=== PATIENT | female | born 1960 | race Caucasian/White ===

== ENCOUNTER → 2017-04-19 | Outpatient (CLI) | payer OTHER ==
[~2017-04-19] MED LIST: ADVIN50/60 INH; ALBU1AER9 INH; ALPR-385 PO; AMPH15CA7 PO; ANSHCCR PR; BUPR200T2 PO; IMD2 PO; LEVO1INJ13 PO; MONT1TAB3 PO; NSNN50 NAE; OXGN; OXYC-57 PO; PROP120C PO; ROPI1TAB PO; TEMA30CA4 PO
--- NOTE | 2017-04-19 11:03 | DIAGNOSTIC IMAGING REPORT ---
RIGHT SHOULDER MIN 2 VIEWS CLINICAL HISTORY: RIGHT SHOULDER PAIN Right pain COMPARISON: None. DISCUSSION: Considerable degenerative changes of glenohumeral joint. Subchondral cyst formation throughout. Moderate degenerative change acromioclavicular joint. Mild superior-lateral osteophytic formation from the acromion. There is no evidence for soft tissue swelling. IMPRESSION: Moderate to significant degenerative change. No acute bony abnormality. Electronically signed by: Que Taylor M.D. 04/19/2017 11:01 AM Dictated Date/Time: 04/19/2017 11:01 AM
== END | disposition home or self-care (01) ==
LOC: C.RDSM 13:25
PROVIDERS: ATTEND Family Medicine
DX: M25.511 Pain in right shoulder (principal); M19.011 Primary osteoarthritis, right shoulder

== ENCOUNTER 2022-03-24 17:15 | Inpatient (IN) ==
[2022-03-24] MEDS ORDERED: dexAMETHasone**PF** 10 MG/ML VIAL IV ONE (18:31)
[2022-03-24] MEDS ORDERED: MoRPHine SULFATE 4 MG/ML 1 ML CARP\\VIAL IV STA (18:31)
[2022-03-24] MEDS ORDERED: ONDANSETRON INJ 2 MG/ML 2 ML VIAL IV STA (18:33)
--- NOTE | 2022-03-24 18:40 | Emergency Department Note ---
History of Present Illness General Chief complaint: Back Injury/Pain Stated complaint: BACK PAIN Time Seen by Provider: 03/24/22 17:45 History of Present Illness Maximum Pain Intensity: 0 61-year-old female, history of chronic lower back pain with usual right lower extremity radiculitis, who presents to the emergency department with complaint of uncontrollable lower back pain and pain radiating down the left lower extremity. The patient reports that she injured her left knee several months ago, and did have some flare of her back pain at that time. Her knee has since improved, but still has back pain. The patient reports progressively worsening pain over the past several days, and now is finding difficulty with any attempted ambulation. She denies any recent injuries. She denies any other symptoms, including recent infection, fevers, bladder/bowel incontinence, saddle anesthesias or foot drop. The patient has had prior history of epidural steroid injections without relief. She does not recall when her last imaging was of her back. The patient was brought to the emergency department by [facility] ambulance, and was administered IV fentanyl and Toradol in route. The patient is unable to rate her pain on examination. Home Medications Medication Instructions Recorded Confirmed Type Albuterol (Proair Hfa) 2 puff INHALATION Q4 #0 03/27/10 History OXYCODONE/ACETAMINOPHEN 5MG/325MG 1 - 2 tabs PO Q4-6HR PRN #20 03/27/10 Rx (PERCOCET 5MG/325MG) ALPRAZOLAM (XANAX) 1 tab PO QID PRN #0 07/15/15 History AMPHETAMINE-DEXTROAMPHETAMINE 15MG 1 cap PO DAILY #0 07/15/15 History (ADDERALL XR 15MG) BUPROPION HCL (WELLBUTRIN SR) 1 tab PO BID #0 07/15/15 History FLUTICASONE PROP/SALMETEROL 1 puff INHALATION BID #0 07/15/15 History (Advair Diskus 500/50 60 Dose) HOME O2 THERAPY (Oxygen) 2 liters HS #0 07/15/15 History HYDROCORTISONE (PROCTOSOL HC) 1 applic OR 2-4 TIMES A DAY PRN #0 07/15/15 History LEVOTHYROXINE SODIUM 100 mcg PO DAILY #0 07/15/15 History Loperamide HCl 2 tab PO UD #0 07/15/15 History MOMETASONE FUROATE (NASAL) 2 spry VANDANA DAILY #0 07/15/15 History (NASONEX) MONTELUKAST SODIUM (SINGULAIR) 1 tab PO DAILY #0 07/15/15 History PROPRANOLOL HCL (PROPRANOLOL HCL 1 cap PO BID #0 07/15/15 History ER) ROPINIROLE HYDROCHLORIDE (REQUIP) 1 tab PO HS #0 07/15/15 History TEMAZEPAM (RESTORIL) 1 cap PO HS PRN #0 cap 07/15/15 History Allergies Allergy/AdvReac Type Severity Reaction Status Date / Time amoxicillin Allergy throat Unverified 03/27/10 13:25 swells NSAIDS (Non-Steroidal Allergy vomiting Unverified 03/27/10 13:25 Anti-Inflamma Past Med/Surg History Medical History ADHD Anxiety Depression Hx of migraines Hypothyroidism (acquired) Restless leg syndrome Seasonal allergies Venous insufficiency Surgical History History of carpal tunnel surgery of left wrist Social History (Updated 03/24/22 @ 18:40 by Rolando Waterman) Smoking Status: Never smoker marital status: Single current occupational status: disabled Feels Safe at Home: Yes Review of Systems 10 system review was performed and was negative except for pertinent positives and negatives as indicated in history of present illness Physical Exam Vital Signs Vital Signs - 24 hr 03/24/22 17:20 Temperature 36.6 C Temperature Source Oral Pulse Rate 59 L Respiratory Rate 16 Respiratory Effort / Characteristics Non-Labored Respiratory Depth Normal Blood Pressure 119/63 Blood Pressure Mean 81 Pulse Oximetry 97 Oxygen Delivery Method Room Air Sepsis Recent Fever Within 48 Hours No Sepsis New/Unexplained Change in Mental Status No Sepsis Action Taken by Nursing No Action Required CONSTITUTIONAL: Morbidly obese female in moderate distress and discomfort. HEENT: Normocephalic, atraumatic. No scleral icterus or conjunctival injection/pallor. RESPIRATORY: Clear to auscultation bilaterally with no wheezing, crackles, r honchi or stridor. CARDIOVASCULAR: Regular rate and rhythm with no murmurs, rubs or gallops. GASTROINTESTINAL: Bowel sounds present in all quadrants. Abdomen is protuberant and soft without tenderness to palpation. MUSCULOSKELETAL: Examination shows generalized tenderness to palpation through the lower back region. Negative logroll of the left hip. Patient has positive straight leg raise. Patient has poor hip flexion strength, with left lower extremity plantarflexion strength of 3 out of 5. This is slightly weaker than the right side which is rated at 4 out of 5. Pedal pulses are intact. No dependent edema. INTEGUMENTARY: No rash or other significant dermatologic conditions noted. HEMATOLOGIC: No ecchymosis or petechiae. PSYCHIATRIC: Positive affect. NEUROLOGIC: Lower extremities are sensory intact with deep tendon reflexes 2+ and symmetric bilaterally. Course Course Patient history and physical exam were performed. Nurses notes were reviewed. Vital signs were reviewed upon triage, and were normal. After further discussing the patient's current condition, she does admit that she does not feel safe at home with her pain and weakness. At this point, I did recommend administering additional IV morphine and Zofran, and checking some basic labs. I also recommended MRI of the lumbar spine, especially given her history of chronic back pain. IV access was established, and labs were drawn. The patient was hydrated with a 500 cc bolus of normal saline, and administered IV morphine and Zofran. Review of labs shows a mild elevation of sed rate and CRP. CBC and CMP are otherwise grossly normal. Noncontrast MRI of the lumbar spine shows severe central canal stenosis at L3-4 with a central/left paracentral disc extrusion, and severe narrowing of the lateral recesses. Findings were discussed with the patient. I did recommend hospitalist evaluation until she can be reevaluated by spine surgery; the patient was in agreement. The [facility] who came to the emergency department for further evaluation. Please see his dictation for further treatment and final disposition. Administered Medications Discontinued Medications Dexamethasone Sodium Phosphate (DexamethasonePf 10 Mg/Ml Vial) 10 mg IV NOW ONE Stop: 03/24/22 18:32 Last Admin: 03/24/22 19:05 Dose: 10 mg Documented by: [id number] Sodium Chloride (Nss) 500 mls @ 999 mls/hr IV .Q31M ONE Stop: 03/24/22 19:35 Last Infusion: 03/24/22 19:38 Dose: 0 mls/hr Documented by: [id number] Admin: 03/24/22 19:07 Dose: 999 mls/hr Documented by: [id number] Morphine Sulfate (Morphine Sulfate 4 Mg/Ml 1 Ml Carp\Vial) 4 mg IV NOW STA Stop: 03/24/22 18:32 Last Admin: 03/24/22 18:58 Dose: 4 mg Documented by: [id number] Ondansetron HCl (Ondansetron Inj 2 Mg/Ml 2 Ml Vial) 4 mg IV NOW STA Stop: 03/24/22 18:34 Last Admin: 03/24/22 18:58 Dose: 4 mg Documented by: [id number] Medical Decision Making Medical Records Attestation: I reviewed the patient's medical records. Home Medications Current Medication List: was personally reviewed by me Laboratory Data Attestation: I reviewed the patient's lab results. Result diagrams: 03/24/22 18:56 03/24/22 18:56 Lab Results 03/24/22 03/24/22 03/24/22 Range/Units 18:56 18:56 18:56 WBC 8.08 (4.8-10.8) K/uL RBC 4.47 (4.2-5.4) M/uL Hgb 13.3 (12.0-16.0) g/dL Hct 40.2 (37-47) % MCV 89.9 (80-100) fL MCH 29.8 (25-34) pg MCHC 33.1 (32-36) g/dL RDW Std Deviation 43.1 (36.4-46.3) fL RDW Coeff of Alexy 13.1 (11.5-14.5) % Plt Count 184 (130-400) K/uL MPV 10.6 H (7.4-10.4) fL Immature Gran % (Auto) 0.1 % Neut % (Auto) 80.8 % Lymph % (Auto) 13.5 % [place] % (Auto) 4.8 % Eos % (Auto) 0.7 % Baso % (Auto) 0.1 % Neut # (Auto) 6.52 H (1.4-6.5) K/uL Lymph # (Auto) 1.09 L (1.2-3.4) K/uL [place] # (Auto) 0.39 (0.11-0.59) K/uL Eos # (Auto) 0.06 (0-0.5) K/uL Baso # (Auto) 0.01 (0-0.2) K/uL Immature Gran # (Auto) 0.01 (0.00-0.02) K/uL ESR 53 H (0-30) mm/hr Sodium 141 (136-145) mmol/L Potassium 3.8 (3.5-5.1) mmol/L Chloride 108 H (98-107) mmol/L Carbon Dioxide 27 (21-32) mmol/L Anion Gap 6 (3-11) BUN 20 (6-23) mg/dl Creatinine 0.77 (0.6-1.2) mg/dl Est Cr Clr Drug Dosing 115.6 ml/min Est GFR ( Amer) 97.3 ml/min Est GFR (Non-Af Amer) 83.9 ml/min BUN/Creatinine Ratio 26.0 H (10-20) Glucose 105 H (70-99(Fasting)) mg/dl Calcium 9.2 (8.5-10.1) mg/dl Total Bilirubin 0.6 (0.2-1.0) mg/dl AST 18 (13-39) U/L ALT 12 (7-52) U/L Alkaline Phosphatase 70 (34-104) U/L C-Reactive Protein 2.54 H (0-0.5) mg/dl Total Protein 7.2 (6.0-8.3) gm/dl Albumin 4.3 (3.4-5.0) gm/dl Globulin 2.9 (2.5-4.0) gm/dl Albumin/Globulin Ratio 1.5 (0.9-2) Lipase 20 (11-82) U/L Imaging Data Attestation: I personally reviewed and interpreted this imaging study as follows: My Impression: My interpretation of a noncontrast MRI of the lumbar spine shows severe central canal stenosis at L3-4 with a central/left paracentral disc extrusion, and severe narrowing of the lateral recesses. Radiologist report was also reviewed. Radiologist's Impression: Lumbar Spine MRI 03/24/22 18:32 MR lumbar spine wo con CLINICAL HISTORY: 61 years-old Female with Left lumbar radiculitis, inability to ambulate. Acute on chronic low back pain with left lower extremity radicular symptoms COMPARISON: None. TECHNIQUE: Multiplanar, multi sequence MRI of the lumbar spine was performed without intravenous contrast. FINDINGS: No acute intra-abdominal paraspinal abnormality identified. Atrophy of the paraspinal musculature. Anteflexed uterus. Conus medullaris terminates at the T12-L1 level. Signal within the imaged thoracic spinal cord and cauda equina is unremarkable. No acute fracture or subluxation. Mild Modic type I endplate degeneration at L1 and L4. Multilevel intervertebral disc space narrowing with spondylitic spurring and facet arthrosis as detailed below. No destructive bone lesions or endplate erosions. T12-L1: Mild intervertebral disc space narrowing with moderate anterior bridging osteophytosis. Ligamentum flavum thickening with moderate facet arthrosis. No central canal or neural foraminal stenosis. L1-L2: Spondylitic spurring. Ligamentum flavum thickening with moderate facet arthrosis. Tiny posterior annular disc bulge flattens the ventral thecal sac.. There is no significant central canal stenosis. There is mild bilateral neural foraminal narrowing. L2-L3: Mild intervertebral disc space narrowing and spondylitic spurring. Ligamentum flavum thickening with severe facet arthrosis and trace left facet effusion. Tiny circumferential annular disc bulge. There is mild to moderate central canal stenosis, AP dimension of the thecal sac measuring 8 mm. Mild right with [id number] left neural foraminal narrowing. L3-L4: Mild posterior intervertebral disc space narrowing with spondylitic spurring and circumferential annular disc bulge. Ligamentum flavum thickening with severe facet arthrosis. There is a posterior annular fissure with a central/left paracentral disc extrusion extending a few millimeters inferior to the superior L4 endplate. This measures up to 6 mm in transverse dimension. There is severe central canal stenosis with effacement of the thecal sac at this level. Severe narrowing of the left greater than right lateral recesses with moderate right and [id number]-fi-[id number] left neural foraminal narrowing. L4-L5: Severe decubitus space narrowing with Modic type II endplate degene ration. Spondylitic spurring with small posterior disc osteophyte complex. Ligamentum flavum thickening with severe facet arthrosis. No significant central canal stenosis. Moderate left with moderate to severe right neural foraminal narrowing. L5-S1: Moderate facet arthrosis. No central canal or neural foraminal narrowing. IMPRESSION: 1. No acute fracture or subluxation. 2. Central/left paracentral disc extrusion at L3-L4 causes severe central canal stenosis with severe narrowing of the lateral recesses, moderate right with [id number] left neural foraminal narrowing. 3. Additional discogenic degeneration with spondylitic spurring, facet arthrosis and ligamentum flavum thickening as above. ACT 112: Negative or not required by law. The above report was generated using voice recognition software. It may contain grammatical, syntax or spelling errors. Electronically signed by: Dain Rosenthal M.D. 03/24/2022 9:04 PM Blood Pressure Blood Pressure Findings: Normal blood pressure MDM Narrative At this point, I do not feel that the patient is safe to go home as she is high risk for falls. The patient also admits that her back pain has been affecting her activities of daily living. MRI does show significant degenerative changes with severe central canal stenosis, with significant left-sided changes at L3-4, and right-sided changes at L4-5. I do feel that further spine surgeon consu ltation is warranted, however our spine surgeon is not on-call this weekend. I do feel that hospitalist evaluation, possible PT/OT consultation is warranted until seen by spine surgery. Impression & Plan Intervertebral disc extrusion, Unable to ambulate, Chronic radicular pain of lower back Discharge Plan Visit Data Chief Complaint: Back Injury/Pain Stated Complaint: BACK PAIN ED Provider: Praful Hinkle ED Midlevel Provider: Rolando Waterman Discharge Problem: Intervertebral disc extrusion, Unable to ambulate, Chronic radicular pain of lower back Forms Stand Alone Forms: [facility] Prescriptions Prescriptions: No Action Albuterol (Proair Hfa) AEROSOL,SOLN 2 puff Inhalation Q4 Qty: 0 RF: 0 OXYCODONE/ACETAMINOPHEN 5MG/325MG (PERCOCET 5MG/325MG) tablet 1 - 2 tabs PO Q4-6HR PRN Qty: 20 RF: 0 ALPRAZOLAM (XANAX) 1 MG tablet 1 tab PO QID PRN (Reason: PRN) Qty: 0 RF: 0 AMPHETAMINE-DEXTROAMPHETAMINE 15MG (ADDERALL XR 15MG) 1 CAP capsule 1 cap PO DAILY Qty: 0 RF: 0 BUPROPION HCL (WELLBUTRIN SR) 200 MG tablet 1 tab PO BID Qty: 0 RF: 0 FLUTICASONE PROP/SALMETEROL (Advair Diskus 500/50 60 Dose) 1 EA AEROSOL,POWDR 1 puff Inhalation BID Qty: 0 RF: 0 HOME O2 THERAPY (Oxygen) gas 2 liters HS Qty: 0 RF: 0 HYDROCORTISONE (PROCTOSOL HC) 90 APPLN/30 GM cream 1 applic OR 2-4 TIMES A DAY PRN (Reason: PRN) Qty: 0 RF: 0 LEVOTHYROXINE SODIUM 100 MCG INJECTION 100 mcg PO DAILY Qty: 0 RF: 0 Loperamide HCl 2 MG capsule 2 tab PO UD Qty: 0 RF: 0 MOMETASONE FUROATE (NASAL) (NASONEX) 50 MCG/ SPR 2 spry VANDANA DAILY Qty: 0 RF: 0 MONTELUKAST SODIUM (SINGULAIR) 10 MG tablet 1 tab PO DAILY Qty: 0 RF: 0 PROPRANOLOL HCL (PROPRANOLOL HCL ER) 120 MG capsule 1 cap PO BID Qty: 0 RF: 0 ROPINIROLE HYDROCHLORIDE (REQUIP) 1 MG tablet 1 tab PO HS Qty: 0 RF: 0 TEMAZEPAM (RESTORIL) 30 MG capsule 1 cap PO HS PRN (Reason: Insomnia) Qty: 0 RF: 0 Referrals Referrals: Uma Corral DO [Primary Care Provider] -
[2022-03-24] MEDS ORDERED: SODIUM CHLORIDE 0.9% 500 ML IV ONE (19:05)
[2022-03-24 19:13] LABS: Basophils # (auto) 0.01 K/uL (0-0.2); Basophils % (auto) 0.1 %; Eosinophils # (auto) 0.06 K/uL (0-0.5); Eosinophils % (auto) 0.7 %; Hematocrit (blood only) 40.2 % (37-47); Hemoglobin 13.3 g/dL (12.0-16.0); Immature Granulocytes # (auto) 0.01 K/uL (0.00-0.02); Immature Granulocytes % (auto) 0.1 %; Lymphocytes # (auto) 1.09 K/uL (1.2-3.4); Lymphocytes % (auto) 13.5 %; Mean Corpuscular Hemoglobin 29.8 pg (25-34); Mean Corpuscular Hgb Conc 33.1 g/dL (32-36); Mean Corpuscular Volume 89.9 fL (80-100); Mean Platelet Volume 10.6 fL (7.4-10.4); Monocytes # (auto) 0.39 K/uL (0.11-0.59); Monocytes % (auto) 4.8 %; Neutrophils # (auto) 6.52 K/uL (1.4-6.5); Neutrophils % (auto) 80.8 %; Platelet Count 184 K/uL (130-400); RDW Coefficient of Variation 13.1 % (11.5-14.5); RDW Standard Deviation 43.1 fL (36.4-46.3); Red Blood Count 4.47 M/uL (4.2-5.4); White Blood Count 8.08 K/uL (4.8-10.8)
[2022-03-24 19:43] LABS: Albumin Globulin Ratio 1.5 (0.9-2); Albumin Level 4.3 gm/dl (3.4-5.0); Bilirubin,Total 0.6 mg/dl (0.2-1.0); C Reactive Protein 2.54 mg/dl (0-0.5); Calcium 9.2 mg/dl (8.5-10.1); Creatinine Clr Calc Pharmacy 115.6 ml/min; Est GFR (African American) 97.3 ml/min; Est GFR (Non-African American) 83.9 ml/min; Globulin 2.9 gm/dl (2.5-4.0); Potassium 3.8 mmol/L (3.5-5.1); Total Protein 7.2 gm/dl (6.0-8.3)
--- NOTE | 2022-03-24 21:06 | Magnetic Resonance Report ---
MR lumbar spine wo con CLINICAL HISTORY: 61 years-old Female with Left lumbar radiculitis, inability to ambulate. Acute on chronic low back pain with left lower extremity radicular symptoms COMPARISON: None. TECHNIQUE: Multiplanar, multi sequence MRI of the lumbar spine was performed without intravenous cont rast. FINDINGS: No acute intra-abdominal paraspinal abnormality identified. Atrophy of the paraspinal musculature. An teflexed uterus. Conus medullaris terminates at the T12-L1 level. Signal within the imaged thoracic s susanne cord and cauda equina is unremarkable. No acute fracture or subluxation. Mild Modic type I endp late degeneration at L1 and L4. Multilevel intervertebral disc space narrowing with spondylitic spurr ing and facet arthrosis as detailed below. No destructive bone lesions or endplate erosions. T12-L1: Mild intervertebral disc space narrowing with moderate anterior bridging osteophytosis. Liga mentum flavum thickening with moderate facet arthrosis. No central canal or neural foraminal stenosis . L1-L2: Spondylitic spurring. Ligamentum flavum thickening with moderate facet arthrosis. Tiny machine operator ior annular disc bulge flattens the ventral thecal sac.. There is no significant central canal stenos is. There is mild bilateral neural foraminal narrowing. L2-L3: Mild intervertebral disc space narrowing and spondylitic spurring. Ligamentum flavum thickeni ng with severe facet arthrosis and trace left facet effusion. Tiny circumferential annular disc bulge . There is mild to moderate central canal stenosis, AP dimension of the thecal sac measuring 8 mm. Mi ld right with [id number] left neural foraminal narrowing. L3-L4: Mild posterior intervertebral disc space narrowing with spondylitic spurring and circumferent ial annular disc bulge. Ligamentum flavum thickening with severe facet arthrosis. There is a posterio r annular fissure with a central/left paracentral disc extrusion extending a few millimeters inferior to the superior L4 endplate. This measures up to 6 mm in transverse dimension. There is severe centr al canal stenosis with effacement of the thecal sac at this level. Severe narrowing of the left great er than right lateral recesses with moderate right and iehx-do-[id number] left neural foraminal narrowi ng. L4-L5: Severe decubitus space narrowing with Modic type II endplate degeneration. Spondylitic spurri ng with small posterior disc osteophyte complex. Ligamentum flavum thickening with severe facet arthr osis. No significant central canal stenosis. Moderate left with moderate to severe right neural nikhil inal narrowing. L5-S1: Moderate facet arthrosis. No central canal or neural foraminal narrowing. IMPRESSION: 1. No acute fracture or subluxation. 2. Central/left paracentral disc extrusion at L3-L4 causes severe central canal stenosis with severe narrowing of the lateral recesses, moderate right with [id number] left neural foraminal narrowi ng. 3. Additional discogenic degeneration with spondylitic spurring, facet arthrosis and ligamentum flavu m thickening as above. ACT 112: Negative or not required by law. The above report was generated using voice recognition software. It may contain grammatical, syntax o r spelling errors. Electronically signed by: Dain Rosenthal M.D. 03/24/2022 9:04 PM
[2022-03-25] MEDS ORDERED: HYDROmorphone INJ 0.5 MG/0.5 ML SYR IV PRN (00:35)
[2022-03-25] MEDS ORDERED: POLYETHYLENE (MIRALAX) 17 GM PACK PO PRN (00:35)
[2022-03-25] MEDS ORDERED: LEVALBUTEROL TARTRATE 15 GM HFA.AER.AD INH PRN (00:35)
[2022-03-25] MEDS ORDERED: ACETAMINOPHEN 325 MG TAB PO PRN (00:35)
[2022-03-25] MEDS ORDERED: rOPINIRole HCL 1 MG TABLET PO PRN (00:41)
[2022-03-25] MEDS: ENOXAPARIN INJ 40 MG/0.4 ML SYR SQ SCH ×2 (01:45→13:32)
--- NOTE | 2022-03-25 01:59 | History and Physical Report ---
CHIEF COMPLAINT: Severe back pain and ambulatory dysfunction. HISTORY OF PRESENT ILLNESS: A 61-year-old female with past medical history significant for hypothyroidism, prediabetes, asthma, morbid obesity, obstructive sleep apnea, vitamin D deficiency, psoriasiform dermatitis, restless legs syndrome, history of periodic headache syndrome, depression, generalized anxiety disorder, presents with severe back pain ongoing for 2 weeks, but got worse lately, having difficulty ambulating, that is the reason she came to the ER. Says she was having the pain in the back and radiating to both the legs. Before pain was more in the right leg, but now pain is also more in the left leg. No incontinence of bowel and bladder. States she feels some weakness in the legs. No chest pain, no shortness of breath, no cough, no fever, no chills, no nausea, no vomiting, no abdominal pain. Appetite is good. No difficulty swallowing. No headache. Has some headache, but getting better. No blurred visions, no earache, no runny nose, no sore throat. Resting comfortably, hemodynamically stable. ALLERGIES: AMOXICILLIN, NSAIDs, BENADRYL. PAST MEDICAL HISTORY: As mentioned above. PAST SURGICAL HISTORY: Carpal tunnel surgery. MEDICATIONS: The patient is on dextroamphetamine 10 mg p.o. daily, doxepin 10 mg p.o. at bedtime, levothyroxine 100 mcg p.o. daily, Vyvanse 70 mg p.o. daily, montelukast 10 mg p.o. at bedtime, propranolol 120 mg p.o. b.i.d., ropinirole 1 mg p.o. at bedtime. FAMILY HISTORY: Significant for brother has allergies, hypertension, obesity. Sister has obesity, ovarian cancer, diabetes. Mother has ovarian cancer. Father has hypertension. SOCIAL HISTORY: Single, former smoker, quit in 1989. No alcohol use. No drug use. REVIEW OF SYSTEMS: As per HPI. Rest of review of systems is negative. PHYSICAL EXAMINATION: GENERAL: The patient is morbidly obese, not in acute distress. VITAL SIGNS: Temperature 36.6, pulse 59, respiratory rate 16, blood pressure 119/63, oxygen 97% on room air. HEENT: Pupils equal, round and reactive to light. Oral mucosa moist. NECK: No JVD or neck mass. CARDIOVASCULAR: S1 and S2 heard. Regular rate and rhythm. No murmur, no gallop. RESPIRATORY SYSTEM: Normal AP diameter. No accessory muscle use. No wheezing, no crackles. ABDOMEN: Soft, bowel sounds present, nontender, no distention. CENTRAL NERVOUS SYSTEM: Cranial nerves II-XII grossly intact, nonfocal. EXTREMITIES: No edema, no erythema. MUSCULOSKELETAL: Bilateral straight leg test is negative. LABORATORY DATA: WBC of 8.08, hemoglobin 13.3, hematocrit 40.2, platelets 184. ESR 53. Sodium 141, potassium 3.8, chloride 108, bicarbonate 27, BUN 20, creatinine 0.7, serum glucose 105, calcium 9.2. Total bilirubin 0.6, AST 18, ALT 12, alkaline phosphatase 70. C-reactive protein 2.5, serum lipase 20. SARS-CoV-2 rapid test negative. IMAGING DATA: Lumbar spine MRI without contrast, no acute fracture or subluxation. Central left paracentral disk extrusion at L3-L4 cause severe central canal stenosis with severe narrowing of the lateral recess, moderate right with ftez-ae-qrhoalhm left neural foraminal narrowing. ASSESSMENT AND PLAN: This is a 61-year-old female who presents with severe back pain and ambulatory dysfunction. 1. Severe back pain and ambulatory dysfunction. MRI spine shows left paracentral disk extrusion at L3-L4 causing severe central canal stenosis with severe narrowing of the lateral recesses. Pain control. Received Decadron in ER.PT, OT. We will consult orthopedics. Observe in the medical floor. 2. Morbid obesity: Needs counseling. Sleep apnea: On CPAP at bedtime. 3. Hypothyroidism, Synthroid. 4. Restless legs syndrome, on Requip. 5. Prediabetes. We will follow the HbA1c levels, diabetic diet. 6. Deep venous thrombosis prophylaxis: Lovenox. DISPOSITION: Observation in medical floor. PT/OT prior to discharge. Social service to help with discharge planning. Level 1 full code. Job ID: [id number] [facility]
[2022-03-25] MEDS: PROPRANOLOL HCL 60 MG LA CAP PO SCH ×3 (02:17→21:18)
[2022-03-25] MEDS: LEVOTHYROXINE SODIUM 100 MCG TABLET PO SCH (05:44)
[2022-03-25] MEDS: oxyCODONE HCL IR 5 MG TAB (IMMEDIATE RELEASE) PO PRN ×2 (06:18→18:19)
[2022-03-25 07:07] LABS: Hematocrit (blood only) 38.5 % (37-47); Hemoglobin 12.8 g/dL (12.0-16.0); Immature Granulocytes # (auto) 0.02 K/uL (0.00-0.02); Immature Granulocytes % (auto) 0.4 %; Lymphocytes # (auto) 0.66 K/uL (1.2-3.4); Lymphocytes % (auto) 12.6 %; Mean Corpuscular Hemoglobin 29.2 pg (25-34); Mean Corpuscular Hgb Conc 33.2 g/dL (32-36); Mean Corpuscular Volume 87.7 fL (80-100); Mean Platelet Volume 11.2 fL (7.4-10.4); Monocytes # (auto) 0.03 K/uL (0.11-0.59); Monocytes % (auto) 0.6 %; Neutrophils # (auto) 4.54 K/uL (1.4-6.5); Neutrophils % (auto) 86.4 %; Nucleated RBC # (auto) 0.04 K/uL (0-0); Nucleated RBC % (auto) 0.9 %; Platelet Count 190 K/uL (130-400); RDW Coefficient of Variation 13.2 % (11.5-14.5); RDW Standard Deviation 42.4 fL (36.4-46.3); Red Blood Count 4.39 M/uL (4.2-5.4); White Blood Count 5.25 K/uL (4.8-10.8)
[2022-03-25 07:11] LABS: BUN Creatinine Ratio 26.3 (10-20); Calcium 8.9 mg/dl (8.5-10.1); Creatinine Clr Calc Pharmacy 113.4 ml/min; Est GFR (African American) 98.8 ml/min; Est GFR (Non-African American) 85.3 ml/min; Magnesium 1.9 mg/dl (1.7-2.4)
[2022-03-25] MEDS: LIDOCAINE 5% 1 PATCH TD SCH (10:06)
--- NOTE | 2022-03-25 12:16 | Hospitalist Progress Note ---
Date of Service March 25, 2022 Assessment & Plan (1) Intervertebral disc extrusion: (2) Intractable back pain: Plan: per Dr. Cunningham's notes with addendum: ASSESSMENT AND PLAN: This is a 61-year-old female who presents with severe back pain and ambulatory dysfunction. 1. Severe back pain and ambulatory dysfunction. MRI spine shows left paracentral disk extrusion at L3-L4 causing severe central canal stenosis with severe narrowing of the lateral recesses. Pain control. Received Decadron in ER.PT, OT. We will consult orthopedics. Observe in the medical floor. -- pain much better today hold off on steroids continue PRN Oxycodone and Dilaudid -- Ortho consulted, Dr. Bedoya will be able to evaluate Tues -- PT/OT eval 2. Morbid obesity: Needs counseling. Sleep apnea: On CPAP at bedtime. 3. Hypothyroidism, Synthroid. 4. Restless legs syndrome, on Requip. 5. Prediabetes. We will follow the HbA1c levels, diabetic diet. 6. Deep venous thrombosis prophylaxis: Lovenox. Admission and Anticipated Discharge Date Admission Date: March 24, 2022 Subjective ff up for back pain, disc herniation, etc seen resting in bed, comfortable states back pain is much better today 0/10 on exam states she is able to ambulate in the bathroom with mild pain no chest pain, dyspnea, palpitations, dizziness no leg pain, paresthesias, numbness no other symptoms Review of Systems Review of Systems: all noted and negative except for above Physical Exam Physical Exam: General- oriented x 3, not in distress, speaks in sentences with no effort or accessory muscle use Head- atraumatic Eyes- PERRL, EOMI, anicteric ENT- oropharynx clear Neck- supple, no JVD, no adenopathy, no thyromegaly; carotids +2/2, no bruits appreciated Lungs- clear to auscultation bilaterally, no rales/wheezes Heart- normal rate, regular rhythm; no murmur, no gallop, no rub appreciated Abdomen- normal bowel sounds, nondistended, soft, nontender, no masses or hepatosplenomegaly Extremities- no pretibial edema, no calf tenderness; peripheral pulses intact Neuro- alert, oriented x 3; CN 2-12 grossly intact; motor 5/5 bilaterally;sensation 100% on all extremities; no other gross focal neurologic deficits Skin- warm & dry Results & Data Results & Data ([facility]) Vital Signs (Past 12 Hours) Vital Signs Temp Pulse Pulse Pulse Resp BP Pulse Ox 03/25/22 07:49 36.7 C 61 18 112/74 96 03/25/22 02:26 65 15 97 03/25/22 01:40 63 100/65 03/25/22 01:01 63 24 96 all noted and reviewed including below
[2022-03-25] MEDS: rOPINIRole HCL 1 MG TABLET PO SCH (18:19)
[2022-03-25] MEDS: MONTELUKAST SODIUM 10 MG TABLET PO SCH (21:18)
[2022-03-25] MEDS: DOXEPIN HCL 10 MG CAPSULE PO SCH (21:19)
[2022-03-26] MEDS: ENOXAPARIN INJ 40 MG/0.4 ML SYR SQ SCH ×2 (01:54→13:18)
[2022-03-26] MEDS: LEVOTHYROXINE SODIUM 100 MCG TABLET PO SCH (06:10)
[2022-03-26 08:44] LABS: Estimated Average Glucose 123 mg/dl; Hemoglobin A1C 5.9 % (4.5-5.6)
[2022-03-26] MEDS: oxyCODONE HCL IR 5 MG TAB (IMMEDIATE RELEASE) PO PRN ×3 (08:44→21:16)
[2022-03-26] MEDS: LIDOCAINE 5% 1 PATCH TD SCH (08:45)
[2022-03-26] MEDS: PROPRANOLOL HCL 60 MG LA CAP PO SCH ×2 (08:48→21:13)
[2022-03-26] MEDS ORDERED: SODIUM CHLORIDE 0.9% 1000ML 1,000 ML IV SCH (11:15)
[2022-03-26] MEDS: PANTOprazole 40 MG TAB PO SCH (11:42)
[2022-03-26] MEDS: methylPREDNISolone 40 MG in SYRINGE 0 ML IV SCH ×2 (11:42→23:45)
--- NOTE | 2022-03-26 17:34 | Hospitalist Progress Note ---
Date of Service March 26, 2022 delayed entry date of service noted above Assessment & Plan (1) Intervertebral disc extrusion: (2) Intractable back pain: Plan: per Dr. Cunningham's notes with addendum: ASSESSMENT AND PLAN: This is a 61-year-old female who presents with severe back pain and ambulatory dysfunction. 1. Severe back pain and ambulatory dysfunction. MRI spine shows left paracentral disk extrusion at L3-L4 causing severe central canal stenosis with severe narrowing of the lateral recesses. Pain control. Received Decadron in ER.PT, OT. We will consult orthopedics. Observe in the medical floor. -- pain recurred start Solumedrol 40mg BID add Protonix continue PRN Oxycodone and Dilaudid -- Ortho consulted, Dr. Bedoya will be able to evaluate Tues -- PT/OT eval 2. Morbid obesity: Needs counseling. Sleep apnea: On CPAP at bedtime. 3. Hypothyroidism, Synthroid. 4. Restless legs syndrome, on Requip. 5. Prediabetes. a1c 5.9 6. Deep venous thrombosis prophylaxis: Lovenox. Admission and Anticipated Discharge Date Admission Date: March 25, 2022 Subjective ff up for disc herniation, back pain, etc seen resting in bed, states back pain is coming back pain 6-7/10 no leg weakness or numbness no chest pain, dyspnea, palpitations, dizziness no other symptoms Review of Systems Review of Systems: all noted and negative except for above Physical Exam Physical Exam: General- oriented x 3, not in distress, speaks in sentences with no effort or accessory muscle use Eyes- anicteric Neck- no JVD Lungs- clear breath sounds bilaterally, no rales/wheezes Heart- normal rate, regular rhythm; no murmurs Abdomen- normal bowel sounds, nondistended, soft, nontender Extremities- no pretibial edema, no calf tenderness Neuro- alert, oriented x 3; no gross focal neurologic deficits Skin- warm & dry Results & Data Results & Data ([facility]) Vital Signs (Past 12 Hours) Vital Signs Temp Pulse Pulse Pulse Resp BP Pulse Ox 03/26/22 15:01 36.9 C 69 18 110/56 L 94 03/26/22 08:49 60 99/57 L 03/26/22 07:30 62 20 98 03/26/22 07:26 36.5 C 58 L 20 98/55 L 98 all noted and reviewed including below
[2022-03-26] MEDS: rOPINIRole HCL 1 MG TABLET PO SCH (17:49)
[2022-03-26] MEDS: DOXEPIN HCL 10 MG CAPSULE PO SCH (21:17)
[2022-03-26] MEDS: MONTELUKAST SODIUM 10 MG TABLET PO SCH (21:17)
[2022-03-27] MEDS: ENOXAPARIN INJ 40 MG/0.4 ML SYR SQ SCH ×2 (00:29→13:30)
[2022-03-27] MEDS: LEVOTHYROXINE SODIUM 100 MCG TABLET PO SCH (06:11)
[2022-03-27] MEDS: PROPRANOLOL HCL 60 MG LA CAP PO SCH ×2 (08:54→15:31)
[2022-03-27] MEDS: PANTOprazole 40 MG TAB PO SCH ×2 (08:55→10:31)
[2022-03-27] MEDS: LIDOCAINE 5% 1 PATCH TD SCH (08:55)
[2022-03-27] MEDS: oxyCODONE HCL IR 5 MG TAB (IMMEDIATE RELEASE) PO PRN ×2 (08:55→15:31)
[2022-03-27] MEDS: methylPREDNISolone 40 MG in SYRINGE 0 ML IV SCH (11:12)
--- NOTE | 2022-03-27 12:34 | Orthopedic Consultation ---
Date of Consultation March 27, 2022 Assessment & Plan (1) Intervertebral disc extrusion: MRI lumbar spine does demonstrate evidence of severe spinal stenosis marked facet hypertrophy and disc herniation creating neural compression at L3- L4. There is evidence of facet hypertrophy and beginnings of stenosis L2-L3. Fortunately patient is improving with some rest and medications. Ultimately any surgical invention would be quite extensive in nature requiring at minimum a decompression and most likely fusion L3-L4. Clearly with her current health status and body weight this would be undesirable. Encouraged her to continue with physical therapy and hopefully we can avoid any surgery. She is comfortable this plan. History of Present Illness Reason for Consultation: Severe spinal stenosis Attending Physician: Britton Gauthier MD History of Present Illness This is a very pleasant 7-year-old female who presents with marked decline in status. She is complaining of back and bilateral leg pain. It markedly limits her ability to stand and ambulate. This morning she has just completed a course of physical therapy and states that she was much more comfortable. She was able to ambulate about the halls with a walker. She emphasizes she is not interested in surgical intervention. She states she is currently comfortable while lying in bed. Allergies Allergy/AdvReac Type Severity Reaction Status Date / Time amoxicillin Allergy throat Unverified 03/24/22 21:54 swells NSAIDS (Non-Steroidal Allergy vomiting Unverified 03/24/22 21:54 Anti-Inflamma diphenhydramine AdvReac Severe hyperactivi Verified 03/24/22 21:54 [From Irish] ty Home Medications Medication Instructions Recorded Confirmed Type dextroamphetamine sulfate 10 mg 10 mg PO .EVERY AFTERNOON 03/24/22 03/24/22 History tablet doxepin 10 mg capsule 10 mg PO HS 03/24/22 03/24/22 History levothyroxine 100 mcg tablet 100 mcg PO DAILYBB 03/24/22 03/24/22 History lisdexamfetamine 70 mg capsule 70 mg PO QAM 03/24/22 03/24/22 History (Vyvanse) montelukast 10 mg tablet 10 mg PO HS 03/24/22 03/24/22 History propranolol 120 mg capsule,24 120 mg PO AMPM 03/24/22 03/24/22 History hr,extended release ropinirole 0.5 mg tablet 1 mg PO .6 PM NIGHTLY 03/24/22 03/24/22 History Patient History Medical History ADHD Anxiety Depression Hx of migraines Hypothyroidism (acquired) Restless leg syndrome Seasonal allergies Venous insufficiency Surgical History History of carpal tunnel surgery of left wrist Social History (Updated 03/24/22 @ 18:40 by Rolando Waterman) Smoking Status: Never smoker Hx Alcohol Use: No Hx Substance Use: No Preferred Language: Korean Communication Ability: Effective Experimental Welder Required: No marital status: Single Current Living Situation: Alone current occupational status: disabled Feels Safe at Home: Yes Safety Concerns: Feels Safe At This Time Assistive Devices: None Physical Exam Physical Exam: On exam she does appear comfortable. She is grossly neurologically intact. Results & Data ([facility]) Vital Signs (Past 12 Hours) Vital Signs Temp Pulse Pulse Resp BP Pulse Ox 03/27/22 07:42 36.4 C L 55 L 20 113/59 L 97 03/27/22 03:10 60 15 96
--- NOTE | 2022-03-27 16:50 | Hospitalist Progress Note ---
Date of Service March 27, 2022 Assessment & Plan (1) Intervertebral disc extrusion: (2) Intractable back pain: Plan: per Dr. Cunningham's notes with addendum: ASSESSMENT AND PLAN: This is a 61-year-old female who presents with severe back pain and ambulatory dysfunction. 1. Severe back pain and ambulatory dysfunction. MRI spine shows left paracentral disk extrusion at L3-L4 causing severe central canal stenosis with severe narrowing of the lateral recesses. Pain control. Received Decadron in ER.PT, OT. We will consult orthopedics. Observe in the medical floor. -- pain still 6/10 continue Solumedrol 40mg BID, taper in 1-2 days continue Protonix would like to try Tramadol continue PRN Oxycodone and Dilaudid -- Ortho consulted, Dr. Bedoya - does not recommend surgery -- PT/OT eval 2. Morbid obesity: Needs counseling. Sleep apnea: On CPAP at bedtime. 3. Hypothyroidism, Synthroid. 4. Restless legs syndrome, on Requip. 5. Prediabetes. a1c 5.9 6. Deep venous thrombosis prophylaxis: Lovenox. plan of care discussed with patient in detail and at length all questions answered she is understanding, agreeable, comfortable with the plan of care Admission and Anticipated Discharge Date Admission Date: March 25, 2022 Subjective ff up for back pain, disc herniation, etc seen walking in the hallways states she is able to ambulate better pain level 6, which is still better than at home no chest pain, dyspnea, palpitations, dizziness no other symptoms Review of Systems Review of Systems: all noted and negative except for above Physical Exam Physical Exam: General- oriented x 3, not in distress, speaks in sentences with no effort or accessory muscle use Eyes- anicteric Neck- no JVD Lungs- clear breath sounds bilaterally Heart- normal rate, regular rhythm; no murmurs Abdomen- normal bowel sounds, nondistended, soft, no tenderness Extremities- no pretibial edema, no calf tenderness Neuro- alert, oriented x 3; no gross focal neurologic deficits Skin- warm & dry Results & Data Results & Data ([facility]) Vital Signs (Past 12 Hours) Vital Signs Temp Pulse Resp BP BP Pulse Ox 03/27/22 15:02 37 C 80 20 153/68 H 93 03/27/22 07:42 36.4 C L 55 L 20 113/59 L 97 all noted and reviewed including below
[2022-03-27] MEDS: rOPINIRole HCL 1 MG TABLET PO SCH (18:08)
[2022-03-27] MEDS: MONTELUKAST SODIUM 10 MG TABLET PO SCH (21:05)
[2022-03-27] MEDS: DOXEPIN HCL 10 MG CAPSULE PO SCH (21:05)
[2022-03-28] MEDS: methylPREDNISolone 40 MG in SYRINGE 0 ML IV SCH ×3 (00:05→23:29)
[2022-03-28] MEDS: ENOXAPARIN INJ 40 MG/0.4 ML SYR SQ SCH ×3 (00:05→23:39)
[2022-03-28] MEDS: LEVOTHYROXINE SODIUM 100 MCG TABLET PO SCH (05:42)
[2022-03-28 07:48] LABS: Creatinine Clr Calc Pharmacy 105.1 ml/min; Est GFR (African American) 90.1 ml/min; Est GFR (Non-African American) 77.8 ml/min
[2022-03-28] MEDS: oxyCODONE HCL IR 5 MG TAB (IMMEDIATE RELEASE) PO PRN ×3 (08:43→23:30)
[2022-03-28] MEDS: PROPRANOLOL HCL 60 MG LA CAP PO SCH ×2 (08:43→20:00)
[2022-03-28] MEDS: PANTOprazole 40 MG TAB PO SCH (08:45)
[2022-03-28] MEDS: LIDOCAINE 5% 1 PATCH TD SCH (08:46)
[2022-03-28] MEDS: DOCUSATE SODIUM 100 MG CAP PO SCH ×2 (15:45→19:59)
[2022-03-28] MEDS: POLYETHYLENE (MIRALAX) 17 GM PACK PO SCH (15:45)
[2022-03-28] MEDS: rOPINIRole HCL 1 MG TABLET PO SCH (17:33)
--- NOTE | 2022-03-28 18:24 | Hospitalist Progress Note ---
Date of Service March 28, 2022 Assessment & Plan (1) Intervertebral disc extrusion: (2) Intractable back pain: Plan: Patient is a 61 yr female who presents with severe back pain and ambulatory dysfunction. Severe back pain Ambulatory dysfunction MRI spine shows left paracentral disk extrusion at L3-L4 causing severe central canal stenosis with severe narrowing of the lateral recesses Pain control On Decadron--Taper down as able Appreciate Orthopedics Input Continue PT/OT Constipation Continue bowel regimen Encourage to ambulate Morbid obesity: Needs counseling BMI:52 Sleep apnea On CPAP at bedtime. Hypothyroidism Continue Levothyroxine Restless legs syndrome on Requip Prediabetes Hba1c 5.9 DVT Px: Lovenox SQ Admission and Anticipated Discharge Date Admission Date: March 25, 2022 Subjective Patient is seen and examined at bedside States having lower back pain radiating to right lower leg Also reports constipation Offers no other complaints Review of Systems Review of Systems: All systems reviewed & are unremarkable except as noted in Subjective Physical Exam Physical Exam: Physical Exam: Vitals signs as noted above General Appearance:Morbidly Obese, No apparent distress Head: normocephalic, Atraumatic Eyes: normal inspection, EOMI Neck: supple, Trachea midline Respiratory/Chest: Normal breath sounds, CTA Cardiovascular: S1, S2, No murmur Abdomen/GI:Soft, Non tender, Bowel sounds present Extremities/Musculoskeletal:normal inspection, no edema Neurologic/Psych:AAOX3, grossly no focal neurological deficits Skin: normal color, warm Results & Data Results & Data ([facility]) Vital Signs (Past 12 Hours) Vital Signs Temp Pulse Pulse Resp BP Pulse Ox 03/28/22 16:00 36.8 C 60 18 137/66 94 03/28/22 08:30 67 03/28/22 07:35 36.3 C L 54 L 18 141/66 H 99 Laboratory Results BMP 03/28/22 06:36 Creatinine 0.82
[2022-03-28] MEDS: MONTELUKAST SODIUM 10 MG TABLET PO SCH (19:59)
[2022-03-28] MEDS: DOXEPIN HCL 10 MG CAPSULE PO SCH (22:54)
[2022-03-29] MEDS: LEVOTHYROXINE SODIUM 100 MCG TABLET PO SCH (06:33)
[2022-03-29] MEDS: DOCUSATE SODIUM 100 MG CAP PO SCH (08:37)
[2022-03-29] MEDS: POLYETHYLENE (MIRALAX) 17 GM PACK PO SCH (08:38)
[2022-03-29] MEDS: PANTOprazole 40 MG TAB PO SCH (08:38)
[2022-03-29] MEDS: LIDOCAINE 5% 1 PATCH TD SCH (08:42)
[2022-03-29] MEDS: PROPRANOLOL HCL 60 MG LA CAP PO SCH (08:42)
[2022-03-29] MEDS: oxyCODONE HCL IR 5 MG TAB (IMMEDIATE RELEASE) PO PRN (09:59)
[2022-03-29] MEDS: methylPREDNISolone 40 MG in SYRINGE 0 ML IV SCH (12:04)
[2022-03-29] MEDS: ENOXAPARIN INJ 40 MG/0.4 ML SYR SQ SCH (12:05)
--- NOTE | 2022-03-29 15:49 | Hospitalist Progress Note ---
Date of Service March 29, 2022 Assessment & Plan (1) Intervertebral disc extrusion: (2) Intractable back pain: Plan: Patient is a 61 yr female who presents with severe back pain and ambulatory dysfunction. Severe back pain Ambulatory dysfunction MRI spine shows left paracentral disk extrusion at L3-L4 causing severe central canal stenosis with severe narrowing of the lateral recesses Pain control Received Solumdrol Appreciate Orthopedics Input Continue PT/OT:Recommends to Return Home States she is not interested in Rehab placement Also not interested in any surgical procedure Prefers to have outpatient PT Constipation Continue bowel regimen Encourage to ambulate Had BM today Resolved Morbid obesity: Needs counseling BMI:52 Sleep apnea On CPAP at bedtime. Hypothyroidism Continue Levothyroxine Restless legs syndrome on Requip Prediabetes Hba1c 5.9 DVT Px: Lovenox SQ Admission and Anticipated Discharge Date Admission Date: March 25, 2022 Subjective Patient is seen and examined at bedside Back pain is better Was able to ambulate in hallway No new complaints Denies chest pain, dyspnea, dizziness, nausea, abd pain Offers no other complaints Review of Systems Review of Systems: All systems reviewed & are unremarkable except as noted in Subjective Physical Exam Physical Exam: Physical Exam: Vitals signs as noted above General Appearance:Morbidly Obese, No apparent distress Head: normocephalic, Atraumatic Eyes: normal inspection, EOMI Neck: supple, Trachea midline Respiratory/Chest: Normal breath sounds, CTA Cardiovascular: S1, S2, No murmur Abdomen/GI:Soft, Non tender, Bowel sounds present Extremities/Musculoskeletal:normal inspection, no edema Neurologic/Psych:AAOX3, grossly no focal neurological deficits Skin: normal color, warm Results & Data Results & Data ([facility]) Vital Signs (Past 12 Hours) Vital Signs Temp Pulse Resp BP Pulse Ox 03/29/22 08:04 37.1 C 57 L 18 128/69 96
--- NOTE | 2022-03-29 16:22 | Discharge Summary ---
Date of Service March 29, 2022 Admission HPI Per Admitting Provider CHIEF COMPLAINT: Severe back pain and ambulatory dysfunction. HISTORY OF PRESENT ILLNESS: A 61-year-old female with past medical history significant for hypothyroidism, prediabetes, asthma, morbid obesity, obstructive sleep apnea, vitamin D deficiency, psoriasiform dermatitis, restless legs syndrome, history of periodic headache syndrome, depression, generalized anxiety disorder, presents with severe back pain ongoing for 2 weeks, but got worse lately, having difficulty ambulating, that is the reason she came to the ER. Says she was having the pain in the back and radiating to both the legs. Before pain was more in the right leg, but now pain is also more in the left leg. No incontinence of bowel and bladder. States she feels some weakness in the legs. No chest pain, no shortness of breath, no cough, no fever, no chills, no nausea, no vomiting, no abdominal pain. Appetite is good. No difficulty swallowing. No headache. Has some headache, but getting better. No blurred visions, no earache, no runny nose, no sore throat. Resting comfortably, hemodynamically stable. Admission Exam Per Admitting Provider PHYSICAL EXAMINATION: GENERAL: The patient is morbidly obese, not in acute distress. VITAL SIGNS: Temperature 36.6, pulse 59, respiratory rate 16, blood pressure 119/63, oxygen 97% on room air. HEENT: Pupils equal, round and reactive to light. Oral mucosa moist. NECK: No JVD or neck mass. CARDIOVASCULAR: S1 and S2 heard. Regular rate and rhythm. No murmur, no gallop. RESPIRATORY SYSTEM: Normal AP diameter. No accessory muscle use. No wheezing, no crackles. ABDOMEN: Soft, bowel sounds present, nontender, no distention. CENTRAL NERVOUS SYSTEM: Cranial nerves II-XII grossly intact, nonfocal. EXTREMITIES: No edema, no erythema. MUSCULOSKELETAL: Bilateral straight leg test is negative. Principal Diagnosis Lumbar Stenosis Constipation Discharge Data Allergies Allergy/AdvReac Type Severity Reaction Status Date / Time amoxicillin Allergy throat Unverified 03/24/22 21:54 swells NSAIDS (Non-Steroidal Allergy vomiting Unverified 03/24/22 21:54 Anti-Inflamma diphenhydramine AdvReac Severe hyperactivi Verified 03/24/22 21:54 [From Benadryl] ty Consultations 03/24/22 21:23 ED Decision to Admit Stat 03/27/22 13:24 Consult Orthopedic Surgery Routine Ordered Studies 03/24/22 18:32 MR lumbar spine wo con Stat Hospital Course (1) Intervertebral disc extrusion: (2) Intractable back pain: Patient is a 61 yr female who presents with severe back pain and ambulatory dysfunction. Severe back pain Ambulatory dysfunction MRI spine shows left paracentral disk extrusion at L3-L4 causing severe central canal stenosis with severe narrowing of the lateral recesses Pain control Received Solumdrol Appreciate Orthopedics Input Continue PT/OT:Recommends to Return Home States she is not interested in Rehab placement Also not interested in any surgical procedure Prefers to have outpatient PT Constipation Continue bowel regimen Encourage to ambulate Had BM today Resolved Morbid obesity: Needs counseling BMI:52 Sleep apnea On CPAP at bedtime. Hypothyroidism Continue Levothyroxine Restless legs syndrome on Requip Prediabetes Hba1c 5.9 DVT Px: Lovenox SQ Total Time Total Time Spent Total Time Spent (In Minutes): 40 minutes Discharge Plan Discharge Items Patient Disposition: Home - Home Health Services Reason For Visit: BACK PAIN Discharge Diagnosis: Lumbar Stenosis Constipation Activity: Per Instructions section Exercise/Sports: Gradually increase as tolerated Non-emergency contact: Primary Care Provider Call non-emergency contact if: you have any medication questions, your symptoms worsen, your pain is concerning for you and you have a fever Follow-up/Referrals: Catherine Felder MD [Outside Practitioners] - (Date & Time 04/03/2022 10:20 AM Provider Catherine Felder MD Department General Internal Medicine [facility] Dr Gauthier said you requested a Internal Medicine Physician at [facility]. The address is : [address] [place] [address] , [place] [address] ) Diet: Carb Consistent or DM2 and Heart Healthy Addtl Attending Provider Instructions: Follow-up with your primary care physician on 04/03/2022 10:20 AM Follow-up with your orthopedic surgeon Dr. Bedoya as needed Seek immediate medical attention if your symptoms reoccur or worsen Please take all medications as instructed on discharge list below. Please call if you have any questions or problems. You can reach a [facility] hospitalist on duty at [facility] 24 hours a day by calling [phone] Pending Studies at Discharge: No Stand-Alone Forms: My [facility], Smoking Cessation Medications and DC Order Prescriptions: New polyethylene glycol 3350 [Miralax] 17 gram Powder In Packet 17 g PO DAILY PRN (Reason: Constipation) Qty: 15 RF: 0 docusate sodium 100 mg Capsule 100 mg PO BID PRN (Reason: Constipation) Qty: 30 RF: 0 oxycodone 5 mg Tablet 5 mg PO Q8H PRN (Reason: pain) Qty: 12 RF: 0 Continued doxepin 10 mg capsule 10 mg PO HS RF: 0 dextroamphetamine sulfate 10 mg tablet 10 mg PO .EVERY AFTERNOON RF: 0 levothyroxine 100 mcg tablet 100 mcg PO DAILYBB RF: 0 ropinirole 0.5 mg tablet 1 mg PO .6 PM NIGHTLY RF: 0 montelukast 10 mg tablet 10 mg PO HS RF: 0 propranolol 120 mg capsule,extended release 24 hr 120 mg PO AMPM RF: 0 Vyvanse 70 mg capsule 70 mg PO QAM RF: 0 Discharge Orders: Discharge Order (Routine); Ordered 03/29/22 Ordered By: Jatin Mcnair Admission Data Admit Date/Time: 03/25/22 15:16 Attending Provider: Jatin Mcnair Admit Provider: Casey Cunningham Primary Care Provider: Uma Corral Other Providers: Casey Cunningham ; [facility] ; Celso Bedoya ; [place]
== END 2022-03-29 19:06 | disposition home health service (06) | DRG 552 ==
LOC: ED 17:15 → 3W 17:15 → SUATTDRO 03-25 15:16

== ENCOUNTER 2022-04-07 20:05 | Inpatient (IN) ==
[2022-04-07 21:27] LABS: Basophils # (auto) 0.01 K/uL (0-0.2); Basophils % (auto) 0.1 %; Eosinophils # (auto) 0.21 K/uL (0-0.5); Hematocrit (blood only) 40.6 % (37-47); Hemoglobin 13.4 g/dL (12.0-16.0); Immature Granulocytes # (auto) 0.07 K/uL (0.00-0.02); Immature Granulocytes % (auto) 0.7 %; Lymphocytes # (auto) 2.22 K/uL (1.2-3.4); Lymphocytes % (auto) 20.9 %; Mean Corpuscular Hemoglobin 29.6 pg (25-34); Mean Corpuscular Volume 89.8 fL (80-100); Monocytes # (auto) 0.83 K/uL (0.11-0.59); Monocytes % (auto) 7.8 %; Neutrophils % (auto) 68.5 %; Platelet Count 116 K/uL (130-400); RDW Coefficient of Variation 13.7 % (11.5-14.5); RDW Standard Deviation 45.1 fL (36.4-46.3); Red Blood Count 4.52 M/uL (4.2-5.4); White Blood Count 10.64 K/uL (4.8-10.8)
[2022-04-07 22:10] LABS: Albumin Globulin Ratio 1.3 (0.9-2); Albumin Level 3.9 gm/dl (3.4-5.0); BUN Creatinine Ratio 26.4 (10-20); Bilirubin,Total 0.8 mg/dl (0.2-1.0); Creatinine Clr Calc Pharmacy 105.3 ml/min; Est GFR (African American) 83.9 ml/min; Est GFR (Non-African American) 72.4 ml/min; Globulin 2.9 gm/dl (2.5-4.0); Potassium 3.7 mmol/L (3.5-5.1); Total Protein 6.8 gm/dl (6.0-8.3)
[2022-04-07] MEDS ORDERED: MoRPHine SULFATE 4 MG/ML 1 ML CARP\\VIAL IV STA (23:29)
[2022-04-07] MEDS ORDERED: ONDANSETRON INJ 2 MG/ML 2 ML VIAL IV STA (23:29)
[2022-04-08] MEDS ORDERED: HYDROmorphone INJ 0.5 MG/0.5 ML SYR IV PRN (00:59)
[2022-04-08] MEDS ORDERED: POLYETHYLENE (MIRALAX) 17 GM PACK PO PRN (00:59)
[2022-04-08] MEDS ORDERED: oxyCODONE HCL IR 5 MG TAB (IMMEDIATE RELEASE) PO PRN (00:59)
--- NOTE | 2022-04-08 01:31 | Emergency Department Note ---
Impression & Plan Intractable back pain, Intervertebral disc extrusion ED Provider Note INFORMANT: Patient and EMS ED PROVIDER(S): Carroll Gardner MD CHIEF COMPLAINT: Back pain PLAN: Disposition: Admitted Condition: Good Outpatient prescription management: none Referral: None MEDICAL DECISION MAKING: Patient presented because of back pain. EMS notified case management of the patient's living conditions and the fact that she lives alone. Patient was unable to get up. It took 3 EMS personnel to get the patient up. Case management noted that she would need to be admitted for further management. The patient had an unremarkable CBC and chemistry panel. There was no physical signs or symptoms noted to warrant additional advanced imaging. She was treated with morphine and Zofran. [facility] Patient was evaluated in the ER admitted for further management. Triage Nursing notes reviewed and agree them. Vital Signs: reviewed and remarkable for no significant abnormalities Differential diagnosis: Musculoskeletal, disc herniation, fracture, metastatic disease, cord compression, discitis, sciatica, cauda equina, infection, aortic disease, renal colic, gastrointestinal, as well as other pathologies. Diagnostics interpreted by me: ECG: none Cardiac Monitoring: Cardiac monitoring ordered by me: The patient was placed on continuous cardiac monitoring and observed. It revealed a normal sinus rhythm at 71 beats per minute without ectopy or evidence of dysrhythmia. Imaging studies: Deferred HPI: The patient is a 61year old female who presents to the Emergency Room with complaints of back pain. This has been an ongoing problem for the patient. She was admitted to the hospital and diagnosed with a herniated disc. She was treated conservatively. She had another ER visit and was [facility]. She states after going through rehab she was doing somewhat better. The patient was discharged yesterday. She states she was laying in bed and could not get up secondary to the pain. She was unable to fill her prescriptions. EMS attended to the patient. They noted that her living conditions were poor. They were going to contact the office of aging. Patient does live alone. She does not have any assistance. Case management was notified by EMS. Pain is a 10 out of 10 with movement. She does note some associated generalized weakness in the right leg. Pain does radiate down the right leg. Pt denies LOC, headach e, fevers, chills, diaphoresis, visual changes, neck pain, chest pain, breathing difficulties, nausea, vomiting, abdominal pain, melena, hematochezia, urinary symptoms, numbness, saddle anesthesia, bowel or bladder dysfunction, lymphadenopathy, rash, or other complaints. ROS: See above HPI for pertinent positives & negatives. A total of 10 systems reviewed and were otherwise negative. PAST MEDICAL HISTORY:See Below , herniated lumbar disc PAST SURGICAL HISTORY:See Below, FAMILY HISTORY:See Below SOCIAL HISTORY:See Below, lives alone HOME MEDICATIONS:See Below ALLERGIES:See Below VITALS:See Below PHYSICAL EXAMINATION: GENERAL: Awake, alert, well-appearing, in no distress HENT: Normocephalic, atraumatic. Oropharynx unremarkable. EYES: Normal conjunctiva. Sclera non-icteric. NECK: Inspection normal. Non-tender. Supple. No nuchal rigidity. FROM. No masses. RESPIRATORY: Clear to auscultation. No wheezes. No rales. Normal respiratory effort. CARDIAC: Normal rate. Normal rhythm. No murmurs. No rubs. Extremities warm and well perfused. Pulses equal. No JVD. GI: Soft, non-distended. No tenderness to palpation. No rebound or guarding. No masses. RECTAL: Deferred. MUSCULOSKELETAL: Atraumatic. Chest examination reveals no tenderness. The back is symmetrical on inspection without obvious abnormality. There is no CVA tenderness to palpation. No joint edema. LOWER EXTREMITIES: Calves are equal size bilaterally and non-tender. No edema. No discoloration. NEURO: Normal sensorium. No sensory or motor deficits noted. SKIN: No rash or jaundice noted. Carroll Gardner MD Past Med/Surg History Medical History ADHD Anxiety Depression Hx of migraines Hypothyroidism (acquired) Restless leg syndrome Seasonal allergies Venous insufficiency Surgical History History of carpal tunnel surgery of left wrist Social History Smoking Status: Never smoker Hx Alcohol Use: No Hx Substance Use: No Preferred Language: Arabic Communication Ability: Effective Pick Out Hand Required: No Beliefs That Will Affect Care: None marital status: Single Current Living Situation: Alone current occupational status: disabled Feels Safe at Home: Yes Safety Concerns: Feels Safe At This Time Assistive Devices: CPAP and Glasses Allergies Allergies Allergy/AdvReac Type Severity Reaction Status Date / Time Penicillins Allergy Intermediate Rash Unverified 04/07/22 21:12 sodium chloride Allergy Intermediate Swelling Unverified 04/07/22 21:12 [From Daisy Nasal] of Lip/Tongue/Throat shellfish derived Allergy Mild Migraine Unverified 04/07/22 21:12 aspirin Allergy Unknown Unknown Unverified 04/07/22 21:12 amoxicillin Allergy throat Unverified 03/24/22 21:54 swells NSAIDS (Non-Steroidal Allergy vomiting Unverified 03/24/22 21:54 Anti-Inflamma diphenhydramine AdvReac Severe hyperactivi Verified 03/24/22 21:54 [From Benadryl] ty Home Meds Home Medications Medication Instructions Recorded Confirmed dextroamphetamine sulfate 10 mg 10 mg PO .EVERY AFTERNOON 03/24/22 04/07/22 tablet doxepin 10 mg capsule 10 mg PO HS 03/24/22 04/07/22 levothyroxine 100 mcg tablet 100 mcg PO DAILYBB 03/24/22 04/07/22 lisdexamfetamine 70 mg capsule 70 mg PO QAM 03/24/22 04/07/22 (Vyvanse) montelukast 10 mg tablet 10 mg PO HS 03/24/22 04/07/22 propranolol 120 mg capsule,24 120 mg PO AMPM 03/24/22 04/07/22 hr,extended release ropinirole 0.5 mg tablet 1 mg PO .6 PM NIGHTLY 03/24/22 04/07/22 Previous Rx's Medication Instructions Recorded docusate sodium 100 mg capsule 100 mg PO BID PRN #30 cap 03/29/22 oxycodone 5 mg tablet 5 mg PO Q8H PRN #12 tab 03/29/22 polyethylene glycol 3350 17 gram 17 g PO DAILY PRN #15 ea 03/29/22 oral powder packet (Miralax) Results & Data (ED) Vital Signs Vital Signs - 24 hr 04/07/22 20:00 04/07/22 20:17 04/07/22 20:30 Temperature 36.8 C Temperature Source Oral Pulse Rate 67 69 67 Pulse Rate from SpO2 Sensor 69 66 Pulse Strength Normal Respiratory Rate 20 25 H 18 Respiratory Effort / Characteristics Non-Labored Spontaneous Respiratory Depth Normal Respiratory Pattern Regular Blood Pressure 122/55 L Blood Pressure Mean 77 Blood Pressure Position Semi-fowlers Pulse Oximetry 100 99 92 Oxygen Delivery Method Room Air Sepsis Recent Fever Within 48 Hours No Sepsis New/Unexplained Change in Mental Status No Sepsis Action Taken by Nursing No Action Required 04/07/22 21:00 04/07/22 21:24 04/07/22 21:30 Temperature Temperature Source Pulse Rate 61 60 59 L Pulse Rate from SpO2 Sensor 63 61 58 L Pulse Strength Respiratory Rate 14 16 18 Respiratory Effort / Characteristics Respiratory Depth Respiratory Pattern Blood Pressure 127/50 L Blood Pressure Mean 75 Blood Pressure Position Pulse Oximetry 98 98 95 Oxygen Delivery Method Sepsis Recent Fever Within 48 Hours Sepsis New/Unexplained Change in Mental Status Sepsis Action Taken by Nursing 04/07/22 22:00 Temperature Temperature Source Pulse Rate 61 Pulse Rate from SpO2 Sensor Pulse Strength Respiratory Rate 17 Respiratory Effort / Characteristics Respiratory Depth Respiratory Pattern Blood Pressure 124/72 Blood Pressure Mean 89 Blood Pressure Position Pulse Oximetry Oxygen Delivery Method Sepsis Recent Fever Within 48 Hours Sepsis New/Unexplained Change in Mental Status Sepsis Action Taken by Nursing Laboratory Data Result diagrams: 04/07/22 21:17 04/07/22 21:17 Lab Results 04/07/22 04/07/22 04/07/22 Range/Units 21:17 21:17 21:21 WBC 10.64 (4.8-10.8) K/uL RBC 4.52 (4.2-5.4) M/uL Hgb 13.4 (12.0-16.0) g/dL Hct 40.6 (37-47) % MCV 89.8 (80-100) fL MCH 29.6 (25-34) pg MCHC 33.0 (32-36) g/dL RDW Std Deviation 45.1 (36.4-46.3) fL RDW Coeff of Alexy 13.7 (11.5-14.5) % Plt Count 116 L (130-400) K/uL MPV 11.0 H (7.4-10.4) fL Immature Gran % (Auto) 0.7 % Neut % (Auto) 68.5 % Lymph % (Auto) 20.9 % [place] % (Auto) 7.8 % Eos % (Auto) 2.0 % Baso % (Auto) 0.1 % Neut # (Auto) 7.30 H (1.4-6.5) K/uL Lymph # (Auto) 2.22 (1.2-3.4) K/uL [place] # (Auto) 0.83 H (0.11-0.59) K/uL Eos # (Auto) 0.21 (0-0.5) K/uL Baso # (Auto) 0.01 (0-0.2) K/uL Immature Gran # (Auto) 0.07 H (0.00-0.02) K/uL Sodium 139 (136-145) mmol/L Potassium 3.7 (3.5-5.1) mmol/L Chloride 104 (98-107) mmol/L Carbon Dioxide 27 (21-32) mmol/L Anion Gap 8 (3-11) BUN 23 (6-23) mg/dl Creatinine 0.87 (0.6-1.2) mg/dl Est Cr Clr Drug Dosing 105.3 ml/min Est GFR ( Amer) 83.9 ml/min Est GFR (Non-Af Amer) 72.4 ml/min BUN/Creatinine Ratio 26.4 H (10-20) Glucose 129 H (70-99(Fasting)) mg/dl Calcium 9.0 (8.5-10.1) mg/dl Total Bilirubin 0.8 (0.2-1.0) mg/dl AST 17 (13-39) U/L ALT 17 (7-52) U/L Alkaline Phosphatase 68 (34-104) U/L Total Protein 6.8 (6.0-8.3) gm/dl Albumin 3.9 (3.4-5.0) gm/dl Globulin 2.9 (2.5-4.0) gm/dl Albumin/Globulin Ratio 1.3 (0.9-2) SARS-CoV-2, RNA, NAAT NEGATIVE (NEGATIVE) Administered Medications Oxycodone HCl (Oxycodone Hcl Ir 5 Mg Tab (Immediate Release)) 5 mg PO Q8H PRN PRN Reason: pain Stop: 04/22/22 00:58 Last Admin: 04/08/22 01:31 Dose: 5 mg Documented by: [id number] Discontinued Medications Morphine Sulfate (Morphine Sulfate 4 Mg/Ml 1 Ml Carp\Vial) 4 mg IV NOW STA Stop: 04/07/22 23:30 Last Admin: 04/07/22 23:36 Dose: 4 mg Documented by: [id number] Ondansetron HCl (Ondansetron Inj 2 Mg/Ml 2 Ml Vial) 4 mg IV NOW STA Stop: 04/07/22 23:30 Last Admin: 04/07/22 23:36 Dose: 4 mg Documented by: [id number] Discharge Plan Visit Data Chief Complaint: Back Injury/Pain Stated Complaint: LOWER BACK PAIN ED Provider: Carroll Gardner Discharge Problem: Intractable back pain, Intervertebral disc extrusion Patient Disposition: Admitted As Inpatient Discharge Instructions Interventions: ED Discharge Assessment Last Done: 04/08/22 00:21
--- NOTE | 2022-04-08 01:52 | History and Physical Report ---
DATE OF ADMISSION: 04/07/2022. CHIEF COMPLAINT: Severe back pain and ambulatory dysfunction. HISTORY OF PRESENT ILLNESS: This is a 61-year-old female with past medical history significant for hypothyroidism, prediabetes, asthma, morbid obesity, obstructive sleep apnea, vitamin D deficiency, psoriasiform dermatitis, restless legs syndrome, history of periodic headache syndrome, depression, generalized anxiety disorder, presents with severe back pain and ambulatory dysfunction. The patient was recently in the hospital, was admitted on 03/25/2022 with severe back pain. An MRI showed left paracentral disk extrusion at L3-L4 causing severe central canal stenosis with severe narrowing of the lateral recess. Was given steroids, and evaluated by Orthopedics and recommended rehab, but the patient was not interested and she was discharged home, but later she came to the ER again, and next day she went to rehab and she was discharged home yesterday. Today, she is saying she could not get up from the bed and ambulate.When with difficulty she gets up, she will have severe pain, after sometime she could ambulate. Because of not able to get up from the bed and severe pain, she came to the ER and we were called for admission for pain control, PT, OT, and possible rehab placement again. The patient has some headache because she did not eat anything today. Denies any blurred visions, no earache, no runny nose, no sore throat, no cough. No nausea. No chest pain, no shortness of breath, no abdominal pain. Normal bowel and bladder movements. No swelling in the legs, hemodynamically stable. ALLERGIES: TO PENICILLIN, SODIUM CHLORIDE FROM OCEAN NASAL, SHELLFISH DERIVED, ASPIRIN, AMOXICILLIN, NSAIDS, DIPHENHYDRAMINE. PAST MEDICAL HISTORY: As mentioned above. PAST SURGICAL HISTORY: Carpal tunnel surgery. MEDICATIONS: The patient is on dextroamphetamine 10 mg p.o. every afternoon, Colace 100 mg p.o. b.i.d. p.r.n., doxepin 10 mg p.o. at bedtime, levothyroxine 100 mcg p.o. daily, montelukast 10 mg p.o. at bedtime, oxycodone 5 mg p.o. q. 8 hours p.r.n., MiraLax 17 g p.o. daily p.r.n., propranolol 120 mg p.o. b.i.d., ropinirole 0.5 mg p.o. at bedtime, Vyvanse 70 mg p.o. a.m. FAMILY HISTORY: Significant for brother has allergies, hypotension, obesity. Sister has obesity, ovarian cancer, diabetes. Mother has ovarian cancer. Father has hypertension. SOCIAL HISTORY: Single, former smoker, quit in 1989. No drug use. No alcohol use. REVIEW OF SYSTEMS: As per HPI. Rest of review of systems is negative. PHYSICAL EXAMINATION: GENERAL: The patient is morbidly obese, not in acute distress. VITAL SIGNS: Temperature 36.8, pulse 61, respiratory rate 17, blood pressure 124/72, oxygen 95% on room air. HEENT: Pupils equal, round and reactive to light. Oral mucosa moist. NECK: No JVD, no neck masses. CARDIOVASCULAR: S1 and S2 heard. Regular rate and rhythm. No murmur, no gallop. RESPIRATORY SYSTEM: Normal AP diameter. No accessory muscle use. No wheezing, no crackles. ABDOMEN: Soft, bowel sounds present, nontender, no distention. CENTRAL NERVOUS SYSTEM: Cranial nerves II-XII grossly intact, nonfocal. EXTREMITIES: No edema. No erythema. MUSCULOSKELETAL: Bilateral straight leg test is positive, more on the right leg. LABORATORY DATA: WBC 10.6, hemoglobin 13.4, hematocrit 40.6, platelets 116. Sodium 139, potassium 3.7, chloride 104, bicarbonate 27, BUN 23, creatinine 0.8, serum glucose 129, calcium 9, total bilirubin 0.8, AST 17, ALT 17, alkaline phosphatase 68. SARS-CoV-2 RNA negative. ASSESSMENT AND PLAN: This 61-year-old female presents with severe back pain. 1. Severe back pain and ambulatory dysfunction: She was recently in the hospital on 03/25/2022. At that time, imaging studies showed central left paracentral disk extrusion at L3-L4 causing severe central canal stenosis with severe narrowing of the lateral recesses. Seen and evaluated by orthopedics on last admission and because of health issues and morbid obesity, surgery was not recommended. PT, OT and rehab was recommended, but the patient at that time went home, but again later, she was admitted at [facility] and she was discharged from [facility] yesterday. Now comes in with severe back pain and ambulatory dysfunction. Will monitor in hospital for PT, OT, pain control. Social service to help with possible rehab placement again. 2. Sleep apnea: On CPAP at bedtime. 3. Morbid obesity: Needs counseling. 4. Restless legs syndrome: Continue Requip. 5. Prediabetes: Diabetic diet. 6. Hypothyroidism: On Synthroid. 7. Thrombocytopenia. This is new. Platelets are 116, possibly HIT. We will send for HIT panel and currently place on Lovenox. If platelets continue to drop and or HIT panel comes back positive, we will discontinue Lovenox. 8. Deep venous thrombosis prophylaxis: Currently on Lovenox. DISPOSITION: Closely monitor in the medical floor. PT/OT. Social service to help with discharge planning. Level 1 full code. Job ID: [id number] [facility]
[2022-04-08] MEDS: CYCLOBENZAPRINE HCL 10 MG TAB PO PRN ×3 (01:54→18:03)
[2022-04-08] MEDS: PROPRANOLOL HCL 60 MG LA CAP PO SCH ×3 (01:55→21:12)
[2022-04-08 04:33] LABS: Appearance Urine Cloudy (Clear); Bacteria Urine Automated Negative (Negative); Bilirubin Urine Negative (Negative); Blood Urine Negative (Negative); Color Urine Yellow; Epithelial Cell Urine Auto >30 /lpf (0-5); Glucose Urine UA Negative (Negative); Ketones Urine Negative (Negative); Leukocyte Esterase Urine Trace (Negative); Nitrite Urine Negative (Negative); Protein Urine Negative (Negative); Specific Gravity Urine 1.015 (1.000-1.030); Urobilinogen Urine Negative (Negative)
[2022-04-08 05:45] LABS: Basophils # (auto) 0.01 K/uL (0-0.2); Basophils % (auto) 0.1 %; Eosinophils # (auto) 0.15 K/uL (0-0.5); Eosinophils % (auto) 1.9 %; Hematocrit (blood only) 36.7 % (37-47); Hemoglobin 11.9 g/dL (12.0-16.0); Immature Granulocytes # (auto) 0.04 K/uL (0.00-0.02); Immature Granulocytes % (auto) 0.5 %; Lymphocytes # (auto) 1.99 K/uL (1.2-3.4); Lymphocytes % (auto) 25.3 %; Mean Corpuscular Hemoglobin 29.4 pg (25-34); Mean Corpuscular Hgb Conc 32.4 g/dL (32-36); Mean Corpuscular Volume 90.6 fL (80-100); Mean Platelet Volume 10.2 fL (7.4-10.4); Monocytes # (auto) 0.64 K/uL (0.11-0.59); Monocytes % (auto) 8.1 %; Neutrophils # (auto) 5.05 K/uL (1.4-6.5); Neutrophils % (auto) 64.1 %; Platelet Count 110 K/uL (130-400); RDW Coefficient of Variation 13.8 % (11.5-14.5); RDW Standard Deviation 45.5 fL (36.4-46.3); Red Blood Count 4.05 M/uL (4.2-5.4); White Blood Count 7.88 K/uL (4.8-10.8)
[2022-04-08 06:02] LABS: BUN Creatinine Ratio 24.4 (10-20); Calcium 8.4 mg/dl (8.5-10.1); Creatinine Clr Calc Pharmacy 111.4 ml/min; Est GFR (African American) 90.1 ml/min; Est GFR (Non-African American) 77.8 ml/min; Magnesium 1.7 mg/dl (1.7-2.4); Potassium 3.7 mmol/L (3.5-5.1)
[2022-04-08] MEDS: LEVOTHYROXINE SODIUM 100 MCG TABLET PO SCH (06:20)
[2022-04-08] MEDS: ENOXAPARIN INJ 40 MG/0.4 ML SYR SQ SCH ×2 (08:53→21:13)
[2022-04-08] MEDS: oxyCODONE HCL IR 5 MG TAB (IMMEDIATE RELEASE) PO PRN ×3 (09:55→22:20)
[2022-04-08] MEDS: AMPHETAMINE ASP/SULF/DEXTRAMPH 10 MG TAB PO SCH (14:01)
--- NOTE | 2022-04-08 15:10 | Hospitalist Progress Note ---
Date of Service April 08, 2022 Assessment & Plan (1) Intractable back pain: Plan: ASSESSMENT AND PLAN: This 61-year-old female presents with severe back pain. 1. Severe back pain and ambulatory dysfunction: per admitting service notes: During last admission, imaging studies showed central left paracentral disk extrusion at L3-L4 causing severe central canal stenosis with severe narrowing of the lateral recesses. Seen and evaluated by orthopedics on last admission and because of health issues and morbid obesity, surgery was not recommended. PT, OT and rehab was recommended, but the patient at that time went home, but again later, she was admitted at [facility] and she was discharged from [facility] yesterday. 04/08 lengthy discussion with patient regarding pain medication regimen would like to try increasing Oxycodone to q6h prn for now patient declining to start steroids, gabapentin or any other medications/modalities at this time monitor closely 2. Sleep apnea: On CPAP at bedtime. 3. Morbid obesity: Needs counseling. 4. Restless legs syndrome: Continue Requip. 5. Prediabetes: Diabetic diet. 6. Hypothyroidism: On Synthroid. 7. Thrombocytopenia. This is new. Platelets are 116, possibly HIT. We will send for HIT panel and currently place on Lovenox. If platelets continue to drop and or HIT panel comes back positive, we will discontinue Lovenox. Plt 110 HIT ab - pending 8. Deep venous thrombosis prophylaxis: Currently on Lovenox. Admission and Anticipated Discharge Date Admission Date: April 07, 2022 Subjective ff up for intractable back pain, ambulatory dysfunction, etc seen resting in bed, not in distress states pain on the lower back and legs are slightly improved still having significant pain with movement no chest pain, dyspnea, palpitations, dizziness no other symptoms Review of Systems Review of Systems: all noted and negative except for above Physical Exam Physical Exam: General- oriented x 3, not in distress, speaks in sentences with no effort or accessory muscle use Head- atraumatic Eyes- PERRL, EOMI, anicteric ENT- oropharynx clear Neck- supple, no JVD, no adenopathy, no thyromegaly; carotids +2/2, no bruits appreciated Lungs- clear to auscultation bilaterally, no rales/wheezes Heart- normal rate, regular rhythm; no murmur, no gallop, no rub appreciated Abdomen- normal bowel sounds, nondistended, soft, nontender, no masses or hepatosplenomegaly Extremities- no pretibial edema, no calf tenderness; peripheral pulses intact Neuro- alert, oriented x 3; CN 2-12 grossly intact; motor 5/5 bilaterally;sensation 100% on all extremities; no other gross focal neurologic deficits Skin- warm & dry Results & Data Results & Data ([facility]) Vital Signs (Past 12 Hours) Vital Signs Temp Pulse Resp BP BP Pulse Ox 04/08/22 07:24 36 C L 62 18 192/86 H 98 04/08/22 07:17 36.7 C 71 20 134/74 94 all noted and reviewed including below
[2022-04-08] MEDS: rOPINIRole HCL 1 MG TABLET PO SCH (18:03)
[2022-04-08] MEDS: MONTELUKAST SODIUM 10 MG TABLET PO SCH (21:12)
[2022-04-08] MEDS: DOXEPIN HCL 10 MG CAPSULE PO SCH (22:20)
[2022-04-09] MEDS: LEVOTHYROXINE SODIUM 100 MCG TABLET PO SCH (06:15)
--- NOTE | 2022-04-09 07:58 | Hospitalist Progress Note ---
Date of Service April 09, 2022 Assessment & Plan (1) Intractable back pain: Plan: ASSESSMENT AND PLAN: This 61-year-old female presents with severe back pain. 1. Severe back pain and ambulatory dysfunction: Lumbar disc extrusion with lumbar stenosis causing intractable back pain per admitting service notes: During last admission, imaging studies showed central left paracentral disk extrusion at L3-L4 causing severe central canal stenosis with severe narrowing of the lateral recesses. Seen and evaluated by orthopedics on last admission and because of health issues and morbid obesity, surgery was not recommended. PT, OT and rehab was recommended, but the patient at that time went home, but again later, she was admitted at [facility] and she was discharged from [facility] yesterday. 04/08 lengthy discussion with patient regarding pain medication regimen would like to try increasing Oxycodone to q6h prn for now patient declining to start steroids, gabapentin or any other medications/modalities at this time monitor closely 2. Sleep apnea: On CPAP at bedtime. 3. Morbid obesity: Needs counseling. 4. Restless legs syndrome: Continue Requip. 5. Prediabetes: Diabetic diet. 6. Hypothyroidism: On Synthroid. 7. Thrombocytopenia. This is new. Platelets are 116, possibly HIT. We will send for HIT panel and currently place on Lovenox. If platelets continue to drop and or HIT panel comes back positive, we will discontinue Lovenox. Plt 110 HIT ab - pending 8. Deep venous thrombosis prophylaxis: Currently on Lovenox. Admission and Anticipated Discharge Date Admission Date: April 07, 2022 Results & Data Results & Data ([facility]) Vital Signs (Past 12 Hours) Vital Signs Temp Pulse Pulse Resp BP Pulse Ox 04/09/22 07:46 36.4 C L 66 16 143/73 H 97 04/09/22 02:32 72 20 99 04/08/22 23:20 75 25 H 99 04/08/22 21:14 37.1 C 78 18 109/62 91
[2022-04-09] MEDS: PROPRANOLOL HCL 60 MG LA CAP PO SCH ×2 (08:16→21:44)
[2022-04-09] MEDS: CYCLOBENZAPRINE HCL 10 MG TAB PO PRN ×2 (08:16→18:11)
[2022-04-09] MEDS: oxyCODONE HCL IR 5 MG TAB (IMMEDIATE RELEASE) PO PRN ×2 (08:16→21:47)
[2022-04-09] MEDS: ENOXAPARIN INJ 40 MG/0.4 ML SYR SQ SCH ×2 (09:24→21:40)
[2022-04-09] MEDS: AMPHETAMINE ASP/SULF/DEXTRAMPH 10 MG TAB PO SCH (12:29)
--- NOTE | 2022-04-09 16:06 | Hospitalist Progress Note ---
Date of Service April 09, 2022 Assessment & Plan (1) Intractable back pain: Plan: ASSESSMENT AND PLAN: This 61-year-old female presents with severe back pain. 1. Severe back pain and ambulatory dysfunction: Lumbar disc extrusion with lumbar stenosis causing intractable back pain During last admission, imaging studies showed central left paracentral disk extrusion at L3-L4 causing severe central canal stenosis with severe narrowing of the lateral recesses. Evaluated by Dr. Bedoya on last admission and because of health issues and morbid obesity, surgery was not recommended. PT, OT and rehab was recommended, at that time went home, but later, she was admitted at [facility] and she was discharged from [facility] 1 day prior to admission 04/09 lengthy discussion with patient regarding pain medication regimen She reports Tylenol and tramadol does not relieve the pain at all She would like to avoid NSAIDs, steroids due to GI side effects She would like to avoid IV narcotics due to side effects She expressed that she does not want to be dependent on pain medications For better pain control, increase oxycodone to q4h prn for now Patient amenable to trial of gabapentin and milligrams 3 times daily and uptitrate accordingly as needed Continue PT and OT evaluation May need to transition to inpatient rehab again 2. Sleep apnea: On CPAP at bedtime. 3. Morbid obesity: Needs counseling. 4. Restless legs syndrome: Continue Requip. 5. Prediabetes: Diabetic diet. 6. Hypothyroidism: On Synthroid. 7. Thrombocytopenia. Platelet count last admission 186 Now 110, 116 No signs of bleeding HIT ab obtained during admission- pending Monitor CBC 8. Deep venous thrombosis prophylaxis: Hold Lovenox till HIT antibodies available Disposition May need to transition again to acute rehab Admission and Anticipated Discharge Date Admission Date: April 07, 2022 Subjective ff up for intractable back pain, lumbar disc extrusion, etc seen resting in bed, not in distress reports pain is still significant today, having difficulty with ambulation due to pain No leg weakness or numbness Denies headache, dizziness, chest pain, shortness of breath, cough, abdominal pain, nausea vomiting No other new symptoms Review of Systems Review of Systems: all noted and negative except for above Physical Exam Physical Exam: General- oriented x 3, not in distress, speaks in sentences with no effort or accessory muscle use Eyes- anicteric Neck- no JVD Lungs- clear BS bilaterally, no rales/wheezes Heart- normal rate, regular rhythm; no murmurs Abdomen- normal bowel sounds, nondistended, soft, nontender Extremities- no pretibial edema, no calf tenderness Neuro- alert, oriented x 3; no gross focal neurologic deficits Skin- warm & dry Results & Data Results & Data ([facility]) Vital Signs (Past 12 Hours) Vital Signs Temp Pulse Resp BP Pulse Ox 04/09/22 15:22 37.0 C 64 16 134/68 97 04/09/22 07:46 36.4 C L 66 16 143/73 H 97 all noted and reviewed including below
[2022-04-09] MEDS: GABAPENTIN 100 MG CAP PO SCH ×2 (16:35→21:44)
[2022-04-09] MEDS: rOPINIRole HCL 1 MG TABLET PO SCH (18:11)
[2022-04-09 19:48] LABS: Hematocrit (blood only) 47.1 % (37-47); Hemoglobin 14.8 g/dL (12.0-16.0); Mean Corpuscular Hemoglobin 28.8 pg (25-34); Mean Corpuscular Hgb Conc 31.4 g/dL (32-36); Mean Corpuscular Volume 91.8 fL (80-100); RDW Coefficient of Variation 13.5 % (11.5-14.5); RDW Standard Deviation 45.5 fL (36.4-46.3); Red Blood Count 5.13 M/uL (4.2-5.4); White Blood Count 7.53 K/uL (4.8-10.8)
[2022-04-09 19:52] LABS: Basophils # (auto) 0.01 K/uL (0-0.2); Basophils % (auto) 0.1 %; Eosinophils # (auto) 0.08 K/uL (0-0.5); Eosinophils % (auto) 1.1 %; Immature Granulocytes # (auto) 0.04 K/uL (0.00-0.02); Immature Granulocytes % (auto) 0.5 %; Lymphocytes # (auto) 1.29 K/uL (1.2-3.4); Lymphocytes % (auto) 17.1 %; Mean Platelet Volume 10.8 fL (7.4-10.4); Monocytes # (auto) 0.55 K/uL (0.11-0.59); Monocytes % (auto) 7.3 %; Neutrophils # (auto) 5.56 K/uL (1.4-6.5); Neutrophils % (auto) 73.9 %; Platelet Count 80 K/uL (130-400); Platelet Estimate Decreased (Normal)
[2022-04-09] MEDS: DOXEPIN HCL 10 MG CAPSULE PO SCH (21:44)
[2022-04-09] MEDS: MONTELUKAST SODIUM 10 MG TABLET PO SCH (21:44)
[2022-04-10] MEDS: oxyCODONE HCL IR 5 MG TAB (IMMEDIATE RELEASE) PO PRN ×4 (05:55→22:12)
[2022-04-10] MEDS: LEVOTHYROXINE SODIUM 100 MCG TABLET PO SCH (05:55)
[2022-04-10] MEDS: ENOXAPARIN INJ 40 MG/0.4 ML SYR SQ SCH (08:07)
[2022-04-10] MEDS: PROPRANOLOL HCL 60 MG LA CAP PO SCH ×2 (08:13→20:11)
[2022-04-10] MEDS: GABAPENTIN 100 MG CAP PO SCH ×3 (08:13→20:11)
[2022-04-10 08:51] LABS: Basophils # (auto) 0.01 K/uL (0-0.2); Basophils % (auto) 0.1 %; Eosinophils # (auto) 0.11 K/uL (0-0.5); Eosinophils % (auto) 1.5 %; Hematocrit (blood only) 35.8 % (37-47); Hemoglobin 11.8 g/dL (12.0-16.0); Immature Granulocytes # (auto) 0.03 K/uL (0.00-0.02); Immature Granulocytes % (auto) 0.4 %; Lymphocytes # (auto) 1.93 K/uL (1.2-3.4); Lymphocytes % (auto) 26.2 %; Mean Corpuscular Hemoglobin 29.4 pg (25-34); Mean Corpuscular Volume 89.1 fL (80-100); Monocytes # (auto) 0.47 K/uL (0.11-0.59); Monocytes % (auto) 6.4 %; Neutrophils # (auto) 4.82 K/uL (1.4-6.5); Neutrophils % (auto) 65.4 %; Platelet Count 115 K/uL (130-400); RDW Coefficient of Variation 13.6 % (11.5-14.5); RDW Standard Deviation 44.2 fL (36.4-46.3); Red Blood Count 4.02 M/uL (4.2-5.4); White Blood Count 7.37 K/uL (4.8-10.8)
--- NOTE | 2022-04-10 09:22 | Hospitalist Progress Note ---
Date of Service April 10, 2022 Assessment & Plan (1) Intractable back pain: Plan: Lumbar disc extrusion with lumbar stenosis causing intractable back pain. Patient went to rehab after recent visit but when she arrived home after being functional and independent for 1 day was unable to get out of bed the following morning. She is now back and is still unable to get out of bed or even sit up on the side of bed. PT/OT for assistance with this. Pain management for as sistance with pain regimen. She does not know if Neurontin is helping but is open to continuing to titrate this. She continues on oxycodone and is also taking Adderall for chronic issues. Most offerings for additional therapies that may be narcotic sparing were declined by patient. Specifically she reports Tylenol and tramadol does not work, she would like to avoid NSAIDs because they cause her to vomit and have GI side effects, she would like to avoid IV narcotics due to side effects. She is not open to steroid injections or other common therapies at this time. Appreciate pain management recommendations. (2) Intervertebral disc extrusion: Plan: As seen on lumbar MRI 03/24. Per orthospine evaluation during last admission she is not a surgical candidate at this time. Continue PT/OT and conservative pain management. (3) Chronic radicular pain of lower back: Plan: Patient is not on narcotics at baseline. (4) Depression: Plan: Takes a tricyclic antidepressant, doxepin, every evening at bedtime. (5) ADHD: Plan: She is on Vyvanse (lisdexamphetamine) every morning with additional dextroamphetamine every afternoon (6) Restless leg syndrome: Plan: Chronic, continue home ropinirole. Monitor for effects of polypharmacy (7) Hypothyroidism (acquired): Plan: chronic, stable, obtain TSH wtih next blood draw and review outpatient records. Cont home thyroid replacement. (8) Morbid obesity: Plan: lifestyle modifications strongly recommended to help strengthen her core and reduce the chance of further back injury. (9) PATTI (obstructive sleep apnea): Plan: chronic, stable. Cont CPAP QHS (10) Thrombocytopenia: Plan: Platelets were low prior to Lovenox 40 mg given this admission. Suspect secondary cause such as medications, vitamin deficiencies etc. HIT panel is pending but this is low probability. Patient has continued to refuse Lovenox similarly to last admission. I have discontinued this for now. Ambulation encouraged but she is resistant as above. SCDs. Continue to hold chemoprophylaxis in light of thrombocytopenia with pending platelet factor 4 antibody and serotonin release assay as well as thrombocytopenia. (11) DVT prophylaxis: Plan: Chemoprophylaxis held in light of thrombocytopenia/pt also declined. SCDs full Code Dispo-uncertain until she is able to move around more, possibly SNF? Pt lives alone and there is concern with her current disposition/understanding of her options in the setting of multiple mood altering medications. Appreciate psych input, also. Claudia Fierro [facility] Dis[facility] Date Admission Date: April 07, 2022 Subjective 61-year-old female presents with acute on chronic severe back pain. She was recently admitted with imaging studies revealing a central left paracentral disc extrusion at L3/L4 causing severe central canal stenosis with severe narrowing of the lateral recesses. She was evaluated by orthospine on last admission but because of health issues and morbid obesity surgery was not recommended. The patient does not wish to have surgery at this time anyways. She left and was discharged to rehab but felt this was not helpful for her. Despite this she was discharged from [facility] and went home where she said she was able to climb stairs and was independent. She has now returned because she was unable to get out of bed and is still unable to do so because of a sharp severe pain that she cannot describe beyond this. She is not on chronic narcotic therapy but is dealing with chronic low back pain for many years since 1987. She reports being on disability for back pain since that time. She has been using oxycodone in the hospital and still reports pain. She is able to roll to the side of the bed with the back laid down but is very resistant to examination, not because of pain, but because of the fear of pain. She is tolerating p.o. She is resistant to options given for alternative therapies including ibuprofen, Tylenol, tramadol, steroid injections, physical and Occupational Therapy. I asked her what is working for her and she reported, "I do not know." She is resistant to examination and told me my tone and asking her to sit up was mean. I explained she might just need more time and she said she was confused. This was a circular conversation for about 5 minutes and at this point, it may be better for her to see a pain specialist given this is a readmission for the same issue. She was confused about this but amenable to it. Later discussion with RN who had her last visit she is concerned about eccentric things the patient is saying. It seems she has capacity to make decisions with the patient herself that she cannot remember anything that is said 1 someone leaves the room. We will opt for psych evaluation at this time t o ensure she is comprehending what is being said and the options being presented to her. Patient lives alone and came to the hospital after a nurse with the medical group called 911 to go and get her. Denies sensation loss or other issues at this time. Review of Systems Review of Systems: All systems were reviewed and negative except as indicated above. Physical Exam Physical Exam: CONSTITUTIONAL: morbidly obese, vitals as above, generally well-appearing, NAD EYES: normal conjunctivae, no scleral icterus ENT: external ear and nose normal, MMM NECK: trachea midline RESPIRATORY: clear to auscultation bilaterally, no crackles, rales or wheezes, normal respiratory effort CARDIOVASCULAR: regular rate and rhythm, S1 and 2 heard without murmurs, gallops or rubs, no JVD, no peripheral edema CHEST: inspection of chest was normal GASTROINTESTINAL: soft, nontender, ND, no guarding MUSCULOSKELETAL: strength 5/5 throughout, she can pull herself onto her side when lying flat. She can flex both of her knees and has some more difficulty with hip flexion on the right leg compared to left. Head is normocephalic and atraumatic SKIN: warm and dry NEUROLOGIC: patellar DTRs could not be elicited-pt was flexing and resistant to exam somewhat. CN 2-12 grossly intact, no sensory deficit, normal cognition, normal speech, no tremor PSYCHIATRIC: alert cooperative and oriented to person, place and time. Results & Data Results & Data ([facility]) Vital Signs (Past 12 Hours) Vital Signs Temp Pulse Pulse Resp BP Pulse Ox 04/10/22 08:18 36.8 C 81 16 110/65 98 04/10/22 03:33 68 18 99 04/09/22 21:49 37 C 76 15 99/69 L 94 Laboratory Results Short CBC 04/09/22 04/10/22 Range/Units 17:37 07:41 WBC 7.53 7.37 (4.8-10.8) K/uL Hgb 14.8 11.8 L D (12.0-16.0) g/dL Hct 47.1 H 35.8 L (37-47) % Plt Count 80 L 115 L (130-400) K/uL Medications Administered Current Inpatient Medications Acetaminophen (Acetaminophen 325 Mg Tab) 650 mg PO Q4H PRN PRN Reason: pain/fever Stop: 05/08/22 00:58 Amphetamine/Dextroamphetamine (Amphetamine Asp/Sulf/Dextramph 10 Mg Tab) 10 mg PO Q24H LOS Stop: 04/22/22 11:59 Last Admin: 04/09/22 12:29 Dose: 10 mg Documented by: Cyclobenzaprine HCl (Cyclobenzaprine Hcl 10 Mg Tab) 10 mg PO TID PRN PRN Reason: Muscle Spasm Stop: 05/08/22 00:58 Last Admin: 04/09/22 18:11 Dose: 10 mg Documented by: Docusate Sodium (Docusate Sodium 100 Mg Cap) 100 mg PO BID PRN PRN Reason: Constipation Stop: 05/08/22 00:58 Doxepin HCl (Doxepin Hcl 10 Mg Capsule) 10 mg PO HS [facility] Stop: 05/08/22 20:59 Last Admin: 04/09/22 21:44 Dose: 10 mg Documented by: Enoxaparin Sodium (Enoxaparin Inj 40 Mg/0.4 Ml Syr) 40 mg SQ Q12H [facility] Stop: 05/08/22 08:59 Last Admin: 04/10/22 08:07 Dose: Not Given Documented by: Gabapentin (Gabapentin 100 Mg Cap) 100 mg PO TID [facility] Stop: 05/09/22 15:54 Last Admin: 04/10/22 08:13 Dose: 100 mg Documented by: Hydromorphone HCl (Hydromorphone Inj 0.5 Mg/0.5 Ml Syr) 0.5 mg IV Q3H PRN PRN Reason: Severe Pain Stop: 04/22/22 00:58 Levothyroxine Sodium (Levothyroxine Sodium 100 Mcg Tablet) 100 mcg PO DAILYBB [facility] Stop: 05/08/22 06:29 Last Admin: 04/10/22 05:55 Dose: 100 mcg Documented by: Miscellaneous (Lisdexamfetamine [Vyvanse]: Order Awaiting Action) 1 ea N/A QS [facility] Stop: 05/08/22 07:59 Last Admin: 04/10/22 07:29 Dose: Not Given Documented by: Montelukast Sodium (Montelukast Sodium 10 Mg Tablet) 10 mg PO HS [facility] Stop: 05/08/22 20:59 Last Admin: 04/09/22 21:44 Dose: 10 mg Documented by: Ondansetron HCl (Ondansetron Inj 2 Mg/Ml 2 Ml Vial) 4 mg IV Q6H PRN PRN Reason: Nausea Stop: 05/08/22 00:58 Oxycodone HCl (Oxycodone Hcl Ir 5 Mg Tab (Immediate Release)) 5 mg PO Q4H PRN PRN Reason: moderate to severe pain Stop: 04/22/22 15:04 Last Admin: 04/10/22 05:55 Dose: 5 mg Documented by: Polyethylene Glycol (Polyethylene (Miralax) 17 Gm Pack) 17 gm PO DAILY PRN PRN Reason: Constipation Stop: 05/08/22 00:58 Propranolol HCl (Propranolol Hcl 60 Mg La Cap) 120 mg PO BID LOS Stop: 05/08/22 00:58 Last Admin: 04/10/22 08:13 Dose: 120 mg Documented by: Ropinirole HCl (Ropinirole Hcl 1 Mg Tablet) 1 mg PO Q24H LOS Stop: 05/08/22 17:59 Last Admin: 04/09/22 18:11 Dose: 1 mg Documented by:
[2022-04-10] MEDS: CYCLOBENZAPRINE HCL 10 MG TAB PO PRN ×2 (09:40→17:27)
[2022-04-10] MEDS: AMPHETAMINE ASP/SULF/DEXTRAMPH 10 MG TAB PO SCH (12:04)
--- NOTE | 2022-04-10 15:04 | Psychiatric Consultation ---
Date of Consultation April 10, 2022 Impression / Recommendations Impression 61 yo woman with history of depression, anxiety and ADHD, has been on disability with in-home services for many years, with worsening back pain and difficulty functioning independently at home. Diagnostically suspect there may also be a personality component which could be contributing to some of her paranoia/suspicion toward providers and adding to help seeking-help rejecting patterns. No apparent major cognitive impairment but will assess formally tomorrow via MOC[facility] if she allows. Doxepin and stimulant use unlikely to be contributing to ambulatory dysfunction as she has been on these medications for quite some time per her recollection but doxepin can sometimes cause some cognitive issues. Could consider alternative sleep aid such as trazodone if this remains a potential concern. No safety concerns from psychiatric standpoint. Discussed option of Cymbalta for pain, she is not interested but will consider to think about it. (1) Adjustment disorder with physical complaints: (2) Intractable back pain: (3) Unable to ambulate: (4) Morbid obesity: (5) Depression: (6) ADHD: -Psych liason to get [facility]AKTI for [facility] so we can get outpatient psych records -Consider Cymbalta for pain, currently she is not interested in starting this but will think about it -Could consider alternative for doxepin such as trazodone if concerns for cognitive impact -will do MOCA tomorrow -agree with PT/OT to determine appropriate disposition Risk Factors Assessment Do You Have Access To A Gun?: No Psych History Identifying Data 61 yo woman with history of depression, anxiety, ADHD, hypothyroidism, obesity and worsening back pain admitted medically due to weakness, pain and inability to move around independently at home. Psychiatry consulted for any recommendations regarding contribution from medications or other recommendations. Chief Complaint "I get such bad pain in my hip I literally see stars". History of Present Illness Ulices presents for ongoing back pain and difficulty ambulating independently at home. This is her second hospitalization in the last two weeks with an interim stay at [facility] for subacute rehab. She was home for one day before representing to the ED due to pain. She denies any significant psychiatric mood symptoms, notes she takes Adderall and Vyvanse for ADHD and does therapy weekly through her providers at [facility]. She also has a case managers through [facility] for additional support and a case managers through [facility] for her chronic medical conditions. She is unsure why her pain and weakness have worsened recently but feels she cannot function independently at home. However she also states that when seen by PT she was able to walk a certain distance "which means I don't qualify for rehab". Reviewed that she has many in home services and financial help for food and housing. She is currently taking Vyvanse, Adderall and doxepin but finds she no longer needs medications for depression or anxiety as "they just seemed to cover the problem up and didn't help things". She adamantly denies SI and scored an 8 on the PHQ-9 with 0 for q9. Further history per psych liason note on 04/10/22: "The patient has suffered from anxiety and depression since approximately 1989. She moved to this area in 1990 to go to [employer] and gain a degree in human relations. The patient could not finish her schooling because she was unable to focus and function due to stress. She denies ever having suicidal ideations or attempting to harm herself. She goes to [facility] and sees Florinda Moran PA-C and Juli Perez. The patient also has case management through [facility], and [facility]. She has been hospitalized for most of March and went to [facility] for rehab after her previous [facility] admission 03/25-03/29. She then returned to the hospital on 04/07 after calling Crisis and having them bring her to the ED because she could not get out of bed. Patient verbalized that she had called Crisis so "they could field all of the people and not let them all in my apartment". She also stated "I know it's part of their camaraderie but it's just so much when they come to take me to the hospital". Patient talked in circles and her story would change frequently. She was very focused on appealing her last [facility] discharge as well as her discharge from [facility]. She stated "maybe I shouldn't tell anyone that, I feel like I shouldn't tell anyone". Patient verbalized thoughts that exhibited paranoia very frequently throughout the conversation but did not appear to be paranoid. She mentioned multiple times whether she could trust the staff but would then verbalize that she likes the staff and they are helpful. The patient was not pleased with any suggestions that were made by this RN or Dr. Shepard. She is going to consider a trial of Cymbalta but does not feel hopeful about it. The patient reports difficulty sleeping due to pain. She has good appetite and had just finished eating her lunch upon this RN's arrival to speak with her. Patient was AAOx4. Patient scored 8 on PHQ-9 assessment and question #9 was 0. Spoke with patient's primary RN Pascual, after meeting with her. She reported that the patient can be difficult at times because she will be agreeable to suggestions/treatment but then quickly change her mind and tell staff that she "never agreed to anything". During last admission the patient had been telling staff that her food was poisoned. Patient also would change her story frequently regarding whether her father was living or . " Past Psychiatric History Current Psychiatric Diagnosis: depression, anxiety, ADHD Outpatient Services: [facility] Florinda Moran PA-C and Juli Perez. The patient also has [facility], and [facility] Previous Psych Admissions: denies Do You Have Access To A Gun?: No History of Previous Suicide Attempt: No Past Medication Trials: reports multiple including Cymbalta but cannot recall if this was helpful and can't recall other prior med trials Allergies Allergy/AdvReac Type Severity Reaction Status Date / Time Penicillins Allergy Intermediate Rash Unverified 04/07/22 21:12 sodium chloride Allergy Intermediate Swelling Unverified 04/07/22 21:12 [From [place] Nasal] of Lip/Tongue/Throat shellfish derived Allergy Mild Migraine Unverified 04/07/22 21:12 aspirin Allergy Unknown Unknown Unverified 04/07/22 21:12 amoxicillin Allergy throat Unverified 03/24/22 21:54 swells NSAIDS (Non-Steroidal Allergy vomiting Unverified 03/24/22 21:54 Anti-Inflamma diphenhydramine AdvReac Severe hyperactivi Verified 03/24/22 21:54 [From Benadryl] ty Home Medications Medication Instructions Recorded Confirmed Type dextroamphetamine sulfate 10 mg 10 mg PO .EVERY AFTERNOON 03/24/22 04/07/22 History tablet doxepin 10 mg capsule 10 mg PO HS 03/24/22 04/07/22 History levothyroxine 100 mcg tablet 100 mcg PO DAILYBB 03/24/22 04/07/22 History lisdexamfetamine 70 mg capsule 70 mg PO QAM 03/24/22 04/07/22 History (Vyvanse) montelukast 10 mg tablet 10 mg PO HS 03/24/22 04/07/22 History propranolol 120 mg capsule,24 120 mg PO AMPM 03/24/22 04/07/22 History hr,extended release ropinirole 0.5 mg tablet 1 mg PO .6 PM NIGHTLY 03/24/22 04/07/22 History docusate sodium 100 mg capsule 100 mg PO BID PRN #30 cap 03/29/22 04/07/22 Rx oxycodone 5 mg tablet 5 mg PO Q8H PRN #12 tab 03/29/22 04/07/22 Rx polyethylene glycol 3350 17 gram 17 g PO DAILY PRN #15 ea 03/29/22 04/07/22 Rx oral powder packet (Miralax) Substance Abuse History denies Personal History Living Arrangements: Apartment Employment Status: Disabled Marital Status: Single Beliefs That Will Affect Care: None History of Legal Problems: denies Psychological Trauma History Comment: denies Patient History Medical History ADHD Anxiety Depression Hx of migraines Hypothyroidism (acquired) PATTI (obstructive sleep apnea) Restless leg syndrome Seasonal allergies Venous insufficiency Surgical History History of carpal tunnel surgery of left wrist Social History Smoking Status: Never smoker Hx Alcohol Use: No Hx Substance Use: No Preferred Language: Micronesian Communication Ability: Effective Grab Jack Man Required: No Beliefs That Will Affect Care: None marital status: Single Current Living Situation: Alone current occupational status: disabled Feels Safe at Home: Yes Safety Concerns: Feels Safe At This Time Assistive Devices: Cane Physical Exam Psychiatric: Orientation: alert and oriented x 3 Apperance: appropriately dressed and appropriately groomed Eye Contact: good eye contact Motor Behavior: no abnormal motor movements Speech: normal rate/rhythm/volume of speech Affect: + constricted affect Mood: + depressed mood Thought Process: goal directed thought process Thought Content: reality based without delusions Suicidal Thoughts: denies suicidal thoughts Homicidal Thoughts: denies homicidal thoughts Hallucinations: no auditory hallucinations and no visual hallucinations Cognition: attention grossly intact and language grossly intact Estimated Intelligence: consistent with education level Insight: + fair insight Judgement: + limited judgement Vital Signs (Past 24 Hours): Last Vital Signs Temp 36.8 C 04/10/22 08:18 Pulse 81 04/10/22 08:18 Resp 16 04/10/22 08:18 BP 110/65 04/10/22 08:18 Pulse Ox 98 04/10/22 08:18 Review of Systems All systems reviewed & are unremarkable except as noted in HPI & below Results & Data (PSY) Medications Administered Amphetamine/Dextroamphetamine (Amphetamine Asp/Sulf/Dextramph 10 Mg Tab) 10 mg PO Q24H LOS Stop: 04/22/22 11:59 Last Admin: 04/10/22 12:04 Dose: Not Given Documented by: [id number] Admin: 04/09/22 12:29 Dose: 10 mg Documented by: [id number] Admin: 04/08/22 14:01 Dose: 10 mg Documented by: [id number] Cyclobenzaprine HCl (Cyclobenzaprine Hcl 10 Mg Tab) 10 mg PO TID PRN PRN Reason: Muscle Spasm Stop: 05/08/22 00:58 Last Admin: 04/10/22 09:40 Dose: 10 mg Documented by: [id number] Admin: 04/09/22 18:11 Dose: 10 mg Documented by: [id number] Admin: 04/09/22 08:16 Dose: 10 mg Documented by: [id number] Admin: 04/08/22 18:03 Dose: 10 mg Documented by: [id number] Admin: 04/08/22 08:53 Dose: 10 mg Documented by: [id number] Admin: 04/08/22 01:54 Dose: 10 mg Documented by: [id number] Doxepin HCl (Doxepin Hcl 10 Mg Capsule) 10 mg PO HS LOS Stop: 05/08/22 20:59 Last Admin: 04/09/22 21:44 Dose: 10 mg Documented by: [id number] Admin: 04/08/22 22:20 Dose: 10 mg Documented by: [id number] Enoxaparin Sodium (Enoxaparin Inj 40 Mg/0.4 Ml Syr) 40 mg SQ Q12H LOS Stop: 05/08/22 08:59 Last Admin: 04/10/22 08:07 Dose: Not Given Documented by: [id number] Admin: 04/09/22 21:40 Dose: Not Given Documented by: [id number] Admin: 04/09/22 09:24 Dose: Not Given Documented by: [id number] Admin: 04/08/22 21:13 Dose: Not Given Documented by: [id number] Admin: 04/08/22 08:53 Dose: 40 mg Documented by: [id number] Gabapentin (Gabapentin 100 Mg Cap) 100 mg PO TID LOS Stop: 05/09/22 15:54 Last Admin: 04/10/22 14:13 Dose: 100 mg Documented by: [id number] Admin: 04/10/22 08:13 Dose: 100 mg Documented by: [id number] Admin: 04/09/22 21:44 Dose: 100 mg Documented by: [id number] Admin: 04/09/22 16:35 Dose: 100 mg Documented by: [id number] Levothyroxine Sodium (Levothyroxine Sodium 100 Mcg Tablet) 100 mcg PO DAILYBB [facility] Stop: 05/08/22 06:29 Last Admin: 04/10/22 05:55 Dose: 100 mcg Documented by: [id number] Admin: 04/09/22 06:15 Dose: 100 mcg Documented by: [id number] Admin: 04/08/22 06:20 Dose: 100 mcg Documented by: [id number] Miscellaneous (Lisdexamfetamine [Vyvanse]: Order Awaiting Action) 1 ea N/A QS [facility] Stop: 05/08/22 07:59 Last Admin: 04/10/22 07:29 Dose: Not Given Documented by: [id number] Admin: 04/10/22 00:07 Dose: Not Given Documented by: [id number] Admin: 04/09/22 19:30 Dose: Not Given Documented by: [id number] Admin: 04/09/22 19:30 Dose: Not Given Documented by: [id number] Admin: 04/08/22 23:10 Dose: Not Given Documented by: [id number] Admin: 04/08/22 19:17 Dose: Not Given Documented by: [id number] Admin: 04/08/22 19:17 Dose: Not Given Documented by: [id number] Montelukast Sodium (Montelukast Sodium 10 Mg Tablet) 10 mg PO HS [facility] Stop: 05/08/22 20:59 Last Admin: 05/16/22 21:44 Dose: 10 mg Documented by: [id number] Admin: 04/08/22 21:12 Dose: 10 mg Documented by: [id number] Oxycodone HCl (Oxycodone Hcl Ir 5 Mg Tab (Immediate Release)) 5 mg PO Q6H PRN PRN Reason: Pain Stop: 04/24/22 09:22 Last Admin: 04/10/22 09:40 Dose: 5 mg Documented by: [id number] Propranolol HCl (Propranolol Hcl 60 Mg La Cap) 120 mg PO BID LOS Stop: 05/08/22 00:58 Last Admin: 04/10/22 08:13 Dose: 120 mg Documented by: [id number] Admin: 04/09/22 21:44 Dose: Not Given Documented by: [id number] Admin: 04/09/22 08:16 Dose: 120 mg Documented by: [id number] Admin: 04/08/22 21:12 Dose: 120 mg Documented by: [id number] Admin: 04/08/22 08:53 Dose: 120 mg Documented by: [id number] Admin: 04/08/22 01:55 Dose: 120 mg Documented by: [id number] Ropinirole HCl (Ropinirole Hcl 1 Mg Tablet) 1 mg PO Q24H LOS Stop: 05/08/22 17:59 Last Admin: 04/09/22 18:11 Dose: 1 mg Documented by: [id number] Admin: 04/08/22 18:03 Dose: 1 mg Documented by: [id number] Coding Level of Care Code 90752 Inpt Consult Level 3 Diagnoses Intractable back pain M54.9 Unable to ambulate R26.2 Morbid obesity E66.01 Depression F32.A ADHD F90.9 Adjustment disorder with physical complaints F43.29
[2022-04-10] MEDS: rOPINIRole HCL 1 MG TABLET PO SCH (17:25)
[2022-04-10] MEDS: MONTELUKAST SODIUM 10 MG TABLET PO SCH (20:11)
[2022-04-10] MEDS: DOXEPIN HCL 10 MG CAPSULE PO SCH (22:12)
[2022-04-11] MEDS: LEVOTHYROXINE SODIUM 100 MCG TABLET PO SCH (05:51)
[2022-04-11 08:02] LABS: ALC (manual) 2.35 K/uL (1.2-3.4); ANC (manual) 4.84 K/uL (1.4-6.5); Eosinophils # (manual) 0.33 K/uL (0-0.5); Eosinophils % (manual) 4.3 %; Lymphocytes # (manual) 2.35 K/uL (1.2-3.4); Lymphocytes % (manual) 30.4 %; Mean Corpuscular Hemoglobin 30.2 pg (25-34); Mean Corpuscular Hgb Conc 33.3 g/dL (32-36); Mean Corpuscular Volume 90.7 fL (80-100); Mean Platelet Volume 10.1 fL (7.4-10.4); Monocytes % (manual) 2.6 %; Neutrophils # (manual) 4.84 K/uL (1.4-6.5); Neutrophils % (manual) 62.7 %; Platelet Count 123 K/uL (130-400); RDW Coefficient of Variation 13.4 % (11.5-14.5); RDW Standard Deviation 44.8 fL (36.4-46.3); Red Blood Count 3.97 M/uL (4.2-5.4); White Blood Count 7.72 K/uL (4.8-10.8)
[2022-04-11] MEDS: CYCLOBENZAPRINE HCL 10 MG TAB PO PRN (08:10)
[2022-04-11] MEDS: oxyCODONE HCL IR 5 MG TAB (IMMEDIATE RELEASE) PO PRN ×3 (08:10→20:29)
[2022-04-11] MEDS: GABAPENTIN 100 MG CAP PO SCH ×3 (08:12→20:32)
[2022-04-11] MEDS: PROPRANOLOL HCL 60 MG LA CAP PO SCH ×2 (08:12→20:30)
[2022-04-11] MEDS ORDERED: methylPREDNISolone 4 MG TAB, 6 DAY TAPER PO SCH (09:15)
--- NOTE | 2022-04-11 10:15 | Pain Management Consultation ---
Date of Consultation April 11, 2022 Assessment & Plan (1) Chronic radicular pain of lower back: (2) Chronic low back pain: (3) Lumbar radiculopathy: (4) Morbid obesity: (5) Adjustment disorder with physical complaints: 1. Patient's current MRI findings are inconsistent with her presenting complaints. Would not recommend pursuing lumbar MARIANA 2. Recommend a Medrol Dosepak and patient was agreeable. Side effects versus benefits reviewed. 3. Will discontinue cyclobenzaprine initiate a trial of baclofen 10 mg 3 times daily scheduled dosing. Dose adjustment pending response. Side effects risk benefits reviewed. 4. Patient's current gabapentin dosing at 100 mg 3 times daily-we discussed expectations and recommendations to consider progressing dose to 300 mg 3 times daily 5. Patient will continue with Oxy IR for as needed breakthrough pain 6. Will reevaluate patient tomorrow regarding addition of Medrol Dosepak and transition from cyclobenzaprine to baclofen Thank you for allowing us to participate in the care of Mrs. Contreras. History of Present Illness Reason for Consultation: Intractable back pain Requesting Physician: Claudia Fierro DO Attending Physician: Claudia Fierro DO History of Present Illness Mrs. Contreras is a 61-year-old morbidly obese white female who was admitted due to intractable low back pain. The patient has history of chronic low back pain greater than 20 years duration which is 50% axial and 50% in the right lower extremity in an L5 distribution to the foot per her report. She also experiences pain bilaterally which can travel to the gluteal and posterior thighs with any attempted ambulatory activities. The patient has been admitted on multiple separate occasions over the past 1 month due to similar complaints. The patient was discharged to rehab at her most recent stay and discharged to home in the a few days ago returning indicating that she could not get out of bed and ambulate due to her pain. Patient reports her pain is aching in characteristic with episodic sharp, shooting and spasming characteristics in the axial lumbar spine. Her pain is shooting in the right lower extremity episodically. She rates her pain a 5-7/10. She denies change in location or characteristic of her chronic pain complaints but reporting increased severity. Her pain is aggravated with any attempted movement with positional changing and/or ambulation. Patient denies any bowel or bladder incontinence or saddle anesthesias. She has previously been treated with epidural steroid injections many years ago which were not helpful and is recently indicated that she would defer any further epidural steroid injections. She has been evaluated by orthopedic spine surgery who deferred surgical intervention. She was agreeable to initiating gabapentin at 100 mg 3 times daily but reports prior utilization was not helpful but she is unaware of prior dosing. She is tolerating medications not notable side effects. She is finding Oxy IR to be helpful at diminishing the frequency and severity of her pain. She does not find cyclobenzaprine to be of much benefit with regards to her spasm. Patient has no further constitutional complaints. Plan of care discussed with Dr. Génesis Beauchamp. Pain Assessment Full Body Front + Back: 1. Axial lumbosacral spine 2. Left gluteal and posterior thigh stopping at knee 3. Right gluteal and posterior thigh stopping at knee 4. Right lower extremity in an L5 distribution to foot Pain scale - at its best (0-10): 5 Pain scale - at its worst (0-10): 7 Allergies Allergy/AdvReac Type Severity Reaction Status Date / Time Penicillins Allergy Intermediate Rash Unverified 04/07/22 21:12 sodium chloride Allergy Intermediate Swelling Unverified 04/07/22 21:12 [From [place] Nasal] of Lip/Tongue/Throat shellfish derived Allergy Mild Migraine Unverified 04/07/22 21:12 aspirin Allergy Unknown Unknown Unverified 04/07/22 21:12 amoxicillin Allergy throat Unverified 03/24/22 21:54 swells NSAIDS (Non-Steroidal Allergy vomiting Unverified 03/24/22 21:54 Anti-Inflamma diphenhydramine AdvReac Severe hyperactivi Verified 03/24/22 21:54 [From Benadryl] ty Home Medications Medication Instructions Recorded Confirmed Type dextroamphetamine sulfate 10 mg 10 mg PO .EVERY AFTERNOON 03/24/22 04/07/22 H istory tablet doxepin 10 mg capsule 10 mg PO HS 03/24/22 04/07/22 History levothyroxine 100 mcg tablet 100 mcg PO DAILYBB 03/24/22 04/07/22 History lisdexamfetamine 70 mg capsule 70 mg PO QAM 03/24/22 04/07/22 History (Vyvanse) montelukast 10 mg tablet 10 mg PO HS 03/24/22 04/07/22 History propranolol 120 mg capsule,24 120 mg PO AMPM 03/24/22 04/07/22 History hr,extended release ropinirole 0.5 mg tablet 1 mg PO .6 PM NIGHTLY 03/24/22 04/07/22 History docusate sodium 100 mg capsule 100 mg PO BID PRN #30 cap 03/29/22 04/07/22 Rx oxycodone 5 mg tablet 5 mg PO Q8H PRN #12 tab 03/29/22 04/07/22 Rx polyethylene glycol 3350 17 gram 17 g PO DAILY PRN #15 ea 03/29/22 04/07/22 Rx oral powder packet (Miralax) Pain History Pain Intensity Pain scale - at its best (0-10): 5 Pain scale - at its worst (0-10): 7 Patient History Medical History (Updated 04/11/22 @ 10:12 by Aba Barker PA-C) ADHD Anxiety Chronic low back pain Depression Hx of migraines Hypothyroidism (acquired) PATTI (obstructive sleep apnea) Restless leg syndrome Seasonal allergies Venous insufficiency Surgical History History of carpal tunnel surgery of left wrist Social History Smoking Status: Never smoker Hx Alcohol Use: No Hx Substance Use: No Preferred Language: Icelandic Communication Ability: Effective 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 Speech and thought process appropriate. Mood and affect appropriate. Cognition intact. Patient morbidly obese and physically deconditioned. Head: Normocephalic and atraumatic. ENT: No evidence of nasal or oral mucosal lesions. Mucous membranes are moist. Eyes: Pupils equal round reactive to light. Neck: Supple without adenopathy and full range of motion. Abdomen: Soft and nondistended. No organomegaly. Bowel sounds active. Back/spine: Patient able to logroll towards her right side for visual inspection. No visible abnormalities or skin breakdown. Patient is tender over the left greater than right lumbosacral region which is nonfocal to the facet joint or SI joint region. Patient tender throughout the gluteal musculature. No definitive spasm was appreciated on palpation due to morbid obesity. Lower extremities: Patient resisted any straight leg raising on the right side. SLR on the left reportedly increased right-sided radicular pain. Strength testing 4/5 with dorsiflexion, plantar flexion and hip flexion/extension bilate rally with questionable effort. Sensation was intact without focal deficit. Neurologic: Cranial nerves grossly intact. Ambulatory function not witnessed. Results (Pain Clinic) Diagnostic Review MRI Findings: [facility], [place] [phone] Magnetic Resonance Report Patient:ROBLES CONTRERAS Admit Date:03/24/22 MR#:[id number] Address1:[address] [facility] [address] Acct ID:[id number] Address2: Date:1960 [facility] Zip:[place] [address] Age:61 Location:ED Sex:F Room/Bed: Att Phy: Diagnosis:BACK PAIN Caity Phy:Uma Corral DO Service Date:03/24/22 Fam Phy: Interpreting Phy:Dain RosenthalAdmit Phy: Ordering Phy:Rolando Waterman PA cc: ~ MR lumbar spine wo con CLINICAL HISTORY: 61 years-old Female with Left lumbar radiculitis, inability to ambulate. Acute on chronic low back pain with left lower extremity radicular symptoms COMPARISON: None. TECHNIQUE: Multiplanar, multi sequence MRI of the lumbar spine was performed without intravenous contrast. FINDINGS: No acute intra-abdominal paraspinal abnormality identified. Atrophy of the paraspinal musculature. Anteflexed uterus. Conus medullaris terminates at the T12-L1 level. Signal within the imaged thoracic spinal cord and cauda equina is unremarkable. No acute fracture or subluxation. Mild Modic type I endplate degeneration at L1 and L4. Multilevel intervertebral disc space narrowing with spondylitic spurring and facet arthrosis as detailed below. No destructive bone lesions or endplate erosions. T12-L1: Mild intervertebral disc space narrowing with moderate anterior bridging osteophytosis. Ligamentum flavum thickening with moderate facet arthrosis. No central canal or neural foraminal stenosis. L1-L2: Spondylitic spurring. Ligamentum flavum thickening with moderate facet arthrosis. Tiny posterior annular disc bulge flattens the ventral thecal sac.. There is no significant central canal stenosis. There is mild bilateral neural foraminal narrowing. L2-L3: Mild intervertebral disc space narrowing and spondylitic spurring. Ligamentum flavum thickening with severe facet arthrosis and trace left facet effusion. Tiny circumferential annular disc bulge. There is mild to moderate central canal stenosis, AP dimension of the thecal sac measuring 8 mm. Mild right with [id number] left neural foraminal narrowing. L3-L4: Mild posterior intervertebral disc space narrowing with spondylitic spurring and circumferential annular disc bulge. Ligamentum flavum thickening with severe facet arthrosis. There is a posterior annular fissure with a central/left paracentral disc extrusion extending a few millimeters inferior to the superior L4 endplate. This measures up to 6 mm in transverse dimension. There is severe central canal stenosis with effacement of the thecal sac at this level. Severe narrowing of the left greater than right lateral recesses with moderate right and [id number] left neural foraminal narrowing. L4-L5: Severe decubitus space narrowing with Modic type II endplate degeneration. Spondylitic spurring with small posterior disc osteophyte complex. Ligamentum flavum thickening with severe facet arthrosis. No significant central canal stenosis. Moderate left with moderate to severe right neural foraminal narrowing. L5-S1: Moderate facet arthrosis. No central canal or neural foraminal narrowing. IMPRESSION: 1. No acute fracture or subluxation. 2. Central/left paracentral disc extrusion at L3-L4 causes severe central canal stenosis with severe narrowing of the lateral recesses, moderate right with [id number] left neural foraminal narrowing. 3. Additional discogenic degeneration with spondylitic spurring, facet arthrosis and ligamentum flavum thickening as above. ACT 112: Negative or not required by law. The above report was generated using voice recognition software. It may contain grammatical, syntax or spelling errors. Electronically signed by: Dain Rosenthal M.D. 03/24/2022 9:04 PM Dictated:03/24/222055 Transcribed: 03/24/222055
--- NOTE | 2022-04-11 10:53 | Psychiatric Progress Note ---
Date of Service April 11, 2022 Impression / Recommendations Impression 61 yo woman with history of depression, anxiety and ADHD, has been on disability with in-home services for many years, with worsening back pain and difficulty functioning independently at home. Diagnostically suspect there may also be a personality component which could be contributing to some of her paranoia/suspicion toward providers and adding to help seeking-help rejecting patterns. No apparent major cognitive impairment. Doxepin and stimulant use unlikely to be contributing to ambulatory dysfunction as she has been on these medications for quite some time per her recollection but doxepin can sometimes cause some cognitive issues. Could consider alternative sleep aid such as trazodone if this remains a potential concern. No safety concerns from psychiatric standpoint. Discussed option of Cymbalta for pain, she is not interested. 04/11/22: on MOCA Cognitive Assessment which is considered a normal score. Therefore suspect some of the statements she's made about not recalling information more likely due to feeling overwhelmed or from personality component. Seems some of her hesitancy about discharge is fear of returning home but also fearful of ending up in a long-term senior care if she can not demonstrate enough independence if she were to go to a [facility]. Discussed with Dr. Fierro. I think Cymbalta could be beneficial but she declines. (1) Adjustment disorder with physical complaints: (2) Intractable back pain: (3) Unable to ambulate: (4) Morbid obesity: (5) Depression: (6) ADHD: -Consider Cymbalta for pain, currently she is not interested in starting this but could be considered in the future -agree with pain management and PT/OT to determine appropriate disposition Risk Factors Assessment Do You Have Access To A Gun?: No Interval History Identifying Information 61 yo woman with history of depression, anxiety, ADHD, hypothyroidism, obesity and worsening back pain admitted medically due to weakness, pain and inability to move around independently at home. Psychiatry consulted for any recommendations regarding contribution from medications or other recommendations. Chief Complaint "I'm in a lot of pain today". Review of Systems Notes reports fair sleep and stable appetite Subjective Subjective Patient was seen & assessed and interval progress reviewed. dewayne declined to sign an BHAKTI for her [facility] providers and declines again today stating she prefers to keep her outpatient psychiatric treatment separate and doesn't want any records to end up scanned into her medical chart. She endorses ongoing pain. Reviewed that she feels overwhelmed by disposition options because she doesn't know what PT at home would look like but she worries it "wouldn't be enough" to help her feel better. She also worries about going to subacute rehab because she wonders if they could ultimately decide she's not safe to return home and she could end up "stuck there" in a senior care which is what happened to her sister. She notes she wishes subacute rehab had more time each day for physical therapy noting there was a lot of downtime and that "maybe I have too high of expectations for what is realistic". She declines starting Cymbalta as her hospitalist provider is making some other medication changes she is hopeful will help her pain and she wants to avoid polypharmacy. Completed MOCA. She got a 29/30 with only point missing for attention span on letter section. Delayed recall was 5/5 on first trial with no cue. 5/5 on executive/visuospatial testing. Physical Exam Psychiatric Orientation: alert and oriented x 3 Apperance: appropriately dressed and appropriately groomed Eye Contact: good eye contact Motor Behavior: no abnormal motor movements Speech: normal rate/rhythm/volume of speech Affect: + constricted affect Mood: + depressed mood Thought Process: goal directed thought process Thought Content: reality based without delusions Suicidal Thoughts: denies suicidal thoughts Homicidal Thoughts: denies homicidal thoughts Hallucinations: no auditory hallucinations and no visual hallucinations Cognition: attention grossly intact and language grossly intact Estimated Intelligence: consistent with education level Insight: + fair insight Judgement: + limited judgement Vital Signs (Past 24 Hours) Last Vital Signs Temp 37.2 C 04/11/22 08:15 Pulse 69 04/11/22 08:15 Resp 16 04/11/22 08:15 BP 103/58 L 04/11/22 08:15 Pulse Ox 95 04/11/22 08:15 [facility] Laboratory Results Laboratory Results - last 24 hr 04/11/22 07:13 WBC 7.72 RBC 3.97 L Hgb 12.0 Hct 36.0 L MCV 90.7 MCH 30.2 MCHC 33.3 RDW Std Deviation 44.8 RDW Coeff of Alexy 13.4 Plt Count 123 L MPV 10.1 Neutrophils % (Manual) 62.7 Lymphocytes % (Manual) 30.4 Monocytes % (Manual) 2.6 Eosinophils % (Manual) 4.3 Neutrophils # (Manual) 4.84 Total Absolute Neuts 4.84 Lymphocytes # (Manual) 2.35 Total Abs Lymphocytes 2.35 Monocytes # (Manual) 0.20 Eosinophils # (Manual) 0.33 Current Inpatient Medications Current Inpatient Medications: Current Inpatient Medications Acetaminophen (Acetaminophen 325 Mg Tab) 650 mg PO Q4H PRN PRN Reason: pain/fever Stop: 05/08/22 00:58 Amphetamine/Dextroamphetamine (Amphetamine Asp/Sulf/Dextramph 10 Mg Tab) 10 mg PO Q24H [facility] Stop: 04/22/22 11:59 Last Admin: 04/10/22 12:04 Dose: Not Given Documented by: Baclofen (Baclofen 10 Mg Tab) 10 mg PO TID [facility] Stop: 05/11/22 13:59 Docusate Sodium (Docusate Sodium 100 Mg Cap) 100 mg PO BID PRN PRN Reason: Constipation Stop: 05/08/22 00:58 Doxepin HCl (Doxepin Hcl 10 Mg Capsule) 10 mg PO [facility] Stop: 05/08/22 20:59 Last Admin: 04/10/22 22:12 Dose: 10 mg Documented by: Enoxaparin Sodium (Enoxaparin Inj 40 Mg/0.4 Ml Syr) 40 mg SQ Q12H [facility] Stop: 05/08/22 08:59 Last Admin: 04/10/22 08:07 Dose: Not Given Documented by: Gabapentin (Gabapentin 100 Mg Cap) 100 mg PO TID [facility] Stop: 05/09/22 15:54 Last Admin: 04/11/22 08:12 Dose: 100 mg Documented by: Levothyroxine Sodium (Levothyroxine Sodium 100 Mcg Tablet) 100 mcg PO DAILYBB [facility] Stop: 05/08/22 06:29 Last Admin: 04/11/22 05:51 Dose: 100 mcg Documented by: Methylprednisolone (Methylprednisolone 4 Mg Tab) 8 mg PO 1000,2100 [facility] Stop: 04/11/22 21:01 Methylprednisolone (Methylprednisolone 4 Mg Tab) 4 mg PO 1300,1800 [facility] Stop: 04/11/22 18:01 Methylprednisolone (Methylprednisolone 4 Mg Tab) 4 mg PO 0700,1300,1800 [facility] Stop: 04/12/22 18:01 Methylprednisolone (Methylprednisolone 4 Mg Tab) 8 mg PO [facility] Stop: 04/12/22 21:01 Methylprednisolone (Methylprednisolone 4 Mg Tab) 4 mg PO 0700,1300,1800,2100 [facility] Stop: 04/13/22 21:01 Methylprednisolone (Methylprednisolone 4 Mg Tab) 4 mg PO 0700,1300,2100 [facility] Stop: 04/14/22 21:01 Methylprednisolone (Methylprednisolone 4 Mg Tab) 4 mg PO 0700,2100 [facility] Stop: 04/15/22 21:01 Methylprednisolone (Methylprednisolone 4 Mg Tab) 4 mg PO 0700 [facility] Stop: 04/16/22 07:01 Miscellaneous (Lisdexamfetamine [Vyvanse]: Order Awaiting Action) 1 ea N/A QS [facility] Stop: 05/08/22 07:59 Last Admin: 04/11/22 08:10 Dose: Not Given Documented by: Montelukast Sodium (Montelukast Sodium 10 Mg Tablet) 10 mg PO HS [facility] Stop: 05/08/22 20:59 Last Admin: 04/10/22 20:11 Dose: 10 mg Documented by: Ondansetron HCl (Ondansetron Inj 2 Mg/Ml 2 Ml Vial) 4 mg IV Q6H PRN PRN Reason: Nausea Stop: 05/08/22 00:58 Oxycodone HCl (Oxycodone Hcl Ir 5 Mg Tab (Immediate Release)) 5 mg PO Q6H PRN PRN Reason: Pain Stop: 04/24/22 09:22 Last Admin: 04/11/22 08:10 Dose: 5 mg Documented by: Polyethylene Glycol (Polyethylene (Miralax) 17 Gm Pack) 17 gm PO DAILY PRN PRN Reason: Constipation Stop: 05/08/22 00:58 Propranolol HCl (Propranolol Hcl 60 Mg [place]) 120 mg PO BID [facility] Stop: 05/08/22 00:58 Last Admin: 04/11/22 08:12 Dose: 120 mg Documented by: Ropinirole HCl (Ropinirole Hcl 1 Mg Tablet) 1 mg PO Q24H [facility] Stop: 05/08/22 17:59 Last Admin: 04/10/22 17:25 Dose: 1 mg Documented by:
[2022-04-11] MEDS: methylPREDNISolone 4 MG TAB PO SCH ×4 (11:31→20:32)
[2022-04-11] MEDS ORDERED: methylPREDNISolone 4 MG TAB PO SCH ×2 (13:00→21:00)
[2022-04-11] MEDS: AMPHETAMINE ASP/SULF/DEXTRAMPH 10 MG TAB PO SCH (13:19)
[2022-04-11] MEDS: BACLOFEN 10 MG TAB PO SCH ×2 (14:20→20:31)
--- NOTE | 2022-04-11 15:15 | Hospitalist Progress Note ---
Date of Service April 11, 2022 Assessment & Plan (1) Intractable back pain: Plan: Lumbar disc extrusion with lumbar stenosis causing intractable back pain. Recently at rehab and went home with worsening. Interestingly after 911 was called to come get her she had to WALK to the litter to come in this admission per case management. She was also able to get up and move to the potty easily tonight. Doing well on current pain regimen and feels the muscle relaxer is bet ter. We discussed trying to alternate these and she became confused and said "that would be too hard" and "they are already doing that". Cont supportive management and transition patient to SNF. Pain management saw her and added Medrol dosepak, trial of baclofen and will continue titrating gabapentn as tolerating. Appreciate PM following and recs. (2) Intervertebral disc extrusion: Plan: As seen on lumbar MRI 03/24. Per orthospine evaluation during last admission she is not a surgical candidate at this time. Continue PT/OT and conservative pain management. (3) Chronic radicular pain of lower back: Plan: Patient is not on narcotics at baseline. (4) Depression: Plan: Takes a tricyclic antidepressant, doxepin, every evening at bedtime. (5) ADHD: Plan: She is on Vyvanse (lisdexamphetamine) every morning with additional dextroamphetamine every afternoon. Vyvanse is on formulary and not currently being given, ok to get this from home when able. (6) Restless leg syndrome: Plan: Chronic, continue home ropinirole. Monitor for effects of polypharmacy (7) Hypothyroidism (acquired): Plan: chronic, stable, obtain TSH wtih next blood draw and review outpatient records. Cont home thyroid replacement. (8) Morbid obesity: Plan: lifestyle modifications strongly recommended to help strengthen her core and reduce the chance of further back injury. (9) PATTI (obstructive sleep apnea): Plan: chronic, stable. Cont CPAP QHS (10) Thrombocytopenia: Plan: Platelets were low prior to Lovenox 40 mg given this admission. Suspect secondary cause such as medications, vitamin deficiencies etc. HIT panel is pending but this is low probability. Patient has continued to refuse Lovenox similarly to last admission. I have discontinued this for now. Ambulation encouraged but she is resistant as above. SCDs. Continue to hold chemoprophylaxis in light of thrombocytopenia with pending platelet factor 4 antibody and serotonin release assay as well as thrombocytopenia. (11) DVT prophylaxis: Plan: Chemoprophylaxis held in light of thrombocytopenia/pt also declined. SCDs full Code Dispo-uncertain until she is able to move around more, possibly SNF? Pt lives alone and there is concern with her current disposition/understanding of her options in the setting of multiple mood altering medications. Appreciate psych input, also. Claudia Fierro DO [facility] Hospitalist Admission and Anticipated Discharge Date Admission Date: April 07, 2022 Subjective 61-year-old female presents with acute on chronic severe back pain. She was able to get up and out of bed and move over to the bedside commode today Right leg more painful compared to left and is more weakn than normal. She states she has "signed the papers for rehab" but "im not sure, i'll never be sure" Denies other issues and she is tolerating PO Review of Systems Review of Systems: All systems were reviewed and negative except as indicated above. Physical Exam Physical Exam: CONSTITUTIONAL: morbidly obese, vitals as above, generally well-appearing, NAD EYES: normal conjunctivae, no scleral icterus ENT: external ear and nose normal, MMM NECK: trachea midline RESPIRATORY: clear to auscultation bilaterally, no crackles, rales or wheezes, normal respiratory effort CARDIOVASCULAR: regular rate and rhythm, S1 and 2 heard without murmurs, gallops or rubs, no JVD, no peripheral edema CHEST: inspection of chest was normal GASTROINTESTINAL: soft, nontender, ND, no guarding MUSCULOSKELETAL: strength 5/5 throughout, she can pull herself onto her side when lying flat. She can flex both of her knees and has some improvement with her ability to perform hip flexion on the right leg compared to left. Head is normocephalic and atraumatic SKIN: warm and dry NEUROLOGIC: CN 2-12 grossly intact, no sensory deficit, normal cognition, normal speech, no tremor PSYCHIATRIC: alert cooperative and oriented to person, place and time. Results & Data Results & Data ([facility]) Vital Signs (Past 12 Hours) Vital Signs Temp Pulse Pulse Resp BP Pulse Ox 04/11/22 08:15 37.2 C 69 16 103/58 L 95 04/11/22 03:35 78 18 96 Laboratory Results Short CBC 04/11/22 Range/Units 07:13 WBC 7.72 (4.8-10.8) K/uL Hgb 12.0 (12.0-16.0) g/dL Hct 36.0 L (37-47) % Plt Count 123 L (130-400) K/uL Medications Administered Current Inpatient Medications Acetaminophen (Acetaminophen 325 Mg Tab) 650 mg PO Q4H PRN PRN Reason: pain/fever Stop: 05/08/22 00:58 Amphetamine/Dextroamphetamine (Amphetamine Asp/Sulf/Dextramph 10 Mg Tab) 10 mg PO Q24H LOS Stop: 04/22/22 11:59 Last Admin: 04/11/22 13:19 Dose: Not Given Documented by: Baclofen (Baclofen 10 Mg Tab) 10 mg PO TID LOS Stop: 05/11/22 13:59 Last Admin: 04/11/22 14:20 Dose: 10 mg Documented by: Docusate Sodium (Docusate Sodium 100 Mg Cap) 100 mg PO BID PRN PRN Reason: Constipation Stop: 05/08/22 00:58 Doxepin HCl (Doxepin Hcl 10 Mg Capsule) 10 mg PO HS LOS Stop: 05/08/22 20:59 Last Admin: 04/10/22 22:12 Dose: 10 mg Documented by: Enoxaparin Sodium (Enoxaparin Inj 40 Mg/0.4 Ml Syr) 40 mg SQ Q12H LOS Stop: 05/08/22 08:59 Last Admin: 04/10/22 08:07 Dose: Not Given Documented by: Gabapentin (Gabapentin 100 Mg Cap) 100 mg PO TID LOS Stop: 05/09/22 15:54 Last Admin: 04/11/22 14:20 Dose: 100 mg Documented by: Levothyroxine Sodium (Levothyroxine Sodium 100 Mcg Tablet) 100 mcg PO DAILYBB LOS Stop: 05/08/22 06:29 Last Admin: 04/11/22 05:51 Dose: 100 mcg Documented by: Methylprednisolone (Methylprednisolone 4 Mg Tab) 8 mg PO 1000,2100 LOS Stop: 04/11/22 21:01 Last Admin: 04/11/22 11:31 Dose: 8 mg Documented by: Methylprednisolone (Methylprednisolone 4 Mg Tab) 4 mg PO 1300,1800 LOS Stop: 04/11/22 18:01 Last Admin: 04/11/22 13:21 Dose: 4 mg Documented by: Methylprednisolone (Methylprednisolone 4 Mg Tab) 4 mg PO 0700,1300,1800 [facility] Stop: 04/12/22 18:01 Methylprednisolone (Methylprednisolone 4 Mg Tab) 8 mg PO HS [facility] Stop: 04/12/22 21:01 Methylprednisolone (Methylprednisolone 4 Mg Tab) 4 mg PO 0700,1300,1800,2100 [facility] Stop: 04/13/22 21:01 Methylprednisolone (Methylprednisolone 4 Mg Tab) 4 mg PO 0700,1300,2100 [facility] Stop: 04/14/22 21:01 Methylprednisolone (Methylprednisolone 4 Mg Tab) 4 mg PO 0700,2100 [facility] Stop: 04/15/22 21:01 Methylprednisolone (Methylprednisolone 4 Mg Tab) 4 mg PO 0700 [facility] Stop: 04/16/22 07:01 Miscellaneous (Lisdexamfetamine [Vyvanse]: Order Awaiting Action) 1 ea N/A QS [facility] Stop: 05/08/22 07:59 Last Admin: 04/11/22 08:10 Dose: Not Given Documented by: Montelukast Sodium (Montelukast Sodium 10 Mg Tablet) 10 mg PO [facility] Stop: 05/08/22 20:59 Last Admin: 04/10/22 20:11 Dose: 10 mg Documented by: Ondansetron HCl (Ondansetron Inj 2 Mg/Ml 2 Ml Vial) 4 mg IV Q6H PRN PRN Reason: Nausea Stop: 05/08/22 00:58 Oxycodone HCl (Oxycodone Hcl Ir 5 Mg Tab (Immediate Release)) 5 mg PO Q6H PRN PRN Reason: Pain Stop: 04/24/22 09:22 Last Admin: 04/11/22 14:25 Dose: 5 mg Documented by: Polyethylene Glycol (Polyethylene (Miralax) 17 Gm Pack) 17 gm PO DAILY PRN PRN Reason: Constipation Stop: 05/08/22 00:58 Propranolol HCl (Propranolol Hcl 60 Mg La Cap) 120 mg PO BID [facility] Stop: 05/08/22 00:58 Last Admin: 04/11/22 08:12 Dose: 120 mg Documented by: Ropinirole HCl (Ropinirole Hcl 1 Mg Tablet) 1 mg PO Q24H [facility] Stop: 05/08/22 17:59 Last Admin: 04/10/22 17:25 Dose: 1 mg Documented by:
[2022-04-11 17:47] LABS: Plt Ab, Heparin Induced Negative (Negative)
[2022-04-11] MEDS: rOPINIRole HCL 1 MG TABLET PO SCH (18:52)
[2022-04-11] MEDS: MONTELUKAST SODIUM 10 MG TABLET PO SCH (20:30)
[2022-04-11] MEDS: DOXEPIN HCL 10 MG CAPSULE PO SCH (22:51)
[2022-04-12] MEDS: oxyCODONE HCL IR 5 MG TAB (IMMEDIATE RELEASE) PO PRN ×3 (04:26→17:06)
[2022-04-12] MEDS: LEVOTHYROXINE SODIUM 100 MCG TABLET PO SCH (06:11)
[2022-04-12 06:45] LABS: Basophils # (auto) 0.01 K/uL (0-0.2); Basophils % (auto) 0.1 %; Eosinophils # (auto) 0.01 K/uL (0-0.5); Eosinophils % (auto) 0.1 %; Hematocrit (blood only) 38.6 % (37-47); Hemoglobin 12.9 g/dL (12.0-16.0); Immature Granulocytes # (auto) 0.02 K/uL (0.00-0.02); Immature Granulocytes % (auto) 0.2 %; Lymphocytes # (auto) 0.72 K/uL (1.2-3.4); Lymphocytes % (auto) 7.5 %; Mean Corpuscular Hemoglobin 29.4 pg (25-34); Mean Corpuscular Hgb Conc 33.4 g/dL (32-36); Mean Corpuscular Volume 87.9 fL (80-100); Mean Platelet Volume 10.5 fL (7.4-10.4); Monocytes # (auto) 0.37 K/uL (0.11-0.59); Monocytes % (auto) 3.9 %; Neutrophils # (auto) 8.45 K/uL (1.4-6.5); Neutrophils % (auto) 88.2 %; Platelet Count 132 K/uL (130-400); RDW Standard Deviation 41.7 fL (36.4-46.3); Red Blood Count 4.39 M/uL (4.2-5.4); White Blood Count 9.58 K/uL (4.8-10.8)
[2022-04-12] MEDS ORDERED: methylPREDNISolone 4 MG TAB PO SCH ×3 (07:00→21:00)
[2022-04-12] MEDS: methylPREDNISolone 4 MG TAB PO SCH ×3 (08:36→18:03)
[2022-04-12] MEDS: BACLOFEN 10 MG TAB PO SCH ×3 (08:36→20:14)
[2022-04-12] MEDS: PROPRANOLOL HCL 60 MG LA CAP PO SCH ×2 (08:37→20:15)
[2022-04-12] MEDS: GABAPENTIN 100 MG CAP PO SCH ×3 (08:37→20:14)
--- NOTE | 2022-04-12 11:55 | Hospitalist Progress Note ---
Date of Service April 12, 2022 Assessment & Plan (1) Intractable back pain: Plan: Lumbar disc extrusion with lumbar stenosis causing intractable back pain. Recently at rehab and went home with worsening. Interestingly after 911 was called to come get her she had to WALK to the litter to come in this admission per case management. She was also able to get up and move to the potty easily tonight. Doing well on current pain regimen and feels the muscle relaxer is bet ter. We discussed trying to alternate these and she became confused and said "that would be too hard" and "they are already doing that". Cont supportive management and transition patient to SNF. Pain management saw her and added Medrol dosepak, trial of baclofen and will continue titrating gabapentin as needed. Appreciate PM following and recs. Currently she is doing well on the muscle relaxer which she likes the most. Will cont with current regimen and get her to rehab hopefully tomorrow. (2) Intervertebral disc extrusion: Plan: As seen on lumbar MRI 03/24. Per orthospine evaluation during last admission she is not a surgical candidate at this time. Continue PT/OT and conservative pain management. (3) Chronic radicular pain of lower back: Plan: Patient is not on narcotics at baseline. (4) Depression: Plan: Takes a tricyclic antidepressant, doxepin, every evening at bedtime. (5) ADHD: Plan: She is on Vyvanse (lisdexamphetamine) every morning with additional dextroamphetamine every afternoon. Vyvanse is on formulary and not currently being given, ok to get this from home when able. (6) Restless leg syndrome: Plan: Chronic, continue home ropinirole. Monitor for effects of polypharmacy (7) Hypothyroidism (acquired): Plan: chronic, stable, obtain TSH wtih next blood draw and review outpatient records. Cont home thyroid replacement. (8) Morbid obesity: Plan: lifestyle modifications strongly recommended to help strengthen her core and reduce the chance of further back injury. (9) PATTI (obstructive sleep apnea): Plan: chronic, stable. Cont CPAP QHS (10) Thrombocytopenia: Plan: Platelets were low prior to Lovenox 40 mg given this admission. Suspect secondary cause such as medications, vitamin deficiencies etc. HIT panel is pending but this is low probability. Patient has continued to refuse Lovenox similarly to last admission. I have discontinued this for now. Ambulation encouraged but she is resistant as above. SCDs. Continue to hold chemopr ophylaxis in light of thrombocytopenia --HIT Ab negative (11) DVT prophylaxis: Plan: Chemoprophylaxis held in light of thrombocytopenia/pt also declined. SCDs full Code Dispo-prefer to get her to SNF in am. Claudia Fierro DO [facility] Hospitalist Admission and Anticipated Discharge Date Admission Date: April 07, 2022 Subjective 61-year-old female presents with acute on chronic severe back pain. She was able to get up and out of bed and move over to the bedside commode today Right leg more painful compared to left and is more weak than normal but this is improved She continues to report pain and difficulty sitting up and is eating her dinner lying completely supine Review of Systems Review of Systems: All systems were reviewed and negative except as indicated above. Physical Exam Physical Exam: CONSTITUTIONAL: morbidly obese, vitals as above, generally well-appearing, NAD EYES: normal conjunctivae, no scleral icterus ENT: external ear and nose normal, MMM NECK: trachea midline RESPIRATORY: clear to auscultation bilaterally, no crackles, rales or wheezes, normal respiratory effort CARDIOVASCULAR: regular rate and rhythm, S1 and 2 heard without murmurs, gallops or rubs, no JVD, no peripheral edema CHEST: inspection of chest was normal GASTROINTESTINAL: soft, nontender, ND, no guarding MUSCULOSKELETAL: strength 5/5 throughout, she can pull herself onto her side when lying flat. She can flex both of her knees and has some improvement with her ability to perform hip flexion on the right leg compared to left. Head is normocephalic and atraumatic SKIN: warm and dry NEUROLOGIC: CN 2-12 grossly intact, no sensory deficit, normal cognition, normal speech, no tremor PSYCHIATRIC: alert cooperative and oriented to person, place and time. Results & Data Results & Data ([facility]) Vital Signs (Past 12 Hours) Vital Signs Temp Pulse Pulse Resp BP Pulse Ox 04/12/22 07:15 67 18 97 04/12/22 06:35 36.5 C 70 18 106/63 94 04/12/22 03:30 56 L 20 95 04/12/22 00:20 61 16 97 Laboratory Results Short CBC 04/12/22 Range/Units 05:45 WBC 9.58 (4.8-10.8) K/uL Hgb 12.9 (12.0-16.0) g/dL Hct 38.6 (37-47) % Plt Count 132 (130-400) K/uL Medications Administered Current Inpatient Medications Acetaminophen (Acetaminophen 325 Mg Tab) 650 mg PO Q4H PRN PRN Reason: pain/fever Stop: 05/08/22 00:58 Amphetamine/Dextroamphetamine (Amphetamine Asp/Sulf/Dextramph 10 Mg Tab) 10 mg PO Q24H LOS Stop: 04/22/22 11:59 Last Admin: 04/11/22 13:19 Dose: Not Given Documented by: Baclofen (Baclofen 10 Mg Tab) 10 mg PO TID [facility] Stop: 05/11/22 13:59 Last Admin: 04/12/22 08:36 Dose: 10 mg Documented by: Docusate Sodium (Docusate Sodium 100 Mg Cap) 100 mg PO BID PRN PRN Reason: Constipation Stop: 05/08/22 00:58 Doxepin HCl (Doxepin Hcl 10 Mg Capsule) 10 mg PO HS [facility] Stop: 05/08/22 20:59 Last Admin: 04/11/22 22:51 Dose: Not Given Documented by: Enoxaparin Sodium (Enoxaparin Inj 40 Mg/0.4 Ml Syr) 40 mg SQ Q12H LOS Stop: 05/08/22 08:59 Last Admin: 04/10/22 08:07 Dose: Not Given Documented by: Gabapentin (Gabapentin 100 Mg Cap) 100 mg PO TID LOS Stop: 05/09/22 15:54 Last Admin: 04/12/22 08:37 Dose: 100 mg Documented by: Levothyroxine Sodium (Levothyroxine Sodium 100 Mcg Tablet) 100 mcg PO DAILYBB LOS Stop: 05/08/22 06:29 Last Admin: 04/12/22 06:11 Dose: 100 mcg Documented by: Methylprednisolone (Methylprednisolone 4 Mg Tab) 4 mg PO 0700,1300,1800 [facility] Stop: 04/12/22 18:01 Last Admin: 04/12/22 08:36 Dose: 4 mg Documented by: Methylprednisolone (Methylprednisolone 4 Mg Tab) 8 mg PO HS [facility] Stop: 04/12/22 21:01 Methylprednisolone (Methylprednisolone 4 Mg Tab) 4 mg PO 0700,1300,1800,2100 LOS Stop: 04/13/22 21:01 Methylprednisolone (Methylprednisolone 4 Mg Tab) 4 mg PO 0700,1300,2100 [facility] Stop: 04/14/22 21:01 Methylprednisolone (Methylprednisolone 4 Mg Tab) 4 mg PO 0700,2100 [facility] Stop: 04/15/22 21:01 Methylprednisolone (Methylprednisolone 4 Mg Tab) 4 mg PO 0700 [facility] Stop: 04/16/22 07:01 Miscellaneous (Lisdexamfetamine [Vyvanse]: Order Awaiting Action) 1 ea N/A QS [facility] Stop: 05/08/22 07:59 Last Admin: 04/12/22 08:02 Dose: Not Given Documented by: Montelukast Sodium (Montelukast Sodium 10 Mg Tablet) 10 mg PO HS [facility] Stop: 05/08/22 20:59 Last Admin: 04/11/22 20:30 Dose: 10 mg Documented by: Ondansetron HCl (Ondansetron Inj 2 Mg/Ml 2 Ml Vial) 4 mg IV Q6H PRN PRN Reason: Nausea Stop: 05/08/22 00:58 Oxycodone HCl (Oxycodone Hcl Ir 5 Mg Tab (Immediate Release)) 5 mg PO Q6H PRN PRN Reason: Pain Stop: 04/24/22 09:22 Last Admin: 04/12/22 10:38 Dose: 5 mg Documented by: Polyethylene Glycol (Polyethylene (Miralax) 17 Gm Pack) 17 gm PO DAILY PRN PRN Reason: Constipation Stop: 05/08/22 00:58 Propranolol HCl (Propranolol Hcl 60 Mg La Cap) 120 mg PO BID [facility] Stop: 05/08/22 00:58 Last Admin: 04/12/22 08:37 Dose: 120 mg Documented by: Ropinirole HCl (Ropinirole Hcl 1 Mg Tablet) 1 mg PO Q24H [facility] Stop: 05/08/22 17:59 Last Admin: 04/11/22 18:52 Dose: 1 mg Documented by:
[2022-04-12] MEDS: AMPHETAMINE ASP/SULF/DEXTRAMPH 10 MG TAB PO SCH (14:02)
[2022-04-12] MEDS: rOPINIRole HCL 1 MG TABLET PO SCH (18:04)
[2022-04-12] MEDS: MONTELUKAST SODIUM 10 MG TABLET PO SCH (20:15)
[2022-04-12] MEDS: DOXEPIN HCL 10 MG CAPSULE PO SCH (20:15)
[2022-04-13 06:13] LABS: Eosinophils # (auto) 0.01 K/uL (0-0.5); Eosinophils % (auto) 0.1 %; Hematocrit (blood only) 36.7 % (37-47); Immature Granulocytes # (auto) 0.03 K/uL (0.00-0.02); Immature Granulocytes % (auto) 0.3 %; Lymphocytes # (auto) 0.98 K/uL (1.2-3.4); Lymphocytes % (auto) 9.8 %; Mean Corpuscular Hemoglobin 28.5 pg (25-34); Mean Corpuscular Hgb Conc 32.7 g/dL (32-36); Mean Corpuscular Volume 87.2 fL (80-100); Mean Platelet Volume 10.6 fL (7.4-10.4); Monocytes # (auto) 0.36 K/uL (0.11-0.59); Monocytes % (auto) 3.6 %; Neutrophils # (auto) 8.59 K/uL (1.4-6.5); Neutrophils % (auto) 86.2 %; Platelet Count 139 K/uL (130-400); RDW Standard Deviation 41.6 fL (36.4-46.3); Red Blood Count 4.21 M/uL (4.2-5.4); White Blood Count 9.97 K/uL (4.8-10.8)
[2022-04-13] MEDS: oxyCODONE HCL IR 5 MG TAB (IMMEDIATE RELEASE) PO PRN ×3 (06:18→20:11)
[2022-04-13] MEDS: LEVOTHYROXINE SODIUM 100 MCG TABLET PO SCH (06:19)
[2022-04-13] MEDS: methylPREDNISolone 4 MG TAB PO SCH ×4 (06:47→20:12)
[2022-04-13] MEDS ORDERED: methylPREDNISolone 4 MG TAB PO SCH (07:00)
[2022-04-13] MEDS: BACLOFEN 10 MG TAB PO SCH ×3 (09:08→20:13)
[2022-04-13] MEDS: GABAPENTIN 100 MG CAP PO SCH ×3 (09:08→20:12)
[2022-04-13] MEDS: PROPRANOLOL HCL 60 MG LA CAP PO SCH ×2 (09:09→20:12)
[2022-04-13] MEDS: ACETAMINOPHEN 325 MG TAB PO PRN (09:16)
--- NOTE | 2022-04-13 11:46 | Hospitalist Progress Note ---
Date of Service April 13, 2022 Assessment & Plan (1) Intractable back pain: Plan: Lumbar disc extrusion with lumbar stenosis causing intractable back pain. Recently at rehab and went home with worsening. Interestingly after 911 was called to come get her she had to WALK to the litter to come in this admission per case management. She was also able to get up and move to the potty easily tonight. Doing well on current pain regimen and feels the muscle relaxer is bet ter. We discussed trying to alternate these and she became confused and said "that would be too hard" and "they are already doing that". Cont supportive management and transition patient to SNF. Pain management saw her and added Medrol dosepak, trial of baclofen and will continue titrating gabapentin as needed. Appreciate PM following and recs. Currently she is doing well on the muscle relaxer which she likes the most. Will cont with current regimen and awaiting SNF placement. (2) Intervertebral disc extrusion: Plan: As seen on lumbar MRI 03/24. Per ortho spine evaluation during last admission she is not a surgical candidate at this time. Continue PT/OT and conservative pain management. Weakness and proprioception issues noted with her right leg and foot, however, she is not a good candidate for surgery per Ortho spine last admission. Cont conservative management. (3) Chronic radicular pain of lower back: Plan: Patient is not on narcotics at baseline. (4) Depression: Plan: Takes a tricyclic antidepressant, doxepin, every evening at bedtime. (5) ADHD: Plan: She is on Vyvanse (lisdexamphetamine) every morning with additional dextroamphetamine every afternoon. Vyvanse is on formulary and not currently being given, ok to get this from home when able. (6) Restless leg syndrome: Plan: Chronic, continue home ropinirole. Monitor for effects of polypharmacy (7) Hypothyroidism (acquired): Plan: chronic, stable, obtain TSH wtih next blood draw and review outpatient records. Cont home thyroid replacement. (8) Morbid obesity: Plan: lifestyle modifications strongly recommended to help strengthen her core and reduce the chance of further back injury. (9) PATTI (obstructive sleep apnea): Plan: chronic, stable. Cont CPAP QHS (10) Thrombocytopenia: Plan: Platelets were low prior to Lovenox 40 mg given this admission. Suspect secondary cause such as medications, vitamin deficiencies etc. HIT panel is pending but this is low probability. Patient has continued to refuse Lovenox similarly to last admission. I have discontinued this for now but after a few days, and with platelets coming up again, will attempt to restart. Ambulation encouraged but she is resistant as above. SCDs. HIT Ab negative (11) DVT prophylaxis: Plan: Lovenox. SCDs full Code Dispo-awaiting SNF placement Claudia Fierro DO [facility] Hospitalist Admission and Anticipated Discharge Date Admission Date: April 07, 2022 Subjective 61-year-old female presents with acute on chronic severe back pain. She was able to get up and out of bed and move over to the bedside commode today Right leg weakness with weakness with dorsiflexion is bothering her She also reports concerns over having no proprioception of her right foot. She continues to report pain and difficulty sitting up Review of Systems Review of Systems: All systems were reviewed and negative except as indicated above. Physical Exam Physical Exam: CONSTITUTIONAL: morbidly obese, vitals as above, generally well-appearing, NAD EYES: normal conjunctivae, no scleral icterus ENT: external ear and nose normal, MMM NECK: trachea midline RESPIRATORY: clear to auscultation bilaterally, no crackles, rales or wheezes, normal respiratory effort CARDIOVASCULAR: regular rate and rhythm, S1 and 2 heard without murmurs, gallops or rubs, no JVD, no peripheral edema CHEST: inspection of chest was normal GASTROINTESTINAL: soft, nontender, ND, no guarding MUSCULOSKELETAL: strength 5/5 throughout, she can pull herself onto her side when lying flat. She can flex both of her knees and has some improvement with her ability to perform hip flexion on the right leg compared to left. Head is normocephalic and atraumatic SKIN: warm and dry NEUROLOGIC: CN 2-12 grossly intact, no sensory deficit, normal cognition, normal speech, no tremor PSYCHIATRIC: alert cooperative and oriented to person, place and time. Results & Data Results & Data ([facility]) Vital Signs (Past 12 Hours) Vital Signs Temp Pulse Pulse Resp BP Pulse Ox 04/13/22 08:21 36.6 C 64 16 103/65 100 04/13/22 03:25 58 L 16 98 04/13/22 00:20 59 L 21 97 Laboratory Results Short CBC 04/13/22 Range/Units 05:38 WBC 9.97 (4.8-10.8) K/uL Hgb 12.0 (12.0-16.0) g/dL Hct 36.7 L (37-47) % Plt Count 139 (130-400) K/uL Medications Administered Current Inpatient Medications Acetaminophen (Acetaminophen 325 Mg Tab) 650 mg PO Q4H PRN PRN Reason: pain/fever Stop: 05/08/22 00:58 Last Admin: 04/13/22 09:16 Dose: 650 mg Documented by: Amphetamine/Dextroamphetamine (Amphetamine Asp/Sulf/Dextramph 10 Mg Tab) 10 mg PO Q24H LOS Stop: 04/22/22 11:59 Last Admin: 04/12/22 14:02 Dose: Not Given Documented by: Baclofen (Baclofen 10 Mg Tab) 10 mg PO TID LOS Stop: 05/11/22 13:59 Last Admin: 04/13/22 09:08 Dose: 10 mg Documented by: Docusate Sodium (Docusate Sodium 100 Mg Cap) 100 mg PO BID PRN PRN Reason: Constipation Stop: 05/08/22 00:58 Doxepin HCl (Doxepin Hcl 10 Mg Capsule) 10 mg PO HS LOS Stop: 05/08/22 20:59 Last Admin: 04/12/22 20:15 Dose: 10 mg Documented by: Enoxaparin Sodium (Enoxaparin Inj 40 Mg/0.4 Ml Syr) 40 mg SQ Q12H LOS Stop: 05/08/22 08:59 Last Admin: 04/10/22 08:07 Dose: Not Given Documented by: Gabapentin (Gabapentin 100 Mg Cap) 100 mg PO TID LOS Stop: 05/09/22 15:54 Last Admin: 04/13/22 09:08 Dose: 100 mg Documented by: Levothyroxine Sodium (Levothyroxine Sodium 100 Mcg Tablet) 100 mcg PO DAILYBB LOS Stop: 05/08/22 06:29 Last Admin: 04/13/22 06:19 Dose: 100 mcg Documented by: Methylprednisolone (Methylprednisolone 4 Mg Tab) 4 mg PO 0700,1300,1800,2100 LOS Stop: 04/13/22 21:01 Last Admin: 04/13/22 06:47 Dose: 4 mg Documented by: Methylprednisolone (Methylprednisolone 4 Mg Tab) 4 mg PO 0700,1300,2100 LOS Stop: 04/14/22 21:01 Methylprednisolone (Methylprednisolone 4 Mg Tab) 4 mg PO 0700,2100 [facility] Stop: 04/15/22 21:01 Methylprednisolone (Methylprednisolone 4 Mg Tab) 4 mg PO 0700 [facility] Stop: 04/16/22 07:01 Miscellaneous (Lisdexamfetamine [Vyvanse]: Order Awaiting Action) 1 ea N/A QS [facility] Stop: 05/08/22 07:59 Last Admin: 04/13/22 09:07 Dose: Not Given Documented by: Montelukast Sodium (Montelukast Sodium 10 Mg Tablet) 10 mg PO HS [facility] Stop: 05/08/22 20:59 Last Admin: 04/12/22 20:15 Dose: 10 mg Documented by: Ondansetron HCl (Ondansetron Inj 2 Mg/Ml 2 Ml Vial) 4 mg IV Q6H PRN PRN Reason: Nausea Stop: 05/08/22 00:58 Oxycodone HCl (Oxycodone Hcl Ir 5 Mg Tab (Immediate Release)) 5 mg PO Q6H PRN PRN Reason: Pain Stop: 04/24/22 09:22 Last Admin: 04/13/22 06:18 Dose: 5 mg Documented by: Polyethylene Glycol (Polyethylene (Miralax) 17 Gm Pack) 17 gm PO DAILY PRN PRN Reason: Constipation Stop: 05/08/22 00:58 Propranolol HCl (Propranolol Hcl 60 Mg La Cap) 120 mg PO BID [facility] Stop: 05/08/22 00:58 Last Admin: 04/13/22 09:09 Dose: 120 mg Documented by: Ropinirole HCl (Ropinirole Hcl 1 Mg Tablet) 1 mg PO Q24H [facility] Stop: 05/08/22 17:59 Last Admin: 04/12/22 18:04 Dose: 1 mg Documented by:
[2022-04-13] MEDS: AMPHETAMINE ASP/SULF/DEXTRAMPH 10 MG TAB PO SCH (14:05)
[2022-04-13] MEDS: rOPINIRole HCL 1 MG TABLET PO SCH (18:56)
[2022-04-13] MEDS: MONTELUKAST SODIUM 10 MG TABLET PO SCH (20:11)
[2022-04-13] MEDS: DOXEPIN HCL 10 MG CAPSULE PO SCH (20:12)
[2022-04-14] MEDS: methylPREDNISolone 4 MG TAB PO SCH ×3 (06:05→21:32)
[2022-04-14] MEDS: LEVOTHYROXINE SODIUM 100 MCG TABLET PO SCH (06:05)
[2022-04-14] MEDS: oxyCODONE HCL IR 5 MG TAB (IMMEDIATE RELEASE) PO PRN ×3 (06:08→19:07)
[2022-04-14] MEDS ORDERED: methylPREDNISolone 4 MG TAB PO SCH (07:00)
[2022-04-14] MEDS: BACLOFEN 10 MG TAB PO SCH ×3 (09:24→21:32)
[2022-04-14] MEDS: PROPRANOLOL HCL 60 MG LA CAP PO SCH ×2 (09:24→21:32)
[2022-04-14] MEDS: GABAPENTIN 100 MG CAP PO SCH ×3 (09:24→21:32)
[2022-04-14] MEDS: ENOXAPARIN INJ 40 MG/0.4 ML SYR SQ SCH ×2 (09:25→21:32)
[2022-04-14] MEDS: AMPHETAMINE ASP/SULF/DEXTRAMPH 10 MG TAB PO SCH (13:00)
--- NOTE | 2022-04-14 18:31 | Hospitalist Progress Note ---
Date of Service April 14, 2022 Assessment & Plan (1) Intractable back pain: Plan: Lumbar disc extrusion with lumbar stenosis causing intractable back pain. Recently at rehab and went home with worsening. Interestingly after 911 was called to come get her she had to WALK to the litter to come in this admission per case management. She was also able to get up and move to the potty easily tonight. Doing well on current pain regimen and feels the muscle relaxer is b mark. Pain management saw her and added Medrol dosepak, trial of baclofen and will continue titrating gabapentin as needed. Currently she is doing well on the muscle relaxer which she likes the most. Will cont with current regimen and awaiting SNF placement. (2) Intervertebral disc extrusion: Plan: As seen on lumbar MRI 03/24. Per ortho spine evaluation during last admission she is not a surgical candidate at this time. Continue PT/OT and conservative pain management. Weakness and proprioception issues noted with her right leg and foot, however, she is not a good candidate for surgery per Ortho spine last admission. Continue conservative management. (3) Chronic radicular pain of lower back: Plan: Patient is not on narcotics at baseline. (4) Depression: Plan: Takes a tricyclic antidepressant, doxepin, every evening at bedtime. (5) ADHD: Plan: She is on Vyvanse (lisdexamphetamine) every morning with additional dextroamphetamine every afternoon. Vyvanse is on formulary and not currently being given, ok to get this from home when able. (6) Restless leg syndrome: Plan: Chronic, continue home ropinirole. Monitor for effects of polypharmacy (7) Hypothyroidism (acquired): Plan: chronic, stable, continue synthroid (8) Morbid obesity: Plan: BMI 57.3. lifestyle modifications strongly recommended to help strengthen her core and reduce the chance of further back injury. (9) PATTI (obstructive sleep apnea): Plan: chronic, stable. Continue CPAP QHS (10) Thrombocytopenia: Plan: Resolved. Plts now normal. (11) DVT prophylaxis: Plan: Lovenox. SCDs Dispo-awaiting SNF placement Admission and Anticipated Discharge Date Admission Date: April 07, 2022 Subjective States has intermittent pain but is relatively controlled with current regimen. She says baclofen seems to be helping her the most. She is asking if she can shower. No fever, chills, chest pain, shortness of breath. Physical Exam Physical Exam: General: Morbidly obese, lying comfortably in bed, not in distress, on room air HEENT: EOMI, GI, MMM Chest: Clear breath sounds bilaterally, no wheezes or crackles CVS: Regular rate and rhythm, normal heart sounds, no murmur Abdomen: Soft, non tender, not distended, normal bowel sounds Neuro: Awake, alert, oriented, conversing well, non focal Extremities: No cyanosis, clubbing or edema Results & Data Results & Data ([facility]) Vital Signs (Past 12 Hours) Vital Signs Temp Pulse Resp BP Pulse Ox 04/14/22 08:31 36.8 C 64 16 121/61 96
[2022-04-14] MEDS: rOPINIRole HCL 1 MG TABLET PO SCH (18:35)
[2022-04-14] MEDS: MONTELUKAST SODIUM 10 MG TABLET PO SCH (21:31)
[2022-04-14] MEDS: DOXEPIN HCL 10 MG CAPSULE PO SCH (21:33)
[2022-04-15] MEDS: LEVOTHYROXINE SODIUM 100 MCG TABLET PO SCH (06:12)
[2022-04-15] MEDS: methylPREDNISolone 4 MG TAB PO SCH ×2 (06:12→21:23)
[2022-04-15] MEDS: oxyCODONE HCL IR 5 MG TAB (IMMEDIATE RELEASE) PO PRN ×3 (06:14→19:16)
[2022-04-15] MEDS ORDERED: methylPREDNISolone 4 MG TAB PO SCH (07:00)
[2022-04-15] MEDS: GABAPENTIN 100 MG CAP PO SCH ×3 (08:44→21:23)
[2022-04-15] MEDS: BACLOFEN 10 MG TAB PO SCH ×3 (08:44→21:24)
[2022-04-15] MEDS: ENOXAPARIN INJ 40 MG/0.4 ML SYR SQ SCH ×2 (08:45→21:24)
[2022-04-15] MEDS: PROPRANOLOL HCL 60 MG LA CAP PO SCH ×2 (08:46→21:23)
[2022-04-15] MEDS: AMPHETAMINE ASP/SULF/DEXTRAMPH 10 MG TAB PO SCH (11:14)
[2022-04-15] MEDS: NYSTATIN POWDER 15GM BTL EXT SCH ×2 (14:11→21:24)
--- NOTE | 2022-04-15 14:27 | Hospitalist Progress Note ---
Date of Service April 15, 2022 Assessment & Plan (1) Intractable back pain: Plan: Lumbar disc extrusion with lumbar stenosis causing intractable back pain. Recently at rehab and went home with worsening. Interestingly after 911 was called to come get her she had to WALK to the litter to come in this admission per case management. She was also able to get up and move to the potty easily tonight. Doing well on current pain regimen and feels the muscle relaxer is b mark. Pain management saw her and added Medrol dosepak, trial of baclofen and will continue titrating gabapentin as needed. Currently she is doing well on the muscle relaxer which she likes the most. Will continue with current regimen and awaiting SNF placement. (2) Intervertebral disc extrusion: Plan: As seen on lumbar MRI 03/24. Per ortho spine evaluation during last admission she is not a surgical candidate at this time. Continue PT/OT and conservative pain management. Weakness and proprioception issues noted with her right leg and foot, however, she is not a good candidate for surgery per Ortho spine last admission. Continue conservative management. (3) Chronic radicular pain of lower back: Plan: Patient is not on narcotics at baseline. (4) Depression: Plan: Takes a tricyclic antidepressant, doxepin, every evening at bedtime. (5) ADHD: Plan: She is on Vyvanse (lisdexamphetamine) every morning with additional dextroamphetamine every afternoon. Vyvanse is on formulary and not currently being given, ok to get this from home when able. (6) Restless leg syndrome: Plan: Chronic, continue home ropinirole. Monitor for effects of polypharmacy (7) Hypothyroidism (acquired): Plan: chronic, stable, continue synthroid (8) Morbid obesity: Plan: BMI 57.3. lifestyle modifications strongly recommended to help strengthen her core and reduce the chance of further back injury. (9) PATTI (obstructive sleep apnea): Plan: chronic, stable. Continue CPAP QHS (10) Thrombocytopenia: Plan: Resolved. Plts now normal. (11) DVT prophylaxis: Plan: Lovenox. SCDs Dispo-awaiting SNF placement Admission and Anticipated Discharge Date Admission Date: April 07, 2022 Subjective No new issues. She was disappointed that she did not get any therapy instructions from PT/OT what she can do here while waiting for the rehab. Pain controlled. No bowel movement for past 6 days but she declined additional laxative- states she is comfortable and wants to give current stool softeners a try. Physical Exam Physical Exam: General: Morbidly obese, lying comfortably in bed, not in distress, on room air HEENT: EOMI, GI, MMM Chest: Clear breath sounds bilaterally, no wheezes or crackles CVS: Regular rate and rhythm, normal heart sounds, no murmur Abdomen: Soft, non tender, not distended, normal bowel sounds Neuro: Awake, alert, oriented, conversing well, non focal Extremities: No cyanosis, clubbing or edema Results & Data Results & Data ([facility]) Vital Signs (Past 12 Hours) Vital Signs Temp Pulse Pulse Resp BP BP Pulse Ox 04/15/22 08:43 56 L 116/67 04/15/22 08:11 37.0 C 55 L 16 138/77 94 Medications Administered Current Inpatient Medications Acetaminophen (Acetaminophen 325 Mg Tab) 650 mg PO Q4H PRN PRN Reason: pain/fever Stop: 05/08/22 00:58 Last Admin: 04/13/22 09:16 Dose: 650 mg Documented by: Amphetamine/Dextroamphetamine (Amphetamine Asp/Sulf/Dextramph 10 Mg Tab) 10 mg PO Q24H LOS Stop: 04/22/22 11:59 Last Admin: 04/15/22 11:14 Dose: Not Given Documented by: Baclofen (Baclofen 10 Mg Tab) 10 mg PO TID LOS Stop: 05/11/22 13:59 Last Admin: 04/15/22 14:11 Dose: 10 mg Documented by: Docusate Sodium (Docusate Sodium 100 Mg Cap) 100 mg PO BID PRN PRN Reason: Constipation Stop: 05/08/22 00:58 Doxepin HCl (Doxepin Hcl 10 Mg Capsule) 10 mg PO HS LOS Stop: 05/08/22 20:59 Last Admin: 04/14/22 21:33 Dose: 10 mg Documented by: Enoxaparin Sodium (Enoxaparin Inj 40 Mg/0.4 Ml Syr) 40 mg SQ Q12H LOS Stop: 05/08/22 08:59 Last Admin: 04/15/22 08:45 Dose: Not Given Documented by: Gabapentin (Gabapentin 100 Mg Cap) 100 mg PO TID LOS Stop: 05/09/22 15:54 Last Admin: 04/15/22 14:11 Dose: 100 mg Documented by: Levothyroxine Sodium (Levothyroxine Sodium 100 Mcg Tablet) 100 mcg PO DAILYBB [facility] Stop: 05/08/22 06:29 Last Admin: 04/15/22 06:12 Dose: 100 mcg Documented by: Methylprednisolone (Methylprednisolone 4 Mg Tab) 4 mg PO 0700,2100 LOS Stop: 04/15/22 21:01 Last Admin: 04/15/22 06:12 Dose: 4 mg Documented by: Methylprednisolone (Methylprednisolone 4 Mg Tab) 4 mg PO 0700 [facility] Stop: 04/16/22 07:01 Miscellaneous (Lisdexamfetamine [Vyvanse]: Order Awaiting Action) 1 ea N/A QS [facility] Stop: 05/08/22 07:59 Last Admin: 04/15/22 08:43 Dose: Not Given Documented by: Montelukast Sodium (Montelukast Sodium 10 Mg Tablet) 10 mg PO HS [facility] Stop: 05/08/22 20:59 Last Admin: 04/14/22 21:31 Dose: 10 mg Documented by: Nystatin (Nystatin Powder 15gm Btl) 1 appln EXT TID [facility] Stop: 05/15/22 13:59 Last Admin: 04/15/22 14:11 Dose: 1 appln Documented by: Ondansetron HCl (Ondansetron Inj 2 Mg/Ml 2 Ml Vial) 4 mg IV Q6H PRN PRN Reason: Nausea Stop: 05/08/22 00:58 Oxycodone HCl (Oxycodone Hcl Ir 5 Mg Tab (Immediate Release)) 5 mg PO Q6H PRN PRN Reason: Pain Stop: 04/24/22 09:22 Last Admin: 04/15/22 12:28 Dose: 5 mg Documented by: Polyethylene Glycol (Polyethylene (Miralax) 17 Gm Pack) 17 gm PO DAILY PRN PRN Reason: Constipation Stop: 05/08/22 00:58 Propranolol HCl (Propranolol Hcl 60 Mg [place]) 120 mg PO BID [facility] Stop: 05/08/22 00:58 Last Admin: 04/15/22 08:46 Dose: Not Given Documented by: Ropinirole HCl (Ropinirole Hcl 1 Mg Tablet) 1 mg PO Q24H [facility] Stop: 05/08/22 17:59 Last Admin: 04/14/22 18:35 Dose: 1 mg Documented by:
[2022-04-15] MEDS: rOPINIRole HCL 1 MG TABLET PO SCH (17:44)
[2022-04-15] MEDS: MONTELUKAST SODIUM 10 MG TABLET PO SCH (21:22)
[2022-04-16] MEDS: DOXEPIN HCL 10 MG CAPSULE PO SCH ×2 (00:04→20:26)
[2022-04-16] MEDS: LEVOTHYROXINE SODIUM 100 MCG TABLET PO SCH (06:03)
[2022-04-16] MEDS ORDERED: methylPREDNISolone 4 MG TAB PO SCH ×2 (07:00)
[2022-04-16] MEDS: PROPRANOLOL HCL 60 MG LA CAP PO SCH ×2 (07:15→20:27)
[2022-04-16] MEDS: ENOXAPARIN INJ 40 MG/0.4 ML SYR SQ SCH ×2 (07:15→20:26)
[2022-04-16] MEDS: NYSTATIN POWDER 15GM BTL EXT SCH ×3 (07:17→20:26)
[2022-04-16] MEDS: GABAPENTIN 100 MG CAP PO SCH ×3 (07:17→20:26)
[2022-04-16] MEDS: BACLOFEN 10 MG TAB PO SCH ×3 (07:17→20:26)
[2022-04-16] MEDS: oxyCODONE HCL IR 5 MG TAB (IMMEDIATE RELEASE) PO PRN ×3 (07:17→19:36)
[2022-04-16] MEDS: ONDANSETRON INJ 2 MG/ML 2 ML VIAL IV PRN (11:04)
[2022-04-16] MEDS: AMPHETAMINE ASP/SULF/DEXTRAMPH 10 MG TAB PO SCH (11:54)
--- NOTE | 2022-04-16 15:19 | Hospitalist Progress Note ---
Date of Service April 16, 2022 Assessment & Plan (1) Intractable back pain: Plan: Lumbar disc extrusion with lumbar stenosis causing intractable back pain. Recently at rehab and went home with worsening. Interestingly after 911 was called to come get her she had to WALK to the litter to come in this admission per case management. She was also able to get up and move to the potty easily tonight. Doing well on current pain regimen and feels the muscle relaxer is b mark. Pain management saw her and added Medrol dosepak, trial of baclofen and will continue titrating gabapentin as needed. Currently she is doing well on the muscle relaxer which she likes the most. Will continue with current regimen and awaiting SNF placement. (2) Intervertebral disc extrusion: Plan: As seen on lumbar MRI 03/24. Per ortho spine evaluation during last admission she is not a surgical candidate at this time. Continue PT/OT and conservative pain management. Weakness and proprioception issues noted with her right leg and foot, however, she is not a good candidate for surgery per Ortho spine last admission. Continue conservative management. (3) Chronic radicular pain of lower back: Plan: Patient is not on narcotics at baseline. (4) Depression: Plan: Takes a tricyclic antidepressant, doxepin, every evening at bedtime. (5) ADHD: Plan: She is on Vyvanse (lisdexamphetamine) every morning with additional dextroamphetamine every afternoon. Vyvanse is on formulary and not currently being given, ok to get this from home when able. (6) Restless leg syndrome: Plan: Chronic, continue home ropinirole. Monitor for effects of polypharmacy (7) Hypothyroidism (acquired): Plan: chronic, stable, continue synthroid (8) Morbid obesity: Plan: BMI 57.3. lifestyle modifications strongly recommended to help strengthen her core and reduce the chance of further back injury. (9) PATTI (obstructive sleep apnea): Plan: chronic, stable. Continue CPAP QHS (10) Thrombocytopenia: Plan: Resolved. Plts now normal. (11) DVT prophylaxis: Plan: Lovenox. SCDs Dispo- Per CM, she will have a bed at SNF possibly Sat or . Admission and Anticipated Discharge Date Admission Date: April 07, 2022 Subjective Feels nauseated today, thinks it could be from her constipation but does not want any more stool softeners. States she is taking enough prunes. She does not want miralax as it causes diarrhea. States last BM may be 3 or 4 days ago. She states she might have a bed at rehab Saturday. In the meantime, she is hopeful to see PT so she can continue working on her exercises here that she can possibly do. Physical Exam Physical Exam: General: Morbidly obese, lying comfortably in bed, not in distress, on room air HEENT: EOMI, GI, MMM Chest: Clear breath sounds bilaterally, no wheezes or crackles CVS: Regular rate and rhythm, normal heart sounds, no murmur Abdomen: Soft, non tender, not distended, normal bowel sounds Neuro: Awake, alert, oriented, conversing well, non focal Extremities: No cyanosis, clubbing or edema Results & Data Results & Data ([facility]) Vital Signs (Past 12 Hours) Vital Signs Temp Pulse Pulse Resp BP Pulse Ox 04/16/22 07:11 37.3 C 59 L 16 121/63 98 04/16/22 03:45 85 33 H 95 Medications Administered Current Inpatient Medications Acetaminophen (Acetaminophen 325 Mg Tab) 650 mg PO Q4H PRN PRN Reason: pain/fever Stop: 05/08/22 00:58 Last Admin: 04/13/22 09:16 Dose: 650 mg Documented by: Amphetamine/Dextroamphetamine (Amphetamine Asp/Sulf/Dextramph 10 Mg Tab) 10 mg PO Q24H LOS Stop: 04/22/22 11:59 Last Admin: 04/16/22 11:54 Dose: Not Given Documented by: Baclofen (Baclofen 10 Mg Tab) 10 mg PO TID LOS Stop: 05/11/22 13:59 Last Admin: 04/16/22 13:35 Dose: 10 mg Documented by: Docusate Sodium (Docusate Sodium 100 Mg Cap) 100 mg PO BID PRN PRN Reason: Constipation Stop: 05/08/22 00:58 Doxepin HCl (Doxepin Hcl 10 Mg Capsule) 10 mg PO HS [facility] Stop: 05/08/22 20:59 Last Admin: 04/16/22 00:04 Dose: 10 mg Documented by: Enoxaparin Sodium (Enoxaparin Inj 40 Mg/0.4 Ml Syr) 40 mg SQ Q12H LOS Stop: 05/08/22 08:59 Last Admin: 04/16/22 07:15 Dose: Not Given Documented by: Gabapentin (Gabapentin 100 Mg Cap) 100 mg PO TID [facility] Stop: 05/09/22 15:54 Last Admin: 04/16/22 13:35 Dose: 100 mg Documented by: Levothyroxine Sodium (Levothyroxine Sodium 100 Mcg Tablet) 100 mcg PO DAILYBB [facility] Stop: 05/08/22 06:29 Last Admin: 04/16/22 06:03 Dose: 100 mcg Documented by: Miscellaneous (Lisdexamfetamine [Vyvanse]: Order Awaiting Action) 1 ea N/A QS [facility] Stop: 05/08/22 07:59 Last Admin: 04/16/22 15:14 Dose: Not Given Documented by: Montelukast Sodium (Montelukast Sodium 10 Mg Tablet) 10 mg PO HS [facility] Stop: 05/08/22 20:59 Last Admin: 04/15/22 21:22 Dose: 10 mg Documented by: Nystatin (Nystatin Powder 15gm Btl) 1 appln EXT TID [facility] Stop: 05/15/22 13:59 Last Admin: 04/16/22 07:17 Dose: 1 appln Documented by: Ondansetron HCl (Ondansetron Inj 2 Mg/Ml 2 Ml Vial) 4 mg IV Q6H PRN PRN Reason: Nausea Stop: 05/08/22 00:58 Last Admin: 04/16/22 11:04 Dose: 4 mg Documented by: Oxycodone HCl (Oxycodone Hcl Ir 5 Mg Tab (Immediate Release)) 5 mg PO Q6H PRN PRN Reason: Pain Stop: 04/24/22 09:22 Last Admin: 04/16/22 13:34 Dose: 5 mg Documented by: Polyethylene Glycol (Polyethylene (Miralax) 17 Gm Pack) 17 gm PO DAILY PRN PRN Reason: Constipation Stop: 05/08/22 00:58 Propranolol HCl (Propranolol Hcl 60 Mg [place]) 120 mg PO BID [facility] Stop: 05/08/22 00:58 Last Admin: 04/16/22 07:15 Dose: Not Given Documented by: Ropinirole HCl (Ropinirole Hcl 1 Mg Tablet) 1 mg PO Q24H [facility] Stop: 05/08/22 17:59 Last Admin: 04/15/22 17:44 Dose: 1 mg Documented by:
[2022-04-16] MEDS: rOPINIRole HCL 1 MG TABLET PO SCH (17:15)
[2022-04-16] MEDS: MONTELUKAST SODIUM 10 MG TABLET PO SCH (20:26)
[2022-04-17] MEDS: LEVOTHYROXINE SODIUM 100 MCG TABLET PO SCH (05:45)
[2022-04-17] MEDS: oxyCODONE HCL IR 5 MG TAB (IMMEDIATE RELEASE) PO PRN ×3 (05:47→21:15)
[2022-04-17] MEDS: BACLOFEN 10 MG TAB PO SCH ×3 (08:44→21:13)
[2022-04-17] MEDS: ENOXAPARIN INJ 40 MG/0.4 ML SYR SQ SCH ×2 (08:44→21:12)
[2022-04-17] MEDS: NYSTATIN POWDER 15GM BTL EXT SCH ×3 (08:45→21:13)
[2022-04-17] MEDS: GABAPENTIN 100 MG CAP PO SCH ×3 (08:45→21:13)
[2022-04-17] MEDS: PROPRANOLOL HCL 60 MG LA CAP PO SCH ×3 (08:45→21:36)
[2022-04-17] MEDS: AMPHETAMINE ASP/SULF/DEXTRAMPH 10 MG TAB PO SCH (12:24)
[2022-04-17] MEDS: POLYETHYLENE (MIRALAX) 17 GM PACK PO SCH (12:31)
--- NOTE | 2022-04-17 14:02 | Hospitalist Progress Note ---
Date of Service April 17, 2022 Assessment & Plan (1) Intractable back pain: Plan: Lumbar disc extrusion with lumbar stenosis causing intractable back pain. Recently at rehab and went home with worsening. Interestingly after 911 was called to come get her she had to WALK to the litter to come in this admission per case management. She was also able to get up and move to the potty easily tonight. Doing well on current pain regimen and feels the muscle relaxer is b mark. Pain management saw her and added Medrol dosepak, trial of baclofen and will continue titrating gabapentin as needed. Currently she is doing well on the muscle relaxer which she likes the most. Will continue with current regimen and awaiting SNF placement. (2) Intervertebral disc extrusion: Plan: As seen on lumbar MRI 03/24. Per ortho spine evaluation during last admission she is not a surgical candidate at this time. Continue PT/OT and conservative pain management. Weakness and proprioception issues noted with her right leg and foot, however, she is not a good candidate for surgery per Ortho spine last admission. Continue conservative management. (3) Chronic radicular pain of lower back: Plan: Patient is not on narcotics at baseline. (4) Depression: Plan: Takes a tricyclic antidepressant, doxepin, every evening at bedtime. (5) ADHD: Plan: She is on Vyvanse (lisdexamphetamine) every morning with additional dextroamphetamine every afternoon. Vyvanse is on formulary and not currently being given, ok to get this from home when able. (6) Restless leg syndrome: Plan: Chronic, continue home ropinirole. Monitor for effects of polypharmacy (7) Hypothyroidism (acquired): Plan: chronic, stable, continue synthroid (8) Morbid obesity: Plan: BMI 57.3. lifestyle modifications strongly recommended to help strengthen her core and reduce the chance of further back injury. (9) PATTI (obstructive sleep apnea): Plan: chronic, stable. Continue CPAP QHS (10) Thrombocytopenia: Plan: Resolved. Plts now normal. (11) DVT prophylaxis: Plan: Lovenox. SCDs Dispo- Per CM, she will have a bed at SNF possibly Sat or . Admission and Anticipated Discharge Date Admission Date: April 07, 2022 Subjective Feels okay. States she was hoping to see PT yesterday but no one showed up. She would like to continue some physical therapy that she can continue herself while waiting for rehab. Still no bowel movement but finally agreeable to miralax. No nausea, vomiting. States she still does not want any surgery but she does not qualify anyway. Physical Exam Physical Exam: General: Morbidly obese, lying comfortably in bed, not in distress, on room air HEENT: EOMI, GI, MMM Chest: Clear breath sounds bilaterally, no wheezes or crackles CVS: Regular rate and rhythm, normal heart sounds, no murmur Abdomen: Soft, non tender, not distended, normal bowel sounds Neuro: Awake, alert, oriented, conversing well, non focal Extremities: No cyanosis, clubbing or edema Results & Data Results & Data ([facility]) Vital Signs (Past 12 Hours) Vital Signs Temp Pulse Pulse Resp BP Pulse Ox 04/17/22 07:39 36.9 C 69 18 170/74 H 92 04/17/22 03:05 87 19 97
[2022-04-17] MEDS: rOPINIRole HCL 1 MG TABLET PO SCH (17:39)
[2022-04-17] MEDS: DOXEPIN HCL 10 MG CAPSULE PO SCH (21:13)
[2022-04-17] MEDS: MONTELUKAST SODIUM 10 MG TABLET PO SCH (21:13)
[2022-04-18] MEDS: LEVOTHYROXINE SODIUM 100 MCG TABLET PO SCH (06:07)
[2022-04-18] MEDS: oxyCODONE HCL IR 5 MG TAB (IMMEDIATE RELEASE) PO PRN ×3 (06:07→18:00)
[2022-04-18 06:34] LABS: Hematocrit (blood only) 36.4 % (37-47); Hemoglobin 12.1 g/dL (12.0-16.0); Mean Corpuscular Hgb Conc 33.2 g/dL (32-36); Mean Corpuscular Volume 87.3 fL (80-100); Mean Platelet Volume 9.8 fL (7.4-10.4); Platelet Count 164 K/uL (130-400); RDW Coefficient of Variation 13.1 % (11.5-14.5); RDW Standard Deviation 42.2 fL (36.4-46.3); Red Blood Count 4.17 M/uL (4.2-5.4); White Blood Count 8.95 K/uL (4.8-10.8)
[2022-04-18 07:03] LABS: BUN Creatinine Ratio 34.6 (10-20); Calcium 8.5 mg/dl (8.5-10.1); Creatinine Clr Calc Pharmacy 117.1 ml/min; Est GFR (African American) 95.8 ml/min; Est GFR (Non-African American) 82.6 ml/min; Magnesium 2.1 mg/dl (1.7-2.4); Phosphorus 3.5 mg/dl (2.5-4.9); Potassium 4.2 mmol/L (3.5-5.1)
[2022-04-18] MEDS: BACLOFEN 10 MG TAB PO SCH ×3 (09:55→22:00)
[2022-04-18] MEDS: GABAPENTIN 100 MG CAP PO SCH ×3 (09:56→22:00)
[2022-04-18] MEDS: NYSTATIN POWDER 15GM BTL EXT SCH ×3 (09:56→22:01)
[2022-04-18] MEDS: ENOXAPARIN INJ 40 MG/0.4 ML SYR SQ SCH (09:56)
[2022-04-18] MEDS: PROPRANOLOL HCL 60 MG LA CAP PO SCH ×2 (09:57→22:01)
[2022-04-18] MEDS: POLYETHYLENE (MIRALAX) 17 GM PACK PO SCH (09:57)
[2022-04-18] MEDS: ONDANSETRON INJ 2 MG/ML 2 ML VIAL IV PRN (10:10)
[2022-04-18] MEDS ORDERED: bisacodyL 10 MG SUPP PR ONE (10:45)
[2022-04-18] MEDS: AMPHETAMINE ASP/SULF/DEXTRAMPH 10 MG TAB PO SCH (12:28)
--- NOTE | 2022-04-18 13:37 | Ultrasound Report ---
BILATERAL LOWER EXTREMITY VENOUS DOPPLER HISTORY: Bilateral leg swelling, r/o DVT COMPARISON STUDY: None. FINDINGS: Occlusive thrombus involving the right common femoral, superficial femoral, popliteal, deep femoral veins. There is also occlusive thrombus within the right greater saphenous vein. The right c [facility] vessels appear patent. There is also near occlusive thrombus seen within the left superficial fem oral and popliteal veins. The left calf vessels and left common femoral vein appear patent. IMPRESSION: Bilateral lower extremity DVT as described above, right greater than left. ACT 112: Negative or not required by law. Electronically signed by: Benton Starkey M.D. 04/18/2022 1:35 PM
[2022-04-18] MEDS ORDERED: APIXABAN 5 MG TABLET PO SCH (13:45)
--- NOTE | 2022-04-18 16:20 | Hospitalist Progress Note ---
Date of Service April 18, 2022 Assessment & Plan (1) DVT, bilateral lower limbs: Plan: 1st episode, from being sedentary and refusing chemoprophylaxis US LE shows acute bilateral DVT R>L. Will get CT chest to rule out PE. Started on eliquis loading dose given her hemodynamic and clinical stability (2) Intractable back pain: Plan: Lumbar disc extrusion with lumbar stenosis causing intractable back pain. Recently at rehab and went home with worsening. Interestingly after 911 was called to come get her she had to WALK to the litter to come in this admission per case management. She was also able to get up and move to the potty easily tonight. Doing well on current pain regimen and feels the muscle relaxer is better. Pain management saw her and added Medrol dosepak, trial of baclofen and will continue titrating gabapentin as needed. Currently she is doing well on the muscle relaxer which she likes the most. Will continue with current regimen and awaiting SNF placement. (3) Intervertebral disc extrusion: Plan: As seen on lumbar MRI 03/24. Per ortho spine evaluation during last admission she is not a surgical candidate at this time. Continue PT/OT and conservative pain management. Weakness and proprioception issues noted with her right leg and foot, however, she is not a good candidate for surgery per Ortho spine last admission. Continue conservative management. (4) Chronic radicular pain of lower back: Plan: Patient is not on narcotics at baseline. (5) Depression: Plan: Takes a tricyclic antidepressant, doxepin, every evening at bedtime. (6) ADHD: Plan: She is on Vyvanse (lisdexamphetamine) every morning with additional dextroamphetamine every afternoon. Vyvanse is on formulary and not currently being given, ok to get this from home when able. (7) Restless leg syndrome: Plan: Chronic, continue home ropinirole. Monitor for effects of polypharmacy (8) Hypothyroidism (acquired): Plan: chronic, stable, continue synthroid (9) Morbid obesity: Plan: BMI 57.3. lifestyle modifications strongly recommended to help strengthen her core and reduce the chance of further back injury. (10) PATTI (obstructive sleep apnea): Plan: chronic, stable. Continue CPAP QHS. (11) Thrombocytopenia: Plan: Resolved. Plts now normal. (12) DVT prophylaxis: Plan: Eliquis Dispo- CT chest pending. If remains stable, can likely discharge to SNF tomorrow. Admission and Anticipated Discharge Date Admission Date: April 07, 2022 Subjective She was complaining of right leg swelling. Also states she felt wiped out while returning to the bathroom- this was the first time she walked to the bathroom since admission. No fever, chills, chest pain, shortness of breath. Physical Exam Physical Exam: General: Morbidly obese, lying comfortably in bed, not in distress, on room air HEENT: EOMI, GI, MMM Chest: Clear breath sounds bilaterally, no wheezes or crackles CVS: Regular rate and rhythm, normal heart sounds, no murmur Abdomen: Soft, non tender, not distended, normal bowel sounds No tenderness to palpation of back Neuro: Awake, alert, oriented, conversing well, non focal Extremities: No cyanosis, clubbing. RLE swollen compared to the left Results & Data Results & Data ([facility]) Vital Signs (Past 12 Hours) Vital Signs Temp Pulse Resp BP Pulse Ox 04/18/22 16:11 36.7 C 111 H 24 114/75 84 L 04/18/22 07:53 37 C 93 H 18 127/52 L 94 Laboratory Results Short CBC 04/18/22 Range/Units 05:56 WBC 8.95 (4.8-10.8) K/uL Hgb 12.1 (12.0-16.0) g/dL Hct 36.4 L (37-47) % Plt Count 164 (130-400) K/uL BMP 04/18/22 05:56 Sodium 135 L Potassium 4.2 Chloride 99 Carbon Dioxide 29 BUN 27 H Creatinine 0.78 Glucose 138 H Calcium 8.5 Diagnostic Findings Venous Doppler Study 04/18/22 10:39 BILATERAL LOWER EXTREMITY VENOUS DOPPLER HISTORY: Bilateral leg swelling, r/o DVT COMPARISON STUDY: None. FINDINGS: Occlusive thrombus involving the right common femoral, superficial femoral, popliteal, deep femoral veins. There is also occlusive thrombus within the right greater saphenous vein. The right calf vessels appear patent. There is also near occlusive thrombus seen within the left superficial femoral and popliteal veins. The left calf vessels and left common femoral vein appear patent. IMPRESSION: Bilateral lower extremity DVT as described above, right greater than left. ACT 112: Negative or not required by law. Electronically signed by: Benton Starkey M.D. 04/18/2022 1:35 PM Medications Administered Current Inpatient Medications Acetaminophen (Acetaminophen 325 Mg Tab) 650 mg PO Q4H PRN PRN Reason: pain/fever Stop: 05/08/22 00:58 Last Admin: 04/13/22 09:16 Dose: 650 mg Documented by: Amphetamine/Dextroamphetamine (Amphetamine Asp/Sulf/Dextramph 10 Mg Tab) 10 mg PO Q24H LOS Stop: 04/22/22 11:59 Last Admin: 04/18/22 12:28 Dose: Not Given Documented by: Apixaban (Apixaban 5 Mg Tablet) 10 mg PO BID [facility] Stop: 04/25/22 13:44 Last Admin: 04/18/22 15:55 Dose: 10 mg Documented by: Baclofen (Baclofen 10 Mg Tab) 10 mg PO TID [facility] Stop: 05/11/22 13:59 Last Admin: 04/18/22 13:49 Dose: 10 mg Documented by: Docusate Sodium (Docusate Sodium 100 Mg Cap) 100 mg PO BID PRN PRN Reason: Constipation Stop: 05/08/22 00:58 Doxepin HCl (Doxepin Hcl 10 Mg Capsule) 10 mg PO HS [facility] Stop: 05/08/22 20:59 Last Admin: 04/17/22 21:13 Dose: 10 mg Documented by: Gabapentin (Gabapentin 100 Mg Cap) 100 mg PO TID [facility] Stop: 05/09/22 15:54 Last Admin: 04/18/22 13:49 Dose: 100 mg Documented by: Levothyroxine Sodium (Levothyroxine Sodium 100 Mcg Tablet) 100 mcg PO DAILYBB [facility] Stop: 05/08/22 06:29 Last Admin: 04/18/22 06:07 Dose: 100 mcg Documented by: Montelukast Sodium (Montelukast Sodium 10 Mg Tablet) 10 mg PO HS [facility] Stop: 05/08/22 20:59 Last Admin: 04/17/22 21:13 Dose: 10 mg Documented by: Nystatin (Nystatin Powder 15gm Btl) 1 appln EXT TID [facility] Stop: 05/15/22 13:59 Last Admin: 04/18/22 15:56 Dose: 1 appln Documented by: Ondansetron HCl (Ondansetron Inj 2 Mg/Ml 2 Ml Vial) 4 mg IV Q6H PRN PRN Reason: Nausea Stop: 05/08/22 00:58 Last Admin: 04/18/22 10:10 Dose: 4 mg Documented by: Oxycodone HCl (Oxycodone Hcl Ir 5 Mg Tab (Immediate Release)) 5 mg PO Q6H PRN PRN Reason: Pain Stop: 04/24/22 09:22 Last Admin: 04/18/22 12:31 Dose: 5 mg Documented by: Polyethylene Glycol (Polyethylene (Miralax) 17 Gm Pack) 17 gm PO DAILY PRN PRN Reason: Constipation Stop: 05/08/22 00:58 Polyethylene Glycol (Polyethylene (Miralax) 17 Gm Pack) 17 gm PO DAILY LOS Stop: 05/17/22 10:29 Last Admin: 04/18/22 09:57 Dose: 17 gm Documented by: Propranolol HCl (Propranolol Hcl 60 Mg La Cap) 120 mg PO BID LOS Stop: 05/08/22 00:58 Last Admin: 04/18/22 09:57 Dose: 120 mg Documented by: Ropinirole HCl (Ropinirole Hcl 1 Mg Tablet) 1 mg PO Q24H LOS Stop: 05/08/22 17:59 Last Admin: 04/17/22 17:39 Dose: 1 mg Documented by:
[2022-04-18] MEDS ORDERED: OPTIRAY 320 125ml IV ONE (16:29)
--- NOTE | 2022-04-18 16:42 | CT Scan Report ---
CT angio chest PE protocol CLINICAL HISTORY: Shortness of breath and chest tightness. Bilateral lower extremity DVT. Evaluate fo r PE COMPARISON STUDY: No previous studies for comparison. CT DOSE: 1040.50 mGy.cm TECHNIQUE: CT Angio of the chest was performed.followed by image post processing with coronal, and s agittal MIP reformats. Contrast Volume: Optiray 320, 118 ml FINDINGS: Vasculature: There are large intraluminal filling defects present within the main right and left pulm onary arteries. Partial saddle embolus is also present. Extensive thrombus is seen extending into the lower lobe pulmonary arteries as well. No definite upper lobe emboli are seen. Airway: The airway is clear. No endobronchial lesion is identified. Lungs: There is mild atelectasis at the left lung base. The lungs are clear of acute alveolar opaciti es, air bronchograms or pulmonary nodules. Pleura: There is no evidence for pleural effusion. There is no evidence for pneumothorax. Mediastinum: There is no evidence for pathologic adenopathy. The heart size is within normal limits. The thoracic aorta is within normal limits. There is no evidence for pericardial effusion. Upper abdomen:The adrenal glands are normal bilaterally. Osseous structures: There is no acute osseous pathology. Impression: 1. Extensive pulmonary emboli within the right main and left main pulmonary arteries with a small sad dle embolus also present. Extensive thrombi are seen extending into the lower lobe pulmonary arteries as well. 2. Associated left basilar atelectasis. A stat report was provided. ACT 112: Negative or not required by law. Electronically signed by: Frankie Perez M.D. 04/18/2022 4:40 PM
[2022-04-18] MEDS ORDERED: HEPARIN 25000 UNIT/500 ML D5W IV ONE (17:57)
[2022-04-18] MEDS: rOPINIRole HCL 1 MG TABLET PO SCH (17:58)
[2022-04-18] MEDS ORDERED: Heparin IV Adult Wt-Based Standard WITH Bolus Protocol IV ONE (21:00)
[2022-04-18] MEDS ORDERED: HEPARIN IV BOLUS 8,000 UNITS in SYRINGE 0 ML IV ONE (21:00)
[2022-04-18] MEDS: DOXEPIN HCL 10 MG CAPSULE PO SCH (22:00)
[2022-04-18] MEDS: MONTELUKAST SODIUM 10 MG TABLET PO SCH (22:00)
[2022-04-19 00:34] LABS: INR 1.2 (0.9-1.1); Partial Thromboplastin Ratio 2.4; Prothrombin Time 12.4 Seconds (9.0-12.0)
[2022-04-19 00:47] LABS: Partial Thromboplastin Time 65.2 Seconds (21.0-31.0)
[2022-04-19] MEDS: Heparin Adult STANDARD Wt-Based Dextrose 5% 25,000 units/500 mL IV SCH ×2 (00:57→11:45)
[2022-04-19 06:22] LABS: Hematocrit (blood only) 38.2 % (37-47); Hemoglobin 12.6 g/dL (12.0-16.0); Mean Corpuscular Hemoglobin 28.9 pg (25-34); Mean Corpuscular Volume 87.6 fL (80-100); Mean Platelet Volume 9.9 fL (7.4-10.4); Platelet Count 225 K/uL (130-400); RDW Coefficient of Variation 13.1 % (11.5-14.5); RDW Standard Deviation 42.3 fL (36.4-46.3); Red Blood Count 4.36 M/uL (4.2-5.4); White Blood Count 11.24 K/uL (4.8-10.8)
[2022-04-19 06:35] LABS: BUN Creatinine Ratio 28.2 (10-20); Calcium 8.8 mg/dl (8.5-10.1); Creatinine Clr Calc Pharmacy 68.7 ml/min; Est GFR (African American) 51.2 ml/min; Est GFR (Non-African American) 44.1 ml/min; Potassium 4.6 mmol/L (3.5-5.1)
[2022-04-19] MEDS: LEVOTHYROXINE SODIUM 100 MCG TABLET PO SCH (06:42)
[2022-04-19] MEDS: oxyCODONE HCL IR 5 MG TAB (IMMEDIATE RELEASE) PO PRN ×2 (06:44→18:36)
[2022-04-19] MEDS: NYSTATIN POWDER 15GM BTL EXT SCH ×3 (07:38→22:17)
[2022-04-19] MEDS: BACLOFEN 10 MG TAB PO SCH ×3 (07:38→22:15)
[2022-04-19] MEDS: GABAPENTIN 100 MG CAP PO SCH ×3 (07:39→22:16)
[2022-04-19] MEDS: PROPRANOLOL HCL 60 MG LA CAP PO SCH ×2 (07:40→22:16)
[2022-04-19] MEDS: POLYETHYLENE (MIRALAX) 17 GM PACK PO SCH (07:40)
[2022-04-19 08:00] LABS: Partial Thromboplastin Ratio 2.2
[2022-04-19 08:02] LABS: Partial Thromboplastin Time 61.8 Seconds (21.0-31.0)
[2022-04-19] MEDS: LACTATED RINGER'S 1,000 ML IV SCH ×2 (09:52→22:20)
[2022-04-19] MEDS: AMPHETAMINE ASP/SULF/DEXTRAMPH 10 MG TAB PO SCH (11:52)
--- NOTE | 2022-04-19 13:08 | Hospitalist Progress Note ---
Date of Service April 19, 2022 Assessment & Plan (1) Acute pulmonary embolism without acute cor pulmonale: (2) DVT, bilateral lower limbs: Plan: - 1st episode, from being sedentary and refusing chemoprophylaxis - hemodynamically stable, currently on NC - Continue heparin drip for now given the extent of DVT/PE. Will eventually change to Eliquis in the next few days once hypoxia resolves and clinically better. Currently no indication for IV tPA. CTA chest 04/18- 1. Extensive pulmonary emboli within the right main and left main pulmonary arteries with a small saddle embolus also present. Extensive thrombi are seen extending into the lower lobe pulmonary arteries as well. 2. Associated left basilar atelectasis. US LE shows acute bilateral DVT R>L. Will get CT chest to rule out PE. Started on eliquis loading dose given her hemodynamic and clinical stability US LE 04/18 -Occlusive thrombus involving the right common femoral, superficial femoral, popliteal, deep femoral veins. There is also occlusive thrombus within the right greater saphenous vein. The right calf vessels appear patent. - There is also near occlusive thrombus seen within the left superficial femoral and popliteal veins. The left calf vessels and left common femoral vein appear patent. (3) BREA (acute kidney injury): Plan: Baseline Cr 0.8, currently 1.3. Possibly contributed by contrast. Will give some IVF and recheck Cr in am. Avoid nephrotoxics. (4) Intractable back pain: Plan: Lumbar disc extrusion with lumbar stenosis causing intractable back pain. Recently at rehab and went home with worsening. Interestingly after 911 was called to come get her she had to WALK to the litter to come in this admission per case management. [facility] was also [facility]. Doing well on current pain regimen and feels the muscle relaxer is better. Pain management saw her and added Medrol dosepak, trial of baclofen and will continue titrating gabapentin as needed. Currently she is doing well on the muscle relaxer which she likes the most. Will continue with current regimen and awaiting SNF placement. Still no bowel movement. Will give suppository. continue bowel regimen (5) Intervertebral disc extrusion: Plan: As seen on lumbar MRI 03/24. Per ortho spine evaluation during last admission she is not a surgical candidate at this time. Continue PT/OT and conservative pain management. Weakness and proprioception issues noted with her right leg and foot, however, she is not a good candidate for surgery per Ortho spine last admission. Continue conservative management. (6) Chronic radicular pain of lower back: Plan: Patient is not on narcotics at baseline. (7) Depression: Plan: Takes a tricyclic antidepressant, doxepin, every evening at bedtime. (8) ADHD: Plan: She is on Vyvanse (lisdexamphetamine) every morning with additional dextroamphetamine every afternoon. Vyvanse is on formulary and not currently being given, ok to get this from home when able. (9) Restless leg syndrome: Plan: Chronic, continue home ropinirole. Monitor for effects of polypharmacy (10) Hypothyroidism (acquired): Plan: chronic, stable, continue synthroid (11) Morbid obesity: Plan: BMI 57.3. lifestyle modifications strongly recommended to help strengthen her core and reduce the chance of further back injury. (12) PATTI (obstructive sleep apnea): Plan: chronic, stable. Continue CPAP QHS. Admission and Anticipated Discharge Date Admission Date: April 07, 2022 Subjective She feels okay. Not so short of breath as yesterday. Discussed about her extensive DVT/PE and plan of care in regards to that. Still no bowel movement. Physical Exam Physical Exam: General: Morbidly obese, lying comfortably in bed, not in acute distress, on NC HEENT: EOMI, GI, MMM Chest: Fair breath sounds bilaterally CVS: Regular rate and rhythm, normal heart sounds, no murmur Abdomen: Soft, non tender, not distended, normal bowel sounds No tenderness to palpation of back Neuro: Awake, alert, oriented, conversing well, non focal Extremities: No cyanosis, clubbing. RLE swollen compared to the left Results & Data Results & Data ([facility]) Vital Signs (Past 12 Hours) Vital Signs Temp Pulse Pulse Resp BP Pulse Ox 04/19/22 11:23 37.3 C 87 20 114/71 96 04/19/22 04:20 36.5 C 86 24 112/74 98 04/19/22 04:16 87 26 H 98 Laboratory Results Short CBC 04/19/22 Range/Units 06:01 WBC 11.24 H (4.8-10.8) K/uL Hgb 12.6 (12.0-16.0) g/dL Hct 38.2 (37-47) % Plt Count 225 (130-400) K/uL BMP 04/19/22 06:01 Sodium 135 L Potassium 4.6 Chloride 99 Carbon Dioxide 28 BUN 37 H Creatinine 1.31 H D Glucose 149 H Calcium 8.8 Medications Administered Current Inpatient Medications Acetaminophen (Acetaminophen 325 Mg Tab) 650 mg PO Q4H PRN PRN Reason: pain/fever Stop: 05/08/22 00:58 Last Admin: 04/13/22 09:16 Dose: 650 mg Documented by: Amphetamine/Dextroamphetamine (Amphetamine Asp/Sulf/Dextramph 10 Mg Tab) 10 mg PO Q24H [facility] Stop: 04/22/22 11:59 Last Admin: 04/19/22 11:52 Dose: Not Given Documented by: Baclofen (Baclofen 10 Mg Tab) 10 mg PO TID [facility] Stop: 05/11/22 13:59 Last Admin: 04/19/22 07:38 Dose: 10 mg Documented by: Bisacodyl (Bisacodyl 10 Mg Supp) 10 mg [place] ONE ONE Stop: 04/19/22 13:02 Docusate Sodium (Docusate Sodium 100 Mg Cap) 100 mg PO BID PRN PRN Reason: Constipation Stop: 05/08/22 00:58 Doxepin HCl (Doxepin Hcl 10 Mg Capsule) 10 mg PO HS [facility] Stop: 05/08/22 20:59 Last Admin: 04/18/22 22:00 Dose: 10 mg Documented by: Gabapentin (Gabapentin 100 Mg Cap) 100 mg PO TID [facility] Stop: 05/09/22 15:54 Last Admin: 04/19/22 07:39 Dose: 100 mg Documented by: Heparin Sodium/Dextrose (Heparin Sodium/Dextrose) 25,000 units in 500 mls @ 35 mls/hr IV .[id number] [facility]; Protocol Stop: 05/18/22 20:59 Last Admin: 04/19/22 11:45 Dose: 1,750 units/hr, 35 mls/hr Documented by: Lactated Ringer's (Lr) 1,000 mls @ 80 mls/hr IV .[id number] [facility] Stop: 04/20/22 08:59 Last Admin: 04/19/22 09:52 Dose: 80 mls/hr Documented by: Levothyroxine Sodium (Levothyroxine Sodium 100 Mcg Tablet) 100 mcg PO DAILYBB [facility] Stop: 05/08/22 06:29 Last Admin: 04/19/22 06:42 Dose: 100 mcg Documented by: Montelukast Sodium (Montelukast Sodium 10 Mg Tablet) 10 mg PO HS [facility] Stop: 05/08/22 20:59 Last Admin: 04/18/22 22:00 Dose: 10 mg Documented by: Nystatin (Nystatin Powder 15gm Btl) 1 appln EXT TID [facility] Stop: 05/15/22 13:59 Last Admin: 04/19/22 07:38 Dose: 1 appln Documented by: Ondansetron HCl (Ondansetron Inj 2 Mg/Ml 2 Ml Vial) 4 mg IV Q6H PRN PRN Reason: Nausea Stop: 05/08/22 00:58 Last Admin: 04/18/22 10:10 Dose: 4 mg Documented by: Oxycodone HCl (Oxycodone Hcl Ir 5 Mg Tab (Immediate Release)) 5 mg PO Q6H PRN PRN Reason: Pain Stop: 04/24/22 09:22 Last Admin: 04/19/22 06:44 Dose: 5 mg Documented by: Polyethylene Glycol (Polyethylene (Miralax) 17 Gm Pack) 17 gm PO DAILY PRN PRN Reason: Constipation Stop: 05/08/22 00:58 Polyethylene Glycol (Polyethylene (Miralax) 17 Gm Pack) 17 gm PO DAILY [facility] Stop: 05/17/22 10:29 Last Admin: 04/19/22 07:40 Dose: 17 gm Documented by: Propranolol HCl (Propranolol Hcl 60 Mg [place]) 120 mg PO BID LOS Stop: 05/08/22 00:58 Last Admin: 04/19/22 07:40 Dose: 120 mg Documented by: Ropinirole HCl (Ropinirole Hcl 1 Mg Tablet) 1 mg PO Q24H LOS Stop: 05/08/22 17:59 Last Admin: 04/18/22 17:58 Dose: 1 mg Documented by:
[2022-04-19] MEDS ORDERED: bisacodyL 10 MG SUPP PR SCH (13:15)
[2022-04-19] MEDS: rOPINIRole HCL 1 MG TABLET PO SCH (17:24)
[2022-04-19] MEDS: ACETAMINOPHEN 325 MG TAB PO PRN (22:15)
[2022-04-19] MEDS: DOXEPIN HCL 10 MG CAPSULE PO SCH (22:17)
[2022-04-19] MEDS: MONTELUKAST SODIUM 10 MG TABLET PO SCH (22:17)
[2022-04-20] MEDS: Heparin Adult STANDARD Wt-Based Dextrose 5% 25,000 units/500 mL IV SCH ×2 (02:01→15:59)
[2022-04-20] MEDS: oxyCODONE HCL IR 5 MG TAB (IMMEDIATE RELEASE) PO PRN ×2 (06:31→21:01)
[2022-04-20] MEDS: LEVOTHYROXINE SODIUM 100 MCG TABLET PO SCH (06:32)
[2022-04-20 07:08] LABS: Hematocrit (blood only) 35.2 % (37-47); Hemoglobin 11.9 g/dL (12.0-16.0); Mean Corpuscular Hemoglobin 29.8 pg (25-34); Mean Corpuscular Hgb Conc 33.8 g/dL (32-36); Platelet Count 249 K/uL (130-400); RDW Standard Deviation 42.1 fL (36.4-46.3)
[2022-04-20 07:32] LABS: BUN Creatinine Ratio 35.4 (10-20); Calcium 8.7 mg/dl (8.5-10.1); Creatinine Clr Calc Pharmacy 92.2 ml/min; Est GFR (African American) 71.8 ml/min; Est GFR (Non-African American) 61.9 ml/min; Potassium 3.7 mmol/L (3.5-5.1)
[2022-04-20] MEDS: DOCUSATE SODIUM 100 MG CAP PO PRN ×2 (08:26→20:57)
[2022-04-20] MEDS: POLYETHYLENE (MIRALAX) 17 GM PACK PO SCH (08:26)
[2022-04-20] MEDS: GABAPENTIN 100 MG CAP PO SCH ×3 (08:26→20:57)
[2022-04-20] MEDS: BACLOFEN 10 MG TAB PO SCH ×3 (08:26→21:01)
[2022-04-20] MEDS: PROPRANOLOL HCL 60 MG LA CAP PO SCH ×2 (08:27→20:58)
[2022-04-20] MEDS: ONDANSETRON INJ 2 MG/ML 2 ML VIAL IV PRN (08:27)
[2022-04-20] MEDS: NYSTATIN POWDER 15GM BTL EXT SCH ×3 (08:27→20:58)
[2022-04-20 08:42] LABS: Partial Thromboplastin Ratio 1.9
[2022-04-20 08:43] LABS: Partial Thromboplastin Time 53.6 Seconds (21.0-31.0)
[2022-04-20] MEDS ORDERED: MAGNESIUM CITRATE 296 ML/BTL PO ONE (09:30)
--- NOTE | 2022-04-20 13:21 | Hospitalist Progress Note ---
Date of Service April 20, 2022 Assessment & Plan (1) Acute pulmonary embolism without acute cor pulmonale: (2) DVT, bilateral lower limbs: Plan: - 1st episode, from being sedentary and refusing chemoprophylaxis - hemodynamically stable, currently on NC - Continue heparin drip for next couple days given the extent of DVT/PE. Will eventually change to Eliquis in the next few days once hypoxia resolves and clinically better. Currently no indication for IV tPA. CTA chest 04/18- 1. Extensive pulmonary emboli within the right main and left main pulmonary arteries with a small saddle embolus also present. Extensive thrombi are seen extending into the lower lobe pulmonary arteries as well. 2. Associated left basilar atelectasis. US LE shows acute bilateral DVT R>L. Will get CT chest to rule out PE. Started on eliquis loading dose given her hemodynamic and clinical stability US LE 04/18 -Occlusive thrombus involving the right common femoral, superficial femoral, popliteal, deep femoral veins. There is also occlusive thrombus within the right greater saphenous vein. The right calf vessels appear patent. - There is also near occlusive thrombus seen within the left superficial femoral and popliteal veins. The left calf vessels and left common femoral vein appear patent. (3) BREA (acute kidney injury): Plan: Baseline Cr 0.8, peaked to 1.3 and now down to 0.9. Possibly contributed by contrast. S/p gentle IVF. Avoid nephrotoxics. (4) Intractable back pain: Plan: Lumbar disc extrusion with lumbar stenosis causing intractable back pain. Recently at rehab and went home with worsening. Interestingly after 911 was called to come get her she had to WALK to the litter to come in this admission per case management. She was also able to get up and move to the potty easily tonight. Doing well on current pain regimen and feels the muscle relaxer is better. Pain management saw her and added Medrol dosepak, trial of baclofen and will continue titrating gabapentin as needed. Currently she is doing well on the muscle relaxer which she likes the most. Will continue with current regimen and awaiting SNF placement. Still no bowel movement despite suppository. Will give mag citrate today. (5) Intervertebral disc extrusion: Plan: As seen on lumbar MRI 03/24. Per ortho spine evaluation during last admission she is not a surgical candidate at this time. Continue PT/OT and conservative pain management. Weakness and proprioception issues noted with her right leg and foot, however, she is not a good candidate for surgery per Ortho spine last admission. Continue conservative management. (6) Chronic radicular pain of lower back: Plan: Patient is not on narcotics at baseline. (7) Depression: Plan: Takes a tricyclic antidepressant, doxepin, every evening at bedtime. (8) ADHD: Plan: She is on Vyvanse (lisdexamphetamine) every morning with additional dextroamphetamine every afternoon. Vyvanse is on formulary and not currently being given, ok to get this from home when able. (9) Restless leg syndrome: Plan: Chronic, continue home ropinirole. Monitor for effects of polypharmacy (10) Hypothyroidism (acquired): Plan: chronic, stable, continue synthroid (11) Morbid obesity: Plan: BMI 57.3. lifestyle modifications strongly recommended to help strengthen her core and reduce the chance of further back injury. (12) PATTI (obstructive sleep apnea): Plan: chronic, stable. Continue CPAP QHS. Plan: DVT ppx- heparin drip--> change to DOAC in the next few days Dispo- continue inpatient management with heparin drip given the extent of DVT/PE and hypoxia. Plan to discharge to rehab [facility] when medically stable. Admission and Anticipated Discharge Date Admission Date: April 07, 2022 Subjective She states breathing seems little bit easier. Still did not have a bowel movement despite bowel regimen and now willing for more laxative. She was disappointed with some of the staff. No fever, chills, chest pain, vomiting. Does not have much of an appetite today. Physical Exam Physical Exam: General: Morbidly obese, lying comfortably in bed, not in acute distress, on NC HEENT: EOMI, GI, MMM Chest: Fair breath sounds anteriorly CVS: Regular rate and rhythm, normal heart sounds, no murmur Abdomen: Soft, non tender, not distended, normal bowel sounds No tenderness to palpation of back Neuro: Awake, alert, oriented, conversing well, non focal Extremities: No cyanosis, clubbing. RLE swollen compared to the left but seems improving Results & Data Results & Data ([facility]) Vital Signs (Past 12 Hours) Vital Signs Temp Pulse Pulse Pulse Resp BP Pulse Ox 04/20/22 12:43 36.5 C 76 20 132/69 96 04/20/22 07:16 36.7 C 75 20 134/72 88 L 04/20/22 06:17 77 04/20/22 03:31 36.8 C 70 20 120/67 98 04/20/22 03:02 75 18 100 Laboratory Results Short CBC 04/20/22 Range/Units 06:36 WBC 12.70 H (4.8-10.8) K/uL Hgb 11.9 L (12.0-16.0) g/dL Hct 35.2 L (37-47) % Plt Count 249 (130-400) K/uL BMP 04/20/22 06:36 Sodium 133 L Potassium 3.7 Chloride 97 L Carbon Dioxide 28 BUN 35 H Creatinine 0.99 D Glucose 149 H Calcium 8.7 Medications Administered Current Inpatient Medications Acetaminophen (Acetaminophen 325 Mg Tab) 650 mg PO Q4H PRN PRN Reason: pain/fever Stop: 05/08/22 00:58 Last Admin: 04/19/22 22:15 Dose: 650 mg Documented by: Amphetamine/Dextroamphetamine (Amphetamine Asp/Sulf/Dextramph 10 Mg Tab) 10 mg PO Q24H [facility] Stop: 04/22/22 11:59 Last Admin: 04/19/22 11:52 Dose: Not Given Documented by: Baclofen (Baclofen 10 Mg Tab) 10 mg PO TID [facility] Stop: 05/11/22 13:59 Last Admin: 04/20/22 08:26 Dose: 10 mg Documented by: Docusate Sodium (Docusate Sodium 100 Mg Cap) 100 mg PO BID PRN PRN Reason: Constipation Stop: 05/08/22 00:58 Last Admin: 04/20/22 08:26 Dose: 100 mg Documented by: Doxepin HCl (Doxepin Hcl 10 Mg Capsule) 10 mg PO HS [facility] Stop: 05/08/22 20:59 Last Admin: 04/19/22 22:17 Dose: 10 mg Documented by: Gabapentin (Gabapentin 100 Mg Cap) 100 mg PO TID [facility] Stop: 05/09/22 15:54 Last Admin: 04/20/22 08:26 Dose: 100 mg Documented by: Heparin Sodium/Dextrose (Heparin Sodium/Dextrose) 25,000 units in 500 mls @ 35 mls/hr IV .[id number] [facility]; Protocol Stop: 05/18/22 20:59 Last Titration: 04/20/22 10:00 Dose: 1,750 units/hr, 35 mls/hr Documented by: Levothyroxine Sodium (Levothyroxine Sodium 100 Mcg Tablet) 100 mcg PO DAILYBB [facility] Stop: 05/08/22 06:29 Last Admin: 04/20/22 06:32 Dose: 100 mcg Documented by: Montelukast Sodium (Montelukast Sodium 10 Mg Tablet) 10 mg PO HS [facility] Stop: 05/08/22 20:59 Last Admin: 04/19/22 22:17 Dose: 10 mg Documented by: Nystatin (Nystatin Powder 15gm Btl) 1 appln EXT TID [facility] Stop: 05/15/22 13:59 Last Admin: 04/20/22 08:27 Dose: 1 appln Documented by: Ondansetron HCl (Ondansetron Inj 2 Mg/Ml 2 Ml Vial) 4 mg IV Q6H PRN PRN Reason: Nausea Stop: 05/08/22 00:58 Last Admin: 04/20/22 08:27 Dose: 4 mg Documented by: Oxycodone HCl (Oxycodone Hcl Ir 5 Mg Tab (Immediate Release)) 5 mg PO Q6H PRN PRN Reason: Pain Stop: 04/24/22 09:22 Last Admin: 04/20/22 06:31 Dose: 5 mg Documented by: Polyethylene Glycol (Polyethylene (Miralax) 17 Gm Pack) 17 gm PO DAILY PRN PRN Reason: Constipation Stop: 05/08/22 00:58 Polyethylene Glycol (Polyethylene (Miralax) 17 Gm Pack) 17 gm PO DAILY [facility] Stop: 05/17/22 10:29 Last Admin: 04/20/22 08:26 Dose: 17 gm Documented by: Propranolol HCl (Propranolol Hcl 60 Mg [place]) 120 mg PO BID [facility] Stop: 05/08/22 00:58 Last Admin: 04/20/22 08:27 Dose: 120 mg Documented by: Ropinirole HCl (Ropinirole Hcl 1 Mg Tablet) 1 mg PO Q24H [facility] Stop: 05/08/22 17:59 Last Admin: 04/19/22 17:24 Dose: 1 mg Documented by:
[2022-04-20] MEDS: AMPHETAMINE ASP/SULF/DEXTRAMPH 10 MG TAB PO SCH (13:31)
[2022-04-20] MEDS: rOPINIRole HCL 1 MG TABLET PO SCH (18:47)
[2022-04-20] MEDS: MONTELUKAST SODIUM 10 MG TABLET PO SCH (20:57)
[2022-04-20] MEDS: DOXEPIN HCL 10 MG CAPSULE PO SCH (20:57)
[2022-04-21] MEDS: LEVOTHYROXINE SODIUM 100 MCG TABLET PO SCH (05:57)
[2022-04-21 06:15] LABS: Basophils # (auto) 0.01 K/uL (0-0.2); Basophils % (auto) 0.1 %; Eosinophils # (auto) 0.14 K/uL (0-0.5); Eosinophils % (auto) 1.5 %; Hematocrit (blood only) 34.3 % (37-47); Hemoglobin 11.6 g/dL (12.0-16.0); Immature Granulocytes # (auto) 0.05 K/uL (0.00-0.02); Immature Granulocytes % (auto) 0.5 %; Lymphocytes # (auto) 1.77 K/uL (1.2-3.4); Lymphocytes % (auto) 18.6 %; Mean Corpuscular Hemoglobin 29.4 pg (25-34); Mean Corpuscular Hgb Conc 33.8 g/dL (32-36); Mean Corpuscular Volume 86.8 fL (80-100); Mean Platelet Volume 9.7 fL (7.4-10.4); Monocytes # (auto) 0.84 K/uL (0.11-0.59); Monocytes % (auto) 8.8 %; Neutrophils # (auto) 6.71 K/uL (1.4-6.5); Neutrophils % (auto) 70.5 %; Platelet Count 259 K/uL (130-400); RDW Coefficient of Variation 12.9 % (11.5-14.5); RDW Standard Deviation 41.6 fL (36.4-46.3); Red Blood Count 3.95 M/uL (4.2-5.4); White Blood Count 9.52 K/uL (4.8-10.8)
[2022-04-21] MEDS: Heparin Adult STANDARD Wt-Based Dextrose 5% 25,000 units/500 mL IV SCH ×2 (06:21→22:31)
[2022-04-21 06:37] LABS: BUN Creatinine Ratio 33.7 (10-20); Calcium 8.7 mg/dl (8.5-10.1); Creatinine Clr Calc Pharmacy 107.2 ml/min; Est GFR (African American) 85.1 ml/min; Est GFR (Non-African American) 73.4 ml/min; Potassium 3.8 mmol/L (3.5-5.1)
[2022-04-21 06:40] LABS: Partial Thromboplastin Ratio 1.9
[2022-04-21 06:47] LABS: Partial Thromboplastin Time 53.2 Seconds (21.0-31.0)
[2022-04-21] MEDS: GABAPENTIN 100 MG CAP PO SCH ×3 (08:30→21:20)
[2022-04-21] MEDS: NYSTATIN POWDER 15GM BTL EXT SCH ×3 (08:31→21:22)
[2022-04-21] MEDS: POLYETHYLENE (MIRALAX) 17 GM PACK PO SCH (08:40)
[2022-04-21] MEDS: BACLOFEN 10 MG TAB PO SCH ×3 (08:47→21:22)
[2022-04-21] MEDS: oxyCODONE HCL IR 5 MG TAB (IMMEDIATE RELEASE) PO PRN ×3 (08:51→23:04)
[2022-04-21] MEDS: PROPRANOLOL HCL 60 MG LA CAP PO SCH ×2 (11:16→21:20)
[2022-04-21] MEDS: AMPHETAMINE ASP/SULF/DEXTRAMPH 10 MG TAB PO SCH (13:24)
--- NOTE | 2022-04-21 17:54 | Hospitalist Progress Note ---
Date of Service April 21, 2022 Assessment & Plan (1) Acute pulmonary embolism without acute cor pulmonale: (2) DVT, bilateral lower limbs: Plan: (1) Acute pulmonary embolism without acute cor pulmonale: (2) DVT, bilateral lower limbs: Plan: - 1st episode, from being sedentary and refusing chemoprophylaxis. 04/18 CTA chest w/ extensive PE. 04/18 BLE US doppler positive for BLE DVT. - hemodynamically stable, currently on 2L O2 via NC - Continue heparin drip for next couple days given the extent of DVT/PE. Will eventually change to Eliquis in the next few days once hypoxia resolves and clinically better. Pt OK w/ Eliquis being sent for cost appropriateness. (3) BREA (acute kidney injury): Plan: Baseline Cr 0.8, peaked to 1.3. Possibly contributed by contrast. Resolved. (4) Intractable back pain: Plan: Lumbar disc extrusion with lumbar stenosis causing intractable back pain. R ecently at rehab and went home with worsening. Interestingly after 911 was called to come get her she had to WALK to the litter to come in this admission per case management. She was also able to get up and move to the potty easily tonight. Doing well on current pain regimen and feels the muscle relaxer is better. Pain management saw her and added Medrol dosepak, trial of baclofen and will continue titrating gabapentin as needed. Currently she is doing well on the muscle relaxer which she likes the most. Will continue with current regimen and awaiting SNF placement. Moved some BM today per Pt, c/w bowel regimen (5) Intervertebral disc extrusion: Plan: As seen on lumbar MRI 03/24. Per ortho spine evaluation during last admission she is not a surgical candidate at this time. Continue PT/OT and conservative pain management. Weakness and proprioception issues noted with her right leg and foot, however, she is not a good candidate for surgery per Ortho spine last admission. Continue conservative management. (6) Chronic radicular pain of lower back: Plan: Patient is not on narcotics at baseline. #. Other chronic medical conditions: Depression on TCA/doxepin, ADHD on Vyvanse in a.m. with additional dextroamphetamine every afternoon, RLS on ropinirole, hypothyroidism, morbid obesity, PATTI on home CPAP Continue with/resume home meds as and when appropriate. Vyvanse is on formulary and not currently being given, ok to get this from home when able. BMI 57.3. lifestyle modifications strongly recommended to help strengthen her core and reduce the chance of further back injury. DVT ppx- heparin drip--> change to DOAC in the next few days Dispo- continue inpatient management with heparin drip given the extent of DVT/PE and hypoxia. Plan to discharge to rehab [facility] when medically stable. Admission and Anticipated Discharge Date Admission Date: April 07, 2022 Subjective Patient seen and examined at bedside as a follow-up of intractable back pain and PE and BLE DVT. Patient was lying in bed, on 2 L nasal cannula oxygen, NAD, no new acute events overnight per patient. Patient reports eating okay and moving bowels okay. Patient reports improving feeling of tightness in her chest. Patient does report some dry cough. Patient denies headache/dizziness/feeling of heart racing. Patient does have some pain especially on her RLE when ambulating. Physical Exam Physical Exam: GENERAL: Alert and oriented x3. NAD, on 2 L nasal cannula oxygen. Morbidly obese. HEENT: No pallor, no icterus. Pupils equal, round and reactive to light. Oral mucosa moist. NECK: No JVD, no neck masses. HEART: S1 and S2 heard. Regular rate and rhythm. No murmur, no gallop. RESPIRATORY SYSTEM: Normal AP diameter. No accessory muscle use. No wheezing, no crackles. ABDOMEN: Soft, bowel sounds present, nontender, no distention. CENTRAL NERVOUS SYSTEM: No facial droop. Speech is clear. Obeys simple commands. Moves extremities. EXTREMITIES: RLE 1-2+ pitting edema, LLE trace pitting edema. no erythema seen. Results & Data Results & Data ([facility]) Vital Signs (Past 12 Hours) Vital Signs Temp Pulse Pulse Resp BP BP Pulse Ox 04/21/22 15:02 36.9 C 84 19 100/67 96 04/21/22 14:22 87 04/21/22 10:30 96/59 L 04/21/22 07:59 36.5 C 74 22 92/59 L 99 04/21/22 06:11 89
[2022-04-21] MEDS: rOPINIRole HCL 1 MG TABLET PO SCH (18:32)
[2022-04-21] MEDS: DOXEPIN HCL 10 MG CAPSULE PO SCH (21:20)
[2022-04-21] MEDS: MONTELUKAST SODIUM 10 MG TABLET PO SCH (21:20)
[2022-04-22] MEDS: LEVOTHYROXINE SODIUM 100 MCG TABLET PO SCH (06:04)
[2022-04-22] MEDS: oxyCODONE HCL IR 5 MG TAB (IMMEDIATE RELEASE) PO PRN ×2 (06:04→18:14)
[2022-04-22] MEDS: BACLOFEN 10 MG TAB PO SCH ×3 (06:08→20:56)
[2022-04-22] MEDS: GABAPENTIN 100 MG CAP PO SCH ×3 (07:51→20:56)
[2022-04-22] MEDS: NYSTATIN POWDER 15GM BTL EXT SCH ×3 (07:51→20:56)
[2022-04-22] MEDS: POLYETHYLENE (MIRALAX) 17 GM PACK PO SCH (07:52)
[2022-04-22 08:21] LABS: Hematocrit (blood only) 30.9 % (37-47); Hemoglobin 10.3 g/dL (12.0-16.0); Mean Corpuscular Hemoglobin 29.5 pg (25-34); Mean Corpuscular Hgb Conc 33.3 g/dL (32-36); Mean Corpuscular Volume 88.5 fL (80-100); Platelet Count 287 K/uL (130-400); RDW Coefficient of Variation 13.1 % (11.5-14.5); RDW Standard Deviation 41.9 fL (36.4-46.3); Red Blood Count 3.49 M/uL (4.2-5.4); White Blood Count 9.36 K/uL (4.8-10.8)
[2022-04-22 08:45] LABS: BUN Creatinine Ratio 27.4 (10-20); Calcium 8.7 mg/dl (8.5-10.1); Creatinine Clr Calc Pharmacy 109.3 ml/min; Est GFR (African American) 87.6 ml/min; Est GFR (Non-African American) 75.5 ml/min; Magnesium 2.1 mg/dl (1.7-2.4); Phosphorus 3.4 mg/dl (2.5-4.9); Potassium 3.7 mmol/L (3.5-5.1)
[2022-04-22 08:55] LABS: Partial Thromboplastin Ratio 1.8
[2022-04-22 08:58] LABS: Partial Thromboplastin Time 48.4 Seconds (21.0-31.0)
[2022-04-22] MEDS: PROPRANOLOL HCL 60 MG LA CAP PO SCH ×2 (10:18→20:56)
[2022-04-22] MEDS: Heparin Adult STANDARD Wt-Based Dextrose 5% 25,000 units/500 mL IV SCH (13:00)
--- NOTE | 2022-04-22 15:31 | Hospitalist Progress Note ---
Date of Service April 22, 2022 Assessment & Plan (1) Acute pulmonary embolism without acute cor pulmonale: (2) DVT, bilateral lower limbs: Plan: (1) Acute pulmonary embolism without acute cor pulmonale: (2) DVT, bilateral lower limbs: Plan: - 1st episode, from being sedentary and refusing chemoprophylaxis. 04/18 CTA chest w/ extensive PE. 04/18 BLE US doppler positive for BLE DVT. - hemodynamically stable, currently on 2L O2 via NC -Eliquis supported by her insurance, no co-pay per CM. Will transition to Eliquis tomorrow AM. Patient encouraged to ambulate every 2-3 hours. (3) BREA (acute kidney injury): Plan: Baseline Cr 0.8, peaked to 1.3. Possibly contributed by contrast. Resolved. (4) Intractable back pain: Plan: Lumbar disc extrusion with lumbar stenosis causing intractable back pain. Recently at rehab and went home with worsening. Interestingly after 911 was called to come get her she had to WALK to the [facility] to come in this admission per case management. She was also able to get up and move to the [facility] easily tonight. Doing well on current pain regimen and feels the muscle relaxer is better. Pain management saw her and added Medrol dosepak, trial of baclofen and will continue titrating gabapentin as needed. Currently she is doing well on the muscle relaxer which she likes the most. Will continue with current regimen and awaiting SNF placement. Moved BM today per Pt, c/w bowel regimen per patient's need. (5) Intervertebral disc extrusion: Plan: As seen on lumbar MRI 03/24. Per ortho spine evaluation during last admission she is not a surgical candidate at this time. Continue PT/OT and conservative pain management. Weakness and proprioception issues noted with her right leg and foot, however, she is not a good candidate for surgery per Ortho spine last admission. Continue conservative management. (6) Chronic radicular pain of lower back: Plan: Patient is not on narcotics at baseline. #. Other chronic medical conditions: Depression on TCA/doxepin, ADHD on Vyvanse in a.m. with additional dextroamphetamine every afternoon, RLS on ropinirole, hypothyroidism, morbid obesity, PATTI on home CPAP Continue with/resume home meds as and when appropriate. Vyvanse is on formulary and not currently being given, ok to get this from home when able. BMI 57.3. lifestyle modifications strongly recommended to help strengthen her core and reduce the chance of further back injury. DVT ppx- heparin drip--> change to DOAC thomas. Dispo-medically stable, awaiting placement. Admission and Anticipated Discharge Date Admission Date: April 07, 2022 Subjective Patient seen and examined at bedside as a follow-up of intractable back pain and PE and BLE DVT. Patient was sitting up, on RA, NAD, no new acute events overnight per patient. Patient continues to express dissatisfaction with the hospital staff. Patient reports eating okay and moving bowels okay. Patient denies chest pain. Patient denies headache/dizziness/feeling of heart racing. Patient does have some pain especially on her RLE when ambulating. Patient encouraged to ambulate. Physical Exam Physical Exam: GENERAL: Alert and oriented x3. NAD, on RA. Morbidly obese. HEENT: No pallor, no icterus. Pupils equal, round and reactive to light. Oral mucosa moist. NECK: No JVD, no neck masses. HEART: S1 and S2 heard. Regular rate and rhythm. No murmur, no gallop. RESPIRATORY SYSTEM: Normal AP diameter. No accessory muscle use. No wheezing, no crackles. ABDOMEN: Soft, bowel sounds present, nontender, no distention. CENTRAL NERVOUS SYSTEM: No facial droop. Speech is clear. Obeys simple commands. Moves extremities. EXTREMITIES: RLE 1-2+ pitting edema, LLE trace pitting edema. no erythema seen. Results & Data Results & Data ([facility]) Vital Signs (Past 12 Hours) Vital Signs Temp Pulse Pulse Resp BP Pulse Ox 04/22/22 12:14 36.8 C 81 20 114/66 95 04/22/22 08:14 36.7 C 79 18 104/52 L 90 04/22/22 06:12 79
[2022-04-22] MEDS: rOPINIRole HCL 1 MG TABLET PO SCH (18:14)
[2022-04-22] MEDS: MONTELUKAST SODIUM 10 MG TABLET PO SCH (20:56)
[2022-04-22] MEDS: DOXEPIN HCL 10 MG CAPSULE PO SCH (20:56)
[2022-04-23] MEDS: LEVOTHYROXINE SODIUM 100 MCG TABLET PO SCH (05:48)
[2022-04-23] MEDS: ONDANSETRON INJ 2 MG/ML 2 ML VIAL IV PRN (06:42)
[2022-04-23] MEDS: BACLOFEN 10 MG TAB PO SCH ×3 (06:42→21:09)
[2022-04-23 06:44] LABS: Hematocrit (blood only) 32.6 % (37-47); Hemoglobin 10.6 g/dL (12.0-16.0)
[2022-04-23] MEDS: Heparin Adult STANDARD Wt-Based Dextrose 5% 25,000 units/500 mL IV SCH (07:05)
[2022-04-23 07:29] LABS: Basophils # (auto) 0.03 K/uL (0-0.2); Basophils % (auto) 0.3 %; Eosinophils # (auto) 0.13 K/uL (0-0.5); Eosinophils % (auto) 1.4 %; Hematocrit (blood only) 30.7 % (37-47); Immature Granulocytes # (auto) 0.16 K/uL (0.00-0.02); Immature Granulocytes % (auto) 1.7 %; Lymphocytes # (auto) 2.09 K/uL (1.2-3.4); Lymphocytes % (auto) 22.4 %; Mean Corpuscular Hemoglobin 28.9 pg (25-34); Mean Corpuscular Volume 88.7 fL (80-100); Mean Platelet Volume 9.4 fL (7.4-10.4); Monocytes # (auto) 0.66 K/uL (0.11-0.59); Monocytes % (auto) 7.1 %; Neutrophils # (auto) 6.27 K/uL (1.4-6.5); Neutrophils % (auto) 67.1 %; Platelet Count 276 K/uL (130-400); RDW Coefficient of Variation 13.1 % (11.5-14.5); RDW Standard Deviation 42.1 fL (36.4-46.3); Red Blood Count 3.46 M/uL (4.2-5.4); White Blood Count 9.34 K/uL (4.8-10.8)
[2022-04-23 07:34] LABS: Mean Corpuscular Hgb Conc 32.6 g/dL (32-36)
[2022-04-23 07:53] LABS: BUN Creatinine Ratio 31.2 (10-20); Calcium 8.8 mg/dl (8.5-10.1); Creatinine Clr Calc Pharmacy 98.7 ml/min; Est GFR (African American) 77.4 ml/min; Est GFR (Non-African American) 66.8 ml/min
[2022-04-23 07:59] LABS: Partial Thromboplastin Ratio 1.8; Partial Thromboplastin Time 49.5 Seconds (21.0-31.0)
[2022-04-23] MEDS: GABAPENTIN 100 MG CAP PO SCH ×3 (09:19→21:10)
[2022-04-23] MEDS: oxyCODONE HCL IR 5 MG TAB (IMMEDIATE RELEASE) PO PRN ×2 (09:19→18:36)
[2022-04-23] MEDS: PROPRANOLOL HCL 60 MG LA CAP PO SCH ×2 (09:20→21:09)
[2022-04-23] MEDS: NYSTATIN POWDER 15GM BTL EXT SCH ×3 (09:21→21:10)
[2022-04-23] MEDS: POLYETHYLENE (MIRALAX) 17 GM PACK PO SCH (09:23)
[2022-04-23] MEDS: APIXABAN 5 MG TABLET PO SCH ×2 (11:01→21:09)
--- NOTE | 2022-04-23 15:38 | Hospitalist Progress Note ---
Date of Service April 23, 2022 Assessment & Plan (1) Acute pulmonary embolism without acute cor pulmonale: (2) DVT, bilateral lower limbs: Plan: (1) Acute pulmonary embolism without acute cor pulmonale: (2) DVT, bilateral lower limbs: Plan: - 1st episode, from being sedentary and refusing chemoprophylaxis. 04/18 CTA chest w/ extensive PE. 04/18 BLE US doppler positive for BLE DVT. - hemodynamically stable, currently on 2L O2 via NC -Heparin drip changed to Eliquis 04/23 a.m. Eliquis 10 mg twice daily for 7 days followed by Eliquis 5 mg twice daily afterwards. Patient made aware. (3) BREA (acute kidney injury): Plan: Baseline Cr 0.8, peaked to 1.3. Possibly contributed by contrast. Resolved. (4) Intractable back pain: Plan: Lumbar disc extrusion with lumbar stenosis causing intractable back pain. Recently at rehab and went home with worsening. Interestingly after 911 was called to come get her she had to WALK to the litter to come in this admission per case management. She was also able to get up and move to the potty easily tonight. Doing well on current pain regimen and feels the muscle relaxer is better. Pain management saw her and added Medrol dosepak, trial of baclofen and will continue titrating gabapentin as needed. Currently she is doing well on the muscle relaxer which she likes the most. Will continue with current regimen and awaiting SNF placement. C/w bowel regimen per patient's need. (5) Intervertebral disc extrusion: Plan: As seen on lumbar MRI 03/24. Per ortho spine evaluation during last admission she is not a surgical candidate at this time. Continue PT/OT and conservative pain management. Weakness and proprioception issues noted with her right leg and foot, however, she is not a good candidate for surgery per Ortho spine last admission. Continue conservative management. (6) Chronic radicular pain of lower back: Plan: Patient is not on narcotics at baseline. #. Other chronic medical conditions: Depression on TCA/doxepin, ADHD on Vyvanse in a.m. with additional dextroamphetamine every afternoon, RLS on ropinirole, hypothyroidism, morbid obesity, PATTI on home CPAP Continue with/resume home meds as and when appropriate. Vyvanse is on formulary and not currently being given, ok to get this from home when able. BMI 57.3. lifestyle modifications strongly recommended to help strengthen her core and reduce the chance of further back injury. DVT ppx- on Eliquis Dispo-medically stable, awaiting placement. Admission and Anticipated Discharge Date Admission Date: April 07, 2022 Subjective Patient seen and examined at bedside as a follow-up of intractable back pain and PE and BLE DVT. Patient was sitting up, on RA, NAD, no new acute events overnight per patient. Patient reports eating okay, had moved small bowel yesterday and asking for more bowel regimen. Patient denies chest pain. Patient denies headache/dizziness/feeling of heart racing. Patient does have some pain especially on her RLE when ambulating. Patient encouraged to ambulate. Physical Exam Physical Exam: GENERAL: Alert and oriented x3. NAD, on RA. Morbidly obese. HEENT: No pallor, no icterus. Pupils equal, round and reactive to light. Oral mucosa moist. NECK: No JVD, no neck masses. HEART: S1 and S2 heard. Regular rate and rhythm. No murmur, no gallop. RESPIRATORY SYSTEM: Normal AP diameter. No accessory muscle use. No wheezing, no crackles. ABDOMEN: Soft, bowel sounds present, nontender, no distention. CENTRAL NERVOUS SYSTEM: No facial droop. Speech is clear. Obeys simple commands. Moves extremities. EXTREMITIES: RLE 1+ pitting edema, LLE trace pitting edema. no erythema seen. Results & Data Results & Data ([facility]) Vital Signs (Past 12 Hours) Vital Signs Temp Pulse Pulse Pulse Resp BP Pulse Ox 04/23/22 12:11 36.6 C 84 18 118/71 93 04/23/22 08:00 36.7 C 72 84 16 104/80 95
[2022-04-23] MEDS: rOPINIRole HCL 1 MG TABLET PO SCH (18:33)
[2022-04-23] MEDS: DOXEPIN HCL 10 MG CAPSULE PO SCH (21:09)
[2022-04-23] MEDS: MONTELUKAST SODIUM 10 MG TABLET PO SCH (21:09)
[2022-04-24] MEDS: BACLOFEN 10 MG TAB PO SCH ×3 (05:58→20:07)
[2022-04-24] MEDS: LEVOTHYROXINE SODIUM 100 MCG TABLET PO SCH (05:58)
[2022-04-24] MEDS: PROPRANOLOL HCL 60 MG LA CAP PO SCH ×2 (08:31→20:07)
[2022-04-24] MEDS: GABAPENTIN 100 MG CAP PO SCH ×3 (08:31→20:07)
[2022-04-24] MEDS: NYSTATIN POWDER 15GM BTL EXT SCH ×3 (08:31→20:07)
[2022-04-24] MEDS: APIXABAN 5 MG TABLET PO SCH ×2 (08:31→20:07)
[2022-04-24] MEDS: oxyCODONE HCL IR 5 MG TAB (IMMEDIATE RELEASE) PO PRN (08:34)
[2022-04-24] MEDS: POLYETHYLENE (MIRALAX) 17 GM PACK PO SCH (08:35)
--- NOTE | 2022-04-24 15:25 | Hospitalist Progress Note ---
Date of Service April 24, 2022 Assessment & Plan (1) Acute pulmonary embolism without acute cor pulmonale: (2) DVT, bilateral lower limbs: Plan: (1) Acute pulmonary embolism without acute cor pulmonale: (2) DVT, bilateral lower limbs: Plan: - 1st episode, from being sedentary and refusing chemoprophylaxis. 04/18 CTA chest w/ extensive PE. 04/18 BLE US doppler positive for BLE DVT. - hemodynamically stable, currently on 2L O2 via NC -Heparin drip changed to Eliquis 04/23 a.m. Eliquis 10 mg twice daily for 7 days followed by Eliquis 5 mg twice daily afterwards. Patient made aware. (3) BREA (acute kidney injury): Plan: Baseline Cr 0.8, peaked to 1.3. Possibly contributed by contrast. Resolved. (4) Intractable back pain: Plan: Lumbar disc extrusion with lumbar stenosis causing intractable back pain. Recently at rehab and went home with worsening. Interestingly after 911 was ca lled to come get her she had to WALK to the litter to come in this admission per case management. She was also able to get up and move to the potty easily tonight. Doing well on current pain regimen and feels the muscle relaxer is better. Pain management saw her and added Medrol dosepak, trial of baclofen and will continue titrating gabapentin as needed. Currently she is doing well on the muscle relaxer which she likes the most. Will continue with current regimen and awaiting SNF placement. C/w bowel regimen per patient's need. (5) Intervertebral disc extrusion: Plan: As seen on lumbar MRI 03/24. Per ortho spine evaluation during last admission she is not a surgical candidate at this time. Continue PT/OT and conservative pain management. Weakness and proprioception issues noted with her right leg and foot, however, she is not a good candidate for surgery per Ortho spine last admission. Continue conservative management. (6) Chronic radicular pain of lower back: Plan: Patient is not on narcotics at baseline. #. Other chronic medical conditions: Depression on TCA/doxepin, ADHD on Vyvanse in a.m. with additional dextroamphetamine every afternoon, RLS on ropinirole, hypothyroidism, morbid obesity, PATTI on home CPAP Continue with/resume home meds as and when appropriate. Vyvanse is on formulary and not currently being given, ok to get this from home when able. BMI 57.3. lifestyle modifications strongly recommended to help strengthen her core and reduce the chance of further back injury. DVT ppx- on Eliquis Dispo-medically stable, awaiting placement. Admission and Anticipated Discharge Date Admission Date: April 07, 2022 Subjective Patient seen and examined at bedside as a follow-up of intractable back pain and PE and BLE DVT. Patient was sitting up in bed, on 2L NC O2, NAD, no new acute events overnight per patient. Patient reports eating okay, had a good BM today. Patient denies chest pain. Patient denies headache/dizziness/feeling of heart racing. Patient does have some pain especially on her RLE when ambulating. Patient encouraged to ambulate. Physical Exam Physical Exam: GENERAL: Alert and oriented x3. NAD, on RA. Morbidly obese. HEENT: No pallor, no icterus. Pupils equal, round and reactive to light. Oral mucosa moist. NECK: No JVD, no neck masses. HEART: S1 and S2 heard. Regular rate and rhythm. No murmur, no gallop. RESPIRATORY SYSTEM: Normal AP diameter. No accessory muscle use. No wheezing, no crackles. ABDOMEN: Soft, bowel sounds present, nontender, no distention. CENTRAL NERVOUS SYSTEM: No facial droop. Speech is clear. Obeys simple commands. Moves extremities. EXTREMITIES: RLE 1+ pitting edema, LLE no edema. no erythema seen. Results & Data Results & Data ([facility]) Vital Signs (Past 12 Hours) Vital Signs Temp Pulse Pulse Resp BP Pulse Ox 04/24/22 14:53 74 04/24/22 13:10 36.9 C 82 18 113/73 94 04/24/22 08:00 66 04/24/22 07:24 36.7 C 74 16 119/73 94
[2022-04-24] MEDS: rOPINIRole HCL 1 MG TABLET PO SCH (17:49)
[2022-04-24] MEDS: DOXEPIN HCL 10 MG CAPSULE PO SCH (20:07)
[2022-04-24] MEDS: MONTELUKAST SODIUM 10 MG TABLET PO SCH (20:07)
[2022-04-24] MEDS: ONDANSETRON INJ 2 MG/ML 2 ML VIAL IV PRN (21:19)
[2022-04-25] MEDS ORDERED: LACTATED RINGER'S 1,000 ML IV SCH ×2 (03:30→08:30)
[2022-04-25] MEDS ORDERED: NOREPINEPHRINE/D5W 4 MG/250 ML IV ONE (04:31)
[2022-04-25] MEDS ORDERED: ALTEPLASE, RECOMBINANT 50 MG in EMPTY BAG 0 ML IV STA (04:32)
[2022-04-25] MEDS ORDERED: SODIUM CHLORIDE 0.9% 50 ML BAG IV STA (04:32)
[2022-04-25] MEDS ORDERED: PRIMARY PLUMSET, PE LINED TUBING, 113 IN, NON-DEHP (2260-0500) IV STA (04:32)
[2022-04-25] MEDS ORDERED: STAT IV Infusion **Titration per Protocol STA (04:32)
[2022-04-25] MEDS ORDERED: DC ALL ANTICOAGULANTS STA (04:32)
--- NOTE | 2022-04-25 04:39 | Critical Care Consultation ---
Date of Consultation April 25, 2022 Assessment & Plan (1) Admitted to intensive care unit: Reason Critically Ill: 61-year-old female with acute massive pulmonary embolism with associated hypoxia and profound hypotension requiring emergent intervention and need for thrombolysis and close hemodynamic monitoring. NEURO - * CAM ICU: NEGATIVE CARDIAC/VASCULAR - * Hypotension: * Concerning for obstructive shock in the patient with acute massive pulmonary emboli. * Orders placed for troponin and BNP to assess heart strain. * Patient initially placed on Levophed. * Had received IV fluid boluses. Given concern for RIGHT-sided failure, ongoing boluses may result in worsening RV dilation and/or failure. * At this point, given patient's symptomatology and known underlying pathology, the concerns are for acute, worsening pulmonary emboli. The patient is profoundly hypotensive with systolic blood pressures in the 50s to 60s. At this point, decision needs to be made based on patient's symptomatology and known underlying conditions. Prior to ordering/administering thrombolytics, I did reach out to my attending physician who agrees with half dose tPA. Orders placed for type and screen as the patient had previously noted to have an H&H that was slightly low. Additional labs were ordered including lactate, etc. Ideally, a repeat CTA is ideal to evaluate for extent of worsening illness, however the patient is too hemodynamically unstable at this time. Patient was brought emergently to the ICU in room 106. Multiple peripheral access sites were placed. I was unsuccessful in placing arterial line given the patient's small vasculature. Thankfully, the patient's blood pressure did improve with vasopressors. An ABG was obtained and the patient was oxygenating well on 100% BiPAP settings. Heart rate had improved. Patient is more hemodynamically stable at this time. The patient was taken emergently to CT scan. I did accompany the patient and views from CT scan demonstrated extensive bilateral near occlusive pulmonary emboli. Verbal consent in addition to the prior order for tPA for nursing staff to begin tPA upon arrival/return to the ICU bed. * Upon reassessment of the patient's labs, she is noted to now have an BREA. Additionally, her troponin is elevated as is BNP. Lactate is elevated at 2.5. Of coincidence, the patient was noted to have a fever of 39.5 which is new as well. Certainly, this is a bit confounding as the patient certainly could be experiencing symptoms of sepsis syndrome, however, given her known history of PEs, elevated troponin, BNP, lactate, and CTA findings, I do feel the patient warrants thrombolysis. I did have extensive conversation with the patient regarding risks. She acknowledges this and agrees to proceed with thrombolysis. Patient to receive 50 mg IV tPA over 2 hours. * 0530: I did reach out to [facility] cardiology on-call, Dr. Alcantara to request bedside echo to be obtained MITCHELL when echo techs arrive within the next hour. He will arrange this from his end. * Patient was reevaluated on multiple occasions. We were able to wean down her FiO2. Patient's blood pressure has improved. She reports feeling much better at this time. She reports much less chest tightness and much easier breathing at this time. * EKG: Normal sinus rhythm with incomplete RIGHT bundle branch block at a rate of [address]/T wave changes noted. QTc 459 ms * Monitor on telemetry. RESPIRATORY - * Acute hypoxic respiratory distress: * In the setting of massive pulmonary emboli. * Patient with increasing dyspnea despite BiPAP. * Please see above. * Hoped to titrate down FiO2 as tolerated. GI/NUTRITION - * Elevated LFTs: * Possibly representing hepatic congestion given PEs. * Will trend for improvement s/p TPA administration. * N.p.o. currently RENAL/LYTES - * BREA: * Likely prerenal in the setting of profound hypotension. * Received 2L IVF in PCU. Will hold on further IVF for now. - * Anthony in place - Strict I&Os. ENDO - * No h/o DMII * BSGs per unit protocol. ISS --> gtt per unit policy. HEME - * To receive TPA in the setting of massive PE: * Unfortunately, with the patient changing from an oxygenation and hemodynamic standpoint, the patient is now warranting tPA administration for massive pulmonary emboli. Patient is near Jed arrest at the time of my assessment. The patient had previously been on heparin drip for her initial diagnosis of PE. Patient was started on Eliquis and the heparin drip was stopped. Certainly, the patient is high risk for post tPA bleeding given her recent anticoagulation therapy, however, given her state of active extremis and risk for given her profound hypotension and hypoxemia, I do feel that the risks outweigh the benefits. All of this information was reviewed with the patient in great detail at bedside. Through shared decision-making, the patient consents to tPA administration. Consent was signed by myself and nursing staff and filed. Prior to administration of tPA, H&H and type and screen were obtained. Patient will likely require heparin drip status post tPA administration and normalization of APTT. ID - * Fever: * Patient now with fever of 39.5 upon assessment in the ICU. Unfortunately, this does confuse the patient's presentation as sepsis syndrome could present similarly. Will obtain urinalysis and evaluate chest films for possible sources of infection. Additionally, we will obtain CT of the abdomen pelvis as we are obtaining CT of the chest to evaluate for possible infectious sources as well. Given her abrupt change in significant fever, will repeat bio fire testing for possible pulmonary sources. Blood cultures were obtained. Patient received IV meropenem and vancomycin to be renally dosed by pharmacy. Procalcitonin pending. Lactate elevated. LINES/IV ACCESS - * PIVs x4 * Anthony DVT PROPHYLAXIS - * tPA * SCDs I have personally spent 95 minutes of critical care time in the direct management of this patient. This is a life/limb threatening event. This includes time spent evaluating patient, direct bedside care, chart review, placing orders, interpretation of diagnostic studies, discussion with consultants, patient, and family members, as well as other required patient management activities. This time is exclusive of all separately billable procedures, and teaching time and separate from and in addition to any other critical care service time. Thank you for allowing us to participate in the care of this patient. Please refer to my attending physician's documentation for any further recommendations. (2) Acute massive pulmonary embolism: (3) Obstructive cardiovascular shock: (4) DVT, bilateral lower limbs: (5) BREA (acute kidney injury): History of Present Illness Attending Physician: Lucas Gallegos MD History of Present Illness Patient is a 61-year-old female with a significant past medical history of migraines, hypothyroidism, restless leg syndrome, depression, anxiety, venous insufficiency, chronic radicular low back pain, morbid obesity, and PATTI. Patient initially admitted to this institution on 03/25 with severe back pain and ambulatory dysfunction. She was discharged on 03/29. She subsequently returned on 04/08 and was admitted for severe back pain and ambulatory dysfunction again. Patient had continued to be evaluated and managed, but it was noted on 04/18, the patient was having swelling of the RIGHT lower extremity and reported weakness. CTA of the chest and bilateral lower extremity Dopplers were obtained. Patient noted to have bilateral lower extremity DVTs and extensive bilateral pulmonary embolism with saddle component. The patient had previously been on Lovenox when she was admitted on 04/08, however the patient had her Lovenox held in the sett ing of thrombocytopenia with evaluation for HIT. Note on 04/11 indicates that the patient had declined chemoprophylaxis at this point. Patient's heparin drip was stopped yesterday and she had received loading doses of Eliquis. She had been doing well and per nursing staff reports, she had been moving more than in previous days. Unfortunately, on reevaluation, the patient was noted to be profoundly hypotensive with blood pressures in the 50s to 60s systolically. Patient was complaining of difficulty breathing as well. I was approached by hospitalist service to evaluate the patient for abrupt decline in status. Upon my evaluation at bedside in room 216, the patient is awake and alert, but in obvious active extremis. The patient was placed in the Trendelenburg position to attempt to improve hypotension. Patient is complaining of difficulty with breathing. She is pulling at her BiPAP mask. She complains of chest tightness as well. She denies complaints of hemoptysis. She reports no headaches or dizziness. She reports no lightheadedness, nausea, vomiting, or abdominal discomfort. staff having difficulty obtaining NIBP. Patient then found to be profoundly hypotensive with systolics in the 60s. I did discuss the case with my attending physician via phone. Orders had previously been placed for Levophed and discussion regarding dosage of tPA was had. Patient to receive 50 mg IV tPA. Goal was to obtain repeat CTA to evaluate change in clot burden as well. Unfortunately, the patient has not have improvement of blood pressure, so she was brought to the ICU for stabilization and tPA administration. I did have extensive conversation with the patient at bedside and explained risks and benefits of tPA. Despite knowing the risks, the patient wishes to proceed with tPA administration. Verbal consent obtained and consent signed by myself and nursing staff. Allergies Allergy/AdvReac Type Severity Reaction Status Date / Time Penicillins Allergy Intermediate Rash Unverified 04/07/22 21:12 sodium chloride Allergy Intermediate Swelling Unverified 04/07/22 21:12 [From [place] Nasal] of Lip/Tongue/Throat shellfish derived Allergy Mild Migraine Unverified 04/07/22 21:12 aspirin Allergy Unknown Unknown Unverified 04/07/22 21:12 amoxicillin Allergy throat Unverified 03/24/22 21:54 swells NSAIDS (Non-Steroidal Allergy vomiting Unverified 03/24/22 21:54 Anti-Inflamma diphenhydramine AdvReac Severe hyperactivi Verified 03/24/22 21:54 [From Irish] ty Home Medications Medication Instructions Recorded Confirmed Type dextroamphetamine sulfate 10 mg 10 mg PO .EVERY AFTERNOON 03/24/22 04/07/22 History tablet doxepin 10 mg capsule 10 mg PO HS 03/24/22 04/07/22 History levothyroxine 100 mcg tablet 100 mcg PO DAILYBB 03/24/22 04/07/22 History lisdexamfetamine 70 mg capsule 70 mg PO QAM 03/24/22 04/07/22 History (Vyvanse) montelukast 10 mg tablet 10 mg PO HS 03/24/22 04/07/22 History propranolol 120 mg capsule,24 120 mg PO AMPM 03/24/22 04/07/22 History hr,extended release ropinirole 0.5 mg tablet 1 mg PO .6 PM NIGHTLY 03/24/22 04/07/22 History docusate sodium 100 mg capsule 100 mg PO BID PRN #30 cap 03/29/22 04/07/22 Rx polyethylene glycol 3350 17 gram 17 g PO DAILY PRN #15 ea 03/29/22 04/07/22 Rx oral powder packet (Miralax) baclofen 10 mg tablet 10 mg PO TID 7 Days #20 tab 04/18/22 Rx gabapentin 100 mg capsule 100 mg PO TID 30 Days #90 cap 04/18/22 Rx nystatin 100,000 unit/gram topical 1 applic EXT TID #100 g 04/18/22 Rx powder (Nystop) oxycodone 5 mg tablet 5 mg PO Q6 PRN 7 Days #28 tab 04/18/22 Rx apixaban 5 mg tablet (Eliquis) 5 mg PO BID #74 tab 04/22/22 Rx Patient History Medical History ADHD Anxiety Chronic low back pain Depression Hx of migraines Hypothyroidism (acquired) PATTI (obstructive sleep apnea) Restless leg syndrome Seasonal allergies Venous insufficiency Surgical History History of carpal tunnel surgery of left wrist Social History Smoking Status: Never smoker Hx Alcohol Use: No Hx Substance Use: No Preferred Language: Upper Sorbian Communication Ability: Effective Sole Ruffer Required: No Beliefs That Will Affect Care: None marital status: Single Current Living Situation: Alone current occupational status: disabled Feels Safe at Home: Yes Safety Concerns: Feels Safe At This Time Assistive Devices: Cane Review of Systems Review of Systems: All systems reviewed & are unremarkable except as noted in HPI & below Physical Exam Physical Exam: VITAL SIGNS - Vital signs and nursing notes were reviewed. GENERAL - 61-year-old female appearing her stated age who is in moderate respiratory distress. HEAD - NC/AT. EYES - PERRL with EOMI bilaterally. Sclera anicteric. EARS - No deformities of external structures noted on gross examination bilaterally. NOSE - Midline and without cyanosis. No epistaxis or purulent drainage noted. MOUTH/OROPHARYNX - Without perioral cyanosis. Buccal mucosa pink and moist and without leukoplakia. NECK - Neck with FROM. Supple to palpation. LUNGS -tachypneic on BiPAP. Diminished breath sounds bilaterally secondary to body habitus. CARDIAC - RRR with S1/S2. No murmur, rubs, or gallops appreciated. No reproducible tenderness to palpation appreciated over the anterior chest wall. ABDOMEN - Abdominal contour obese without pulsations or visible masses. BS normoactive all four quadrants. No tenderness, palpable masses, hepatosplenomegaly, or ascites noted. EXTREMITIES - No clubbing or peripheral cyanosis. Large lower extremities. Weak peripheral pulses. +5/5 strength noted in UE/LE bilaterally. NEUROLOGIC - Cranial nerves II through XII grossly intact. Sensory intact to light touch throughout. PSYCH - A&Ox3. She is in distress and appears uncomfortable and panicked. Results & Data Results & Data ([facility]) Vital Signs (Past 12 Hours) Vital Signs Temp Pulse Pulse Resp BP Pulse Ox 04/25/22 04:15 65/40 L 04/25/22 04:14 59/42 L 04/25/22 03:43 88 96 H 24 54/33 L 96 04/25/22 03:08 36.7 C 93 H 24 72/48 L 92 04/24/22 22:43 36.7 C 91 H 20 102/74 94 04/24/22 19:11 36.6 C 74 20 96/58 L 94 Coding Level of Care Code Critical Care 1st 30-74 mins Diagnoses Admitted to intensive care unit Z78.9 Acute massive pulmonary embolism I26.99 Obstructive cardiovascular shock R57.8 DVT, bilateral lower limbs I82.403 BREA (acute kidney injury) N17.9 Time Spent (min) 95
[2022-04-25 04:44] LABS: Hematocrit (blood only) 31.1 % (37-47); Hemoglobin 10.1 g/dL (12.0-16.0); Mean Corpuscular Hemoglobin 28.7 pg (25-34); Mean Corpuscular Hgb Conc 32.5 g/dL (32-36); Mean Corpuscular Volume 88.4 fL (80-100); Mean Platelet Volume 9.6 fL (7.4-10.4); Nucleated RBC # (auto) 0.46 K/uL (0-0); Nucleated RBC % (auto) 2.2 %; Platelet Count 229 K/uL (130-400); RDW Coefficient of Variation 13.7 % (11.5-14.5); RDW Standard Deviation 43.8 fL (36.4-46.3); Red Blood Count 3.52 M/uL (4.2-5.4); White Blood Count 20.55 K/uL (4.8-10.8)
[2022-04-25 04:59] LABS: Albumin Globulin Ratio 1.1 (0.9-2); Albumin Level 2.9 gm/dl (3.4-5.0); BUN Creatinine Ratio 18.7 (10-20); Bilirubin,Total 0.7 mg/dl (0.2-1.0); Calcium 8.5 mg/dl (8.5-10.1); Creatinine Clr Calc Pharmacy 45.2 ml/min; Est GFR (African American) 30.1 ml/min; Globulin 2.7 gm/dl (2.5-4.0); Magnesium 1.7 mg/dl (1.7-2.4); Potassium 4.2 mmol/L (3.5-5.1); Total Protein 5.6 gm/dl (6.0-8.3)
[2022-04-25 05:14] LABS: ALC (manual) 1.05 K/uL (1.2-3.4); Lymphocytes # (manual) 1.05 K/uL (1.2-3.4); Lymphocytes % (manual) 5.1 %; Neutrophils % (manual) 94.9 %; Polychromasia 1+; Toxic Vacuolation 1+
[2022-04-25 05:14] LABS: iSTAT Art Bld Gas pCO2 Correct 38 mmHg (35-46); iSTAT Art Bld Gas pH Corrected 7.481 (7.35-7.45); iSTAT Arterial Blood Gas HCO3 29 meg/L (19-24); iSTAT Arterial Blood Gas pCO2 38 mmHg (35-46); iSTAT Arterial Blood Gas pH 7.48 (7.35-7.45); iSTAT Arterial Blood Gas pO2 > 420 mmHg (80-95); iSTAT Arterial Blood Gas pO2 C 478; iSTAT Carbon Dioxide 30 mmol/L (24-31); iSTAT FiO2 100 %; iSTAT Hematocrit 27 % (37-47); iSTAT Hemoglobin 9.2 g/dl (12.0-16.0); iSTAT Potassium 4.2 mmol/L (3.3-5.0); iSTAT Site Art Line; iSTAT Sodium 133 mmol/L (135-144)
[2022-04-25] MEDS ORDERED: SODIUM CHLORIDE 0.9% 250 ML IV PRN (05:18)
--- NOTE | 2022-04-25 05:22 | Procedure Note ---
Procedure Note Date of Service April 25, 2022 Note Procedure: Arterial Line Placement Attending: Dr. Cortez APC: Lyndon Jefferson PA-C Indication: Hemodynamic monitoring Anesthesia: Lidocaine 1% Emergent Consent implied in the setting of clinical deterioration and need for close hemodynamic monitoring, ABG monitoring, frequent lab draws, etc. A time-out was completed verifying correct patient, procedure, site, positioning, and implant(s) or special equipment if applicable. Allens test was performed to ensure adequate perfusion. Patients LEFT wrist was prepped and draped in the usual sterile fashion. Ultrasound guidance was used to aid needle placement. A 20g Arrow arterial line was advanced into the vessel. Resistance was met. Needle with guidewire was removed and pulsatile blood flow was noted. I was unable to advance. Given risk for bleeding and need for TPA administration, the procedure was aborted. Prior to removal of catheter, ABG was obtained for respiratory therapy. Blood Loss: Minimal Complications: None Procedural Ultrasound Guidance: Procedure Date: 04/25/2022 Indication: Hemodynamic Monitoring, Frequent ABGs/Lab draws. Attending: Dr. Cortez APC: Lyndon Jefferson PA-C Artery Identified: YES Line confirmed in Artery with ultrasound: YES Complications: Unable to advance catheter into vessel. Patient tolerated procedure: WELL Coding CPT Codes Tubes, Drains, and Vasc Access - Tubes, Drains, and Vasc Access: [id number] Insertion Catheter, Artery ([id number]) [facility] [place] Procedure Codes (Charges) Tubes, Drains, and Vasc Access Procedure 1: Tubes, Drains, and Vasc Access: [id number] Insertion Catheter, Artery
[2022-04-25] MEDS ORDERED: OPTIRAY 320 125ml IV ONE (05:36)
[2022-04-25] MEDS ORDERED: ACETAMINOPHEN 1,000 MG/100 ML VIAL IV STA (05:48)
[2022-04-25] MEDS ORDERED: VANCOMYCIN CONSULT ACTIVE PRN (05:48)
[2022-04-25] MEDS ORDERED: ACETAMINOPHEN 1000 MG/100 ML IV IV ONE (05:48)
[2022-04-25] MEDS ORDERED: MEROPENEM CONSULT ACTIVE PRN (05:48)
[2022-04-25] MEDS: NOREPINEPHRINE/D5W 4 MG/250 ML PLCT IV SCH ×4 (05:52→18:57)
[2022-04-25] MEDS ORDERED: VANCOMYCIN HCL 2,750 MG in SODIUM CHLORIDE 0.9% 500 ML IV ONE (06:00)
[2022-04-25 06:01] LABS: Appearance Urine Clear (Clear); Bilirubin Urine Negative (Negative); Blood Urine Negative (Negative); Color Urine Yellow; Glucose Urine UA Negative (Negative); Ketones Urine Negative (Negative); Leukocyte Esterase Urine Negative (Negative); Nitrite Urine Negative (Negative); Protein Urine Negative (Negative); Urobilinogen Urine Negative (Negative)
[2022-04-25] MEDS: MEROPENEM 500 MG in SYRINGE 0 ML IV SCH ×3 (06:26→20:37)
[2022-04-25 07:15] LABS: Adenovirus PCR Not Detected (NotDetected); Bordetella parapertussis PCR Not Detected (NotDetected); Bordetella pertussis PCR Not Detected (NotDetected); Chlamydia pneumoniae PCR Not Detected (NotDetected); Coronavirus 229E PCR Not Detected (NotDetected); Coronavirus CoV-2 (COVID19)PCR Not Detected (NotDetected); Coronavirus HKU1 PCR Not Detected (NotDetected); Coronavirus NL63 PCR Not Detected (NotDetected); Coronavirus OC43PCR Not Detected (NotDetected); Human Metapneumovirus PCR Not Detected (NotDetected); Influenza A PCR Not Detected (NotDetected); Influenza B PCR Not Detected (NotDetected); Mycoplasma pneumoniae PCR Not Detected (NotDetected); Parainfluenza Virus 1 PCR Not Detected (NotDetected); Parainfluenza Virus 2 PCR Not Detected (NotDetected); Parainfluenza Virus 3 PCR Not Detected (NotDetected); Parainfluenza Virus 4 PCR Not Detected (NotDetected); Respiratory Syncytial VirusPCR Not Detected (NotDetected); Rhinovirus/Enterovirus PCR Not Detected (NotDetected)
[2022-04-25] MEDS: POLYETHYLENE (MIRALAX) 17 GM PACK PO SCH (07:33)
[2022-04-25] MEDS: LEVOTHYROXINE SODIUM 100 MCG TABLET PO SCH (07:33)
[2022-04-25] MEDS: GABAPENTIN 100 MG CAP PO SCH ×3 (07:33→20:37)
[2022-04-25] MEDS: BACLOFEN 10 MG TAB PO SCH ×3 (07:33→21:00)
--- NOTE | 2022-04-25 07:58 | CT Scan Report ---
CT angio chest PE protocol, CT abd pelvis IV con only HISTORY: 61 years-old Female with PE. Acute chest pain with shortness of breath TECHNIQUE: Multiple CTA images of the chest were obtained after the intravenous administration of 120 ml Optiray. Coronal and sagittal MIPS were obtained from the axial data set and were submitted for review. CT abdomen and pelvis with IV contrast was also obtained. All measurements were obtained acco rding to NASCET criteria. A dose lowering technique was utilized adhering to the principles of ALARA. COMPARISON: CTA chest 04/18/2022 FINDINGS: CTA: Limited study secondary to contrast bolus timing and respiratory motion artifact. Mild cardiomegaly. No pericardial effusion. No thoracic aortic aneurysm or dissection identified. Extensive pulmonary an d bladder redemonstrated involving the main, lobar, segmental and subsegmental branches bilaterally. There is resolution of the previously described saddle pulmonary embolus. Dilated right heart chamber s redemonstrated. Mild coronary artery calcifications. CT CHEST: Calcifications of the left thyroid with probable 1.4 cm left thyroid nodule. Mildly prominent mediast inal lymph nodes are likely reactive. No pneumothorax or pleural effusion. Mild patchy groundglass op acities of the right greater than left upper lobes. Opacities of the left lower lobe including a 2.8 x 4.4 cm wedge-shaped subpleural consolidation of the posterior basal segment on image 109. Small tra cheocele. Central airways are patent. Unremarkable soft tissues. Degenerative changes of the shoulder s and spine. Degenerative loose bodies are noted within the bilateral shoulders. CT ABDOMEN/PELVIS: Study is limited secondary to patient body habitus and respiratory motion artifact. No pneumatosis or pneumoperitoneum. Unremarkable spleen, pancreas and adrenal glands. There is equivocal gallbladder w all thickening with partial distention of the gallbladder. Unremarkable liver. Nonspecific bilateral perinephric stranding. There are a few hypodensities of the kidneys suggestive of cysts measuring up to 5.5 cm on the left. No urolith or hydronephrosis. Decompressed urinary bladd er with Anthony catheter in place. Air is noted within the urinary bladder lumen, likely secondary to i nstrumentation. Unremarkable appearance of uterus and adnexa. No abdominal aortic aneurysm. Right fem oral DVT redemonstrated. There is no lymphadenopathy. No bowel obstruction or bowel wall thickening. There is mild fecal retention. Normal appendix. Tiny f at filled periumbilical hernia. Unremarkable soft tissues. Degenerative changes of the spine, pelvis and hips. Multilevel central canal and neuroforaminal narrowing of the lumbar spine. Transitional lum bosacral anatomy. IMPRESSION: 1. Extensive pulmonary emboli are redemonstrated with resolution of the previously described saddle e mbolus seen on the 04/18/2022 study. Additionally, there is evidence of associated right heart strain. 2. Progression of the basal left lower lobe pulmonary infarct. 3. Subsegmental patchy groundglass opacities of the right greater than left upper lobes are suggestiv e of an infectious or inflammatory pneumonitis. 4. Right femoral DVT redemonstrated. 5. No bowel obstruction or bowel wall thickening. 6. Additional findings as above. ACT 112: Negative or not required by law. The above report was generated using voice recognition software. It may contain grammatical, syntax o r spelling errors. Electronically signed by: Dain Rosenthal M.D. 04/25/2022 7:56 AM
--- NOTE | 2022-04-25 08:52 | Hospitalist Progress Note ---
Date of Service April 25, 2022 Assessment & Plan Admission and Anticipated Discharge Date Admission Date: April 07, 2022 Subjective Last night got called that patient was not feeling well and SBP was in 70's. Ordered 500cc fluid bolus with LR but after short time got call that now SBP in 50's. Went and saw patient. Sleepy but arousable. Ordered another 500cc bolus. Ordered labs, abg. EKg was ok. Patient was difficult to measure accurate BP but it was not improving. Notified ICU. As patient on 04/18/22 had massive PE and DVT's and currently on eliquis , ICU started on levophed drip and ordered stat CTA chest which showed Right heart strain and tpa was given. Also in ICU patinet spiked temp. LAbs showed wbc 20k and lactic acid 2.5 and CR 2.0. Empirically started on iv Vanco and meropenem. cultures ordered.Biofire covid ordered. Serial troponin, echo and cardio consult placed. Results & Data Results & Data ([facility]) Vital Signs (Past 12 Hours) Vital Signs Temp Pulse Pulse Pulse Resp BP BP 04/25/22 08:26 04/25/22 08:18 100/61 04/25/22 08:05 102/70 04/25/22 08:00 86 04/25/22 07:45 112/75 04/25/22 07:44 73 19 04/25/22 07:41 38.6 C H 72 18 105/87 04/25/22 07:00 39.1 C H 77 19 04/25/22 06:33 39.3 C H 84 21 102/76 04/25/22 06:30 39.3 C H 86 26 H 04/25/22 06:19 39.4 C H 90 25 H 99/85 L 04/25/22 06:14 88 04/25/22 06:11 87/73 L 04/25/22 06:00 94 H 26 H 04/25/22 05:56 92 H 17 104/52 L 04/25/22 05:45 90 24 102/62 04/25/22 05:43 39.5 C H 91 H 21 124/58 L 04/25/22 05:38 91 H 15 04/25/22 05:00 89 24 133/75 04/25/22 04:45 91 H 26 H 04/25/22 04:30 90 4 L 04/25/22 04:15 89 0 L 04/25/22 04:14 04/25/22 04:00 89 1 L 04/25/22 03:45 88 20 04/25/22 03:43 88 96 H 24 04/25/22 03:30 90 28 H 04/25/22 03:15 93 H 29 H 04/25/22 03:08 36.7 C 93 H 24 04/25/22 03:00 95 H 19 04/25/22 02:45 93 H 2 L 04/25/22 02:30 94 H 0 L 04/25/22 02:15 96 H 5 L 04/25/22 02:00 95 H 0 L 04/25/22 01:45 96 H 0 L 04/25/22 01:30 96 H 0 L 04/25/22 01:15 98 H 0 L 04/25/22 01:00 99 H 15 04/25/22 00:45 98 H 0 L 04/25/22 00:30 100 H 6 L 04/25/22 00:15 99 H 5 L 04/25/22 00:00 103 H 33 H 04/24/22 22:43 36.7 C 91 H 20 BP Pulse Ox 04/25/22 08:26 94/61 L 04/25/22 08:18 04/25/22 08:05 04/25/22 08:00 04/25/22 07:45 04/25/22 07:44 99 04/25/22 07:41 100 04/25/22 07:00 100 04/25/22 06:33 100 04/25/22 06:30 100 04/25/22 06:19 100 04/25/22 06:14 04/25/22 06:11 100 04/25/22 06:00 100 04/25/22 05:56 100 04/25/22 05:45 100 04/25/22 05:43 100 04/25/22 05:38 100 04/25/22 05:00 100 04/25/22 04:45 90 04/25/22 04:30 04/25/22 04:15 65/40 L 94 04/25/22 04:14 59/42 L 04/25/22 04:00 92 04/25/22 03:45 95 04/25/22 03:43 54/33 L 96 04/25/22 03:30 04/25/22 03:15 95 04/25/22 03:08 72/48 L 92 04/25/22 03:00 04/25/22 02:45 04/25/22 02:30 04/25/22 02:15 04/25/22 02:00 04/25/22 01:45 04/25/22 01:30 04/25/22 01:15 04/25/22 01:00 04/25/22 00:45 04/25/22 00:30 04/25/22 00:15 04/25/22 00:00 04/24/22 22:43 102/74 94
[2022-04-25] MEDS: NYSTATIN POWDER 15GM BTL EXT SCH ×3 (09:27→20:36)
[2022-04-25 09:36] LABS: Hematocrit (blood only) 31.6 % (37-47); Hemoglobin 10.5 g/dL (12.0-16.0); Mean Corpuscular Hemoglobin 29.6 pg (25-34); Mean Corpuscular Hgb Conc 33.2 g/dL (32-36); Mean Platelet Volume 9.4 fL (7.4-10.4); Nucleated RBC # (auto) 0.33 K/uL (0-0); Platelet Count 268 K/uL (130-400); RDW Coefficient of Variation 13.7 % (11.5-14.5); RDW Standard Deviation 44.5 fL (36.4-46.3); Red Blood Count 3.55 M/uL (4.2-5.4); White Blood Count 34.25 K/uL (4.8-10.8)
[2022-04-25 09:38] LABS: Partial Thromboplastin Ratio 1.1; Partial Thromboplastin Time 31.6 Seconds (21.0-31.0)
[2022-04-25] MEDS ORDERED: Heparin IV Adult Wt-Based Low-Dose *NO* Bolus Protocol IV STA (10:49)
[2022-04-25] MEDS: Heparin Adult LOW DOSE Wt-Based Dextrose 5% 25,000 units/500 mL IV SCH (10:58)
[2022-04-25] MEDS ORDERED: GLUCAGON FOR INJ 1 MG VIAL IM PRN (11:00)
[2022-04-25] MEDS ORDERED: PANTOprazole 40 MG in SYRINGE 0 ML IV SCH (11:00)
[2022-04-25] MEDS ORDERED: DEXTROSE 50% 50 ML SYRINGE IV PRN (11:00)
[2022-04-25] MEDS ORDERED: GLUCOSE 40% GEL 15 GM TUBE PO PRN (11:00)
[2022-04-25] MEDS ORDERED: CARBOHYDRATES FOR HYPOGLYCEMIA PO PRN (11:00)
[2022-04-25] MEDS ORDERED: GLUCOSE 10 TABS/TUBE PO PRN (11:00)
[2022-04-25 11:22] LABS: Partial Thromboplastin Ratio 1.3; Partial Thromboplastin Time 34.5 Seconds (21.0-31.0)
--- NOTE | 2022-04-25 11:46 | Cardiology Consultation ---
Date of Consultation April 25, 2022 Assessment & Plan (1) Acute massive pulmonary embolism: (2) DVT, bilateral lower limbs: (3) BREA (acute kidney injury): Patient with severe bilateral pulmonary embolism with resultant hypotensive shock, right ventricular strain pattern noted on echocardiogram with RV pressure/volume overload, pulmonary artery systolic pressure estimated to be 68 mmHg, with dilated inferior vena cava noted. No previous echocardiogram studies performed at this institution for review, however report of a prior study dated 11/12/2017 within the outpatient [facility] [place] record reviewed, with reported normal right ventricular chamber size and systolic function at that time.Normal pulmonary pressure at that time. Mild elevation in proBNP and at bedtime troponin consistent with hemodynamically significant pulmonary embolism. Case has been discussed with Lyndon Jefferson PA-C by phone at just after 5:30 am, and even without echocardiographic data available at that time, given CT findings of severe pulmonary embolism, and profound hypotension, I was in agreement with the decision to offer the patient thrombolytic therapy with Alteplase which was subsequently administered at 5:43 AM, subsequent dose of 7:43 AM. Telemetry reveals sinus rhythm in the 60s. Of note, patient typically on propranolol which has been held. She is certainly at risk for developing atrial arrhythmias such as atrial fibrillation, and would have low threshold for resuming low-dose beta-ayde perhaps low-dose metoprolol as blood pressure stabilizes further. Currently systolic blood pressure has been in the range of 90-100 mmHg following the administration of alteplase. Patient is maintained on BiPAP support. Resting comfortably. Pulse oximetry stable. Patient with noted leukocytosis and mild fever, this could be due to severe thrombus burden. Blood cultures have already been collected, empiric dose of vancomycin previously ordered. Will continue to follow the patient clinically. Case discussed with Dr Gallegos ([facility] Hospitalist service ) and Dr Cortez (critical care medicine). History of Present Illness Attending Physician: Lucas Gallegos MD History of Present Illness Ulices Contreras is a 61-year-old female seen in cardiology consultation per the request of Dr. Cunningham for the evaluation of severe bilateral pulmonary embolism, deep venous thrombosis, with resultant hypotension, right heart strain. Patient had been admitted on 04/08/2022 presenting with intractable back pain. She also presented with similar complaints prompting previous admission from 03/25/2022 until 03/29/2022. A CT angiogram was performed on 04/18/2022 for evaluation of shortness of breath, and chest tightness with findings of extensive pulmonary emboli within the right main and left pulmonary arteries with small saddle embolus noted specifically in the left proximal pulmonary artery just distal to the bifurcation, as well as extensive thrombi extending to the lower lobe pulmonary arteries. Extensive bilateral occlusive DVTs also noted the same day 04/18/2022. Patient was hemodynamically stable at that time, unfractioned heparin infusion initiated. Ultimately she was transferred to the intensive care unit in the airplane technician hours of this morning, with blood pressure measured at 04/25/2022 at 3:08 AM of 72/48, followed by 54/33 at 3:43 AM. Low-dose norepinephrine infusion has been started, and she continues on norepinephrine infusion at 0.14 mcg/kg/min. Repeat CT angiogram of the chest performed earlier this morning revealed ongoing extensive pulmonary emboli, with the previous finding of saddle embolism resolved. By CT criteria, right heart strain noted. Echocardiogram performed with evidence of severe right ventricular chamber enl argement and diffuse severe right ventricular hypokinesis, with interventricular septal flattening, consistent with RV pressure/volume overload, pulmonary artery pressures severely elevated, estimated to be 68 mmHg. No previous studies available for comparison at this institution. At the time my assessment in ICU room 106, patient was comfortable, she was on BiPAP support, systolic blood pressures had been in the 100s, maintained on ongoing low-dose norepinephrine support. Allergies Allergy/AdvReac Type Severity Reaction Status Date / Time Penicillins Allergy Intermediate Rash Unverified 04/07/22 21:12 sodium chloride Allergy Intermediate Swelling Unverified 04/07/22 21:12 [From [place] Nasal] of Lip/Tongue/Throat shellfish derived Allergy Mild Migraine Unverified 04/07/22 21:12 aspirin Allergy Unknown Unknown Unverified 04/07/22 21:12 amoxicillin Allergy throat Unverified 03/24/22 21:54 swells NSAIDS (Non-Steroidal Allergy vomiting Unverified 03/24/22 21:54 Anti-Inflamma diphenhydramine AdvReac Severe hyperactivi Verified 03/24/22 21:54 [From Benadryl] ty Home Medications Medication Instructions Recorded Confirmed Type dextroamphetamine sulfate 10 mg 10 mg PO .EVERY AFTERNOON 03/24/22 04/07/22 History tablet doxepin 10 mg capsule 10 mg PO HS 03/24/22 04/07/22 History levothyroxine 100 mcg tablet 100 mcg PO DAILYBB 03/24/22 04/07/22 History lisdexamfetamine 70 mg capsule 70 mg PO QAM 03/24/22 04/07/22 History (Vyvanse) montelukast 10 mg tablet 10 mg PO HS 03/24/22 04/07/22 History propranolol 120 mg capsule,24 120 mg PO AMPM 03/24/22 04/07/22 History hr,extended release ropinirole 0.5 mg tablet 1 mg PO .6 PM NIGHTLY 03/24/22 04/07/22 History docusate sodium 100 mg capsule 100 mg PO BID PRN #30 cap 03/29/22 04/07/22 Rx polyethylene glycol 3350 17 gram 17 g PO DAILY PRN #15 ea 03/29/22 04/07/22 Rx oral powder packet (Miralax) baclofen 10 mg tablet 10 mg PO TID 7 Days #20 tab 04/18/22 Rx gabapentin 100 mg capsule 100 mg PO TID 30 Days #90 cap 04/18/22 Rx nystatin 100,000 unit/gram topical 1 applic EXT TID #100 g 04/18/22 Rx powder (Nystop) oxycodone 5 mg tablet 5 mg PO Q6 PRN 7 Days #28 tab 04/18/22 Rx apixaban 5 mg tablet (Eliquis) 5 mg PO BID #74 tab 04/22/22 Rx Patient History Medical History ADHD Anxiety Chronic low back pain Depression Hx of migraines Hypothyroidism (acquired) PATTI (obstructive sleep apnea) Restless leg syndrome Seasonal allergies Venous insufficiency Surgical History History of carpal tunnel surgery of left wrist Social History Smoking Status: Never smoker Hx Alcohol Use: No Hx Substance Use: No Preferred Language: Egyptian Communication Ability: Effective Remote Control Assembler Required: No Beliefs That Will Affect Care: None marital status: Single Current Living Situation: Alone current occupational status: disabled Feels Safe at Home: Yes Safety Concerns: Feels Safe At This Time Assistive Devices: Cane Review of Systems Review of Systems: Resting comfortably, complains review of systems unobtainable as she is currently on BiPAP Physical Exam Constitutional: + morbidly obese Respiratory: Auscultation: + diminished lung sounds (Decreased breath sounds bilaterally at the bases) Cardiovascular: Extremities: no edema Heart sounds difficult to auscultate due to body habitus, noise of BiPAP, without tj murmur Gastrointestinal (Abdomen): normal bowel sounds, soft, nontender, no hepatosplenomegaly Results & Data ([facility]) Laboratory Results Cardiac Enzymes 04/25/22 04/25/22 04/25/22 Range/Units 04:25 04:25 04:25 AST 90 H (13-39) U/L Troponin I High Sens 67.3 H* (0-14) pg/ml B-Natriuretic Peptide 1295 H (0-100) pg/ml 04/25/22 Range/Units 09:15 AST (13-39) U/L Troponin I High Sens 102.7 H* D (0-14) pg/ml B-Natriuretic Peptide (0-100) pg/ml Coagulation 04/25/22 04/25/22 04/25/22 Range/Units 04:25 09:15 10:44 APTT 31.6 H 34.5 H (21.0-31.0) Seconds B-Natriuretic Peptide 1295 H (0-100) pg/ml CBC 04/25/22 04/25/22 Range/Units 04:25 09:15 WBC 20.55 H 34.25 H* D (4.8-10.8) K/uL RBC 3.52 L 3.55 L (4.2-5.4) M/uL Hgb 10.1 L 10.5 L (12.0-16.0) g/dL Hct 31.1 L 31.6 L (37-47) % Plt Count 229 268 (130-400) K/uL Comprehensive Metabolic Panel 04/25/22 Range/Units 04:25 Sodium 135 L (136-145) mmol/L Potassium 4.2 (3.5-5.1) mmol/L Chloride 100 (98-107) mmol/L Carbon Dioxide 23 (21-32) mmol/L BUN 38 H (6-23) mg/dl Creatinine 2.03 H D (0.6-1.2) mg/dl Glucose 182 H (70-99(Fasting)) mg/dl Calcium 8.5 (8.5-10.1) mg/dl AST 90 H (13-39) U/L ALT 54 H (7-52) U/L Alkaline Phosphatase 258 H (34-104) U/L Total Protein 5.6 L (6.0-8.3) gm/dl Albumin 2.9 L (3.4-5.0) gm/dl Diagnostic Findings The study is technically limited due to patient characteristics and poor acoustic windows. The right ventricle is severely dilated. The right ventricular systolic function is severely reduced. Flattened septum is consistent with RV pressure/volume overload. The LV wall motions is otherwise normal. The LV Ejection Fraction = 55-60%. There is moderate to severe tricuspid regurgitation. Severe pulmonary hypertension is present. The pulmonary artery systolic pressure is estimated to be 68 mm Hg. Findings are compatible with massive pulmonary embolism with right heart strain and correlate well with the recent CT findings and clinical presentation. Results discussed in person with Dr Gallegos and Dr Cortez. EKG performed this morning at 4:09 AM: Normal sinus rhythm at 90 bpm, incomplete right bundle branch block, no recent EKG tracings for comparison. No significant repolarization changes.
[2022-04-25] MEDS: INSULIN ASPART PER UNIT SC SCH ×2 (11:47→17:54)
--- NOTE | 2022-04-25 12:30 | Critical Care Progress Note ---
Date of Service April 25, 2022 Assessment & Plan (1) Admitted to intensive care unit: Plan: Reason Critically Ill: 61-year-old female with acute massive pulmonary embolism with associated hypoxia and profound hypotension requiring emergent intervention and need for thrombolysis and close hemodynamic monitoring. NEURO - * CAM ICU: NEGATIVE CARDIAC/VASCULAR - * Hypotension: * Obstructive shock in the patient with acute massive pulmonary emboli. Now s/p thrombolytic tx with TPa. On levophed as needed for pressure support. * Right ventricular strain seen on echo with RV pressure/volume overload, EF 55-60% * IVF: LR's 125ml/hr * Trops increasing, likely 2/2 demand ischemia, continue to trend. * Per cardiology: consider restarting low dose beta ayde as BP continue to stabilize * monitor on tele RESPIRATORY - * Acute hypoxic respiratory distress: * In the setting of massive pulmonary emboli. Previously on BiPAP, now on room air with adequate O2 sat and not in respiratory distress. GI/NUTRITION - * Elevated LFTs: * Possibly representing hepatic congestion given PEs. * Will trend for improvement s/p TPA administration. * N.p.o. currently * GI PPx: protonix RENAL/LYTES - * BREA: * Likely prerenal in the setting of profound hypotension. * Received 2L IVF in PCU. Continue maintenance LRs - * Anthony in place - Strict I&Os. ENDO - * No h/o DMII * BSGs per unit protocol. ISS --> gtt per unit policy. HEME - * S/p TPA tx in the setting of massive PE: * Hgb 10.5, stable * started heparin drip ID - * Fever: * Patient continues to have fevers. UA neg. Biofire neg. Chest XR shows bilateral ground glass opacities possible infectious. Blood cultures pending. Procalcitonin elevated. Lactate elevated but no change from several hours prior. * d/c'd vancomycin. Continue IV meropenem. LINES/IV ACCESS - * PIVs --> place USG * Anthony DVT PROPHYLAXIS - * s/p tPA, now on heparin drip * SCDs Thank you for allowing us to participate in the care of this patient. Please refer to my attending physician's documentation for any further recommendations. (2) Obstructive cardiovascular shock: (3) Acute massive pulmonary embolism: (4) BREA (acute kidney injury): Admission and Anticipated Discharge Date Admission Date: April 07, 2022 Supervising Physician Co-Signing Physician Notes Dr. Coleman was the resident-physician during care of patient. I separately evaluated patient for castillo portions of the history and the exam. I was present during the critical portion of medical decision making, and I discussed the case with the resident. I generally agree with the findings and plan except for any additions/exceptions noted. 61-year-old female of was admitted to the hospital because of lower back pain. Was found to have saddle PE last week was placed on heparin Overnight patient had episode of hypotension and hypoxia Patient was given 50 mg of tPA At the time of examination patient was saturating 95-96% on 30% BiPAP. She was somnolent but answering the questions appropriately Denied any chest pain, denied any shortness of breath, no headache, no nausea, no vomiting, no abdominal pain Patient was on Levophed 0.17 with map in the 80s. I was able to go down to 0.13 Constitutional: No acute distress HEENT: EOMI, PERRLA Respiratory system: Decreased air entry bilaterally, no wheeze, no rhonchi, p ositive crackles bilateral lower lobes CVS: S1-S2 positive, no murmurs or gallops, distant heart sounds Abdomen: Soft, nontender, nondistended, positive bowel sounds x4, obese Extremities: +2 pulses bilaterally radialis/ dorsalis pedis, no cyanosis, +2 pitting edema bilateral lower extremity Neuro: Awake alert oriented to self Psych: Normal mood and affect G/U: Positive Anthony --Prophylaxis VTE: Heparin drip GI: Protonix Lines: Peripheral Diet: Clear liquid Plan: In/out: +52, urine output 3000 mL 2D echo 04/25/2022: EF 55-60%, flattened interventricular septum, severely dilated RV with severely reduced RV S/p tPA, continue to monitor PTT as patient was restarted on heparin drip, monitor for signs of bleed Give 1 L of LR at 125 mils an hour. Try to go down on Levophed as much as possible. We will try to get ultrasound- guided peripheral access 4 hours after stopping tPA. Patient did spike fever. Urinalysis was clear. CT chest does show some groundglass opacity in the left lower lobe which seems to be more pulmonary infarct rather than infection Procalcitonin 119. Continue with meropenem for the time being which is broad- spectrum coverage. DC vancomycin given MRSA negative Do think fever as well as elevated procalcitonin is reactive secondary to hypotension and PE Patient did have elevated BNP as well as troponin likely secondary to PE. Case was discussed with Dr. Alcantara I have personally spent additional 38 minutes of critical care time in the direct management of this patient. This is a life/limb threatening event. This includes time spent evaluating patient, direct bedside care, chart review, placing orders, interpretation of diagnostic studies, discussion with consultants, patient, and/or family members regarding treatment decisions, as well as other required patient management activities. This time is exclusive of all separately billable procedures, and teaching time and separate from and in addition to any other critical care service time. Subjective Patient received TPA tx for bilateral pulmonary embolism overnight. Patient seen at bedside this morning. Generally feels well. Awake and alert around 1200. Denies chest pain, SOB, cough, leg pain, headache, palpitations. Review of Systems Review of Systems: All systems reviewed & are unremarkable except as noted in HPI & below Physical Exam Physical Exam: GENERAL - in no acute distress. Vitals as above. HEENT - NCAT, PERRL, EOMI, Sclera anicteric. Oropharynx clear without perioral cyanosis. Moist mucous membranes. NECK - Supple to palpation. No lymphadenopathy. LUNGS - Diminished breath sounds bilaterally secondary to body habitus. On room air. CARDIAC - RRR with S1/S2. No murmur, rubs, or gallops appreciated. ABDOMEN - BS normoactive all four quadrants. No tenderness, palpable masses, hepatosplenomegaly, or ascites. EXTREMITIES - No clubbing or peripheral cyanosis. Distal upper extremities cool to touch. Weak peripheral pulses. +5/5 strength noted in UE/LE bilaterally. NEUROLOGIC - Cranial nerves II through XII grossly intact. Sensory intact to light touch throughout. PSYCH - A&Ox3, pleasant Results & Data Results & Data ([facility]) Vital Signs (Past 12 Hours) Vital Signs Temp Pulse Pulse Pulse Resp BP BP 04/25/22 10:30 100/73 04/25/22 09:00 37.8 C H 68 19 94/63 L 04/25/22 08:26 38.1 C H 68 19 94/61 L 04/25/22 08:18 100/61 04/25/22 08:05 102/70 04/25/22 08:00 86 04/25/22 07:45 112/75 04/25/22 07:44 73 19 04/25/22 07:41 38.6 C H 72 18 105/87 04/25/22 07:00 39.1 C H 77 19 04/25/22 06:33 39.3 C H 84 21 102/76 04/25/22 06:30 39.3 C H 86 26 H 04/25/22 06:19 39.4 C H 90 25 H 99/85 L 04/25/22 06:14 88 04/25/22 06:11 87/73 L 04/25/22 06:00 94 H 26 H 04/25/22 05:56 92 H 17 104/52 L 04/25/22 05:45 90 24 102/62 04/25/22 05:43 39.5 C H 91 H 21 124/58 L 04/25/22 05:38 91 H 15 04/25/22 05:00 89 24 133/75 04/25/22 04:45 91 H 26 H 04/25/22 04:30 90 4 L 04/25/22 04:15 89 0 L 04/25/22 04:14 04/25/22 04:00 89 1 L 04/25/22 03:45 88 20 04/25/22 03:43 88 96 H 24 04/25/22 03:30 90 28 H 04/25/22 03:15 93 H 29 H 04/25/22 03:08 36.7 C 93 H 24 04/25/22 03:00 95 H 19 04/25/22 02:45 93 H 2 L 04/25/22 02:30 94 H 0 L 04/25/22 02:15 96 H 5 L 04/25/22 02:00 95 H 0 L 04/25/22 01:45 96 H 0 L 04/25/22 01:30 96 H 0 L 04/25/22 01:15 98 H 0 L 04/25/22 01:00 99 H 15 04/25/22 00:45 98 H 0 L 04/25/22 00:30 100 H 6 L BP Pulse Ox 04/25/22 10:30 04/25/22 09:00 94 04/25/22 08:26 94/61 L 96 06/01/22 08:18 04/25/22 08:05 04/25/22 08:00 04/25/22 07:45 04/25/22 07:44 99 04/25/22 07:41 100 04/25/22 07:00 100 04/25/22 06:33 100 04/25/22 06:30 100 04/25/22 06:19 100 04/25/22 06:14 04/25/22 06:11 100 04/25/22 06:00 100 04/25/22 05:56 100 04/25/22 05:45 100 04/25/22 05:43 100 04/25/22 05:38 100 04/25/22 05:00 100 04/25/22 04:45 90 04/25/22 04:30 04/25/22 04:15 65/40 L 94 04/25/22 04:14 59/42 L 04/25/22 04:00 92 04/25/22 03:45 95 04/25/22 03:43 54/33 L 96 04/25/22 03:30 04/25/22 03:15 95 04/25/22 03:08 72/48 L 92 04/25/22 03:00 04/25/22 02:45 04/25/22 02:30 04/25/22 02:15 04/25/22 02:00 04/25/22 01:45 04/25/22 01:30 04/25/22 01:15 04/25/22 01:00 04/25/22 00:45 04/25/22 00:30 Laboratory Results 04/25/22 04/25/22 04/25/22 Range/Units 11:38 10:44 09:15 WBC (4.8-10.8) K/uL RBC (4.2-5.4) M/uL Hgb (12.0-16.0) g/dL POC Hgb (12.0-16.0) g/dl Hct (37-47) % POC Hct (37-47) % MCV (80-100) fL MCH (25-34) pg MCHC (32-36) g/dL RDW Std Deviation (36.4-46.3) fL RDW Coeff of Alexy (11.5-14.5) % Plt Count (130-400) K/uL MPV (7.4-10.4) fL Absolute Nucleated RBC (0-0) K/uL Nucleated RBC % (auto) % Neutrophils % (Manual) % Lymphocytes % (Manual) % Neutrophils # (Manual) (1.4-6.5) K/uL Total Absolute Neuts (1.4-6.5) K/uL Lymphocytes # (Manual) (1.2-3.4) K/uL Total Abs Lymphocytes (1.2-3.4) K/uL Toxic Vacuolation Polychromasia APTT 34.5 H (21.0-31.0) Seconds PTT Ratio 1.3 Sample Site POC pH (7.35-7.45) POC pCO2 (35-46) mmHg POC pO2 (80-95) mmHg POC HCO3 (19-24) mina/L POC Total CO2 (24-31) mmol/L POC Base Excess (-9-1.8) mina/L ABG pH (Temp Correct) (7.35-7.45) ABG pCO2 (Temp Corrct (35-46) mmHg POC ABG pO2 at Pt Temp POC ABG O2 Sat (90-95) % Santi Test O2 Delivery Device POC O2 Rate POC FiO2 % IPAP POC Sodium (135-144) mmol/L Sodium (136-145) mmol/L POC Potassium (3.3-5.0) mmol/L Potassium (3.5-5.1) mmol/L Chloride (98-107) mmol/L Carbon Dioxide (21-32) mmol/L Anion Gap (3-11) BUN (6-23) mg/dl Creatinine (0.6-1.2) mg/dl Est Cr Clr Drug Dosing ml/min Est GFR ( Amer) ml/min Est GFR (Non-Af Amer) ml/min BUN/Creatinine Ratio (10-20) Glucose (70-99(Fasting)) mg/dl POC Glucose 248 H (70-99) mg/dl Lactate 2.5 H* (0.4-2.0) mmol/L Calcium (8.5-10.1) mg/dl Magnesium (1.7-2.4) mg/dl Total Bilirubin (0.2-1.0) mg/dl AST (13-39) U/L ALT (7-52) U/L Alkaline Phosphatase (34-104) U/L Troponin I High Sens (0-14) pg/ml B-Natriuretic Peptide (0-100) pg/ml Total Protein (6.0-8.3) gm/dl Albumin (3.4-5.0) gm/dl Globulin (2.5-4.0) gm/dl Albumin/Globulin Ratio (0.9-2) Procalcitonin (0-0.5) ng/ml Urine Color Urine Appearance (Clear) Urine pH (4.5-7.5) Ur Specific [place] (1.000-1.030) Urine Protein (Negative) Urine Glucose (UA) (Negative) Urine Ketones (Negative) Urine Blood (Negative) Urine Nitrite (Negative) Urine Bilirubin (Negative) Urine Urobilinogen (Negative) Ur Leukocyte Esterase (Negative) Nasal Screen MRSA (PCR) (Negative) Adenovirus (PCR) (NotDetected) B. pertussis DNA (PCR) (NotDetected) B.parapertussis DNA PCR (NotDetected) C. pneumoniae DNA (PCR) (NotDetected) Coronavirus OC43 (PCR) (NotDetected) Coronavirus HKU1 (PCR) (NotDetected) Coronavirus 229E (PCR) (NotDetected) SARS-CoV-2 (PCR) (NotDetected) Coronavirus NL63 (PCR) (NotDetected) Human Metapneumovir PCR (NotDetected) Influenza Type A (PCR) (NotDetected) Influenza Type B (PCR) (NotDetected) M. pneumoniae (PCR) (NotDetected) Parainfluenza 1 (PCR) (NotDetected) Parainfluenza 2 (PCR) (NotDetected) Parainfluenza 3 (PCR) (NotDetected) Parainfluenza 4 (PCR) (NotDetected) RSV (PCR) (NotDetected) Entero/Rhino (PCR) (NotDetected) SARS-CoV-2, RNA, NAAT (NEGATIVE) Blood Type Blood Type Recheck Antibody Screen Crossmatch 04/25/22 04/25/22 04/25/22 Range/Units 09:15 09:15 09:15 WBC (4.8-10.8) K/uL RBC (4.2-5.4) M/uL Hgb (12.0-16.0) g/dL POC Hgb (12.0-16.0) g/dl Hct (37-47) % POC Hct (37-47) % MCV (80-100) fL MCH (25-34) pg MCHC (32-36) g/dL RDW Std Deviation (36.4-46.3) fL RDW Coeff of Alexy (11.5-14.5) % Plt Count (130-400) K/uL MPV (7.4-10.4) fL Absolute Nucleated RBC (0-0) K/uL Nucleated RBC % (auto) % Neutrophils % (Manual) % Lymphocytes % (Manual) % Neutrophils # (Manual) (1.4-6.5) K/uL Total Absolute Neuts (1.4-6.5) K/uL Lymphocytes # (Manual) (1.2-3.4) K/uL Total Abs Lymphocytes (1.2-3.4) K/uL Toxic Vacuolation Polychromasia APTT 31.6 H (21.0-31.0) Seconds PTT Ratio 1.1 Sample Site POC pH (7.35-7.45) POC pCO2 (35-46) mmHg POC pO2 (80-95) mmHg POC HCO3 (19-24) mina/L POC Total CO2 (24-31) mmol/L POC Base Excess (-9-1.8) mina/L ABG pH (Temp Correct) (7.35-7.45) ABG pCO2 (Temp Corrct (35-46) mmHg POC ABG pO2 at Pt Temp POC ABG O2 Sat (90-95) % Santi Test O2 Delivery Device POC O2 Rate POC FiO2 % IPAP POC Sodium (135-144) mmol/L Sodium (136-145) mmol/L POC Potassium (3.3-5.0) mmol/L Potassium (3.5-5.1) mmol/L Chloride (98-107) mmol/L Carbon Dioxide (21-32) mmol/L Anion Gap (3-11) BUN (6-23) mg/dl Creatinine (0.6-1.2) mg/dl Est Cr Clr Drug Dosing ml/min Est GFR ( Amer) ml/min Est GFR (Non-Af Amer) ml/min BUN/Creatinine Ratio (10-20) Glucose (70-99(Fasting)) mg/dl POC Glucose (70-99) mg/dl Lactate (0.4-2.0) mmol/L Calcium (8.5-10.1) mg/dl Magnesium (1.7-2.4) mg/dl Total Bilirubin (0.2-1.0) mg/dl AST (13-39) U/L ALT (7-52) U/L Alkaline Phosphatase (34-104) U/L Troponin I High Sens 102.7 H* D (0-14) pg/ml B-Natriuretic Peptide (0-100) pg/ml Total Protein (6.0-8.3) gm/dl Albumin (3.4-5.0) gm/dl Globulin (2.5-4.0) gm/dl Albumin/Globulin Ratio (0.9-2) Procalcitonin (0-0.5) ng/ml Urine Color Urine Appearance (Clear) Urine pH (4.5-7.5) Ur Specific [place] (1.000-1.030) Urine Protein (Negative) Urine Glucose (UA) (Negative) Urine Ketones (Negative) Urine Blood (Negative) Urine Nitrite (Negative) Urine Bilirubin (Negative) Urine Urobilinogen (Negative) Ur Leukocyte Esterase (Negative) Nasal Screen MRSA (PCR) (Negative) Adenovirus (PCR) (NotDetected) B. pertussis DNA (PCR) (NotDetected) B.parapertussis DNA PCR (NotDetected) C. pneumoniae DNA (PCR) (NotDetected) Coronavirus OC43 (PCR) (NotDetected) Coronavirus HKU1 (PCR) (NotDetected) Coronavirus 229E (PCR) (NotDetected) SARS-CoV-2 (PCR) (NotDetected) Coronavirus NL63 (PCR) (NotDetected) Human Metapneumovir PCR (NotDetected) Influenza Type A (PCR) (NotDetected) Influenza Type B (PCR) (NotDetected) M. pneumoniae (PCR) (NotDetected) Parainfluenza 1 (PCR) (NotDetected) Parainfluenza 2 (PCR) (NotDetected) Parainfluenza 3 (PCR) (NotDetected) Parainfluenza 4 (PCR) (NotDetected) RSV (PCR) (NotDetected) Entero/Rhino (PCR) (NotDetected) SARS-CoV-2, RNA, NAAT (NEGATIVE) Blood Type Blood Type Recheck B Positive Antibody Screen Crossmatch 04/25/22 04/25/22 04/25/22 Range/Units 09:15 07:15 06:09 WBC 34.25 H* D (4.8-10.8) K/uL RBC 3.55 L (4.2-5.4) M/uL Hgb 10.5 L (12.0-16.0) g/dL POC Hgb (12.0-16.0) g/dl Hct 31.6 L (37-47) % POC Hct (37-47) % MCV 89.0 (80-100) fL MCH 29.6 (25-34) pg MCHC 33.2 (32-36) g/dL RDW Std Deviation 44.5 (36.4-46.3) fL RDW Coeff of Alexy 13.7 (11.5-14.5) % Plt Count 268 (130-400) K/uL MPV 9.4 (7.4-10.4) fL Absolute Nucleated RBC 0.33 H (0-0) K/uL Nucleated RBC % (auto) 1.0 % Neutrophils % (Manual) % Lymphocytes % (Manual) % Neutrophils # (Manual) (1.4-6.5) K/uL Total Absolute Neuts (1.4-6.5) K/uL Lymphocytes # (Manual) (1.2-3.4) K/uL Total Abs Lymphocytes (1.2-3.4) K/uL Toxic Vacuolation Polychromasia APTT (21.0-31.0) Seconds PTT Ratio Sample Site POC pH (7.35-7.45) POC pCO2 (35-46) mmHg POC pO2 (80-95) mmHg POC HCO3 (19-24) mina/L POC Total CO2 (24-31) mmol/L POC Base Excess (-9-1.8) mina/L ABG pH (Temp Correct) (7.35-7.45) ABG pCO2 (Temp Corrct (35-46) mmHg POC ABG pO2 at Pt Temp POC ABG O2 Sat (90-95) % Santi Test O2 Delivery Device POC O2 Rate POC FiO2 % IPAP POC Sodium (135-144) mmol/L Sodium (136-145) mmol/L POC Potassium (3.3-5.0) mmol/L Potassium (3.5-5.1) mmol/L Chloride (98-107) mmol/L Carbon Dioxide (21-32) mmol/L Anion Gap (3-11) BUN (6-23) mg/dl Creatinine (0.6-1.2) mg/dl Est Cr Clr Drug Dosing ml/min Est GFR ( Amer) ml/min Est GFR (Non-Af Amer) ml/min BUN/Creatinine Ratio (10-20) Glucose (70-99(Fasting)) mg/dl POC Glucose (70-99) mg/dl Lactate (0.4-2.0) mmol/L Calcium (8.5-10.1) mg/dl Magnesium (1.7-2.4) mg/dl Total Bilirubin (0.2-1.0) mg/dl AST (13-39) U/L ALT (7-52) U/L Alkaline Phosphatase (34-104) U/L Troponin I High Sens (0-14) pg/ml B-Natriuretic Peptide (0-100) pg/ml Total Protein (6.0-8.3) gm/dl Albumin (3.4-5.0) gm/dl Globulin (2.5-4.0) gm/dl Albumin/Globulin Ratio (0.9-2) Procalcitonin (0-0.5) ng/ml Urine Color Urine Appearance (Clear) Urine pH (4.5-7.5) Ur Specific [place] (1.000-1.030) Urine Protein (Negative) Urine Glucose (UA) (Negative) Urine Ketones (Negative) Urine Blood (Negative) Urine Nitrite (Negative) Urine Bilirubin (Negative) Urine Urobilinogen (Negative) Ur Leukocyte Esterase (Negative) Nasal Screen MRSA (PCR) Negative (Negative) Adenovirus (PCR) Not Detected (NotDetected) B. pertussis DNA (PCR) Not Detected (NotDetected) B.parapertussis DNA PCR Not Detected (NotDetected) C. pneumoniae DNA (PCR) Not Detected (NotDetected) Coronavirus OC43 (PCR) Not Detected (NotDetected) Coronavirus HKU1 (PCR) Not Detected (NotDetected) Coronavirus 229E (PCR) Not Detected (NotDetected) SARS-CoV-2 (PCR) Not Detected (NotDetected) Coronavirus NL63 (PCR) Not Detected (NotDetected) Human Metapneumovir PCR Not Detected (NotDetected) Influenza Type A (PCR) Not Detected (NotDetected) Influenza Type B (PCR) Not Detected (NotDetected) M. pneumoniae (PCR) Not Detected (NotDetected) Parainfluenza 1 (PCR) Not Detected (NotDetected) Parainfluenza 2 (PCR) Not Detected (NotDetected) Parainfluenza 3 (PCR) Not Detected (NotDetected) Parainfluenza 4 (PCR) Not Detected (NotDetected) RSV (PCR) Not Detected (NotDetected) Entero/Rhino (PCR) Not Detected (NotDetected) SARS-CoV-2, RNA, NAAT (NEGATIVE) Blood Type Blood Type Recheck Antibody Screen Crossmatch 04/25/22 04/25/22 04/25/22 Range/Units 05:53 05:38 05:38 WBC (4.8-10.8) K/uL RBC (4.2-5.4) M/uL Hgb (12.0-16.0) g/dL POC Hgb (12.0-16.0) g/dl Hct (37-47) % POC Hct (37-47) % MCV (80-100) fL MCH (25-34) pg MCHC (32-36) g/dL RDW Std Deviation (36.4-46.3) fL RDW Coeff of Alexy (11.5-14.5) % Plt Count (130-400) K/uL MPV (7.4-10.4) fL Absolute Nucleated RBC (0-0) K/uL Nucleated RBC % (auto) % Neutrophils % (Manual) % Lymphocytes % (Manual) % Neutrophils # (Manual) (1.4-6.5) K/uL Total Absolute Neuts (1.4-6.5) K/uL Lymphocytes # (Manual) (1.2-3.4) K/uL Total Abs Lymphocytes (1.2-3.4) K/uL Toxic Vacuolation Polychromasia APTT (21.0-31.0) Seconds PTT Ratio Sample Site POC pH (7.35-7.45) POC pCO2 (35-46) mmHg POC pO2 (80-95) mmHg POC HCO3 (19-24) mina/L POC Total CO2 (24-31) mmol/L POC Base Excess (-9-1.8) mina/L ABG pH (Temp Correct) (7.35-7.45) ABG pCO2 (Temp Corrct (35-46) mmHg POC ABG pO2 at Pt Temp POC ABG O2 Sat (90-95) % Santi Test O2 Delivery Device POC O2 Rate POC FiO2 % IPAP POC Sodium (135-144) mmol/L Sodium (136-145) mmol/L POC Potassium (3.3-5.0) mmol/L Potassium (3.5-5.1) mmol/L Chloride (98-107) mmol/L Carbon Dioxide (21-32) mmol/L Anion Gap (3-11) BUN (6-23) mg/dl Creatinine (0.6-1.2) mg/dl Est Cr Clr Drug Dosing ml/min Est GFR ( Amer) ml/min Est GFR (Non-Af Amer) ml/min BUN/Creatinine Ratio (10-20) Glucose (70-99(Fasting)) mg/dl POC Glucose (70-99) mg/dl Lactate (0.4-2.0) mmol/L Calcium (8.5-10.1) mg/dl Magnesium (1.7-2.4) mg/dl Total Bilirubin (0.2-1.0) mg/dl AST (13-39) U/L ALT (7-52) U/L Alkaline Phosphatase (34-104) U/L Troponin I High Sens (0-14) pg/ml B-Natriuretic Peptide (0-100) pg/ml Total Protein (6.0-8.3) gm/dl Albumin (3.4-5.0) gm/dl Globulin (2.5-4.0) gm/dl Albumin/Globulin Ratio (0.9-2) Procalcitonin 119.54 H (0-0.5) ng/ml Urine Color Yellow Urine Appearance Clear (Clear) Urine pH 5.0 (4.5-7.5) Ur Specific [place] 1.010 (1.000-1.030) Urine Protein Negative (Negative) Urine Glucose (UA) Negative (Negative) Urine Ketones Negative (Negative) Urine Blood Negative (Negative) Urine Nitrite Negative (Negative) Urine Bilirubin Negative (Negative) Urine Urobilinogen Negative (Negative) Ur Leukocyte Esterase Negative (Negative) Nasal Screen MRSA (PCR) (Negative) Adenovirus (PCR) (NotDetected) B. pertussis DNA (PCR) (NotDetected) B.parapertussis DNA PCR (NotDetected) C. pneumoniae DNA (PCR) (NotDetected) Coronavirus OC43 (PCR) (NotDetected) Coronavirus HKU1 (PCR) (NotDetected) Coronavirus 229E (PCR) (NotDetected) SARS-CoV-2 (PCR) (NotDetected) Coronavirus NL63 (PCR) (NotDetected) Human Metapneumovir PCR (NotDetected) Influenza Type A (PCR) (NotDetected) Influenza Type B (PCR) (NotDetected) M. pneumoniae (PCR) (NotDetected) Parainfluenza 1 (PCR) (NotDetected) Parainfluenza 2 (PCR) (NotDetected) Parainfluenza 3 (PCR) (NotDetected) Parainfluenza 4 (PCR) (NotDetected) RSV (PCR) (NotDetected) Entero/Rhino (PCR) (NotDetected) SARS-CoV-2, RNA, NAAT (NEGATIVE) Blood Type B Positive Blood Type Recheck Antibody Screen NEGATIVE Crossmatch See Detail 04/25/22 04/25/22 04/25/22 Range/Units 05:38 04:57 04:25 WBC (4.8-10.8) K/uL RBC (4.2-5.4) M/uL Hgb (12.0-16.0) g/dL POC Hgb 9.2 L (12.0-16.0) g/dl Hct (37-47) % POC Hct 27 L (37-47) % MCV (80-100) fL MCH (25-34) pg MCHC (32-36) g/dL RDW Std Deviation (36.4-46.3) fL RDW Coeff of Alexy (11.5-14.5) % Plt Count (130-400) K/uL MPV (7.4-10.4) fL Absolute Nucleated RBC (0-0) K/uL Nucleated RBC % (auto) % Neutrophils % (Manual) % Lymphocytes % (Manual) % Neutrophils # (Manual) (1.4-6.5) K/uL Total Absolute Neuts (1.4-6.5) K/uL Lymphocytes # (Manual) (1.2-3.4) K/uL Total Abs Lymphocytes (1.2-3.4) K/uL Toxic Vacuolation Polychromasia APTT (21.0-31.0) Seconds PTT Ratio Sample Site Art Line POC pH 7.48 H (7.35-7.45) POC pCO2 38 (35-46) mmHg POC pO2 > 420 H (80-95) mmHg POC HCO3 29 H (19-24) mina/L POC Total CO2 30 (24-31) mmol/L POC Base Excess 5.0 H (-9-1.8) mina/L ABG pH (Temp Correct) 7.481 H (7.35-7.45) ABG pCO2 (Temp Corrct 38 (35-46) mmHg POC ABG pO2 at Pt Temp 478 POC ABG O2 Sat 100.0 H (90-95) % Santi Test NA O2 Delivery Device BIPAP POC O2 Rate 10 POC FiO2 100 % IPAP 12 POC Sodium 133 L (135-144) mmol/L Sodium (136-145) mmol/L POC Potassium 4.2 (3.3-5.0) mmol/L Potassium (3.5-5.1) mmol/L Chloride (98-107) mmol/L Carbon Dioxide (21-32) mmol/L Anion Gap (3-11) BUN (6-23) mg/dl Creatinine (0.6-1.2) mg/dl Est Cr Clr Drug Dosing ml/min Est GFR ( Amer) ml/min Est GFR (Non-Af Amer) ml/min BUN/Creatinine Ratio (10-20) Glucose (70-99(Fasting)) mg/dl POC Glucose (70-99) mg/dl Lactate 2.5 H* (0.4-2.0) mmol/L Calcium (8.5-10.1) mg/dl Magnesium (1.7-2.4) mg/dl Total Bilirubin (0.2-1.0) mg/dl AST (13-39) U/L ALT (7-52) U/L Alkaline Phosphatase (34-104) U/L Troponin I High Sens (0-14) pg/ml B-Natriuretic Peptide 1295 H (0-100) pg/ml Total Protein (6.0-8.3) gm/dl Albumin (3.4-5.0) gm/dl Globulin (2.5-4.0) gm/dl Albumin/Globulin Ratio (0.9-2) Procalcitonin (0-0.5) ng/ml Urine Color Urine Appearance (Clear) Urine pH (4.5-7.5) Ur Specific [place] (1.000-1.030) Urine Protein (Negative) Urine Glucose (UA) (Negative) Urine Ketones (Negative) Urine Blood (Negative) Urine Nitrite (Negative) Urine Bilirubin (Negative) Urine Urobilinogen (Negative) Ur Leukocyte Esterase (Negative) Nasal Screen MRSA (PCR) (Negative) Adenovirus (PCR) (NotDetected) B. pertussis DNA (PCR) (NotDetected) B.parapertussis DNA PCR (NotDetected) C. pneumoniae DNA (PCR) (NotDetected) Coronavirus OC43 (PCR) (NotDetected) Coronavirus HKU1 (PCR) (NotDetected) Coronavirus 229E (PCR) (NotDetected) SARS-CoV-2 (PCR) (NotDetected) Coronavirus NL63 (PCR) (NotDetected) Human Metapneumovir PCR (NotDetected) Influenza Type A (PCR) (NotDetected) Influenza Type B (PCR) (NotDetected) M. pneumoniae (PCR) (NotDetected) Parainfluenza 1 (PCR) (NotDetected) Parainfluenza 2 (PCR) (NotDetected) Parainfluenza 3 (PCR) (NotDetected) Parainfluenza 4 (PCR) (NotDetected) RSV (PCR) (NotDetected) Entero/Rhino (PCR) (NotDetected) SARS-CoV-2, RNA, NAAT (NEGATIVE) Blood Type Blood Type Recheck Antibody Screen Crossmatch 04/25/22 04/25/22 04/25/22 Range/Units 04:25 04:25 04:25 WBC 20.55 H (4.8-10.8) K/uL RBC 3.52 L (4.2-5.4) M/uL Hgb 10.1 L (12.0-16.0) g/dL POC Hgb (12.0-16.0) g/dl Hct 31.1 L (37-47) % POC Hct (37-47) % MCV 88.4 (80-100) fL MCH 28.7 (25-34) pg MCHC 32.5 (32-36) g/dL RDW Std Deviation 43.8 (36.4-46.3) fL RDW Coeff of Alexy 13.7 (11.5-14.5) % Plt Count 229 (130-400) K/uL MPV 9.6 (7.4-10.4) fL Absolute Nucleated RBC 0.46 H (0-0) K/uL Nucleated RBC % (auto) 2.2 % Neutrophils % (Manual) 94.9 % Lymphocytes % (Manual) 5.1 % Neutrophils # (Manual) 19.50 H (1.4-6.5) K/uL Total Absolute Neuts 19.50 H (1.4-6.5) K/uL Lymphocytes # (Manual) 1.05 L (1.2-3.4) K/uL Total Abs Lymphocytes 1.05 L (1.2-3.4) K/uL Toxic Vacuolation 1+ Polychromasia 1+ APTT (21.0-31.0) Seconds PTT Ratio Sample Site POC pH (7.35-7.45) POC pCO2 (35-46) mmHg POC pO2 (80-95) mmHg POC HCO3 (19-24) mina/L POC Total CO2 (24-31) mmol/L POC Base Excess (-9-1.8) mina/L ABG pH (Temp Correct) (7.35-7.45) ABG pCO2 (Temp Corrct (35-46) mmHg POC ABG pO2 at Pt Temp POC ABG O2 Sat (90-95) % Santi Test O2 Delivery Device POC O2 Rate POC FiO2 % IPAP POC Sodium (135-144) mmol/L Sodium 135 L (136-145) mmol/L POC Potassium (3.3-5.0) mmol/L Potassium 4.2 (3.5-5.1) mmol/L Chloride 100 (98-107) mmol/L Carbon Dioxide 23 (21-32) mmol/L Anion Gap 12 H (3-11) BUN 38 H (6-23) mg/dl Creatinine 2.03 H D (0.6-1.2) mg/dl Est Cr Clr Drug Dosing 45.2 ml/min Est GFR ( Amer) 30.1 ml/min Est GFR (Non-Af Amer) 26.0 ml/min BUN/Creatinine Ratio 18.7 (10-20) Glucose 182 H (70-99(Fasting)) mg/dl POC Glucose (70-99) mg/dl Lactate (0.4-2.0) mmol/L Calcium 8.5 (8.5-10.1) mg/dl Magnesium 1.7 (1.7-2.4) mg/dl Total Bilirubin 0.7 (0.2-1.0) mg/dl AST 90 H (13-39) U/L ALT 54 H (7-52) U/L Alkaline Phosphatase 258 H (34-104) U/L Troponin I High Sens 67.3 H* (0-14) pg/ml B-Natriuretic Peptide (0-100) pg/ml Total Protein 5.6 L (6.0-8.3) gm/dl Albumin 2.9 L (3.4-5.0) gm/dl Globulin 2.7 (2.5-4.0) gm/dl Albumin/Globulin Ratio 1.1 (0.9-2) Procalcitonin (0-0.5) ng/ml Urine Color Urine Appearance (Clear) Urine pH (4.5-7.5) Ur Specific [place] (1.000-1.030) Urine Protein (Negative) Urine Glucose (UA) (Negative) Urine Ketones (Negative) Urine Blood (Negative) Urine Nitrite (Negative) Urine Bilirubin (Negative) Urine Urobilinogen (Negative) Ur Leukocyte Esterase (Negative) Nasal Screen MRSA (PCR) (Negative) Adenovirus (PCR) (NotDetected) B. pertussis DNA (PCR) (NotDetected) B.parapertussis DNA PCR (NotDetected) C. pneumoniae DNA (PCR) (NotDetected) Coronavirus OC43 (PCR) (NotDetected) Coronavirus HKU1 (PCR) (NotDetected) Coronavirus 229E (PCR) (NotDetected) SARS-CoV-2 (PCR) (NotDetected) Coronavirus NL63 (PCR) (NotDetected) Human Metapneumovir PCR (NotDetected) Influenza Type A (PCR) (NotDetected) Influenza Type B (PCR) (NotDetected) M. pneumoniae (PCR) (NotDetected) Parainfluenza 1 (PCR) (NotDetected) Parainfluenza 2 (PCR) (NotDetected) Parainfluenza 3 (PCR) (NotDetected) Parainfluenza 4 (PCR) (NotDetected) RSV (PCR) (NotDetected) Entero/Rhino (PCR) (NotDetected) SARS-CoV-2, RNA, NAAT (NEGATIVE) Blood Type Blood Type Recheck Antibody Screen Crossmatch 04/25/22 04/24/22 Range/Units 03:40 16:17 WBC (4.8-10.8) K/uL RBC (4.2-5.4) M/uL Hgb (12.0-16.0) g/dL POC Hgb (12.0-16.0) g/dl Hct (37-47) % POC Hct (37-47) % MCV (80-100) fL MCH (25-34) pg MCHC (32-36) g/dL RDW Std Deviation (36.4-46.3) fL RDW Coeff of Alexy (11.5-14.5) % Plt Count (130-400) K/uL MPV (7.4-10.4) fL Absolute Nucleated RBC (0-0) K/uL Nucleated RBC % (auto) % Neutrophils % (Manual) % Lymphocytes % (Manual) % Neutrophils # (Manual) (1.4-6.5) K/uL Total Absolute Neuts (1.4-6.5) K/uL Lymphocytes # (Manual) (1.2-3.4) K/uL Total Abs Lymphocytes (1.2-3.4) K/uL Toxic Vacuolation Polychromasia APTT (21.0-31.0) Seconds PTT Ratio Sample Site POC pH (7.35-7.45) POC pCO2 (35-46) mmHg POC pO2 (80-95) mmHg POC HCO3 (19-24) mina/L POC Total CO2 (24-31) mmol/L POC Base Excess (-9-1.8) mina/L ABG pH (Temp Correct) (7.35-7.45) ABG pCO2 (Temp Corrct (35-46) mmHg POC ABG pO2 at Pt Temp POC ABG O2 Sat (90-95) % Santi Test O2 Delivery Device POC O2 Rate POC FiO2 % IPAP POC Sodium (135-144) mmol/L Sodium (136-145) mmol/L POC Potassium (3.3-5.0) mmol/L Potassium (3.5-5.1) mmol/L Chloride (98-107) mmol/L Carbon Dioxide (21-32) mmol/L Anion Gap (3-11) BUN (6-23) mg/dl Creatinine (0.6-1.2) mg/dl Est Cr Clr Drug Dosing ml/min Est GFR ( Amer) ml/min Est GFR (Non-Af Amer) ml/min BUN/Creatinine Ratio (10-20) Glucose (70-99(Fasting)) mg/dl POC Glucose 213 H (70-99) mg/dl Lactate (0.4-2.0) mmol/L Calcium (8.5-10.1) mg/dl Magnesium (1.7-2.4) mg/dl Total Bilirubin (0.2-1.0) mg/dl AST (13-39) U/L ALT (7-52) U/L Alkaline Phosphatase (34-104) U/L Troponin I High Sens (0-14) pg/ml B-Natriuretic Peptide (0-100) pg/ml Total Protein (6.0-8.3) gm/dl Albumin (3.4-5.0) gm/dl Globulin (2.5-4.0) gm/dl Albumin/Globulin Ratio (0.9-2) Procalcitonin (0-0.5) ng/ml Urine Color Urine Appearance (Clear) Urine pH (4.5-7.5) Ur Specific [place] (1.000-1.030) Urine Protein (Negative) Urine Glucose (UA) (Negative) Urine Ketones (Negative) Urine Blood (Negative) Urine Nitrite (Negative) Urine Bilirubin (Negative) Urine Urobilinogen (Negative) Ur Leukocyte Esterase (Negative) Nasal Screen MRSA (PCR) (Negative) Adenovirus (PCR) (NotDetected) B. pertussis DNA (PCR) (NotDetected) B.parapertussis DNA PCR (NotDetected) C. pneumoniae DNA (PCR) (NotDetected) Coronavirus OC43 (PCR) (NotDetected) Coronavirus HKU1 (PCR) (NotDetected) Coronavirus 229E (PCR) (NotDetected) SARS-CoV-2 (PCR) (NotDetected) Coronavirus NL63 (PCR) (NotDetected) Human Metapneumovir PCR (NotDetected) Influenza Type A (PCR) (NotDetected) Influenza Type B (PCR) (NotDetected) M. pneumoniae (PCR) (NotDetected) Parainfluenza 1 (PCR) (NotDetected) Parainfluenza 2 (PCR) (NotDetected) Parainfluenza 3 (PCR) (NotDetected) Parainfluenza 4 (PCR) (NotDetected) RSV (PCR) (NotDetected) Entero/Rhino (PCR) (NotDetected) SARS-CoV-2, RNA, NAAT NEGATIVE (NEGATIVE) Blood Type Blood Type Recheck Antibody Screen Crossmatch Resident Activity Tracking Resident Involvement: Resident Care Provided Care Provided: Adult Hospital Medicine
[2022-04-25 13:48] LABS: Troponin I High Sensitivity 109.4 pg/ml (0-14)
--- NOTE | 2022-04-25 13:52 | Billing Data ---
Date of Service April 25, 2022 Coding Level of Care Code Critical Care ea addt'l 30 min Time Spent (min) 38
[2022-04-25 14:02] LABS: BUN Creatinine Ratio 17.3 (10-20); Bilirubin,Total 0.6 mg/dl (0.2-1.0); Calcium 8.3 mg/dl (8.5-10.1); Est GFR (African American) 24.2 ml/min; Est GFR (Non-African American) 20.9 ml/min; Globulin 2.9 gm/dl (2.5-4.0); Potassium 4.2 mmol/L (3.5-5.1); Total Protein 5.9 gm/dl (6.0-8.3)
[2022-04-25] MEDS ORDERED: LACTATED RINGER'S 500 ML IV SCH (17:15)
--- NOTE | 2022-04-25 17:43 | Hospitalist Progress Note ---
Date of Service April 25, 2022 Assessment & Plan (1) Acute pulmonary embolism without acute cor pulmonale: (2) DVT, bilateral lower limbs: Plan: (1) Acute pulmonary embolism without acute cor pulmonale: #. Obstructive shock on the background of acute massive PE #. RV strain (2) DVT, bilateral lower limbs: Plan: - 1st episode, from being sedentary and refusing chemoprophylaxis. 04/18 CTA chest w/ extensive PE. 04/18 BLE US doppler positive for BLE DVT. - Became hemodynamically unsatble night of 04/24-04/25 w/ acute SOB, not feeling well, hypotension w/ labs significant for lactate 2.5, Cr bump, WBC and Procal elevation --> requiring ICU transfer, 50 mg tPA administration, levophed and IVF administration. - s/p tPA 04/25; 04/25 ECHO w/ EF 55-60%, severely dilated RV, severely reduced RV systolic fxn, flattened septum, sever pul HTN. - trops, BNP, wbc, procal elevation likely 2/2 hypotension and PE. Pt empirically started on antibiotic 04/25, overnight pt has temperature. Will continue to monitor. 04/[address] AP w/ not s/o infection. 04/25 UA nl. - Pt being managed in ICU. Pt on heparin drip now. (3) BREA (acute kidney injury): Plan: Baseline Cr 0.8 Cr bumped 2.03 on 04/25, likely pre-renal 2/2 hypotension from above. Pt on IVF, levophed, BMP in am. (4) Intractable back pain: Plan: Lumbar disc extrusion with lumbar stenosis causing intractable back pain. Recently at rehab and went home with worsening. Interestingly after 911 was called to come get her she had to WALK to the litter to come in this admission per case management. She was also able to get up and move to the potty easily tonight. Doing well on current pain regimen and feels the muscle relaxer is b mark. Pain management saw her and added Medrol dosepak, trial of baclofen and will continue titrating gabapentin as needed. Currently she is doing well on the muscle relaxer which she likes the most. Will continue with current regimen. C/w bowel regimen per patient's need. (5) Intervertebral disc extrusion: Plan: As seen on lumbar MRI 03/24. Per ortho spine evaluation during last admission she is not a surgical candidate at this time. Continue PT/OT and conservative pain management. Weakness and proprioception issues noted with her right leg and foot, however, she is not a good candidate for surgery per Ortho spine last admission. Continue conservative management. (6) Chronic radicular pain of lower back: Plan: Patient is not on narcotics at baseline. #. Other chronic medical conditions: Depression on TCA/doxepin, ADHD on Vyvanse in a.m. with additional dextroamphetamine every afternoon, RLS on ropinirole, hypothyroidism, morbid obesity, PATTI on home CPAP Continue with/resume home meds as and when appropriate. Vyvanse is on formulary and not currently being given, ok to get this from home when able. BMI 57.3. lifestyle modifications strongly recommended to help strengthen her core and reduce the chance of further back injury. DVT ppx- on heparin drip Dispo-in icu care Admission and Anticipated Discharge Date Admission Date: April 07, 2022 Subjective Patient seen and examined at bedside as a follow-up of intractable back pain and PE and BLE DVT. Patient was lying in bed, on BiPAP, NAD, denied any headache/dizziness/chest pain/shortness of breath/belly pain/palpitation/other review of symptoms. Overnight, patient started feeling shortness of breath acutely and was not feeling well, SBP was in 70s, did not improve with fluid bolus, transferred to ICU and was started on Levophed followed by CTA chest which showed right heart strain. Patient is a status post tPA overnight. Also patient spiked temperature with elevation of WBC and lactate and procalcitonin; developed BREA which all could be reactive secondary to hypotension and PE. Physical Exam Physical Exam: GENERAL: Alert and oriented x3. NAD, on BPAP. Morbidly obese. Pt on levophed drip. and Heparin Drip and IVF. HEENT: No pallor, no icterus. Pupils equal, round and reactive to light. Oral mucosa moist. NECK: No JVD, no neck masses. HEART: S1 and S2 heard. Regular rate and rhythm. No murmur, no gallop. RESPIRATORY SYSTEM: Normal AP diameter. No accessory muscle use. No wheezing, no crackles. ABDOMEN: Soft, bowel sounds present, nontender, no distention. CENTRAL NERVOUS SYSTEM: No facial droop. Speech is clear. Obeys simple comma nds. Moves extremities. EXTREMITIES: RLE 1+ pitting edema, LLE trace edema. no erythema seen. Results & Data Results & Data ([facility]) Vital Signs (Past 12 Hours) Vital Signs Temp Pulse Resp BP BP BP Pulse Ox 04/25/22 17:02 37.5 C 77 17 106/73 94 04/25/22 16:17 112/77 04/25/22 16:00 37.5 C 72 20 112/77 90 04/25/22 15:06 37.5 C 72 20 93/56 L 93 04/25/22 14:10 91/55 L 04/25/22 14:01 37.5 C 67 17 91/55 L 90 04/25/22 13:17 37.5 C 66 17 100/46 L 91 04/25/22 12:37 37.4 C 70 20 88/60 L 92 04/25/22 11:45 118/58 L 04/25/22 11:00 37.4 C 70 19 97 04/25/22 10:30 100/73 04/25/22 10:00 37.4 C 67 17 94/67 L 96 04/25/22 09:00 37.8 C H 68 19 94/63 L 94 04/25/22 08:26 38.1 C H 68 19 94/61 L 94/61 L 96 04/25/22 08:18 100/61 04/25/22 08:05 102/70 04/25/22 08:00 86 04/25/22 07:45 112/75 04/25/22 07:44 73 19 99 04/25/22 07:41 38.6 C H 72 18 105/87 100 04/25/22 07:00 39.1 C H 77 19 100 04/25/22 06:33 39.3 C H 84 21 102/76 100 04/25/22 06:30 39.3 C H 86 26 H 100 04/25/22 06:19 39.4 C H 90 25 H 99/85 L 100 04/25/22 06:14 88 04/25/22 06:11 87/73 L 100 04/25/22 06:00 94 H 26 H 100 04/25/22 05:56 92 H 17 104/52 L 100 04/25/22 05:45 90 24 102/62 100 04/25/22 05:43 39.5 C H 91 H 21 124/58 L 100 04/25/22 05:38 91 H 15 100
[2022-04-25 19:53] LABS: Partial Thromboplastin Time 55.6 Seconds (21.0-31.0)
[2022-04-25] MEDS: DOXEPIN HCL 10 MG CAPSULE PO SCH (20:37)
[2022-04-25] MEDS: MONTELUKAST SODIUM 10 MG TABLET PO SCH (20:37)
[2022-04-26] MEDS: INSULIN ASPART PER UNIT SC SCH ×5 (00:20→20:18)
[2022-04-26] MEDS: Heparin Adult LOW DOSE Wt-Based Dextrose 5% 25,000 units/500 mL IV SCH ×2 (00:49→15:06)
[2022-04-26] MEDS: MEROPENEM 500 MG in SYRINGE 0 ML IV SCH ×3 (05:06→22:20)
[2022-04-26] MEDS: LEVOTHYROXINE SODIUM 100 MCG TABLET PO SCH (05:19)
[2022-04-26 05:32] LABS: Hematocrit (blood only) 29.5 % (37-47); Hemoglobin 9.6 g/dL (12.0-16.0); Mean Corpuscular Hemoglobin 28.7 pg (25-34); Mean Corpuscular Hgb Conc 32.5 g/dL (32-36); Mean Corpuscular Volume 88.1 fL (80-100); Mean Platelet Volume 9.4 fL (7.4-10.4); Platelet Count 204 K/uL (130-400); RDW Standard Deviation 44.8 fL (36.4-46.3); Red Blood Count 3.35 M/uL (4.2-5.4); White Blood Count 26.55 K/uL (4.8-10.8)
[2022-04-26 05:56] LABS: Albumin Level 2.9 gm/dl (3.4-5.0); BUN Creatinine Ratio 17.4 (10-20); Basophils # (auto) 0.02 K/uL (0-0.2); Basophils % (auto) 0.1 %; Bilirubin Direct 0.1 mg/dl (0-0.2); Bilirubin,Total 0.5 mg/dl (0.2-1.0); Calcium 7.9 mg/dl (8.5-10.1); Creatinine Clr Calc Pharmacy 39.1 ml/min; Eosinophils # (auto) 0.08 K/uL (0-0.5); Eosinophils % (auto) 0.3 %; Est GFR (African American) 25.1 ml/min; Est GFR (Non-African American) 21.7 ml/min; Immature Granulocytes # (auto) 0.29 K/uL (0.00-0.02); Immature Granulocytes % (auto) 1.1 %; Lymphocytes % (auto) 8.7 %; Magnesium 1.7 mg/dl (1.7-2.4); Monocytes # (auto) 0.99 K/uL (0.11-0.59); Monocytes % (auto) 3.7 %; Neutrophils # (auto) 22.87 K/uL (1.4-6.5); Neutrophils % (auto) 86.1 %; Partial Thromboplastin Ratio 2.7; Phosphorus 4.5 mg/dl (2.5-4.9); Potassium 3.6 mmol/L (3.5-5.1); Total Protein 5.8 gm/dl (6.0-8.3)
[2022-04-26 06:34] LABS: Partial Thromboplastin Time 73.9 Seconds (21.0-31.0)
[2022-04-26] MEDS ORDERED: POTASSIUM CHLORIDE CRTAB 20 MEQ TABCR PO STA (07:42)
[2022-04-26 07:50] LABS: Polychromasia 1+
[2022-04-26] MEDS: MAGNESIUM SULFATE / D5W 1 GM/100 ML BAG IV SCH ×2 (08:00→09:54)
[2022-04-26] MEDS: GABAPENTIN 100 MG CAP PO SCH ×3 (08:01→20:16)
[2022-04-26] MEDS: POLYETHYLENE (MIRALAX) 17 GM PACK PO SCH (08:05)
[2022-04-26] MEDS: NYSTATIN POWDER 15GM BTL EXT SCH ×3 (08:50→20:26)
[2022-04-26] MEDS: BACLOFEN 10 MG TAB PO SCH ×3 (08:50→20:17)
[2022-04-26] MEDS: DOCUSATE SODIUM 100 MG CAP PO SCH ×2 (08:50→20:17)
[2022-04-26] MEDS: SENNA 8.6 MG TAB PO SCH (08:51)
[2022-04-26] MEDS ORDERED: Nursing to Pharmacy Communication SCH (09:00)
[2022-04-26] MEDS ORDERED: POLYETHYLENE (MIRALAX) 17 GM PACK PO SCH (09:00)
[2022-04-26] MEDS ORDERED: VANCOMYCIN HCL 1,250 MG in SODIUM CHLORIDE 0.9% 250 ML IV SCH (09:00)
[2022-04-26] MEDS ORDERED: DOCUSATE SODIUM/SENNA 50/8.6MG TAB PO SCH (09:00)
[2022-04-26] MEDS: NOREPINEPHRINE/D5W 4 MG/250 ML PLCT IV SCH (09:14)
--- NOTE | 2022-04-26 09:17 | Cardiology Progress Note ---
Date of Service April 26, 2022 Assessment & Plan (1) Acute massive pulmonary embolism: (2) DVT, bilateral lower limbs: (3) BREA (acute kidney injury): Plan: Patient with severe bilateral pulmonary embolism with resultant hypotensive shock, right ventricular strain pattern noted on echocardiogram with RV pressure/volume overload, pulmonary artery systolic pressure estimated to be 68 mmHg, with dilated inferior vena cava noted. As noted norepinephrine has been weaned. She is badk on UF heparin infusion per protocol post administration of Alteplase on 04/25/22. Patient takes propranolol as outpt for migraine prophylaxis which is held for now. As BP improves off of pressor support, will have low threshold to start low dose metoprolol tartrate as pt at risk for hemodynamically significant atrial arrhythmias. BREA- Creatinine relatively stable. Hypoperfusion state occurred and received two doses of contrast within a few days. IVF now discontinued. Continue to follow. Mild transaminase elevation, likely due to hypoperfusion. Admission and Anticipated Discharge Date Admission Date: April 07, 2022 Subjective Patient seen in cardiology follow up . Comfortable. SBP 90s to 105 with norepinephrine having recently been weaned to off. SR in the 60s noted. Pt conversant , comfortable. Physical Exam Constitutional: + morbidly obese Respiratory: Auscultation: + diminished lung sounds (Decreased breath sounds bilaterally at the bases) Cardiovascular: Extremities: no edema Gastrointestinal (Abdomen): normal bowel sounds, soft, nontender, no hepatosplenomegaly Results & Data ([facility]) Vital Signs (Past 12 Hours) Vital Signs Temp Pulse Resp BP Pulse Ox 04/26/22 06:30 36.2 C L 60 16 100 04/26/22 06:00 36.2 C L 65 16 91/40 L 100 04/26/22 05:30 36.2 C L 69 15 98 04/26/22 05:00 36.3 C L 59 L 16 105/58 L 100 04/26/22 04:30 36.3 C L 66 23 94 04/26/22 03:59 36.4 C L 61 16 106/64 98 04/26/22 03:30 36.5 C 60 16 98 04/26/22 03:25 97 H 19 98 04/26/22 03:00 36.6 C 62 14 110/65 98 04/26/22 02:30 36.6 C 65 15 98 04/26/22 02:00 36.7 C 60 19 98/65 L 98 04/26/22 01:30 36.8 C 62 18 98 04/26/22 01:00 36.9 C 64 18 95/58 L 98 04/26/22 00:30 37.0 C 70 15 98 04/26/22 00:00 37.1 C 68 17 105/59 L 93 04/25/22 23:30 37.3 C 70 17 91 04/25/22 23:00 37.3 C 74 17 99/71 L 93 04/25/22 22:30 37.3 C 75 23 95 04/25/22 22:00 37.2 C 72 17 110/59 L 94 04/25/22 21:30 37.1 C 74 20 93 Laboratory Results Cardiac Enzymes 04/25/22 04/25/22 04/25/22 Range/Units 09:15 13:02 18:32 AST 101 H (13-39) U/L Troponin I High Sens 102.7 H* D 109.4 H* 82.8 H* D (0-14) pg/ml B-Natriuretic Peptide (0-100) pg/ml 04/26/22 04/26/22 Range/Units 05:11 05:11 AST 49 H (13-39) U/L Troponin I High Sens (0-14) pg/ml B-Natriuretic Peptide 494 H (0-100) pg/ml Coagulation 04/25/22 04/25/22 04/25/22 Range/Units 09:15 10:44 17:06 APTT 31.6 H 34.5 H Cancelled (21.0-31.0) Seconds B-Natriuretic Peptide (0-100) pg/ml 04/25/22 04/26/22 04/26/22 Range/Units 18:32 05:11 05:11 APTT 55.6 H* 73.9 H* (21.0-31.0) Seconds B-Natriuretic Peptide 494 H (0-100) pg/ml CBC 04/25/22 04/26/22 Range/Units 09:15 05:11 WBC 34.25 H* D 26.55 H (4.8-10.8) K/uL RBC 3.55 L 3.35 L (4.2-5.4) M/uL Hgb 10.5 L 9.6 L (12.0-16.0) g/dL Hct 31.6 L 29.5 L (37-47) % Plt Count 268 204 (130-400) K/uL Neut # (Auto) 22.87 H (1.4-6.5) K/uL Lymph # (Auto) 2.30 (1.2-3.4) K/uL [place] # (Auto) 0.99 H (0.11-0.59) K/uL Eos # (Auto) 0.08 (0-0.5) K/uL Baso # (Auto) 0.02 (0-0.2) K/uL Comprehensive Metabolic Panel 04/25/22 04/26/22 Range/Units 13:02 05:11 Sodium 135 L 135 L (136-145) mmol/L Potassium 4.2 3.6 (3.5-5.1) mmol/L Chloride 99 99 (98-107) mmol/L Carbon Dioxide 24 28 (21-32) mmol/L BUN 42 H 41 H (6-23) mg/dl Creatinine 2.43 H D 2.36 H (0.6-1.2) mg/dl Glucose 227 H 114 H (70-99(Fasting)) mg/dl Calcium 8.3 L 7.9 L (8.5-10.1) mg/dl Direct Bilirubin 0.1 (0-0.2) mg/dl AST 101 H 49 H (13-39) U/L ALT 79 H 65 H (7-52) U/L Alkaline Phosphatase 214 H 199 H (34-104) U/L Total Protein 5.9 L 5.8 L (6.0-8.3) gm/dl Albumin 3.0 L 2.9 L (3.4-5.0) gm/dl
--- NOTE | 2022-04-26 09:25 | Critical Care Progress Note ---
Date of Service April 26, 2022 Assessment & Plan (1) Admitted to intensive care unit: Plan: Reason Critically Ill: 61-year-old female with acute massive pulmonary embolism with associated hypoxia and profound hypotension requiring emergent intervention and need for thrombolysis and close hemodynamic monitoring. NEURO - * CAM ICU: NEGATIVE CARDIAC/VASCULAR - * Hypotension: * Obstructive shock in the patient with acute massive pulmonary emboli. Status post thrombolytic tx with TPa. Trial d/c levophed. * Right ventricular strain seen on echo with RV pressure/volume overload, EF 55-60% * Trops peaked, likely 2/2 demand ischemia * Per cardiology: consider restarting low dose beta ayde as BP continues to stabilize * monitor on tele RESPIRATORY - * Acute hypoxic respiratory distress: * In the setting of massive pulmonary emboli. BiPAP nightly and as needed. Does well on room air during day with adequate O2 sat, not in respiratory distress. * Continue incentive spirometer GI/NUTRITION - * Elevated LFTs: * Possibly representing hepatic congestion given PEs, trending down. * Will continue to trend for improvement s/p TPA administration. * No BM in past few days, begin scheduled bowel regimen until BM (miralax, colace, senna). * Heart healthy, renal diet * GI PPx: protonix RENAL/LYTES - * BREA: * Likely prerenal in the setting of profound hypotension. * Received 2L IVF in PCU. 2 bags LRs in ICU. * Replace lytes per protocol - * Anthony in place - Strict I&Os. ENDO - * No h/o DMII * BSGs per unit protocol. ISS --> gtt per unit policy. HEME - * S/p TPA tx in the setting of massive PE: * Hgb 9.6, stable * continue heparin drip --> after 48 hours will transition back to apixaban loading dose 10mg BID. ID - * Fever: * No fever in 24 hours. UA neg. Biofire neg. Chest CT (04/25) shows bilateral ground glass opacities possible infectious. Preliminary blood cultures growing gram neg bacilli. Procalcitonin remains elevated and uptrending. Lactate elevated (04/25). * RUQ ultrasound ordered to r/o cholecystitis as potential source for bacteremia. * Repeat blood cultures tomorrow. * d/c'd vancomycin (04/25). Continue IV meropenem. LINES/IV ACCESS - * PIVs, USG * Anthony DVT PROPHYLAXIS - * s/p tPA, continue heparin drip * SCDs Thank you for allowing us to participate in the care of this patient. Please refer to my attending physician's documentation for any further recommendations. (2) Obstructive cardiovascular shock: (3) Acute massive pulmonary embolism: (4) BREA (acute kidney injury): Plan: Dr. Coleman was the resident-physician during care of patient. I separately evaluated patient for castillo portions of the history and the exam. I was present during the critical portion of medical decision making, and I discussed the case with the resident. I generally agree with the findings and plan except for any additions/exceptions noted. Patient seen and examined at bedside. No acute distress, no adverse events overnight. Patient was answering all questions appropriately Denied any chest pain, no headache, no nausea, no vomiting. No abdominal pain. No headache, no blurry vision Constitutional: No acute distress HEENT: EOMI, PERRLA Respiratory system: Decreased air entry bilaterally, no wheeze, no rhonchi, positive crackles bilateral lower lobes CVS: S1-S2 positive, no murmurs or gallops, distant heart sounds Abdomen: Soft,nondistended, positive bowel sounds x4, obese, minimal right upper quadrant tenderness Extremities: +2 pulses bilaterally radialis/ dorsalis pedis, no cyanosis, +2 pitting edema bilateral lower extremity Neuro: Awake alert oriented to self Psych: Normal mood and affect G/U: Positive Anthony --Prophylaxis VTE: Heparin drip GI: Protonix Lines: Peripheral Diet: Cardiorenal Plan: In/out: +3.6 L, urine output 980 mL Right upper quadrant ultrasound was negative for signs of cholecystitis. AST, ALT and troponin are trending down. 1 of the blood culture bottles is positive for gram negative bacilli Patient urine was clean, CT abdomen pelvis was negative for any acute findings, CT chest did show some groundglass opacity which was most likely infarct. Patient was on 0.03 of Levophed. Try to titrate off. Hypomagnesemia being replaced I have personally spent additional 35 minutes of critical care time in the direct management of this patient. This is a life/limb threatening event. This includes time spent evaluating patient, direct bedside care, chart review, placing orders, interpretation of diagnostic studies, discussion with consultants, patient, and/or family members regarding treatment decisions, as well as other required patient management activities. This time is exclusive of all separately billable procedures, and teaching time and separate from and in addition to any other critical care service time. Admission and Anticipated Discharge Date Admission Date: April 07, 2022 Subjective Patient seen at bedside this morning. Has not been out of bed or had a BM in several days. Awake and alert, answers questions appropriately. Denies chest pain, SOB, cough, leg pain, headache, palpitations, abdominal pain. Does have intermittent nausea. Review of Systems Review of Systems: All systems reviewed & are unremarkable except as noted in HPI & below Physical Exam Physical Exam: GENERAL - in no acute distress. Vitals as above. HEENT - NCAT, PERRL, EOMI, Sclera anicteric. Oropharynx clear without perioral cyanosis. Moist mucous membranes. NECK - Supple. No lymphadenopathy. LUNGS - Diminished breath sounds bilaterally secondary to body habitus. On room air. CARDIAC - RRR with S1/S2. No murmur, rubs, or gallops appreciated. ABDOMEN - BS normoactive all four quadrants. Mild superior epigastric tenderness on palpation. No palpable masses, hepatosplenomegaly, or ascites. Neg baumann's sign. EXTREMITIES - No clubbing or peripheral cyanosis. Distal upper extremities cool to touch. 2+ radialis/dorsalis pedal pulses. 2+ pitting LE edema. +5/5 strength noted in UE/LE bilaterally. NEUROLOGIC - Cranial nerves II through XII grossly intact. Sensory intact to light touch throughout. PSYCH - A&Ox3, pleasant Results & Data Results & Data ([facility]) Vital Signs (Past 12 Hours) Vital Signs Temp Pulse Resp BP Pulse Ox 04/26/22 06:30 36.2 C L 60 16 100 04/26/22 06:00 36.2 C L 65 16 91/40 L 100 04/26/22 05:30 36.2 C L 69 15 98 04/26/22 05:00 36.3 C L 59 L 16 105/58 L 100 04/26/22 04:30 36.3 C L 66 23 94 04/26/22 03:59 36.4 C L 61 16 106/64 98 04/26/22 03:30 36.5 C 60 16 98 04/26/22 03:25 97 H 19 98 04/26/22 03:00 36.6 C 62 14 110/65 98 04/26/22 02:30 36.6 C 65 15 98 04/26/22 02:00 36.7 C 60 19 98/65 L 98 04/26/22 01:30 36.8 C 62 18 98 04/26/22 01:00 36.9 C 64 18 95/58 L 98 04/26/22 00:30 37.0 C 70 15 98 04/26/22 00:00 37.1 C 68 17 105/59 L 93 04/25/22 23:30 37.3 C 70 17 91 04/25/22 23:00 37.3 C 74 17 99/71 L 93 04/25/22 22:30 37.3 C 75 23 95 04/25/22 22:00 37.2 C 72 17 110/59 L 94 04/25/22 21:30 37.1 C 74 20 93 Laboratory Results 04/26/22 04/26/22 04/26/22 Range/Units 07:57 05:19 05:11 WBC (4.8-10.8) K/uL RBC (4.2-5.4) M/uL Hgb (12.0-16.0) g/dL Hct (37-47) % MCV (80-100) fL MCH (25-34) pg MCHC (32-36) g/dL RDW Std Deviation (36.4-46.3) fL RDW Coeff of Alexy (11.5-14.5) % Plt Count (130-400) K/uL MPV (7.4-10.4) fL Immature Gran % (Auto) % Neut % (Auto) % Lymph % (Auto) % [place] % (Auto) % Eos % (Auto) % Baso % (Auto) % Neut # (Auto) (1.4-6.5) K/uL Lymph # (Auto) (1.2-3.4) K/uL [place] # (Auto) (0.11-0.59) K/uL Eos # (Auto) (0-0.5) K/uL Baso # (Auto) (0-0.2) K/uL Immature Gran # (Auto) (0.00-0.02) K/uL Absolute Nucleated RBC (0-0) K/uL Nucleated RBC % (auto) % Polychromasia APTT (21.0-31.0) Seconds PTT Ratio Sodium (136-145) mmol/L Potassium (3.5-5.1) mmol/L Chloride (98-107) mmol/L Carbon Dioxide (21-32) mmol/L Anion Gap (3-11) BUN (6-23) mg/dl Creatinine (0.6-1.2) mg/dl Est Cr Clr Drug Dosing ml/min Est GFR ( Amer) ml/min Est GFR (Non-Af Amer) ml/min BUN/Creatinine Ratio (10-20) Glucose (70-99(Fasting)) mg/dl POC Glucose 115 H 134 H (70-99) mg/dl Lactate (0.4-2.0) mmol/L Calcium (8.5-10.1) mg/dl Phosphorus (2.5-4.9) mg/dl Magnesium (1.7-2.4) mg/dl Total Bilirubin (0.2-1.0) mg/dl Direct Bilirubin (0-0.2) mg/dl AST (13-39) U/L ALT (7-52) U/L Alkaline Phosphatase (34-104) U/L Troponin I High Sens (0-14) pg/ml B-Natriuretic Peptide (0-100) pg/ml Total Protein (6.0-8.3) gm/dl Albumin (3.4-5.0) gm/dl Globulin (2.5-4.0) gm/dl Albumin/Globulin Ratio (0.9-2) Procalcitonin 159.98 H (0-0.5) ng/ml Random Vancomycin (10-20) mcg/ml Blood Type Recheck 04/26/22 04/26/22 04/26/22 Range/Units 05:11 05:11 05:11 WBC 26.55 H (4.8-10.8) K/uL RBC 3.35 L (4.2-5.4) M/uL Hgb 9.6 L (12.0-16.0) g/dL Hct 29.5 L (37-47) % MCV 88.1 (80-100) fL MCH 28.7 (25-34) pg MCHC 32.5 (32-36) g/dL RDW Std Deviation 44.8 (36.4-46.3) fL RDW Coeff of Alexy 14.0 (11.5-14.5) % Plt Count 204 (130-400) K/uL MPV 9.4 (7.4-10.4) fL Immature Gran % (Auto) 1.1 % Neut % (Auto) 86.1 % Lymph % (Auto) 8.7 % [place] % (Auto) 3.7 % Eos % (Auto) 0.3 % Baso % (Auto) 0.1 % Neut # (Auto) 22.87 H (1.4-6.5) K/uL Lymph # (Auto) 2.30 (1.2-3.4) K/uL [place] # (Auto) 0.99 H (0.11-0.59) K/uL Eos # (Auto) 0.08 (0-0.5) K/uL Baso # (Auto) 0.02 (0-0.2) K/uL Immature Gran # (Auto) 0.29 H (0.00-0.02) K/uL Absolute Nucleated RBC (0-0) K/uL Nucleated RBC % (auto) % Polychromasia 1+ APTT (21.0-31.0) Seconds PTT Ratio Sodium 135 L (136-145) mmol/L Potassium 3.6 (3.5-5.1) mmol/L Chloride 99 (98-107) mmol/L Carbon Dioxide 28 (21-32) mmol/L Anion Gap 8 (3-11) BUN 41 H (6-23) mg/dl Creatinine 2.36 H (0.6-1.2) mg/dl Est Cr Clr Drug Dosing 39.1 ml/min Est GFR ( Amer) 25.1 ml/min Est GFR (Non-Af Amer) 21.7 ml/min BUN/Creatinine Ratio 17.4 (10-20) Glucose 114 H (70-99(Fasting)) mg/dl POC Glucose (70-99) mg/dl Lactate (0.4-2.0) mmol/L Calcium 7.9 L (8.5-10.1) mg/dl Phosphorus 4.5 (2.5-4.9) mg/dl Magnesium 1.7 (1.7-2.4) mg/dl Total Bilirubin 0.5 (0.2-1.0) mg/dl Direct Bilirubin 0.1 (0-0.2) mg/dl AST 49 H (13-39) U/L ALT 65 H (7-52) U/L Alkaline Phosphatase 199 H (34-104) U/L Troponin I High Sens (0-14) pg/ml B-Natriuretic Peptide 494 H (0-100) pg/ml Total Protein 5.8 L (6.0-8.3) gm/dl Albumin 2.9 L (3.4-5.0) gm/dl Globulin (2.5-4.0) gm/dl Albumin/Globulin Ratio (0.9-2) Procalcitonin (0-0.5) ng/ml Random Vancomycin (10-20) mcg/ml Blood Type Recheck 04/26/22 04/26/22 04/25/22 Range/Units 05:11 05:11 22:50 WBC (4.8-10.8) K/uL RBC (4.2-5.4) M/uL Hgb (12.0-16.0) g/dL Hct (37-47) % MCV (80-100) fL MCH (25-34) pg MCHC (32-36) g/dL RDW Std Deviation (36.4-46.3) fL RDW Coeff of Alexy (11.5-14.5) % Plt Count (130-400) K/uL MPV (7.4-10.4) fL Immature Gran % (Auto) % Neut % (Auto) % Lymph % (Auto) % [place] % (Auto) % Eos % (Auto) % Baso % (Auto) % Neut # (Auto) (1.4-6.5) K/uL Lymph # (Auto) (1.2-3.4) K/uL [place] # (Auto) (0.11-0.59) K/uL Eos # (Auto) (0-0.5) K/uL Baso # (Auto) (0-0.2) K/uL Immature Gran # (Auto) (0.00-0.02) K/uL Absolute Nucleated RBC (0-0) K/uL Nucleated RBC % (auto) % Polychromasia APTT 73.9 H* (21.0-31.0) Seconds PTT Ratio 2.7 Sodium (136-145) mmol/L Potassium (3.5-5.1) mmol/L Chloride (98-107) mmol/L Carbon Dioxide (21-32) mmol/L Anion Gap (3-11) BUN (6-23) mg/dl Creatinine (0.6-1.2) mg/dl Est Cr Clr Drug Dosing ml/min Est GFR ( Amer) ml/min Est GFR (Non-Af Amer) ml/min BUN/Creatinine Ratio (10-20) Glucose (70-99(Fasting)) mg/dl POC Glucose 134 H (70-99) mg/dl Lactate (0.4-2.0) mmol/L Calcium (8.5-10.1) mg/dl Phosphorus (2.5-4.9) mg/dl Magnesium (1.7-2.4) mg/dl Total Bilirubin (0.2-1.0) mg/dl Direct Bilirubin (0-0.2) mg/dl AST (13-39) U/L ALT (7-52) U/L Alkaline Phosphatase (34-104) U/L Troponin I High Sens (0-14) pg/ml B-Natriuretic Peptide (0-100) pg/ml Total Protein (6.0-8.3) gm/dl Albumin (3.4-5.0) gm/dl Globulin (2.5-4.0) gm/dl Albumin/Globulin Ratio (0.9-2) Procalcitonin (0-0.5) ng/ml Random Vancomycin 14.7 (10-20) mcg/ml Blood Type Recheck 04/25/22 04/25/22 04/25/22 Range/Units 18:32 18:32 17:53 WBC (4.8-10.8) K/uL RBC (4.2-5.4) M/uL Hgb (12.0-16.0) g/dL Hct (37-47) % MCV (80-100) fL MCH (25-34) pg MCHC (32-36) g/dL RDW Std Deviation (36.4-46.3) fL RDW Coeff of Alexy (11.5-14.5) % Plt Count (130-400) K/uL MPV (7.4-10.4) fL Immature Gran % (Auto) % Neut % (Auto) % Lymph % (Auto) % [place] % (Auto) % Eos % (Auto) % Baso % (Auto) % Neut # (Auto) (1.4-6.5) K/uL Lymph # (Auto) (1.2-3.4) K/uL [place] # (Auto) (0.11-0.59) K/uL Eos # (Auto) (0-0.5) K/uL Baso # (Auto) (0-0.2) K/uL Immature Gran # (Auto) (0.00-0.02) K/uL Absolute Nucleated RBC (0-0) K/uL Nucleated RBC % (auto) % Polychromasia APTT 55.6 H* (21.0-31.0) Seconds PTT Ratio 2.0 Sodium (136-145) mmol/L Potassium (3.5-5.1) mmol/L Chloride (98-107) mmol/L Carbon Dioxide (21-32) mmol/L Anion Gap (3-11) BUN (6-23) mg/dl Creatinine (0.6-1.2) mg/dl Est Cr Clr Drug Dosing ml/min Est GFR ( Amer) ml/min Est GFR (Non-Af Amer) ml/min BUN/Creatinine Ratio (10-20) Glucose (70-99(Fasting)) mg/dl POC Glucose 160 H (70-99) mg/dl Lactate (0.4-2.0) mmol/L Calcium (8.5-10.1) mg/dl Phosphorus (2.5-4.9) mg/dl Magnesium (1.7-2.4) mg/dl Total Bilirubin (0.2-1.0) mg/dl Direct Bilirubin (0-0.2) mg/dl AST (13-39) U/L ALT (7-52) U/L Alkaline Phosphatase (34-104) U/L Troponin I High Sens 82.8 H* D (0-14) pg/ml B-Natriuretic Peptide (0-100) pg/ml Total Protein (6.0-8.3) gm/dl Albumin (3.4-5.0) gm/dl Globulin (2.5-4.0) gm/dl Albumin/Globulin Ratio (0.9-2) Procalcitonin (0-0.5) ng/ml Random Vancomycin (10-20) mcg/ml Blood Type Recheck 04/25/22 04/25/22 04/25/22 Range/Units 17:06 13:02 11:38 WBC (4.8-10.8) K/uL RBC (4.2-5.4) M/uL Hgb (12.0-16.0) g/dL Hct (37-47) % MCV (80-100) fL MCH (25-34) pg MCHC (32-36) g/dL RDW Std Deviation (36.4-46.3) fL RDW Coeff of Alexy (11.5-14.5) % Plt Count (130-400) K/uL MPV (7.4-10.4) fL Immature Gran % (Auto) % Neut % (Auto) % Lymph % (Auto) % [place] % (Auto) % Eos % (Auto) % Baso % (Auto) % Neut # (Auto) (1.4-6.5) K/uL Lymph # (Auto) (1.2-3.4) K/uL [place] # (Auto) (0.11-0.59) K/uL Eos # (Auto) (0-0.5) K/uL Baso # (Auto) (0-0.2) K/uL Immature Gran # (Auto) (0.00-0.02) K/uL Absolute Nucleated RBC (0-0) K/uL Nucleated RBC % (auto) % Polychromasia APTT Cancelled (21.0-31.0) Seconds PTT Ratio Cancelled Sodium 135 L (136-145) mmol/L Potassium 4.2 (3.5-5.1) mmol/L Chloride 99 (98-107) mmol/L Carbon Dioxide 24 (21-32) mmol/L Anion Gap 12 H (3-11) BUN 42 H (6-23) mg/dl Creatinine 2.43 H D (0.6-1.2) mg/dl Est Cr Clr Drug Dosing 38.0 ml/min Est GFR ( Amer) 24.2 ml/min Est GFR (Non-Af Amer) 20.9 ml/min BUN/Creatinine Ratio 17.3 (10-20) Glucose 227 H (70-99(Fasting)) mg/dl POC Glucose 248 H (70-99) mg/dl Lactate (0.4-2.0) mmol/L Calcium 8.3 L (8.5-10.1) mg/dl Phosphorus (2.5-4.9) mg/dl Magnesium (1.7-2.4) mg/dl Total Bilirubin 0.6 (0.2-1.0) mg/dl Direct Bilirubin (0-0.2) mg/dl AST 101 H (13-39) U/L ALT 79 H (7-52) U/L Alkaline Phosphatase 214 H (34-104) U/L Troponin I High Sens 109.4 H* (0-14) pg/ml B-Natriuretic Peptide (0-100) pg/ml Total Protein 5.9 L (6.0-8.3) gm/dl Albumin 3.0 L (3.4-5.0) gm/dl Globulin 2.9 (2.5-4.0) gm/dl Albumin/Globulin Ratio 1.0 (0.9-2) Procalcitonin (0-0.5) ng/ml Random Vancomycin (10-20) mcg/ml Blood Type Recheck 04/25/22 04/25/22 04/25/22 Range/Units 10:44 09:15 09:15 WBC (4.8-10.8) K/uL RBC (4.2-5.4) M/uL Hgb (12.0-16.0) g/dL Hct (37-47) % MCV (80-100) fL MCH (25-34) pg MCHC (32-36) g/dL RDW Std Deviation (36.4-46.3) fL RDW Coeff of Alexy (11.5-14.5) % Plt Count (130-400) K/uL MPV (7.4-10.4) fL Immature Gran % (Auto) % Neut % (Auto) % Lymph % (Auto) % [place] % (Auto) % Eos % (Auto) % Baso % (Auto) % Neut # (Auto) (1.4-6.5) K/uL Lymph # (Auto) (1.2-3.4) K/uL [place] # (Auto) (0.11-0.59) K/uL Eos # (Auto) (0-0.5) K/uL Baso # (Auto) (0-0.2) K/uL Immature Gran # (Auto) (0.00-0.02) K/uL Absolute Nucleated RBC (0-0) K/uL Nucleated RBC % (auto) % Polychromasia APTT 34.5 H (21.0-31.0) Seconds PTT Ratio 1.3 Sodium (136-145) mmol/L Potassium (3.5-5.1) mmol/L Chloride (98-107) mmol/L Carbon Dioxide (21-32) mmol/L Anion Gap (3-11) BUN (6-23) mg/dl Creatinine (0.6-1.2) mg/dl Est Cr Clr Drug Dosing ml/min Est GFR ( Amer) ml/min Est GFR (Non-Af Amer) ml/min BUN/Creatinine Ratio (10-20) Glucose (70-99(Fasting)) mg/dl POC Glucose (70-99) mg/dl Lactate 2.5 H* (0.4-2.0) mmol/L Calcium (8.5-10.1) mg/dl Phosphorus (2.5-4.9) mg/dl Magnesium (1.7-2.4) mg/dl Total Bilirubin (0.2-1.0) mg/dl Direct Bilirubin (0-0.2) mg/dl AST (13-39) U/L ALT (7-52) U/L Alkaline Phosphatase (34-104) U/L Troponin I High Sens 102.7 H* D (0-14) pg/ml B-Natriuretic Peptide (0-100) pg/ml Total Protein (6.0-8.3) gm/dl Albumin (3.4-5.0) gm/dl Globulin (2.5-4.0) gm/dl Albumin/Globulin Ratio (0.9-2) Procalcitonin (0-0.5) ng/ml Random Vancomycin (10-20) mcg/ml Blood Type Recheck 04/25/22 04/25/22 04/25/22 Range/Units 09:15 09:15 09:15 WBC 34.25 H* D (4.8-10.8) K/uL RBC 3.55 L (4.2-5.4) M/uL Hgb 10.5 L (12.0-16.0) g/dL Hct 31.6 L (37-47) % MCV 89.0 (80-100) fL MCH 29.6 (25-34) pg MCHC 33.2 (32-36) g/dL RDW Std Deviation 44.5 (36.4-46.3) fL RDW Coeff of Alexy 13.7 (11.5-14.5) % Plt Count 268 (130-400) K/uL MPV 9.4 (7.4-10.4) fL Immature Gran % (Auto) % Neut % (Auto) % Lymph % (Auto) % [place] % (Auto) % Eos % (Auto) % Baso % (Auto) % Neut # (Auto) (1.4-6.5) K/uL Lymph # (Auto) (1.2-3.4) K/uL [place] # (Auto) (0.11-0.59) K/uL Eos # (Auto) (0-0.5) K/uL Baso # (Auto) (0-0.2) K/uL Immature Gran # (Auto) (0.00-0.02) K/uL Absolute Nucleated RBC 0.33 H (0-0) K/uL Nucleated RBC % (auto) 1.0 % Polychromasia APTT 31.6 H (21.0-31.0) Seconds PTT Ratio 1.1 Sodium (136-145) mmol/L Potassium (3.5-5.1) mmol/L Chloride (98-107) mmol/L Carbon Dioxide (21-32) mmol/L Anion Gap (3-11) BUN (6-23) mg/dl Creatinine (0.6-1.2) mg/dl Est Cr Clr Drug Dosing ml/min Est GFR ( Amer) ml/min Est GFR (Non-Af Amer) ml/min BUN/Creatinine Ratio (10-20) Glucose (70-99(Fasting)) mg/dl POC Glucose (70-99) mg/dl Lactate (0.4-2.0) mmol/L Calcium (8.5-10.1) mg/dl Phosphorus (2.5-4.9) mg/dl Magnesium (1.7-2.4) mg/dl Total Bilirubin (0.2-1.0) mg/dl Direct Bilirubin (0-0.2) mg/dl AST (13-39) U/L ALT (7-52) U/L Alkaline Phosphatase (34-104) U/L Troponin I High Sens (0-14) pg/ml B-Natriuretic Peptide (0-100) pg/ml Total Protein (6.0-8.3) gm/dl Albumin (3.4-5.0) gm/dl Globulin (2.5-4.0) gm/dl Albumin/Globulin Ratio (0.9-2) Procalcitonin (0-0.5) ng/ml Random Vancomycin (10-20) mcg/ml Blood Type Recheck B Positive Resident Activity Tracking Resident Involvement: Resident Care Provided Care Provided: Adult [facility]
--- NOTE | 2022-04-26 09:39 | Ultrasound Report ---
US liver LIMITED ABDOMEN CLINICAL HISTORY: Abdominal pain. COMPARISON: CT of the abdomen and pelvis from 04/25/2022 TECHNIQUE: Multiple grayscale and color images of the right upper quadrant of the abdomen. FINDINGS: The study is limited by patient body habitus and overlying bowel gas. Pancreas: The imaged portion of the pancreas is within normal limits with no focal mass or peripancre atic fluid collection identified. Liver: The liver is homogeneous in echogenicity There is no evidence for a focal mass. There is no in trahepatic biliary duct dilatation. Gallbladder: The gallbladder is well distended with no evidence of cholelithiasis, wall thickening or pericholecystic edema. Common Bile Duct: (CBD): It is normal in size measuring 5 mm. Inferior Vena Cava (IVC): The imaged IVC is patent. Right kidney: There is no evidence for hydronephrosis, calculus or gross renal mass. There is evidenc e for a sharply defined cyst measuring 3.8 cm. No further follow-up is necessary for this benign find ing. The kidney is normal in size. IMPRESSION: 1. Essentially negative limited right upper quadrant abdominal ultrasound. ACT 112: Negative or not required by law. Electronically signed by: Frankie Perez M.D. 04/26/2022 9:37 AM
[2022-04-26] MEDS: PANTOprazole 40 MG TAB PO SCH (11:08)
--- NOTE | 2022-04-26 13:37 | Electrocardiogram Report ---
Test Reason : Blood Pressure : / mmHG Vent. Rate : 090 BPM Atrial Rate : 090 BPM P-R Int : 136 ms QRS Dur : 102 ms QT Int : 376 ms P-R-T Axes : 059 033 076 degrees QTc Int : 459 ms Poor data quality, interpretation may be adversely affected Normal sinus rhythm Incomplete right bundle branch block Borderline ECG When compared with ECG of 27-MAR-2010 13:31, Vent. rate has increased BY 40 BPM QT has lengthened Confirmed by Андрей Jaimes ([id number]) on 04/26/2022 1:37:07 PM Referred By: REFERRED SELF Confirmed By:Андрей Jaimes
--- NOTE | 2022-04-26 17:25 | Billing Data ---
Date of Service April 26, 2022 Coding Level of Care Code Critical Care 1st 30-74 mins Time Spent (min) 35
--- NOTE | 2022-04-26 17:54 | Hospitalist Progress Note ---
Date of Service April 26, 2022 Assessment & Plan (1) Acute pulmonary embolism without acute cor pulmonale: (2) DVT, bilateral lower limbs: Plan: (1) Acute pulmonary embolism without acute cor pulmonale: #. Obstructive shock on the background of acute massive PE #. RV strain (2) DVT, bilateral lower limbs: Plan: - 1st episode, from being sedentary and refusing chemoprophylaxis. 04/18 CTA chest w/ extensive PE. 04/18 BLE US doppler positive for BLE DVT. - Became hemodynamically unsatble night of 04/24-04/25 w/ acute SOB, not feeling well, hypotension w/ labs significant for lactate 2.5, Cr bump, WBC and Procal elevation --> requiring ICU transfer, 50 mg tPA administration, levophed and IVF administration. - s/p tPA 04/25; 04/25 ECHO w/ EF 55-60%, severely dilated RV, severely reduced RV systolic fxn, flattened septum, sever pul HTN. - trops, BNP, wbc, procal elevation on 04/25 likely 2/2 hypotension and PE. - 04/[address] AP reviewed. 04/25 UA nl. - 04/26 JUDY USG no acute pathology - Pt empirically started on antibiotic (meropenem and vanco) 04/25, pt afebrile last 24 hours. Will continue to monitor. - Pt being managed in ICU. Pt on heparin drip now. -Plan for beta ayde low dose once pt off of pressors d/t risk for atrial arrythmias. #. GNB bacteremia 04/25 blood Cx: GNB, f/u final results 04/26 RUQ USG neg for acute pathology, 04/25 CTAP reviewed. 04/25 CTA chest: Subsegm ental patchy groundglass opacities of the right greater than left upper lobes are suggestive of an infectious or inflammatory pneumonitis. pt on Meropenem 04/25 (see above), Vanco DCd 04/26 after blood culture result. (3) BREA (acute kidney injury): Plan: Baseline Cr 0.8 Cr bumped 2.03 on 04/25, likely pre-renal 2/2 hypotension from above. Pt on IVF, levophed, BMP in am. Cr minimally downtrending from the peak. (4) Intractable back pain: Plan: Lumbar disc extrusion with lumbar stenosis causing intractable back pain. Recently at rehab and went home with worsening. Interestingly after 911 was called to come get her she had to WALK to the litter to come in this admission per case management. She was also able to get up and move to the potty easily tonight. Doing well on current pain regimen and feels the muscle relaxer is better. Pain management saw her and added Medrol dosepak, trial of baclofen and will continue titrating gabapentin as needed. Currently she is doing well on the muscle relaxer which she likes the most. Will continue with current regimen. C/w bowel regimen per patient's need. (5) Intervertebral disc extrusion: Plan: As seen on lumbar MRI 03/24. Per ortho spine evaluation during last admission she is not a surgical candidate at this time. Continue PT/OT and conservative pain management. Weakness and proprioception issues noted with her right leg and foot, however, she is not a good candidate for surgery per Ortho spine last admission. Continue conservative management. (6) Chronic radicular pain of lower back: Plan: Patient is not on narcotics at baseline. #. Other chronic medical conditions: Depression on TCA/doxepin, ADHD on Vyvanse in a.m. with additional dextroamphetamine every afternoon, RLS on ropinirole, hypothyroidism, morbid obesity, PATTI on home CPAP Continue with/resume home meds as and when appropriate. Vyvanse is on formulary and not currently being given, ok to get this from home when able. BMI 57.3. lifestyle modifications strongly recommended to help strengthen her core and reduce the chance of further back injury. 04/25: Updated pt's sister in law ([phone]) Rebeca Contreras; answered all her questions. DVT ppx- on heparin drip Dispo-in icu care Admission and Anticipated Discharge Date Admission Date: April 07, 2022 Subjective Patient seen and examined at bedside as a follow-up of intractable back pain and PE and BLE DVT. Patient was lying in bed, on RA, NAD, complains of some nausea on and off, denied any headache/dizziness/chest pain/shortness of breath/belly pain/palpitation/other review of symptoms. Patient denies any new issues overnight. Physical Exam Physical Exam: GENERAL: Alert and oriented x3. NAD, on BPAP. Morbidly obese. Pt on levophed drip. and Heparin Drip . HEENT: No pallor, no icterus. Pupils equal, round and reactive to light. Oral mucosa moist. NECK: No JVD, no neck masses. HEART: S1 and S2 heard. Regular rate and rhythm. No murmur, no gallop. RESPIRATORY SYSTEM: Normal AP diameter. No accessory muscle use. No wheezing, no crackles. ABDOMEN: Soft, bowel sounds present, nontender, no distention. CENTRAL NERVOUS SYSTEM: No facial droop. Speech is clear. Obeys simple commands. Moves extremities. EXTREMITIES: RLE 2+ pitting edema, LLE 1+ edema. no erythema seen. Results & Data Results & Data ([facility]) Vital Signs (Past 12 Hours) Vital Signs Temp Pulse Resp BP Pulse Ox 04/26/22 16:01 36.8 C 75 12 101/71 04/26/22 15:01 36.6 C 69 15 04/26/22 15:00 36.6 C 70 16 04/26/22 14:08 113/60 04/26/22 14:00 36.6 C 70 15 78/44 L 04/26/22 13:08 94 04/26/22 13:00 36.8 C 76 19 98/67 L 04/26/22 12:00 36.6 C 77 15 126/74 93 04/26/22 11:01 36.4 C L 71 13 103/71 95 04/26/22 10:44 36.4 C L 70 14 95 04/26/22 10:00 36.3 C L 72 16 95 04/26/22 09:00 36.2 C L 66 14 113/70 95 04/26/22 08:00 36.1 C L 65 13 105/75 96 04/26/22 07:00 36.1 C L 60 15 105/53 L 100 04/26/22 06:30 36.2 C L 60 16 100 04/26/22 06:00 36.2 C L 65 16 91/40 L 100
[2022-04-26] MEDS: MONTELUKAST SODIUM 10 MG TABLET PO SCH (20:16)
[2022-04-26] MEDS: DOXEPIN HCL 10 MG CAPSULE PO SCH (20:17)
[2022-04-27] MEDS ORDERED: ALBUMIN 25% 12.5 GM/50 ML VIAL IV ONE (01:46)
[2022-04-27] MEDS: NOREPINEPHRINE/D5W 4 MG/250 ML PLCT IV SCH ×3 (03:36→17:24)
[2022-04-27] MEDS: Heparin Adult LOW DOSE Wt-Based Dextrose 5% 25,000 units/500 mL IV SCH (05:46)
[2022-04-27] MEDS: MEROPENEM 500 MG in SYRINGE 0 ML IV SCH (05:48)
[2022-04-27] MEDS: LEVOTHYROXINE SODIUM 100 MCG TABLET PO SCH (05:48)
[2022-04-27 05:59] LABS: Basophils # (auto) 0.02 K/uL (0-0.2); Basophils % (auto) 0.1 %; Eosinophils # (auto) 0.13 K/uL (0-0.5); Eosinophils % (auto) 0.8 %; Hematocrit (blood only) 30.7 % (37-47); Hemoglobin 9.9 g/dL (12.0-16.0); Immature Granulocytes # (auto) 0.09 K/uL (0.00-0.02); Immature Granulocytes % (auto) 0.6 %; Lymphocytes # (auto) 2.03 K/uL (1.2-3.4); Lymphocytes % (auto) 12.8 %; Mean Corpuscular Hgb Conc 32.2 g/dL (32-36); Monocytes # (auto) 0.52 K/uL (0.11-0.59); Monocytes % (auto) 3.3 %; Neutrophils # (auto) 13.09 K/uL (1.4-6.5); Neutrophils % (auto) 82.4 %; Platelet Count 212 K/uL (130-400); RDW Coefficient of Variation 13.9 % (11.5-14.5); RDW Standard Deviation 45.5 fL (36.4-46.3); Red Blood Count 3.41 M/uL (4.2-5.4); White Blood Count 15.88 K/uL (4.8-10.8)
[2022-04-27 06:10] LABS: Albumin Level 3.1 gm/dl (3.4-5.0); BUN Creatinine Ratio 25.1 (10-20); Bilirubin,Total 0.6 mg/dl (0.2-1.0); Calcium 8.4 mg/dl (8.5-10.1); Creatinine Clr Calc Pharmacy 51.6 ml/min; Est GFR (African American) 35.1 ml/min; Est GFR (Non-African American) 30.3 ml/min; Magnesium 2.3 mg/dl (1.7-2.4); Phosphorus 4.3 mg/dl (2.5-4.9); Potassium 3.9 mmol/L (3.5-5.1); Total Protein 6.1 gm/dl (6.0-8.3)
[2022-04-27 06:19] LABS: Partial Thromboplastin Ratio 1.9
[2022-04-27] MEDS: INSULIN ASPART PER UNIT SC SCH ×4 (07:52→20:49)
[2022-04-27] MEDS ORDERED: LACTULOSE SYRUP 30 GM/45 ML UDP PO STA (08:31)
--- NOTE | 2022-04-27 08:44 | Critical Care Progress Note ---
Date of Service April 27, 2022 Assessment & Plan (1) Admitted to intensive care unit: Plan: Reason Critically Ill: 61-year-old female with acute massive pulmonary embolism with associated hypoxia and profound hypotension requiring emergent intervention and need for thrombolysis and close hemodynamic monitoring. NEURO - * CAM ICU: NEGATIVE CARDIAC/VASCULAR - * Hypotension: * Obstructive shock in the patient with acute massive pulmonary emboli. Status post thrombolytic tx with TPa. On low dose levophed overnight, trial d/c levophed. * Right ventricular strain seen on echo with RV pressure/volume overload, EF 55-60% * Trops peaked, likely 2/2 demand ischemia * Per cardiology: consider restarting low dose beta ayde as BP continues to stabilize * monitor on tele RESPIRATORY - * Acute hypoxic respiratory distress: * In the setting of massive pulmonary emboli. BiPAP nightly and as needed. Does well on room air during day with adequate O2 sat, not in respiratory distress. * Continue incentive spirometer GI/NUTRITION - * Elevated LFTs: * Possibly representing hepatic congestion given PEs, trending down. * Will continue to trend for improvement s/p TPA administration. * No BM in past few days, continue scheduled bowel regimen until BM (miralax, colace, senna). Single dose lactulose given. * Heart healthy, renal diet; can remove renal once BREA improves * GI PPx: protonix RENAL/LYTES - * BREA: * Likely prerenal in the setting of profound hypotension. * Received 2L IVF in PCU. 2 bags LRs in ICU. Good urine output, give 500mL LRs maintenance. * Replace lytes per protocol - * Anthony in place - Strict I&Os. ENDO - * No h/o DMII * BSGs per unit protocol. ISS --> gtt per unit policy. HEME - * S/p TPA tx in the setting of massive PE: * Hgb stable * d/c heparin drip s/p 48 hours, start apixaban loading dose 10mg BID x 7days ID - * Fever: * Afebrile for 48 hours. UA neg. Biofire neg. Chest CT (04/25) shows bilateral ground glass opacities possible infectious. Procalcitonin downtrending. Lactate wnl. * RUQ ultrasound neg for cholecystitis * 1 tube grew pansensitive e. coli in blood * d/c'd vancomycin (04/25). Switch IV meropenem to IV Levaquin. Levaquin chosen since no patient data on allergic cross reactivity with cephalosporins. QTc okay, repeat EKG tomorrow. * Repeat blood cultures pending LINES/IV ACCESS - * PIVs, USG * Anthony DVT PROPHYLAXIS - * s/p tPA, Eliquis 10mg BID x7 days (loading dose) * SCDs Thank you for allowing us to participate in the care of this patient. Please refer to my attending physician's documentation for any further recommendations. (2) Obstructive cardiovascular shock: (3) Acute massive pulmonary embolism: (4) BREA (acute kidney injury): Admission and Anticipated Discharge Date Admission Date: April 07, 2022 Supervising Physician Co-Signing Physician Notes Dr. Coleman was the resident-physician during care of patient. I separately evaluated patient for castillo portions of the history and the exam. I was present during the critical portion of medical decision making, and I discussed the case with the resident. I generally agree with the findings and plan except for any additions/exceptions noted. Patient seen and examined at bedside. No acute distress. Patient had an episode of hypotension overnight for which she needed to be started on Levophed At the time of examination she was on 0.03 of Levophed with map in the high 60s to low 70s. She denied any headache, dizziness, no diaphoresis, no shortness of breath Constitutional: No acute distress HEENT: EOMI, PERRLA Respiratory system: Decreased air entry bilaterally, no wheeze, no rhonchi, positive crackles bilateral lower lobes CVS: S1-S2 positive, no murmurs or gallops, distant heart sounds Abdomen: Soft,nondistended, positive bowel sounds x4, obese, nontender Extremities: +2 pulses bilaterally radialis/ dorsalis pedis, no cyanosis, +2 pitting edema bilateral lower extremity Neuro: Awake alert oriented to self Psych: Normal mood and affect G/U: Positive Anthony --Prophylaxis VTE: Heparin drip GI: Protonix Lines: Peripheral Diet: Cardiorenal Plan: In/out: -1.3 L, urine output [id number] Patient did get 1 dose of albumin overnight. She is making good amount of urine. I will give her LR 500 mL Blood culture is growing E. coli which is pansensitive. Patient is allergic to amoxicillin and penicillin. I will change her to levofloxacin to be given for total of 14 days. DC meropenem. QTC is 459. Repeat EKG tomorrow Out of the bed to chair. I have personally spent additional 36 minutes of critical care time in the [facility] management of this patient. This is a life/limb threatening event. This includes time spent evaluating patient, direct bedside care, chart review, placing orders, interpretation of diagnostic studies, discussion with consultants, patient, and/or family members regarding treatment decisions, as well as other required patient management activities. This time is exclusive of all separately billable procedures, and teaching time and separate from and in addition to any other critical care service time. Subjective Overnight patient was given one dose of albumin and placed back on levophed, however, clinically stable. Patient seen at bedside this morning. Has been OOB. Still no BM. Awake and alert, answers questions appropriately. Does c/o mild SOB while laying flat. Denies chest pain, cough, leg pain, headache, palpitations, abdominal pain. Review of Systems Review of Systems: All systems reviewed & are unremarkable except as noted in HPI & below Physical Exam Physical Exam: GENERAL - in no acute distress. Vitals as above. HEENT - NCAT, PERRL, EOMI, Sclera anicteric. Oropharynx clear without perioral cyanosis. Moist mucous membranes. NECK - Supple. No lymphadenopathy. LUNGS - Diminished breath sounds bilaterally with bibasilar crackles. No wheezes or ronchi. On room air. CARDIAC - RRR with S1/S2. No murmur, rubs, or gallops appreciated. ABDOMEN - BS normoactive all four quadrants. Mild superior epigastric tenderness on palpation. No palpable masses, hepatosplenomegaly, or ascites. Neg baumann's sign. EXTREMITIES - No clubbing or peripheral cyanosis. 2+ radialis/dorsalis pedal pulses. 2+ pitting LE edema. NEUROLOGIC - Cranial nerves II through XII grossly intact. Sensory intact to light touch throughout. PSYCH - A&Ox3, pleasant Results & Data Results & Data ([facility]) Vital Signs (Past 12 Hours) Vital Signs Temp Pulse Resp BP Pulse Ox 04/27/22 06:00 36.4 C L 70 18 103/57 L 94 04/27/22 05:30 36.4 C L 74 15 92/58 L 96 04/27/22 05:00 36.5 C 62 15 101/56 L 96 04/27/22 04:30 36.6 C 63 16 89/56 L 96 04/27/22 04:10 36.6 C 66 15 106/66 97 04/27/22 04:00 36.6 C 70 13 99/65 L 97 04/27/22 03:51 72 19 97 04/27/22 03:50 36.6 C 62 16 113/67 98 04/27/22 03:44 36.6 C 57 L 13 80/41 L 99 04/27/22 03:00 36.9 C 70 17 92/45 L 97 04/27/22 02:30 37.0 C 74 17 84/45 L 95 04/27/22 02:00 37.1 C 78 16 85/44 L 96 04/27/22 01:30 37.1 C 78 16 88/44 L 97 04/27/22 01:00 37.2 C 86 15 87/54 L 89 L 04/27/22 00:30 37.2 C 83 14 89/57 L 97 04/27/22 00:00 37.1 C 79 17 96/64 L 97 04/26/22 23:50 91/52 L 04/26/22 23:30 37.2 C 79 16 94 04/26/22 23:00 37.2 C 82 16 100/52 L 93 04/26/22 22:00 37.2 C 84 18 112/55 L 92 04/26/22 21:30 37.2 C 80 20 94 04/26/22 21:00 37.2 C 83 20 109/61 96 Laboratory Results 04/27/22 04/27/22 04/27/22 Range/Units 07:27 05:31 05:31 WBC (4.8-10.8) K/uL RBC (4.2-5.4) M/uL Hgb (12.0-16.0) g/dL Hct (37-47) % MCV (80-100) fL MCH (25-34) pg MCHC (32-36) g/dL RDW Std Deviation (36.4-46.3) fL RDW Coeff of Alexy (11.5-14.5) % Plt Count (130-400) K/uL MPV (7.4-10.4) fL Immature Gran % (Auto) % Neut % (Auto) % Lymph % (Auto) % [place] % (Auto) % Eos % (Auto) % Baso % (Auto) % Neut # (Auto) (1.4-6.5) K/uL Lymph # (Auto) (1.2-3.4) K/uL [place] # (Auto) (0.11-0.59) K/uL Eos # (Auto) (0-0.5) K/uL Baso # (Auto) (0-0.2) K/uL Immature Gran # (Auto) (0.00-0.02) K/uL APTT (21.0-31.0) Seconds PTT Ratio Sodium (136-145) mmol/L Potassium (3.5-5.1) mmol/L Chloride (98-107) mmol/L Carbon Dioxide (21-32) mmol/L Anion Gap (3-11) BUN (6-23) mg/dl Creatinine (0.6-1.2) mg/dl Est Cr Clr Drug Dosing ml/min Est GFR ( Amer) ml/min Est GFR (Non-Af Amer) ml/min BUN/Creatinine Ratio (10-20) Glucose (70-99(Fasting)) mg/dl POC Glucose 137 H (70-99) mg/dl Lactate 0.7 (0.4-2.0) mmol/L Calcium (8.5-10.1) mg/dl Phosphorus (2.5-4.9) mg/dl Magnesium (1.7-2.4) mg/dl Total Bilirubin (0.2-1.0) mg/dl AST (13-39) U/L ALT (7-52) U/L Alkaline Phosphatase (34-104) U/L Total Protein (6.0-8.3) gm/dl Albumin (3.4-5.0) gm/dl Globulin (2.5-4.0) gm/dl Albumin/Globulin Ratio (0.9-2) Procalcitonin 79.24 H (0-0.5) ng/ml 04/27/22 04/27/22 04/27/22 Range/Units 05:31 05:31 05:31 WBC 15.88 H (4.8-10.8) K/uL RBC 3.41 L (4.2-5.4) M/uL Hgb 9.9 L (12.0-16.0) g/dL Hct 30.7 L (37-47) % MCV 90.0 (80-100) fL MCH 29.0 (25-34) pg MCHC 32.2 (32-36) g/dL RDW Std Deviation 45.5 (36.4-46.3) fL RDW Coeff of Alexy 13.9 (11.5-14.5) % Plt Count 212 (130-400) K/uL MPV 10.0 (7.4-10.4) fL Immature Gran % (Auto) 0.6 % Neut % (Auto) 82.4 % Lymph % (Auto) 12.8 % [place] % (Auto) 3.3 % Eos % (Auto) 0.8 % Baso % (Auto) 0.1 % Neut # (Auto) 13.09 H (1.4-6.5) K/uL Lymph # (Auto) 2.03 (1.2-3.4) K/uL [place] # (Auto) 0.52 (0.11-0.59) K/uL Eos # (Auto) 0.13 (0-0.5) K/uL Baso # (Auto) 0.02 (0-0.2) K/uL Immature Gran # (Auto) 0.09 H (0.00-0.02) K/uL APTT 53.0 H* (21.0-31.0) Seconds PTT Ratio 1.9 Sodium 140 (136-145) mmol/L Potassium 3.9 (3.5-5.1) mmol/L Chloride 103 (98-107) mmol/L Carbon Dioxide 27 (21-32) mmol/L Anion Gap 10 (3-11) BUN 45 H (6-23) mg/dl Creatinine 1.79 H D (0.6-1.2) mg/dl Est Cr Clr Drug Dosing 51.6 ml/min Est GFR ( Amer) 35.1 ml/min Est GFR (Non-Af Amer) 30.3 ml/min BUN/Creatinine Ratio 25.1 H (10-20) Glucose 131 H (70-99(Fasting)) mg/dl POC Glucose (70-99) mg/dl Lactate (0.4-2.0) mmol/L Calcium 8.4 L (8.5-10.1) mg/dl Phosphorus 4.3 (2.5-4.9) mg/dl Magnesium 2.3 (1.7-2.4) mg/dl Total Bilirubin 0.6 (0.2-1.0) mg/dl AST 40 H (13-39) U/L ALT 57 H (7-52) U/L Alkaline Phosphatase 168 H (34-104) U/L Total Protein 6.1 (6.0-8.3) gm/dl Albumin 3.1 L (3.4-5.0) gm/dl Globulin 3.0 (2.5-4.0) gm/dl Albumin/Globulin Ratio 1.0 (0.9-2) Procalcitonin (0-0.5) ng/ml 04/26/22 04/26/22 04/26/22 Range/Units 19:51 16:33 12:12 WBC (4.8-10.8) K/uL RBC (4.2-5.4) M/uL Hgb (12.0-16.0) g/dL Hct (37-47) % MCV (80-100) fL MCH (25-34) pg MCHC (32-36) g/dL RDW Std Deviation (36.4-46.3) fL RDW Coeff of Alexy (11.5-14.5) % Plt Count (130-400) K/uL MPV (7.4-10.4) fL Immature Gran % (Auto) % Neut % (Auto) % Lymph % (Auto) % [place] % (Auto) % Eos % (Auto) % Baso % (Auto) % Neut # (Auto) (1.4-6.5) K/uL Lymph # (Auto) (1.2-3.4) K/uL [place] # (Auto) (0.11-0.59) K/uL Eos # (Auto) (0-0.5) K/uL Baso # (Auto) (0-0.2) K/uL Immature Gran # (Auto) (0.00-0.02) K/uL APTT 56.0 H* (21.0-31.0) Seconds PTT Ratio 2.0 Sodium (136-145) mmol/L Potassium (3.5-5.1) mmol/L Chloride (98-107) mmol/L Carbon Dioxide (21-32) mmol/L Anion Gap (3-11) BUN (6-23) mg/dl Creatinine (0.6-1.2) mg/dl Est Cr Clr Drug Dosing ml/min Est GFR ( Amer) ml/min Est GFR (Non-Af Amer) ml/min BUN/Creatinine Ratio (10-20) Glucose (70-99(Fasting)) mg/dl POC Glucose 106 H 106 H (70-99) mg/dl Lactate (0.4-2.0) mmol/L Calcium (8.5-10.1) mg/dl Phosphorus (2.5-4.9) mg/dl Magnesium (1.7-2.4) mg/dl Total Bilirubin (0.2-1.0) mg/dl AST (13-39) U/L ALT (7-52) U/L Alkaline Phosphatase (34-104) U/L Total Protein (6.0-8.3) gm/dl Albumin (3.4-5.0) gm/dl Globulin (2.5-4.0) gm/dl Albumin/Globulin Ratio (0.9-2) Procalcitonin (0-0.5) ng/ml 04/26/22 Range/Units 11:06 WBC (4.8-10.8) K/uL RBC (4.2-5.4) M/uL Hgb (12.0-16.0) g/dL Hct (37-47) % MCV (80-100) fL MCH (25-34) pg MCHC (32-36) g/dL RDW Std Deviation (36.4-46.3) fL RDW Coeff of Alexy (11.5-14.5) % Plt Count (130-400) K/uL MPV (7.4-10.4) fL Immature Gran % (Auto) % Neut % (Auto) % Lymph % (Auto) % [place] % (Auto) % Eos % (Auto) % Baso % (Auto) % Neut # (Auto) (1.4-6.5) K/uL Lymph # (Auto) (1.2-3.4) K/uL [place] # (Auto) (0.11-0.59) K/uL Eos # (Auto) (0-0.5) K/uL Baso # (Auto) (0-0.2) K/uL Immature Gran # (Auto) (0.00-0.02) K/uL APTT (21.0-31.0) Seconds PTT Ratio Sodium (136-145) mmol/L Potassium (3.5-5.1) mmol/L Chloride (98-107) mmol/L Carbon Dioxide (21-32) mmol/L Anion Gap (3-11) BUN (6-23) mg/dl Creatinine (0.6-1.2) mg/dl Est Cr Clr Drug Dosing ml/min Est GFR ( Amer) ml/min Est GFR (Non-Af Amer) ml/min BUN/Creatinine Ratio (10-20) Glucose (70-99(Fasting)) mg/dl POC Glucose 114 H (70-99) mg/dl Lactate (0.4-2.0) mmol/L Calcium (8.5-10.1) mg/dl Phosphorus (2.5-4.9) mg/dl Magnesium (1.7-2.4) mg/dl Total Bilirubin (0.2-1.0) mg/dl AST (13-39) U/L ALT (7-52) U/L Alkaline Phosphatase (34-104) U/L Total Protein (6.0-8.3) gm/dl Albumin (3.4-5.0) gm/dl Globulin (2.5-4.0) gm/dl Albumin/Globulin Ratio (0.9-2) Procalcitonin (0-0.5) ng/ml Resident Activity Tracking Resident Involvement: Resident Care Provided Care Provided: Adult [facility] Medicine
[2022-04-27] MEDS ORDERED: LACTATED RINGER'S 500 ML IV SCH (08:45)
[2022-04-27] MEDS ORDERED: PANTOprazole 40 MG TAB PO SCH (09:00)
[2022-04-27] MEDS: levoFLOXacin/D5W 750 MG/150 ML BAG IV SCH (09:26)
[2022-04-27] MEDS: SENNA 8.6 MG TAB PO SCH (09:27)
[2022-04-27] MEDS: DOCUSATE SODIUM 100 MG CAP PO SCH ×2 (09:27→20:26)
[2022-04-27] MEDS: BACLOFEN 10 MG TAB PO SCH ×3 (09:27→20:26)
[2022-04-27] MEDS: NYSTATIN POWDER 15GM BTL EXT SCH ×3 (09:27→20:26)
[2022-04-27] MEDS: GABAPENTIN 100 MG CAP PO SCH ×3 (09:27→20:26)
[2022-04-27] MEDS: POLYETHYLENE (MIRALAX) 17 GM PACK PO SCH (09:30)
[2022-04-27] MEDS ORDERED: [UNRECOGNIZED DRUG - REMARK] ONE (10:55)
[2022-04-27] MEDS: APIXABAN 5 MG TABLET PO SCH ×2 (11:23→20:25)
--- NOTE | 2022-04-27 11:45 | Cardiology Progress Note ---
Date of Service April 27, 2022 Assessment & Plan (1) Acute massive pulmonary embolism: (2) DVT, bilateral lower limbs: (3) BREA (acute kidney injury): Plan: Patient with severe bilateral pulmonary embolism with resultant hypotensive shock, right ventricular strain pattern noted on echocardiogram with RV pressure/volume overload, pulmonary artery systolic pressure estimated to be 68 mmHg, with dilated inferior vena cava noted. She remains on UF heparin infusion per protocol post administration of Alteplase on 04/25/22. Since when I had seen her on 04/26, she is back on low dose norepinephrine at 0.02 mcg/kg/ min. Patient takes propranolol as outpt for migraine prophylaxis which is held for now. As BP improves off of pressor support, will have low threshold to start low dose metoprolol tartrate as pt at risk for hemodynamically significant atrial arrhythmias. BREA- Creatinine improved from 2.43 to 1.79 mg/dl. Hypoperfusion state occurred and received two doses of contrast within a few days. Remains in IVF, LR 125 ml/hr. Continue to follow. Mild transaminase elevation, likely due to hypoperfusion, trending toward improvement. Dr Bland rounding this weekend. Call with questions or concerns. Admission and Anticipated Discharge Date Admission Date: April 07, 2022 Subjective Pt seen in follow up. Sitting in bedside charge. No complaints. SR in the 70s noted on telemetry. Physical Exam Constitutional: + morbidly obese Respiratory: Auscultation: + diminished lung sounds (Decreased breath sounds bilaterally at the bases) Cardiovascular: Extremities: no edema Gastrointestinal (Abdomen): normal bowel sounds, soft, nontender, no hepatosplenomegaly Results & Data ([facility]) Vital Signs (Past 12 Hours) Vital Signs Temp Pulse Resp BP Pulse Ox 04/27/22 11:00 36.8 C 76 25 H 140/104 H 92 04/27/22 10:45 36.8 C 78 19 95 04/27/22 10:30 36.7 C 72 16 127/71 97 04/27/22 10:15 36.7 C 72 15 97 04/27/22 10:01 36.8 C 79 13 78 L 04/27/22 10:00 36.7 C 78 17 71 L 04/27/22 09:45 36.7 C 73 19 90 04/27/22 09:30 36.7 C 76 21 103/64 97 04/27/22 09:15 36.7 C 69 15 95 04/27/22 09:00 36.7 C 71 15 110/64 95 04/27/22 08:45 36.6 C 65 13 97 04/27/22 08:30 36.6 C 66 17 104/58 L 94 04/27/22 08:15 36.6 C 65 17 97 04/27/22 08:03 36.6 C 64 16 97/55 L 97 04/27/22 08:00 36.5 C 68 15 100/62 95 04/27/22 07:59 36.5 C 66 18 115/61 97 04/27/22 07:45 36.5 C 71 17 94 04/27/22 07:30 36.5 C 69 19 119/61 96 04/27/22 07:15 36.5 C 67 20 96 04/27/22 07:00 36.4 C L 67 14 112/52 L 96 04/27/22 06:45 36.4 C L 69 18 91 04/27/22 06:30 36.4 C L 66 18 101/54 L 97 04/27/22 06:15 36.4 C L 65 20 96 04/27/22 06:00 36.4 C L 70 18 103/57 L 94 04/27/22 05:30 36.4 C L 74 15 92/58 L 96 04/27/22 05:00 36.5 C 62 15 101/56 L 96 04/27/22 04:30 36.6 C 63 16 89/56 L 96 04/27/22 04:10 36.6 C 66 15 106/66 97 04/27/22 04:00 36.6 C 70 13 99/65 L 97 04/27/22 03:51 72 19 97 04/27/22 03:50 36.6 C 62 16 113/67 98 04/27/22 03:44 36.6 C 57 L 13 80/41 L 99 04/27/22 03:00 36.9 C 70 17 92/45 L 97 04/27/22 02:30 37.0 C 74 17 84/45 L 95 04/27/22 02:00 37.1 C 78 16 85/44 L 96 04/27/22 01:30 37.1 C 78 16 88/44 L 97 04/27/22 01:00 37.2 C 86 15 87/54 L 89 L 04/27/22 00:30 37.2 C 83 14 89/57 L 97 04/27/22 00:00 37.1 C 79 17 96/64 L 97 04/26/22 23:50 91/52 L Laboratory Results Cardiac Enzymes 04/27/22 Range/Units 05:31 AST 40 H (13-39) U/L Coagulation 04/26/22 04/27/22 Range/Units 12:12 05:31 APTT 56.0 H* 53.0 H* (21.0-31.0) Seconds CBC 04/27/22 Range/Units 05:31 WBC 15.88 H (4.8-10.8) K/uL RBC 3.41 L (4.2-5.4) M/uL Hgb 9.9 L (12.0-16.0) g/dL Hct 30.7 L (37-47) % Plt Count 212 (130-400) K/uL Neut # (Auto) 13.09 H (1.4-6.5) K/uL Lymph # (Auto) 2.03 (1.2-3.4) K/uL [place] # (Auto) 0.52 (0.11-0.59) K/uL Eos # (Auto) 0.13 (0-0.5) K/uL Baso # (Auto) 0.02 (0-0.2) K/uL Comprehensive Metabolic Panel 04/27/22 Range/Units 05:31 Sodium 140 (136-145) mmol/L Potassium 3.9 (3.5-5.1) mmol/L Chloride 103 (98-107) mmol/L Carbon Dioxide 27 (21-32) mmol/L BUN 45 H (6-23) mg/dl Creatinine 1.79 H D (0.6-1.2) mg/dl Glucose 131 H (70-99(Fasting)) mg/dl Calcium 8.4 L (8.5-10.1) mg/dl AST 40 H (13-39) U/L ALT 57 H (7-52) U/L Alkaline Phosphatase 168 H (34-104) U/L Total Protein 6.1 (6.0-8.3) gm/dl Albumin 3.1 L (3.4-5.0) gm/dl
--- NOTE | 2022-04-27 13:06 | Billing Data ---
Date of Service April 27, 2022 Coding Level of Care Code Critical Care 1st 30-74 mins Time Spent (min) 36
[2022-04-27] MEDS: PANTOprazole 40 MG TAB PO SCH (14:41)
--- NOTE | 2022-04-27 16:06 | Hospitalist Progress Note ---
Date of Service April 27, 2022 Assessment & Plan (1) Acute pulmonary embolism without acute cor pulmonale: (2) DVT, bilateral lower limbs: Plan: (1) Acute pulmonary embolism without acute cor pulmonale: #. Obstructive shock on the background of acute massive PE #. RV strain (2) DVT, bilateral lower limbs: Plan: - 1st episode, from being sedentary and refusing chemoprophylaxis. 04/18 CTA chest w/ extensive PE. 04/18 BLE US doppler positive for BLE DVT. - Became hemodynamically unsatble night of 04/24-04/25 w/ acute SOB, not feeling well, hypotension w/ labs significant for lactate 2.5, Cr bump, WBC and Procal elevation --> requiring ICU transfer, 50 mg tPA administration, levophed and IVF administration. - s/p tPA 04/25; 04/25 ECHO w/ EF 55-60%, severely dilated RV, severely reduced RV systolic fxn, flattened septum, sever pul HTN. - trops, BNP, wbc, procal elevation on 04/25 likely 2/2 hypotension and PE vs GNB bacteremia (looking retrospectively). - 04/[address] AP reviewed. 04/25 UA nl. - 04/26 JUDY USG no acute pathology - Pt empirically started on antibiotic (meropenem and vanco) 04/25, pt afebrile last 48 hours. Vanc DC'd 04/26, Pt switched to levaquin 04/27 - Pt being managed in ICU, levophed. Pt on eliquis - Plan for beta ayde low dose once pt off of pressors d/t risk for atrial arrythmias. #. GNB bacteremia 04/25 blood Cx: Pansensitive E coli 04/26 RUQ USG neg for acute pathology, 04/25 CTAP reviewed. 04/25 CTA chest: Subsegmental patchy groundglass opacities of the right greater than left upper lobes are suggestive of an infectious or inflammatory pneumonitis. On levaquin from 04/27 for total of 14 days f/u repeat blood culture, source unknown. (3) BREA (acute kidney injury): Plan: Baseline Cr 0.8 Cr bumped 2.03 on 04/25, likely pre-renal 2/2 hypotension from above. BMP in am. Cr downtrending. #. Trasaminase elevation: 2/2 hypoperfusion event (04/24-04/25), improving. (4) Intractable back pain: Plan: Lumbar disc extrusion with lumbar stenosis causing intractable back pain. Recently at rehab and went home with worsening. Interestingly after 911 was called to come get her she had to WALK to the litter to come in this admission per case management. She was also able to get up and move to the potty easily tonight. Doing well on current pain regimen and feels the muscle relaxer is better. Pain management saw her and added Medrol dosepak, trial of baclofen and will continue titrating gabapentin as needed. Currently she is doing well on the muscle relaxer which she likes the most. Will continue with current regimen. C/w bowel regimen per patient's need. (5) Intervertebral disc extrusion: Plan: As seen on lumbar MRI 03/24. Per ortho spine evaluation during last admission she is not a surgical candidate at this time. Continue PT/OT and conservative pain management. Weakness and proprioception issues noted with her right leg and foot, however, she is not a good candidate for surgery per Ortho spine last admission. Continue conservative management. (6) Chronic radicular pain of lower back: Plan: Patient is not on narcotics at baseline. #. Other chronic medical conditions: Depression on TCA/doxepin, ADHD on Vyvanse in a.m. with additional dextroamphetamine every afternoon, RLS on ropinirole, hypothyroidism, morbid obesity, PATTI on home CPAP Continue with/resume home meds as and when appropriate. Vyvanse is on formulary and not currently being given, ok to get this from home when able. BMI 57.3. lifestyle modifications strongly recommended to help strengthen her core and reduce the chance of further back injury. 04/25: Updated pt's sister in law ([phone]) Rebeca Contreras; answered all her questions. DVT ppx- on elibiancais Dispo-in icu care Admission and Anticipated Discharge Date Admission Date: April 07, 2022 Subjective Patient seen and examined at bedside as a follow-up of intractable back pain and PE and BLE DVT. Patient was sitting up in chair, on RA, NAD, complains of some nausea on and off but better, denied any headache/dizziness/chest pain/shortness of breath/belly pain/palpitation/other review of symptoms. Patient denies any new issues overnight. Physical Exam Physical Exam: GENERAL: Alert and oriented x3. NAD, on RA. Morbidly obese. HEENT: No pallor, no icterus. Pupils equal, round and reactive to light. Oral mucosa moist. NECK: No JVD, no neck masses. HEART: S1 and S2 heard. Regular rate and rhythm. No murmur, no gallop. RESPIRATORY SYSTEM: Normal AP diameter. No accessory muscle use. No wheezing, no crackles. ABDOMEN: Soft, bowel sounds present, nontender, no distention. CENTRAL NERVOUS SYSTEM: No facial droop. Speech is clear. Obeys simple commands. Moves extremities. EXTREMITIES: RLE 2+ pitting edema, LLE 1+ edema. no erythema seen. Results & Data Results & Data ([facility]) Vital Signs (Past 12 Hours) Vital Signs Temp Pulse Resp BP Pulse Ox 04/27/22 13:00 36.9 C 86 20 130/90 95 04/27/22 12:30 36.9 C 85 16 97/58 L 91 04/27/22 12:00 36.9 C 86 12 137/91 97 04/27/22 11:30 36.9 C 93 H 19 150/86 H 93 04/27/22 11:00 36.8 C 76 25 H 140/104 H 92 04/27/22 10:45 36.8 C 78 19 95 04/27/22 10:30 36.7 C 72 16 127/71 97 04/27/22 10:15 36.7 C 72 15 97 04/27/22 10:01 36.8 C 79 13 78 L 04/27/22 10:00 36.7 C 78 17 71 L 04/27/22 09:45 36.7 C 73 19 90 04/27/22 09:30 36.7 C 76 21 103/64 97 04/27/22 09:15 36.7 C 69 15 95 04/27/22 09:00 36.7 C 71 15 110/64 95 04/27/22 08:45 36.6 C 65 13 97 04/27/22 08:30 36.6 C 66 17 104/58 L 94 04/27/22 08:15 36.6 C 65 17 97 04/27/22 08:03 36.6 C 64 16 97/55 L 97 04/27/22 08:00 36.5 C 68 15 100/62 95 04/27/22 07:59 36.5 C 66 18 115/61 97 04/27/22 07:45 36.5 C 71 17 94 04/27/22 07:30 36.5 C 69 19 119/61 96 04/27/22 07:15 36.5 C 67 20 96 04/27/22 07:00 36.4 C L 67 14 112/52 L 96 04/27/22 06:45 36.4 C L 69 18 91 04/27/22 06:30 36.4 C L 66 18 101/54 L 97 04/27/22 06:15 36.4 C L 65 20 96 04/27/22 06:00 36.4 C L 70 18 103/57 L 94 04/27/22 05:30 36.4 C L 74 15 92/58 L 96 04/27/22 05:00 36.5 C 62 15 101/56 L 96 04/27/22 04:30 36.6 C 63 16 89/56 L 96 04/27/22 04:10 36.6 C 66 15 106/66 97 04/27/22 04:00 36.6 C 70 13 99/65 L 97
[2022-04-27] MEDS: DOXEPIN HCL 10 MG CAPSULE PO SCH (20:26)
[2022-04-27] MEDS: MONTELUKAST SODIUM 10 MG TABLET PO SCH (20:26)
[2022-04-28 05:41] LABS: Basophils # (auto) 0.01 K/uL (0-0.2); Basophils % (auto) 0.1 %; Eosinophils # (auto) 0.09 K/uL (0-0.5); Eosinophils % (auto) 1.1 %; Hematocrit (blood only) 30.2 % (37-47); Hemoglobin 9.6 g/dL (12.0-16.0); Immature Granulocytes # (auto) 0.06 K/uL (0.00-0.02); Immature Granulocytes % (auto) 0.7 %; Lymphocytes # (auto) 1.76 K/uL (1.2-3.4); Lymphocytes % (auto) 21.2 %; Mean Corpuscular Hemoglobin 28.6 pg (25-34); Mean Corpuscular Hgb Conc 31.8 g/dL (32-36); Mean Corpuscular Volume 89.9 fL (80-100); Mean Platelet Volume 9.9 fL (7.4-10.4); Monocytes # (auto) 0.45 K/uL (0.11-0.59); Monocytes % (auto) 5.4 %; Neutrophils # (auto) 5.93 K/uL (1.4-6.5); Neutrophils % (auto) 71.5 %; Platelet Count 183 K/uL (130-400); RDW Standard Deviation 45.4 fL (36.4-46.3); Red Blood Count 3.36 M/uL (4.2-5.4)
[2022-04-28 05:53] LABS: Partial Thromboplastin Ratio 1.2; Partial Thromboplastin Time 32.8 Seconds (21.0-31.0)
[2022-04-28 06:01] LABS: Albumin Globulin Ratio 1.1 (0.9-2); Albumin Level 2.9 gm/dl (3.4-5.0); BUN Creatinine Ratio 25.6 (10-20); Bilirubin,Total 0.5 mg/dl (0.2-1.0); Calcium 8.4 mg/dl (8.5-10.1); Creatinine Clr Calc Pharmacy 69.4 ml/min; Est GFR (African American) 50.2 ml/min; Est GFR (Non-African American) 43.3 ml/min; Globulin 2.7 gm/dl (2.5-4.0); Phosphorus 3.6 mg/dl (2.5-4.9); Potassium 3.8 mmol/L (3.5-5.1); Total Protein 5.6 gm/dl (6.0-8.3)
[2022-04-28] MEDS ORDERED: POTASSIUM CHLORIDE / WTR 20 MEQ/100 ML PLCT IV ONE (06:05)
[2022-04-28] MEDS: LEVOTHYROXINE SODIUM 100 MCG TABLET PO SCH (06:23)
[2022-04-28] MEDS: INSULIN ASPART PER UNIT SC SCH ×4 (08:43→20:53)
[2022-04-28] MEDS: APIXABAN 5 MG TABLET PO SCH ×2 (08:44→20:14)
[2022-04-28] MEDS: BACLOFEN 10 MG TAB PO SCH ×3 (08:44→20:13)
[2022-04-28] MEDS: NYSTATIN POWDER 15GM BTL EXT SCH ×3 (08:45→20:14)
[2022-04-28] MEDS: GABAPENTIN 100 MG CAP PO SCH ×3 (08:45→20:13)
[2022-04-28] MEDS: ADVANCED PROBIOTIC 1250 MG CAPSULE PO SCH (08:45)
[2022-04-28] MEDS: DOCUSATE SODIUM 100 MG CAP PO SCH ×2 (08:45→20:13)
[2022-04-28] MEDS: SENNA 8.6 MG TAB PO SCH (08:49)
[2022-04-28] MEDS: POLYETHYLENE (MIRALAX) 17 GM PACK PO SCH (08:49)
[2022-04-28] MEDS: NOREPINEPHRINE/D5W 4 MG/250 ML PLCT IV SCH ×3 (08:49→18:03)
[2022-04-28] MEDS: POTASSIUM CHLORIDE / WTR 10 MEQ/100 ML PLCT IV SCH ×2 (09:21→10:13)
[2022-04-28] MEDS: PANTOprazole 40 MG TAB PO SCH (10:13)
--- NOTE | 2022-04-28 10:53 | Critical Care Progress Note ---
Date of Service April 28, 2022 Assessment & Plan (1) Admitted to intensive care unit: Plan: Reason Critically Ill: 61-year-old female with acute massive pulmonary embolism with associated hypoxia and profound hypotension requiring emergent intervention and need for thrombolysis and close hemodynamic monitoring. NEURO - * CAM ICU: NEGATIVE CARDIAC/VASCULAR - * S/p hypotension: * Obstructive shock in the patient with acute massive pulmonary emboli. Status post thrombolytic tx with TPa. On low dose levophed overnight, trial d/c levophed. * Right ventricular strain seen on echo with RV pressure/volume overload, EF 55-60% * Trops peaked, likely 2/2 demand ischemia * Per cardiology: consider restarting low dose beta ayde as BP continues to stabilize * monitor on tele RESPIRATORY - * S/p acute hypoxic respiratory distress: * In the setting of massive pulmonary emboli. BiPAP nightly and as needed. Does well on room air during day with adequate O2 sat, not in respiratory distress. * Continue incentive spirometer GI/NUTRITION - * Elevated LFTs: * Possibly representing hepatic congestion given PEs, trending down. * Will continue to trend for improvement s/p TPA administration. * No BM in past few days, continue scheduled bowel regimen until BM (miralax, colace, senna). Single dose lactulose given. * Heart healthy, renal diet; can remove renal once BREA improves * GI PPx: protonix RENAL/LYTES - * BREA: * Likely prerenal in the setting of profound hypotension. --> improving * Received 2L IVF in PCU. 2 bags LRs in ICU. Good urine output * Replace lytes per protocol - * Anthony in place - Strict I&Os. ENDO - * No h/o DMII * BSGs per unit protocol. ISS --> gtt per unit policy. HEME - * S/p TPA tx in the setting of massive PE: * Hgb stable * d/c heparin drip s/p 48 hours, start apixaban loading dose 10mg BID x 7days ID - * Fever: * Afebrile for 48 hours. UA neg. Biofire neg. Chest CT (04/25) shows bilateral ground glass opacities possible infectious. Procalcitonin downtrending. Lactate wnl. * RUQ ultrasound neg for cholecystitis * 1 tube grew pansensitive e. coli in blood * d/c'd vancomycin (04/25). Switch IV meropenem to IV Levaquin. Levaquin chosen since no patient data on allergic cross reactivity with cephalosporins. QTc okay, repeat EKG tomorrow. * Repeat blood cultures negative to date --Prophylaxis VTE: Apixaban GI: Protonix Lines: Peripheral Diet: Cardiorenal Plan: In/out: -271, urine output 1926 Patient has been off Levophed for more than 24 hours Hemodynamically she is stable Will DC Anthony Hemodynamically stable to be downgraded out of the ICU Please note the above document was generated using voice recognition software. It may contain grammatical, syntax or spelling errors.Any formal questions or concerns about the content, text or information contained within the body of this dictation should be directly addressed to the provider for clarification. (2) Obstructive cardiovascular shock: (3) Acute massive pulmonary embolism: (4) BREA (acute kidney injury): Admission and Anticipated Discharge Date Admission Date: April 07, 2022 Subjective Patient seen and examined at bedside. No acute distress, no adverse events overnight. Has been off Levophed for more than 24 hours Denies any dizziness, no headache, no shortness of breath No chest pain, no abdominal pain Did have bowel movement yesterday. Review of Systems Review of Systems: All systems reviewed & are unremarkable except as noted in Subjective Physical Exam Physical Exam: Constitutional: No acute distress HEENT: EOMI, PERRLA Respiratory system: Decreased air entry bilaterally, no wheeze, no rhonchi, positive crackles bilateral lower lobes CVS: S1-S2 positive, no murmurs or gallops, distant heart sounds Abdomen: Soft,nondistended, positive bowel sounds x4, obese, nontender Extremities: +2 pulses bilaterally radialis/ dorsalis pedis, no cyanosis, +2 pitting edema bilateral lower extremity Neuro: Awake alert oriented to self Psych: Normal mood and affect G/U: Positive Anthony Skin: no rashes, warm and dry Lymphatic: no cervical or axillary lymphadenopathy Results & Data Results & Data ([facility]) Vital Signs (Past 12 Hours) Vital Signs Temp Pulse Resp BP Pulse Ox 04/28/22 08:00 36.6 C 90 21 95 04/28/22 07:30 36.5 C 83 17 120/75 93 04/28/22 07:00 36.5 C 70 14 125/59 L 93 04/28/22 06:00 36.6 C 72 15 106/57 L 92 04/28/22 05:30 36.6 C 74 16 122/61 96 04/28/22 05:00 36.5 C 76 14 111/74 96 04/28/22 04:31 36.5 C 81 12 89/51 L 93 04/28/22 04:00 36.6 C 74 15 102/56 L 90 04/28/22 03:30 36.8 C 78 16 81/53 L 89 L 04/28/22 03:00 37.0 C 82 16 92/50 L 89 L 04/28/22 02:30 37.1 C 77 15 109/58 L 96 04/28/22 02:00 37.1 C 86 19 106/57 L 93 04/28/22 01:30 37.0 C 84 19 118/66 95 04/28/22 01:00 37.0 C 86 19 107/56 L 94 04/28/22 00:30 37.0 C 84 18 104/55 L 93 04/28/22 00:00 36.9 C 85 18 100/59 L 95 04/27/22 23:30 36.9 C 86 17 104/63 93 04/27/22 23:00 36.9 C 81 19 83/45 L 93 Laboratory Results 04/28/22 05:06 04/28/22 05:06 Coding Level of Care Code 01010 Subseq Hosp Care Lvl 3 Diagnoses Admitted to intensive care unit Z78.9 Obstructive cardiovascular shock R57.8 Acute massive pulmonary embolism I26.99 BREA (acute kidney injury) N17.9
[2022-04-28] MEDS: levoFLOXacin/D5W 750 MG/150 ML BAG IV SCH (11:18)
--- NOTE | 2022-04-28 15:58 | Hospitalist Progress Note ---
Date of Service April 28, 2022 Assessment & Plan (1) Acute pulmonary embolism with acute cor pulmonale: (2) DVT, bilateral lower limbs: (3) Obstructive cardiovascular shock: (4) E coli bacteremia: (5) BREA (acute kidney injury): (6) PATTI (obstructive sleep apnea): Plan: 1. Acute pulmonary embolism with cor pulmonale with Obstructive shock 2. DVT, bilateral lower limbs: Plan: - 1st episode, from being sedentary and refusing chemoprophylaxis. - 04/18 CTA chest w/ extensive PE. 04/18 BLE US doppler positive for BLE DVT. Started on heparin drip - Became hemodynamically unstable night of 04/24-04/25 with acute dyspnea, hypote nsion and significant lab abnormalities (lactate 2.5, WBC upto 34, procal upto 159 Cr upt o 2.4)--> requiring ICU transfer, 50 mg tPA administration, levophed, empiric IV ABx, IVF . - s/p tPA 04/25; 04/25 ECHO w/ EF 55-60%, severely dilated RV, severely reduced RV systolic fxn, flattened septum, severe pulmonary HTN. - trops, BNP, wbc, procal elevation on 04/25 likely 2/2 septic shock vs obstructive shock in setting of massive PE - 04/[address] AP reviewed. 04/25 UA normal. - 04/26 RUQ US with no acute pathology - Pt empirically started on antibiotic (meropenem and vanco) 04/25-> Vanc discontinued 04/26-> switched to levaquin 04/27 -Off of levophed, remains hemodynamically stable, on room air and now transferred out of ICU 04/28 - Plan for resuming beta ayde low dose once remains stable off of pressors d/t risk for atrial arrhythmias. 3. Ecoli bacteremia 04/25 blood Cx: Pansensitive E coli 04/26 RUQ USG neg for acute pathology, 04/25 CTAP reviewed. 04/25 CTA chest: Subsegmental patchy groundglass opacities of the right greater than left upper lobes are suggestive of an infectious or inflammatory pneumonitis. On levaquin from 04/27 for total of 14 days Repeat blood culture 04/27 negative. WBC now normalized 9.3->20->34->26->15->8 Procal trending down 0.49->119->159->79->33 4. BREA (acute kidney injury): Baseline Cr 0.8; Cr peaked to 2.43 and now trending down to 1.3 Cr trend: 0.9->2->2.4->2.3->1.7->1.3 5. Transaminitis: 2/2 hypoperfusion event (04/24-04/25), now resolved. 6. Intractable back pain/ Intervertebral disc extrusion: As seen on lumbar MRI 03/24. Per ortho spine evaluation during last admission she is not a surgical candidate at this time. Continue PT/OT and conservative pain management. Weakness and proprioception issues noted with her right leg and foot, however, she is not a good candidate for surgery per Ortho spine last admission. Continue conservative management. Doing well on current pain regimen. Pain management saw her and added Medrol dosepak, trial of baclofen and will continue titrating gabapentin as needed. Currently she is doing well on the muscle relaxer which she likes the most. Will continue with current regimen. C/w bowel regimen per patient's need. 7. Chronic radicular pain of lower back: Patient is not on narcotics at baseline. 8. Depression- on TCA/doxepin 9. ADHD- on Vyvanse in a.m. with additional dextroamphetamine every afternoon, 10. RLS on ropinirole 11. hypothyroidism- on synthroid 12. Morbid obesity- BMI 57.3. lifestyle modifications strongly recommended to help strengthen her core and reduce the chance of further back injury. 13. PATTI on CPAP DVT ppx- fully anticoagulated on eliquis Dispo- transfer out of ICU. Plan for rehab in the next few days Admission and Anticipated Discharge Date Admission Date: April 07, 2022 Subjective she feels good. Pain is better and she is not requiring pain medication much. She is however afraid of falling when walking. States she would want a cup of coffee in the morning but restricted due to current diet order. Denies any chest pain, shortness of breath, fever, chills, nausea, vomiting. Had BM couple days ago. Physical Exam Physical Exam: General: Morbidly obese, lying comfortably in bed, not in acute distress, on room air saturating well HEENT: EOMI, GI, MMM Chest: Fair breath sounds anteriorly CVS: Regular rate and rhythm, normal heart sounds, no murmur Abdomen: Soft, non tender, not distended, normal bowel sounds Neuro: Awake, alert, oriented, conversing well, non focal Extremities: No cyanosis, clubbing. RLE swollen compared to the left Results & Data Results & Data ([facility]) Vital Signs (Past 12 Hours) Vital Signs Temp Pulse Resp BP Pulse Ox 04/28/22 08:00 36.6 C 90 21 95 04/28/22 07:30 36.5 C 83 17 120/75 93 04/28/22 07:00 36.5 C 70 14 125/59 L 93 04/28/22 06:00 36.6 C 72 15 106/57 L 92 04/28/22 05:30 36.6 C 74 16 122/61 96 04/28/22 05:00 36.5 C 76 14 111/74 96 04/28/22 04:31 36.5 C 81 12 89/51 L 93 04/28/22 04:00 36.6 C 74 15 102/56 L 90 Laboratory Results Short CBC 04/28/22 Range/Units 05:06 WBC 8.30 (4.8-10.8) K/uL Hgb 9.6 L (12.0-16.0) g/dL Hct 30.2 L (37-47) % Plt Count 183 (130-400) K/uL BMP 04/28/22 05:06 Sodium 143 Potassium 3.8 Chloride 106 Carbon Dioxide 29 BUN 34 H Creatinine 1.33 H D Glucose 119 H Calcium 8.4 L Liver Function 04/28/22 Range/Units 05:06 Total Bilirubin 0.5 (0.2-1.0) mg/dl AST 27 (13-39) U/L ALT 43 (7-52) U/L Alkaline Phosphatase 147 H (34-104) U/L Albumin 2.9 L (3.4-5.0) gm/dl Medications Administered Current Inpatient Medications Acetaminophen (Acetaminophen 325 Mg Tab) 650 mg PO Q4H PRN PRN Reason: pain/fever Stop: 05/08/22 00:58 Last Admin: 04/19/22 22:15 Dose: 650 mg Documented by: Apixaban (Apixaban 5 Mg Tablet) 10 mg PO BID LOS Stop: 05/03/22 21:01 Last Admin: 04/28/22 08:44 Dose: 10 mg Documented by: Apixaban (Apixaban 5 Mg Tablet) 5 mg PO BID [facility] Stop: 06/03/22 08:59 Baclofen (Baclofen 10 Mg Tab) 10 mg PO TID [facility] Stop: 05/11/22 13:59 Last Admin: 04/28/22 08:44 Dose: 10 mg Documented by: Dextrose (Dextrose 50% 50 Ml Syringe) 25 - 50 ml IV UD PRN; Protocol PRN Reason: Hypoglycemia Protocol Stop: 05/25/22 10:59 Docusate Sodium (Docusate Sodium 100 Mg Cap) 100 mg PO BID PRN PRN Reason: Constipation Stop: 05/08/22 00:58 Last Admin: 04/20/22 20:57 Dose: 100 mg Documented by: Docusate Sodium (Docusate Sodium 100 Mg Cap) 100 mg PO BID [facility] Stop: 05/26/22 08:59 Last Admin: 04/28/22 08:45 Dose: 100 mg Documented by: Doxepin HCl (Doxepin Hcl 10 Mg Capsule) 10 mg PO HS [facility] Stop: 05/08/22 20:59 Last Admin: 04/27/22 20:26 Dose: 10 mg Documented by: Gabapentin (Gabapentin 100 Mg Cap) 100 mg PO TID [facility] Stop: 05/09/22 15:54 Last Admin: 04/28/22 08:45 Dose: 100 mg Documented by: Glucagon (Glucagon For Inj 1 Mg Vial) 1 mg IM UD PRN; Protocol PRN Reason: Hypoglycemia Protocol Stop: 05/25/22 10:59 Glucose (Glucose 40% Gel 15 Gm Tube) 15 - 30 gm PO UD PRN; Protocol PRN Reason: Hypoglycemia Protocol Stop: 05/25/22 10:59 Glucose (Glucose 10 Tabs/Tube) 4 - 8 tabs PO UD PRN; Protocol PRN Reason: Hypoglycemia Protocol Stop: 05/25/22 10:59 Norepinephrine Bitartrate (Levophed/D5w) 4 mg in 250 mls @ 29.55 mls/hr IV .Q8H28M [facility]; Protocol Stop: 05/25/22 04:44 Last Admin: 04/28/22 15:29 Dose: Not Given Documented by: Levofloxacin/Dextrose (Levaquin/D5w) 750 mg in 150 mls @ 100 mls/hr IV Q24H [facility] Stop: 05/11/22 09:59 Last Admin: 04/28/22 11:18 Dose: 100 mls/hr Documented by: Insulin Aspart (Insulin Aspart Per Unit) 0 units SC ACHS [facility] Stop: 05/26/22 11:29 Last Admin: 04/28/22 11:30 Dose: Not Given Documented by: Lactobacillus Acidophilus (Advanced Probiotic 1250 Mg Capsule) 2 cap PO DAILY [facility] Stop: 05/28/22 08:59 Last Admin: 04/28/22 08:45 Dose: 2 cap Documented by: Levothyroxine Sodium (Levothyroxine Sodium 100 Mcg Tablet) 100 mcg PO DAILYBB [facility] Stop: 05/08/22 06:29 Last Admin: 04/28/22 06:23 Dose: 100 mcg Documented by: Miscellaneous (Carbohydrates For Hypoglycemia ) 15 - 30 gm PO UD PRN PRN Reason: Hypoglycemia Treatment Stop: 05/25/22 10:59 Montelukast Sodium (Montelukast Sodium 10 Mg Tablet) 10 mg PO HS [facility] Stop: 05/08/22 20:59 Last Admin: 04/27/22 20:26 Dose: 10 mg Documented by: Nystatin (Nystatin Powder 15gm Btl) 1 appln EXT TID [facility] Stop: 05/15/22 13:59 Last Admin: 04/28/22 15:28 Dose: Not Given Documented by: Ondansetron HCl (Ondansetron Inj 2 Mg/Ml 2 Ml Vial) 4 mg IV Q6H PRN PRN Reason: Nausea Stop: 05/08/22 00:58 Last Admin: 04/24/22 21:19 Dose: 4 mg Documented by: Pantoprazole Sodium (Pantoprazole 40 Mg Tab) 40 mg PO QAM [facility] Stop: 05/26/22 10:29 Last Admin: 04/28/22 10:13 Dose: 40 mg Documented by: Polyethylene Glycol (Polyethylene (Miralax) 17 Gm Pack) 17 gm PO DAILY PRN PRN Reason: Constipation Stop: 05/08/22 00:58 Last Admin: 04/20/22 20:58 Dose: 17 gm Documented by: Polyethylene Glycol (Polyethylene (Miralax) 17 Gm Pack) 17 gm PO DAILY [facility] Stop: 05/17/22 10:29 Last Admin: 04/28/22 08:49 Dose: Not Given Documented by: Ropinirole HCl (Ropinirole Hcl 1 Mg Tablet) 1 mg PO Q24H [facility] Stop: 05/08/22 17:59 Last Admin: 04/24/22 17:49 Dose: 1 mg Documented by: Sennosides (Senna 8.6 Mg Tab) 8.6 mg PO QAM [facility] Stop: 05/26/22 08:59 Last Admin: 04/28/22 08:49 Dose: Not Given Documented by:
[2022-04-28] MEDS: MONTELUKAST SODIUM 10 MG TABLET PO SCH (20:13)
[2022-04-28] MEDS: DOXEPIN HCL 10 MG CAPSULE PO SCH (20:13)
[2022-04-29] MEDS: ACETAMINOPHEN 325 MG TAB PO PRN ×2 (03:30→22:53)
[2022-04-29] MEDS: LEVOTHYROXINE SODIUM 100 MCG TABLET PO SCH (03:31)
[2022-04-29 06:41] LABS: Basophils # (auto) 0.02 K/uL (0-0.2); Basophils % (auto) 0.3 %; Eosinophils # (auto) 0.09 K/uL (0-0.5); Eosinophils % (auto) 1.3 %; Hematocrit (blood only) 30.5 % (37-47); Hemoglobin 9.7 g/dL (12.0-16.0); Immature Granulocytes # (auto) 0.26 K/uL (0.00-0.02); Immature Granulocytes % (auto) 3.7 %; Lymphocytes # (auto) 1.61 K/uL (1.2-3.4); Lymphocytes % (auto) 23.1 %; Mean Corpuscular Hemoglobin 29.1 pg (25-34); Mean Corpuscular Hgb Conc 31.8 g/dL (32-36); Mean Corpuscular Volume 91.6 fL (80-100); Mean Platelet Volume 10.8 fL (7.4-10.4); Monocytes # (auto) 0.57 K/uL (0.11-0.59); Monocytes % (auto) 8.2 %; Neutrophils # (auto) 4.42 K/uL (1.4-6.5); Neutrophils % (auto) 63.4 %; Platelet Count 185 K/uL (130-400); RDW Coefficient of Variation 14.3 % (11.5-14.5); RDW Standard Deviation 46.1 fL (36.4-46.3); Red Blood Count 3.33 M/uL (4.2-5.4); White Blood Count 6.97 K/uL (4.8-10.8)
[2022-04-29 08:00] LABS: Est GFR (African American) 63.2 ml/min; Potassium 4.4 mmol/L (3.5-5.1)
[2022-04-29 08:01] LABS: Albumin Globulin Ratio 1.1 (0.9-2); Albumin Level 2.9 gm/dl (3.4-5.0); BUN Creatinine Ratio 24.5 (10-20); Bilirubin,Total 0.4 mg/dl (0.2-1.0); Calcium 8.6 mg/dl (8.5-10.1); Creatinine Clr Calc Pharmacy 83.9 ml/min; Est GFR (Non-African American) 54.5 ml/min; Globulin 2.7 gm/dl (2.5-4.0); Total Protein 5.6 gm/dl (6.0-8.3)
--- NOTE | 2022-04-29 08:58 | Electrocardiogram Report ---
Test Reason : Blood Pressure : / mmHG Vent. Rate : 078 BPM Atrial Rate : 078 BPM P-R Int : 136 ms QRS Dur : 094 ms QT Int : 366 ms P-R-T Axes : 061 023 139 degrees QTc Int : 417 ms Poor data quality, interpretation may be adversely affected Sinus rhythm T wave abnormality, consider lateral ischemia Abnormal ECG When compared with ECG of 25-APR-2022 04:09, T wave inversion now evident in Lateral leads Confirmed by Spencer Acevedo ([id number]) on 04/29/2022 8:57:53 AM Referred By: REFERRED SELF Confirmed By:Spencer Acevedo
[2022-04-29] MEDS: INSULIN ASPART PER UNIT SC SCH ×4 (09:07→20:25)
[2022-04-29] MEDS: SENNA 8.6 MG TAB PO SCH (09:15)
[2022-04-29] MEDS: GABAPENTIN 100 MG CAP PO SCH ×3 (09:15→20:53)
[2022-04-29] MEDS: PANTOprazole 40 MG TAB PO SCH (09:15)
[2022-04-29] MEDS: ADVANCED PROBIOTIC 1250 MG CAPSULE PO SCH (09:15)
[2022-04-29] MEDS: DOCUSATE SODIUM 100 MG CAP PO SCH ×2 (09:15→20:51)
[2022-04-29] MEDS: BACLOFEN 10 MG TAB PO SCH ×3 (09:15→20:55)
[2022-04-29] MEDS: APIXABAN 5 MG TABLET PO SCH ×2 (09:16→20:52)
[2022-04-29] MEDS: NYSTATIN POWDER 15GM BTL EXT SCH ×3 (09:16→20:51)
[2022-04-29] MEDS: levoFLOXacin/D5W 750 MG/150 ML BAG IV SCH (09:17)
[2022-04-29] MEDS: POLYETHYLENE (MIRALAX) 17 GM PACK PO SCH (09:17)
--- NOTE | 2022-04-29 15:16 | Hospitalist Progress Note ---
Date of Service April 29, 2022 Assessment & Plan (1) Acute pulmonary embolism with acute cor pulmonale: (2) DVT, bilateral lower limbs: (3) Obstructive cardiovascular shock: (4) E coli bacteremia: (5) BREA (acute kidney injury): (6) PATTI (obstructive sleep apnea): Plan: 1. Acute pulmonary embolism with cor pulmonale with Obstructive shock 2. DVT, bilateral lower limbs: - 1st episode, from being sedentary and refusing chemoprophylaxis. - 04/18 CTA chest w/ extensive PE. 04/18 BLE US doppler positive for BLE DVT and was started on heparin drip, however she became hemodynamically unstable night of 04/24-04/25 with acute dyspnea, hypotension and significant lab abnormalities (lactate 2.5, WBC upto 34, procal upto 159 Cr upt o 2.4)--> requiring ICU transfer, 50 mg tPA administration, levophed, empiric IV ABx, IVF . - s/p tPA 04/25; 04/25 ECHO w/ EF 55-60%, severely dilated RV, severely reduced RV systolic fxn, flattened septum, severe pulmonary HTN. - trops, BNP, wbc, procal elevation on 04/25 likely 2/2 septic shock vs obs tructive shock in setting of massive PE - 04/[address] AP reviewed. 04/25 UA normal. - 04/26 RUQ US with no acute pathology - Started back on eliquis 10 mg bid until 05/03-> followed by 5 mg bid from 05/04 - She was empirically started on antibiotic (meropenem and vanco) 04/25-> Vanc discontinued 04/26-> switched to levaquin 04/27 -Off of levophed, remains hemodynamically stable, on room air and now transferred out of ICU 04/28 - Plan was to resume beta ayde low dose once remains stable off of pressors d/t risk for atrial arrhythmias- will resume low dose propranolol from [facility]. 3. Ecoli bacteremia 04/25 blood Cx: Pansensitive E coli 04/26 RUQ USG neg for acute pathology, 04/25 CTAP reviewed. 04/25 CTA chest: Subsegmental patchy groundglass opacities of the right greater than left upper lobes are suggestive of an infectious or inflammatory pneumonitis. On levaquin from 04/27 for total of 14 days , Qtc normal, renal function normalizing. Repeat blood culture 04/27 negative. WBC now normalized 9.3->20->34->26->15->8 Procal trending down 0.49->119->159->79->33 4. BREA (acute kidney injury): Baseline Cr 0.8; Cr peaked to 2.43 and now trending down to 1.3 Cr trend: 0.9->2->2.4->2.3->1.7->1.3->1.1 5. Transaminitis: 2/2 hypoperfusion event (04/24-04/25), now resolved. 6. Intractable back pain/ Intervertebral disc extrusion: As seen on lumbar MRI 03/24. Per ortho spine evaluation during last admission she is not a surgical candidate at this time. Continue PT/OT and conservative pain management. Weakness and proprioception issues noted with her right leg and foot, however, she is not a good candidate for surgery per Ortho spine last admission. Continue conservative management. Doing well on current pain regimen. Pain management saw her and added Medrol dosepak, trial of baclofen and will continue titrating gabapentin as needed. Currently she is doing well on the muscle relaxer which she likes the most. Will continue with current regimen. C/w bowel regimen per patient's need. 7. Chronic radicular pain of lower back: Patient is not on narcotics at baseline. 8. Depression- on TCA/doxepin 9. ADHD- on Vyvanse in a.m. with additional dextroamphetamine every afternoon- resume when she brings from home. 10. RLS on ropinirole 11. hypothyroidism- on synthroid 12. Morbid obesity- BMI 57.3. lifestyle modifications strongly recommended to help strengthen her core and reduce the chance of further back injury. 13. PATTI on CPAP DVT ppx- fully anticoagulated on eliquis Dispo- stable. needs placement. Might need PT/OT reevaluation- will follow up with CM Admission and Anticipated Discharge Date Admission Date: April 07, 2022 Subjective Denies any issues. She feels fine and ready to get discharged. Denies any chest pain, shortness of breath, fever, chills. Pain is improved. Had BM today. Asking when her legs would be less swollen and back to normal. Physical Exam Physical Exam: General: Morbidly obese, lying comfortably in bed, not in acute distress, on room air saturating well HEENT: EOMI, GI, MMM Chest: Fair breath sounds anteriorly CVS: Regular rate and rhythm, normal heart sounds, no murmur Abdomen: Soft, non tender, not distended, normal bowel sounds Neuro: Awake, alert, oriented, conversing well, non focal Extremities: No cyanosis, clubbing. RLE swollen compared to the left Results & Data Results & Data ([facility]) Vital Signs (Past 12 Hours) Vital Signs Temp Pulse Pulse Resp BP BP Pulse Ox 04/29/22 11:46 36.8 C 78 18 120/72 95 04/29/22 07:44 36.7 C 78 18 131/66 94 04/29/22 03:47 36.5 C 106 H 18 132/90 90 Laboratory Results Short CBC 04/29/22 Range/Units 05:17 WBC 6.97 (4.8-10.8) K/uL Hgb 9.7 L (12.0-16.0) g/dL Hct 30.5 L (37-47) % Plt Count 185 (130-400) K/uL BMP 04/29/22 04/29/22 05:17 07:29 Sodium Cancelled 145 Potassium Cancelled 4.4 Chloride Cancelled 111 H Carbon Dioxide Cancelled 28 BUN Cancelled 27 H Creatinine Cancelled 1.10 Glucose Cancelled 108 H Calcium Cancelled 8.6 Liver Function 04/29/22 04/29/22 Range/Units 05:17 07:29 Total Bilirubin Cancelled 0.4 AST Cancelled 21 ALT Cancelled 31 Alkaline Phosphatase Cancelled 122 H Albumin Cancelled 2.9 L Medications Administered Current Inpatient Medications Acetaminophen (Acetaminophen 325 Mg Tab) 650 mg PO Q4H PRN PRN Reason: pain/fever Stop: 05/08/22 00:58 Last Admin: 04/29/22 03:30 Dose: 650 mg Documented by: Apixaban (Apixaban 5 Mg Tablet) 10 mg PO BID [facility] Stop: 05/03/22 21:01 Last Admin: 04/29/22 09:16 Dose: 10 mg Documented by: Apixaban (Apixaban 5 Mg Tablet) 5 mg PO BID LOS Stop: 06/03/22 08:59 Baclofen (Baclofen 10 Mg Tab) 10 mg PO TID [facility] Stop: 05/11/22 13:59 Last Admin: 04/29/22 09:15 Dose: 10 mg Documented by: Dextrose (Dextrose 50% 50 Ml Syringe) 25 - 50 ml IV UD PRN; Protocol PRN Reason: Hypoglycemia Protocol Stop: 05/25/22 10:59 Docusate Sodium (Docusate Sodium 100 Mg Cap) 100 mg PO BID PRN PRN Reason: Constipation Stop: 05/08/22 00:58 Last Admin: 04/20/22 20:57 Dose: 100 mg Documented by: Docusate Sodium (Docusate Sodium 100 Mg Cap) 100 mg PO BID LOS Stop: 05/26/22 08:59 Last Admin: 04/29/22 09:15 Dose: 100 mg Documented by: Doxepin HCl (Doxepin Hcl 10 Mg Capsule) 10 mg PO HS [facility] Stop: 05/08/22 20:59 Last Admin: 04/28/22 20:13 Dose: 10 mg Documented by: Gabapentin (Gabapentin 100 Mg Cap) 100 mg PO TID LOS Stop: 05/09/22 15:54 Last Admin: 04/29/22 09:15 Dose: 100 mg Documented by: Glucagon (Glucagon For Inj 1 Mg Vial) 1 mg IM UD PRN; Protocol PRN Reason: Hypoglycemia Protocol Stop: 05/25/22 10:59 Glucose (Glucose 40% Gel 15 Gm Tube) 15 - 30 gm PO UD PRN; Protocol PRN Reason: Hypoglycemia Protocol Stop: 05/25/22 10:59 Glucose (Glucose 10 Tabs/Tube) 4 - 8 tabs PO UD PRN; Protocol PRN Reason: Hypoglycemia Protocol Stop: 05/25/22 10:59 Levofloxacin/Dextrose (Levaquin/D5w) 750 mg in 150 mls @ 100 mls/hr IV Q24H LOS Stop: 05/11/22 09:59 Last Infusion: 04/29/22 10:50 Dose: Infused Documented by: Insulin Aspart (Insulin Aspart Per Unit) 0 units SC ACHS LOS Stop: 05/26/22 11:29 Last Admin: 04/29/22 12:02 Dose: Not Given Documented by: Lactobacillus Acidophilus (Advanced Probiotic 1250 Mg Capsule) 2 cap PO DAILY LOS Stop: 05/28/22 08:59 Last Admin: 04/29/22 09:15 Dose: 2 cap Documented by: Levothyroxine Sodium (Levothyroxine Sodium 100 Mcg Tablet) 100 mcg PO DAILYBB [facility] Stop: 05/08/22 06:29 Last Admin: 04/29/22 03:31 Dose: 100 mcg Documented by: Miscellaneous (Carbohydrates For Hypoglycemia ) 15 - 30 gm PO UD PRN PRN Reason: Hypoglycemia Treatment Stop: 05/25/22 10:59 Montelukast Sodium (Montelukast Sodium 10 Mg Tablet) 10 mg PO HS [facility] Stop: 05/08/22 20:59 Last Admin: 04/28/22 20:13 Dose: 10 mg Documented by: Nystatin (Nystatin Powder 15gm Btl) 1 appln EXT TID [facility] Stop: 05/15/22 13:59 Last Admin: 04/29/22 12:56 Dose: Not Given Documented by: Ondansetron HCl (Ondansetron Inj 2 Mg/Ml 2 Ml Vial) 4 mg IV Q6H PRN PRN Reason: Nausea Stop: 05/08/22 00:58 Last Admin: 04/24/22 21:19 Dose: 4 mg Documented by: Pantoprazole Sodium (Pantoprazole 40 Mg Tab) 40 mg PO QAM [facility] Stop: 05/26/22 10:29 Last Admin: 04/29/22 09:15 Dose: 40 mg Documented by: Polyethylene Glycol (Polyethylene (Miralax) 17 Gm Pack) 17 gm PO DAILY PRN PRN Reason: Constipation Stop: 05/08/22 00:58 Last Admin: 04/20/22 20:58 Dose: 17 gm Documented by: Polyethylene Glycol (Polyethylene (Miralax) 17 Gm Pack) 17 gm PO DAILY [facility] Stop: 05/17/22 10:29 Last Admin: 04/29/22 09:17 Dose: 17 gm Documented by: Ropinirole HCl (Ropinirole Hcl 1 Mg Tablet) 1 mg PO Q24H [facility] Stop: 05/08/22 17:59 Last Admin: 04/24/22 17:49 Dose: 1 mg Documented by: Sennosides (Senna 8.6 Mg Tab) 8.6 mg PO QAM [facility] Stop: 05/26/22 08:59 Last Admin: 04/29/22 09:15 Dose: 8.6 mg Documented by:
[2022-04-29] MEDS: rOPINIRole HCL 1 MG TABLET PO SCH (16:42)
[2022-04-29] MEDS: MONTELUKAST SODIUM 10 MG TABLET PO SCH (20:51)
[2022-04-29] MEDS: DOXEPIN HCL 10 MG CAPSULE PO SCH (20:52)
[2022-04-29] MEDS: PROPRANOLOL HCL 10 MG TAB PO SCH (20:52)
[2022-04-30] MEDS: LEVOTHYROXINE SODIUM 100 MCG TABLET PO SCH (06:08)
[2022-04-30 07:43] LABS: Hematocrit (blood only) 30.5 % (37-47); Hemoglobin 9.7 g/dL (12.0-16.0); Mean Corpuscular Hemoglobin 28.8 pg (25-34); Mean Corpuscular Hgb Conc 31.8 g/dL (32-36); Mean Corpuscular Volume 90.5 fL (80-100); Mean Platelet Volume 9.8 fL (7.4-10.4); Platelet Count 164 K/uL (130-400); RDW Standard Deviation 45.8 fL (36.4-46.3); Red Blood Count 3.37 M/uL (4.2-5.4); White Blood Count 7.57 K/uL (4.8-10.8)
[2022-04-30 07:55] LABS: Albumin Globulin Ratio 1.1 (0.9-2); BUN Creatinine Ratio 23.8 (10-20); Bilirubin,Total 0.4 mg/dl (0.2-1.0); Calcium 8.7 mg/dl (8.5-10.1); Creatinine Clr Calc Pharmacy 87.2 ml/min; Est GFR (African American) 66.9 ml/min; Est GFR (Non-African American) 57.7 ml/min; Globulin 2.7 gm/dl (2.5-4.0); Potassium 4.4 mmol/L (3.5-5.1); Total Protein 5.7 gm/dl (6.0-8.3)
[2022-04-30 08:09] LABS: Basophils # (auto) 0.03 K/uL (0-0.2); Basophils % (auto) 0.4 %; Eosinophils # (auto) 0.12 K/uL (0-0.5); Eosinophils % (auto) 1.6 %; Immature Granulocytes # (auto) 0.57 K/uL (0.00-0.02); Immature Granulocytes % (auto) 7.5 %; Lymphocytes # (auto) 2.14 K/uL (1.2-3.4); Lymphocytes % (auto) 28.3 %; Monocytes # (auto) 0.47 K/uL (0.11-0.59); Monocytes % (auto) 6.2 %; Neutrophils # (auto) 4.24 K/uL (1.4-6.5)
[2022-04-30] MEDS: INSULIN ASPART PER UNIT SC SCH (08:34)
[2022-04-30] MEDS: ADVANCED PROBIOTIC 1250 MG CAPSULE PO SCH (08:35)
[2022-04-30] MEDS: SENNA 8.6 MG TAB PO SCH (08:35)
[2022-04-30] MEDS: APIXABAN 5 MG TABLET PO SCH (08:35)
[2022-04-30] MEDS: PROPRANOLOL HCL 10 MG TAB PO SCH (08:35)
[2022-04-30] MEDS: GABAPENTIN 100 MG CAP PO SCH (08:35)
[2022-04-30] MEDS: PANTOprazole 40 MG TAB PO SCH (08:35)
[2022-04-30] MEDS: BACLOFEN 10 MG TAB PO SCH (08:38)
[2022-04-30] MEDS: DOCUSATE SODIUM 100 MG CAP PO SCH (08:38)
[2022-04-30] MEDS: NYSTATIN POWDER 15GM BTL EXT SCH (08:39)
[2022-04-30] MEDS: POLYETHYLENE (MIRALAX) 17 GM PACK PO SCH (08:39)
--- NOTE | 2022-04-30 10:46 | Discharge Summary ---
Date of Service April 30, 2022 Admission HPI Per Admitting Provider This is a 61-year-old female with past medical history significant for hypothyroidism, prediabetes, asthma, morbid obesity, obstructive sleep apnea, vitamin D deficiency, psoriasiform dermatitis, restless legs syndrome, history of periodic headache syndrome, depression, generalized anxiety disorder, presents with severe back pain and ambulatory dysfunction. The patient was recently in the hospital, was admitted on 03/25/2022 with severe back pain. An MRI showed left paracentral disk extrusion at L3-L4 causing severe central canal stenosis with severe narrowing of the lateral recess. Was given steroids, and evaluated by Orthopedics and recommended rehab, but the patient was not interested and she was discharged home, but later she came to the ER again, and next day she went to rehab and she was discharged home yesterday. Today, she is saying she could not get up from the bed and ambulate.When with difficulty she gets up, she will have severe pain, after sometime she could ambulate. Because of not able to get up from the bed and severe pain, she came to the ER and we were called for admission for pain control, PT, OT, and possible rehab placement again. The patient has some headache because she did not eat anything today. Denies any blurred visions, no earache, no runny nose, no sore throat, no cough. No nausea. No chest pain, no shortness of breath, no abdominal pain. Normal bowel and bladder movements. No swelling in the legs, hemodynamically stable. Admission Exam Per Admitting Provider GENERAL: The patient is morbidly obese, not in acute distress. VITAL SIGNS: Temperature 36.8, pulse 61, respiratory rate 17, blood pressure 124/72, oxygen 95% on room air. HEENT: Pupils equal, round and reactive to light. Oral mucosa moist. NECK: No JVD, no neck masses. CARDIOVASCULAR: S1 and S2 heard. Regular rate and rhythm. No murmur, no gallop. RESPIRATORY SYSTEM: Normal AP diameter. No accessory muscle use. No wheezing, no crackles. ABDOMEN: Soft, bowel sounds present, nontender, no distention. CENTRAL NERVOUS SYSTEM: Cranial nerves II-XII grossly intact, nonfocal. EXTREMITIES: No edema. No erythema. MUSCULOSKELETAL: Bilateral straight leg test is positive, more on the right leg. Principal Diagnosis Acute pulmonary embolism with cor pulmonale with obstructive shock vs septic shock, E coli bacteremia, acute DVT bilateral lower extremities, intractable back pain Discharge Exam General: Morbidly obese, lying comfortably in bed, not in acute distress, on room air saturating well HEENT: EOMI, GI, MMM Chest: Fair breath sounds anteriorly CVS: Regular rate and rhythm, normal heart sounds, no murmur Abdomen: Soft, non tender, not distended, normal bowel sounds Neuro: Awake, alert, oriented, conversing well, non focal Extremities: No cyanosis, clubbing. RLE swollen compared to the left Discharge Data Allergies Allergy/AdvReac Type Severity Reaction Status Date / Time amoxicillin Allergy Severe throat Unverified 04/26/22 08:07 swells Penicillins Allergy Intermediate Rash Unverified 04/07/22 21:12 sodium chloride Allergy Intermediate Swelling Unverified 04/07/22 21:12 [From [place] Nasal] of Lip/Tongue/Throat shellfish derived Allergy Mild Migraine Unverified 04/07/22 21:12 aspirin Allergy Unknown Unknown Unverified 04/07/22 21:12 NSAIDS (Non-Steroidal Allergy vomiting Unverified 03/24/22 21:54 Anti-Inflamma diphenhydramine AdvReac Severe hyperactivi Verified 03/24/22 21:54 [From Benadryl] ty Consultations 04/07/22 23:30 ED Decision to Admit Stat 04/10/22 09:17 Consult Pain Management Routine 04/10/22 10:46 Consult Psychiatry Routine 04/25/22 05:30 Consult Emission Specialist Routine 04/25/22 07:30 Consult Cardiology Routine Ordered Studies 04/18/22 10:39 US venous doppler LE BI Urgent 04/18/22 13:42 CT angio chest PE protocol Urgent 04/25/22 04:35 CT angio chest PE protocol Stat 04/25/22 05:18 CT abd pelvis IV con only Stat 04/26/22 07:40 US liver Routine Laboratory Results WBC 7.57 K/uL (4.8-10.8) 04/30/22 07:09 RBC 3.37 M/uL (4.2-5.4) L 04/30/22 07:09 Hgb 9.7 g/dL (12.0-16.0) L 04/30/22 07:09 POC Hgb 9.2 g/dl (12.0-16.0) L 04/25/22 04:57 Hct 30.5 % (37-47) L 04/30/22 07:09 POC Hct 27 % (37-47) L 04/25/22 04:57 MCV 90.5 fL (80-100) 04/30/22 07:09 MCH 28.8 pg (25-34) 04/30/22 07:09 MCHC 31.8 g/dL (32-36) L 04/30/22 07:09 RDW Std Deviation 45.8 fL (36.4-46.3) 04/30/22 07:09 RDW Coeff of Alexy 14.0 % (11.5-14.5) 04/30/22 07:09 Plt Count 164 K/uL (130-400) 04/30/22 07:09 MPV 9.8 fL (7.4-10.4) 04/30/22 07:09 Immature Gran % (Auto) 7.5 % 04/30/22 07:09 Neut % (Auto) 56.0 % 04/30/22 07:09 Lymph % (Auto) 28.3 % 04/30/22 07:09 [place] % (Auto) 6.2 % 04/30/22 07:09 Eos % (Auto) 1.6 % 04/30/22 07:09 Baso % (Auto) 0.4 % 04/30/22 07:09 Neut # (Auto) 4.24 K/uL (1.4-6.5) 04/30/22 07:09 Lymph # (Auto) 2.14 K/uL (1.2-3.4) 04/30/22 07:09 [place] # (Auto) 0.47 K/uL (0.11-0.59) 04/30/22 07:09 Eos # (Auto) 0.12 K/uL (0-0.5) 04/30/22 07:09 Baso # (Auto) 0.03 K/uL (0-0.2) 04/30/22 07:09 Immature Gran # (Auto) 0.57 K/uL (0.00-0.02) H 04/30/22 07:09 Absolute Nucleated RBC 0.33 K/uL (0-0) H 04/25/22 09:15 Nucleated RBC % (auto) 1.0 % 04/25/22 09:15 Neutrophils % (Manual) 94.9 % 04/25/22 04:25 Lymphocytes % (Manual) 5.1 % 04/25/22 04:25 Monocytes % (Manual) 2.6 % 04/11/22 07:13 Eosinophils % (Manual) 4.3 % 04/11/22 07:13 Neutrophils # (Manual) 19.50 K/uL (1.4-6.5) H 04/25/22 04:25 Total Absolute Neuts 19.50 K/uL (1.4-6.5) H 04/25/22 04:25 Lymphocytes # (Manual) 1.05 K/uL (1.2-3.4) L 04/25/22 04:25 Total Abs Lymphocytes 1.05 K/uL (1.2-3.4) L 04/25/22 04:25 Monocytes # (Manual) 0.20 K/uL (0.11-0.59) 04/11/22 07:13 Eosinophils # (Manual) 0.33 K/uL (0-0.5) 04/11/22 07:13 Toxic Vacuolation 1+ 04/25/22 04:25 Platelet Estimate Decreased (Normal) L 04/09/22 17:37 Polychromasia 1+ 04/26/22 05:11 PT 12.4 Seconds (9.0-12.0) H 04/18/22 23:34 INR 1.2 (0.9-1.1) H 04/18/22 23:34 APTT 32.8 Seconds (21.0-31.0) H 04/28/22 05:06 PTT Ratio 1.2 04/28/22 05:06 Sample Site Art Line 04/25/22 04:57 POC pH 7.48 (7.35-7.45) H 04/25/22 04:57 POC pCO2 38 mmHg (35-46) 04/25/22 04:57 POC pO2 > 420 mmHg (80-95) H 04/25/22 04:57 POC HCO3 29 mina/L (19-24) H 04/25/22 04:57 POC Total CO2 30 mmol/L (24-31) 04/25/22 04:57 POC Base Excess 5.0 mina/L (-9-1.8) H 04/25/22 04:57 ABG pH (Temp Correct) 7.481 (7.35-7.45) H 04/25/22 04:57 ABG pCO2 (Temp Corrct 38 mmHg (35-46) 04/25/22 04:57 POC ABG pO2 at Pt Temp 478 04/25/22 04:57 POC ABG O2 Sat 100.0 % (90-95) H 04/25/22 04:57 Santi Test NA 04/25/22 04:57 O2 Delivery Device BIPAP 04/25/22 04:57 POC O2 Rate 10 04/25/22 04:57 POC FiO2 100 % 04/25/22 04:57 IPAP 12 04/25/22 04:57 POC Sodium 133 mmol/L (135-144) L 04/25/22 04:57 Sodium 141 mmol/L (136-145) 04/30/22 07:09 POC Potassium 4.2 mmol/L (3.3-5.0) 04/25/22 04:57 Potassium 4.4 mmol/L (3.5-5.1) 04/30/22 07:09 Chloride 108 mmol/L (98-107) H 04/30/22 07:09 Carbon Dioxide 27 mmol/L (21-32) 04/30/22 07:09 Anion Gap 6 (3-11) 04/30/22 07:09 BUN 25 mg/dl (6-23) H 04/30/22 07:09 Creatinine 1.05 mg/dl (0.6-1.2) 04/30/22 07:09 Est Cr Clr Drug Dosing 87.2 ml/min 04/30/22 07:09 Est GFR ( Amer) 66.9 ml/min 04/30/22 07:09 Est GFR (Non-Af Amer) 57.7 ml/min 04/30/22 07:09 BUN/Creatinine Ratio 23.8 (10-20) H 04/30/22 07:09 Glucose 112 mg/dl (70-99(Fasting)) H 04/30/22 07:09 POC Glucose 121 mg/dl (70-99) H 04/30/22 07:18 Lactate 0.7 mmol/L (0.4-2.0) 04/27/22 05:31 Calcium 8.7 mg/dl (8.5-10.1) 04/30/22 07:09 Phosphorus 3.6 mg/dl (2.5-4.9) 04/28/22 05:06 Magnesium 2.0 mg/dl (1.7-2.4) 04/28/22 05:06 Total Bilirubin 0.4 mg/dl (0.2-1.0) 04/30/22 07:09 Direct Bilirubin 0.1 mg/dl (0-0.2) 04/26/22 05:11 AST 28 U/L (13-39) 04/30/22 07:09 ALT 29 U/L (7-52) 04/30/22 07:09 Alkaline Phosphatase 113 U/L (34-104) H 04/30/22 07:09 Troponin I High Sens 82.8 pg/ml (0-14) H* D 04/25/22 18:32 B-Natriuretic Peptide 494 pg/ml (0-100) H 04/26/22 05:11 Total Protein 5.7 gm/dl (6.0-8.3) L 04/30/22 07:09 Albumin 3.0 gm/dl (3.4-5.0) L 04/30/22 07:09 Globulin 2.7 gm/dl (2.5-4.0) 04/30/22 07:09 Albumin/Globulin Ratio 1.1 (0.9-2) 04/30/22 07:09 Serotonin Release Assay 04/08/22 05:21 Procalcitonin 33.27 ng/ml (0-0.5) H 04/28/22 05:06 Urine Color Yellow 04/25/22 05:53 Urine Appearance Clear (Clear) 04/25/22 05:53 Urine pH 5.0 (4.5-7.5) 04/25/22 05:53 Ur Specific [place] 1.010 (1.000-1.030) 04/25/22 05:53 Urine Protein Negative (Negative) 04/25/22 05:53 Urine Glucose (UA) Negative (Negative) 04/25/22 05:53 Urine Ketones Negative (Negative) 04/25/22 05:53 Urine Blood Negative (Negative) 04/25/22 05:53 Urine Nitrite Negative (Negative) 04/25/22 05:53 Urine Bilirubin Negative (Negative) 04/25/22 05:53 Urine Urobilinogen Negative (Negative) 04/25/22 05:53 Ur Leukocyte Esterase Negative (Negative) 04/25/22 05:53 Urine WBC (Auto) 5-10 /hpf (0-5) H 04/08/22 04:17 Urine RBC (Auto) 5-10 /hpf (0-4) H 04/08/22 04:17 U Hyaline Cast (Auto) 1-5 /lpf (0-5) 04/08/22 04:17 U Epithel Cells (Auto) >30 /lpf (0-5) H 04/08/22 04:17 Urine Bacteria (Auto) Negative (Negative) 04/08/22 04:17 Urine Yeast Not Reportable 04/08/22 04:17 Nasal Screen MRSA (PCR) Negative (Negative) 04/25/22 07:15 Random Vancomycin 14.7 mcg/ml (10-20) 04/26/22 05:11 Heparin Depend Plt Ab 04/08/22 05:21 Heparin Dep Plt Ab React Negative (Negative) 04/08/22 05:21 Heparin Dep Plt Ab OD 0.091 OD UNITS 04/08/22 05:21 Adenovirus (PCR) Not Detected (NotDetected) 04/25/22 06:09 B. pertussis DNA (PCR) Not Detected (NotDetected) 04/25/22 06:09 B.parapertussis DNA PCR Not Detected (NotDetected) 04/25/22 06:09 C. pneumoniae DNA (PCR) Not Detected (NotDetected) 04/25/22 06:09 Coronavirus OC43 (PCR) Not Detected (NotDetected) 04/25/22 06:09 Coronavirus HKU1 (PCR) Not Detected (NotDetected) 04/25/22 06:09 Coronavirus 229E (PCR) Not Detected (NotDetected) 04/25/22 06:09 SARS-CoV-2 (PCR) Not Detected (NotDetected) 04/25/22 06:09 Coronavirus NL63 (PCR) Not Detected (NotDetected) 04/25/22 06:09 Human Metapneumovir PCR Not Detected (NotDetected) 04/25/22 06:09 Influenza Type A (PCR) Not Detected (NotDetected) 04/25/22 06:09 Influenza Type B (PCR) Not Detected (NotDetected) 04/25/22 06:09 M. pneumoniae (PCR) Not Detected (NotDetected) 04/25/22 06:09 Parainfluenza 1 (PCR) Not Detected (NotDetected) 04/25/22 06:09 Parainfluenza 2 (PCR) Not Detected (NotDetected) 04/25/22 06:09 Parainfluenza 3 (PCR) Not Detected (NotDetected) 04/25/22 06:09 Parainfluenza 4 (PCR) Not Detected (NotDetected) 04/25/22 06:09 RSV (PCR) Not Detected (NotDetected) 04/25/22 06:09 Entero/Rhino (PCR) Not Detected (NotDetected) 04/25/22 06:09 SARS-CoV-2, RNA, NAAT NEGATIVE (NEGATIVE) 04/30/22 10:15 Blood Type B Positive 04/25/22 05:38 Blood Type Recheck B Positive 04/25/22 09:15 Antibody Screen NEGATIVE 04/25/22 05:38 Crossmatch See Detail 04/25/22 05:38 Impressions Venous Doppler Study 04/18/22 10:39 BILATERAL LOWER EXTREMITY VENOUS DOPPLER HISTORY: Bilateral leg swelling, r/o DVT COMPARISON STUDY: None. FINDINGS: Occlusive thrombus involving the right common femoral, superficial femoral, popliteal, deep femoral veins. There is also occlusive thrombus within the right greater saphenous vein. The right calf vessels appear patent. There is also near occlusive thrombus seen within the left superficial femoral and popliteal veins. The left calf vessels and left common femoral vein appear patent. IMPRESSION: Bilateral lower extremity DVT as described above, right greater than left. ACT 112: Negative or not required by law. Electronically signed by: Benton Starkey M.D. 04/18/2022 1:35 PM Chest CTA 04/25/22 04:35 CT angio chest PE protocol, CT abd pelvis IV con only HISTORY: 61 years-old Female with PE. Acute chest pain with shortness of breath TECHNIQUE: Multiple CTA images of the chest were obtained after the intravenous administration of 120 ml Optiray. Coronal and sagittal MIPS were obtained from the axial data set and were submitted for review. CT abdomen and pelvis with IV contrast was also obtained. All measurements were obtained according to NASCET criteria. A dose lowering technique was utilized adhering to the principles of ALARA. COMPARISON: CTA chest 04/18/2022 FINDINGS: CTA: Limited study secondary to contrast bolus timing and respiratory motion a rtifact. Mild cardiomegaly. No pericardial effusion. No thoracic aortic aneurysm or dissection identified. Extensive pulmonary and bladder redemonstrated involving the main, lobar, segmental and subsegmental branches bilaterally. There is resolution of the previously described saddle pulmonary embolus. Dilated right heart chambers redemonstrated. Mild coronary artery calcifications. CT CHEST: Calcifications of the left thyroid with probable 1.4 cm left thyroid nodule. Mildly prominent mediastinal lymph nodes are likely reactive. No pneumothorax or pleural effusion. Mild patchy groundglass opacities of the right greater than left upper lobes. Opacities of the left lower lobe including a 2.8 x 4.4 cm wedge-shaped subpleural consolidation of the posterior basal segment on image 109. Small tracheocele. Central airways are patent. Unremarkable soft tissues. Degenerative changes of the shoulders and spine. Degenerative loose bodies are noted within the bilateral shoulders. CT ABDOMEN/PELVIS: Study is limited secondary to patient body habitus and respiratory motion artifact. No pneumatosis or pneumoperitoneum. Unremarkable spleen, pancreas and adrenal glands. There is equivocal gallbladder wall thickening with partial distention of the gallbladder. Unremarkable liver. Nonspecific bilateral perinephric stranding. There are a few hypodensities of the kidneys suggestive of cysts measuring up to 5.5 cm on the left. No urolith or hydronephrosis. Decompressed urinary bladder with Anthony catheter in place. Air is noted within the urinary bladder lumen, likely secondary to instrume ntation. Unremarkable appearance of uterus and adnexa. No abdominal aortic aneurysm. Right femoral DVT redemonstrated. There is no lymphadenopathy. No bowel obstruction or bowel wall thickening. There is mild fecal retention. Normal appendix. Tiny fat filled periumbilical hernia. Unremarkable soft tissues. Degenerative changes of the spine, pelvis and hips. Multilevel central canal and neuroforaminal narrowing of the lumbar spine. Transitional lumbosacral anatomy. IMPRESSION: 1. Extensive pulmonary emboli are redemonstrated with resolution of the previously described saddle embolus seen on the 04/18/2022 study. Additionally, there is evidence of associated right heart strain. 2. Progression of the basal left lower lobe pulmonary infarct. 3. Subsegmental patchy groundglass opacities of the right greater than left upper lobes are suggestive of an infectious or inflammatory pneumonitis. 4. Right femoral DVT redemonstrated. 5. No bowel obstruction or bowel wall thickening. 6. Additional findings as above. ACT 112: Negative or not required by law. The above report was generated using voice recognition software. It may contain grammatical, syntax or spelling errors. Electronically signed by: Dain Rosenthal M.D. 04/25/2022 7:56 AM Abdomen/Pelvis CT 04/25/22 05:18 CT angio chest PE protocol, CT abd pelvis IV con only HISTORY: 61 years-old Female with PE. Acute chest pain with shortness of breath TECHNIQUE: Multiple CTA images of the chest were obtained after the intravenous administration of 120 ml Optiray. Coronal and sagittal MIPS were obtained from the axial data set and were submitted for review. CT abdomen and pelvis with IV contrast was also obtained. All measurements were obtained according to NASCET criteria. A dose lowering technique was utilized adhering to the principles of ALARA. COMPARISON: CTA chest 04/18/2022 FINDINGS: CTA: Limited study secondary to contrast bolus timing and respiratory motion artifact. Mild cardiomegaly. No pericardial effusion. No thoracic aortic aneurysm or dissection identified. Extensive pulmonary and bladder redemonstrated involving the main, lobar, segmental and subsegmental branches bilaterally. There is resolution of the previously described saddle pulmonary embolus. Dilated right heart chambers redemonstrated. Mild coronary artery calcifications. CT CHEST: Calcifications of the left thyroid with probable 1.4 cm left thyroid nodule. Mildly prominent mediastinal lymph nodes are likely reactive. No pneumothorax or pleural effusion. Mild patchy groundglass opacities of the right greater than left upper lobes. Opacities of the left lower lobe including a 2.8 x 4.4 cm wedge-shaped subpleural consolidation of the posterior basal segment on image 109. Small tracheocele. Central airways are patent. Unremarkable soft tissues. Degenerative changes of the shoulders and spine. Degenerative loose bodies are noted within the bilateral shoulders. CT ABDOMEN/PELVIS: Study is limited secondary to patient body habitus and respiratory motion artifact. No pneumatosis or pneumoperitoneum. Unremarkable spleen, pancreas and adrenal glands. There is equivocal gallbladder wall thickening with partial distention of the gallbladder. Unremarkable liver. Nonspecific bilateral perinephric stranding. There are a few hypodensities of the kidneys suggestive of cysts measuring up to 5.5 cm on the left. No urolith or hydronephrosis. Decompressed urinary bladder with Anthony catheter in place. Air is noted within the urinary bladder lumen, likely secondary to instrumentation. Unremarkable appearance of uterus and adnexa. No abdominal aortic aneurysm. Right femoral DVT redemonstrated. There is no lymphadenopathy. No bowel obstruction or bowel wall thickening. There is mild fecal retention. Normal appendix. Tiny fat filled periumbilical hernia. Unremarkable soft tissues. Degenerative changes of the spine, pelvis and hips. Multilevel central canal and neuroforaminal narrowing of the lumbar spine. Transitional lumbosacral anatomy. IMPRESSION: 1. Extensive pulmonary emboli are redemonstrated with resolution of the previously described saddle embolus seen on the 04/18/2022 study. Additionally, there is evidence of associated right heart strain. 2. Progression of the basal left lower lobe pulmonary infarct. 3. Subsegmental patchy groundglass opacities of the right greater than left upper lobes are suggestive of an infectious or inflammatory pneumonitis. 4. Right femoral DVT redemonstrated. 5. No bowel obstruction or bowel wall thickening. 6. Additional findings as above. ACT 112: Negative or not required by law. The above report was generated using voice recognition software. It may contain grammatical, syntax or spelling errors. Electronically signed by: Dain Rosenthal M.D. 04/25/2022 7:56 AM Liver Ultrasound 04/26/22 07:40 US liver LIMITED ABDOMEN CLINICAL HISTORY: Abdominal pain. COMPARISON: CT of the abdomen and pelvis from 04/25/2022 TECHNIQUE: Multiple grayscale and color images of the right upper quadrant of the abdomen. FINDINGS: The study is limited by patient body habitus and overlying bowel gas. Pancreas: The imaged portion of the pancreas is within normal limits with no focal mass or peripancreatic fluid collection identified. Liver: The liver is homogeneous in echogenicity There is no evidence for a focal mass. There is no intrahepatic biliary duct dilatation. Gallbladder: The gallbladder is well distended with no evidence of cholelith iasis, wall thickening or pericholecystic edema. Common Bile Duct: (CBD): It is normal in size measuring 5 mm. Inferior Vena Cava (IVC): The imaged IVC is patent. Right kidney: There is no evidence for hydronephrosis, calculus or gross renal mass. There is evidence for a sharply defined cyst measuring 3.8 cm. No further follow-up is necessary for this benign finding. The kidney is normal in size. IMPRESSION: 1. Essentially negative limited right upper quadrant abdominal ultrasound. ACT 112: Negative or not required by law. Electronically signed by: Frankie Perez M.D. 04/26/2022 9:37 AM Hospital Course (1) Acute pulmonary embolism with acute cor pulmonale: (2) DVT, bilateral lower limbs: (3) Obstructive cardiovascular shock: (4) E coli bacteremia: (5) BREA (acute kidney injury): (6) PATTI (obstructive sleep apnea): 1. Acute pulmonary embolism with cor pulmonale with Obstructive shock 2. DVT, bilateral lower limbs: - 1st episode, from being sedentary and refusing chemoprophylaxis. - 04/18 CTA chest w/ extensive PE. 04/18 BLE US doppler positive for BLE DVT and was started on heparin drip, however she became hemodynamically unstable night of 04/24-04/25 with acute dyspnea, hypotension and significant lab abnormalities (lactate 2.5, WBC upto 34, procal upto 159 Cr upt o 2.4)--> requiring ICU transfer, 50 mg tPA administration, levophed, empiric IV ABx, IVF . - s/p tPA 04/25; 04/25 ECHO w/ EF 55-60%, severely dilated RV, severely reduced RV systolic fxn, flattened septum, severe pulmonary HTN. - trops, BNP, wbc, procal elevation on 04/25 likely 2/2 septic shock vs obstructive shock in setting of massive PE - 04/[address] AP reviewed. 04/25 UA normal. - 04/26 RUQ US with no acute pathology - Started back on eliquis 10 mg bid until 05/03-> followed by 5 mg bid from 05/04 at least for the next 3-6months and follow up with PCP to ensure resolution - She was empirically started on antibiotic (meropenem and vanco) 04/25-> Vanc discontinued 04/26-> switched to levaquin 04/27 to complete 2 week course. -Off of levophed, remains hemodynamically stable, on room air and transferred out of ICU 04/28 - Recommend repeat CBC, BMP and EKG for QTC monitoring in the next 4-5 days 3. Ecoli bacteremia 04/25 blood Cx: Pansensitive E coli 04/26 RUQ USG neg for acute pathology, 04/25 CTAP reviewed. 04/25 CTA chest: Subsegmental patchy groundglass opacities of the right greater than left upper lobes are suggestive of an infectious or inflammatory pneumonitis. On levaquin from 04/27 for total of 2 weeks tolerating well, QTc normal, renal function now normal. Repeat blood culture 04/27 negative. WBC now normalized 9.3->20->34->26->15->8 Procal trending down 0.49->119->159->79->33 4. BREA (acute kidney injury): Baseline Cr 0.8; Cr peaked to 2.43 and now trending down to1 Cr trend: 0.9->2->2.4->2.3->1.7->1.3->1.1->1 5. Transaminitis: 2/2 hypoperfusion event (04/24-04/25), now resolved. 6. Intractable back pain/ Intervertebral disc extrusion: As seen on lumbar MRI 03/24. Per ortho spine evaluation during last admission she is not a surgical candidate at this time. Continue PT/OT and conservative pain management. Weakness and proprioception issues noted with her right leg and foot, however, she is not a good candidate for surgery per Ortho spine last admission. Continue conservative management. Doing well on current pain regimen. Pain management saw her and is s/p Medrol dosepak. On baclofen and gabapentin.. Currently she is doing well on the muscle relaxer which she likes the most. Will continue with current regimen. C/w bowel regimen per patient's need. 7. Chronic radicular pain of lower back: Patient is not on narcotics at baseline. 8. Depression- on TCA/doxepin 9. ADHD- on Vyvanse in a.m. with additional dextroamphetamine every afternoon- resume when she brings from home. 10. RLS on ropinirole 11. hypothyroidism- on synthroid 12. Morbid obesity- BMI 57.3. lifestyle modifications strongly recommended to help strengthen her core and reduce the chance of further back injury. 13. PATTI on CPAP 14. H/o migraine- on propranolol for migraine prophylaxis but has not had migraine for years now. Propranolol was stopped on 04/25 due to hypotension and resumed at lower dose 04/29- titrate up as tolerated by blood pressure. Can try alternative medication if BP does not allow. DVT ppx- fully anticoagulated on eliquis Dispo- stable. discharging to center care today. Comfortable and stable for discharge. Updated sister in law (Rebeca Contreras) with patient's permission and answered all her questions. 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 Normally we continue the blood thinner for 3-6 months. Follow up with family doctor regarding the final duration of the eliquis and make sure the blood clots are resolved. Your propranolol (which you take for your migraine) was held due to low blood pressure. We have resumed at lower dose- you can go up slowly to your regular dose if blood pressure allows Continue pain medication as needed. Recommend repeat blood work (CBC, BMP) and repeat EKG for QTc monitoring in the next 4-5 days. Pending Studies at Discharge: No Stand-Alone Forms: My [facility] [place] Skilled Items Patient informed of condition?: Yes DNR: No Discharge Level of Care: Skilled Communicable Disease: No Discharge Prognosis: Stable Lines: None Urinary Catheter: No Medications and DC Order Prescriptions: New baclofen 10 mg Tablet 10 mg PO TID 7 Days Qty: 20 RF: 0 gabapentin 100 mg Capsule 100 mg PO TID 30 Days Qty: 90 RF: 0 nystatin [Nystop] 100,000 unit/gram Powder 1 applic EXT TID Qty: 100 RF: 0 Eliquis 5 mg Tablet 5 mg PO BID Qty: 60 RF: 0 levofloxacin 750 mg Tablet 750 mg PO DAILY@1100 Qty: 10 RF: 0 propranolol 10 mg Tablet 10 mg PO BID Qty: 60 RF: 0 Continued doxepin 10 mg capsule 10 mg PO HS RF: 0 dextroamphetamine sulfate 10 mg tablet 10 mg PO .EVERY AFTERNOON RF: 0 levothyroxine 100 mcg tablet 100 mcg PO DAILYBB RF: 0 ropinirole 0.5 mg tablet 1 mg PO .6 PM NIGHTLY RF: 0 montelukast 10 mg tablet 10 mg PO HS RF: 0 Vyvanse 70 mg capsule 70 mg PO QAM RF: 0 polyethylene glycol 3350 [Miralax] 17 gram Powder In Packet 17 g PO DAILY PRN (Reason: Constipation) Qty: 15 RF: 0 docusate sodium 100 mg Capsule 100 mg PO BID PRN (Reason: Constipation) Qty: 30 RF: 0 Changed oxycodone 5 mg Tablet 5 mg PO Q6 PRN (Reason: pain) 7 Days Qty: 28 RF: 0 Discontinued propranolol 120 mg capsule,extended release 24 hr 120 mg PO AMPM RF: 0 Admission Data Admit Date/Time: 04/07/22 23:45 Attending Provider: Jayme Andrews Admit Provider: Casey Cunningham Primary Care Provider: Uma Corral Other Providers: [facility] ; [facility], ; Casey Cunningham ; Génesis Beauchamp ; Judie Shepard ; Anni Manuel ; Henrietta Mcdonald ; Gary Patiño ; Omer Alcantara
[2022-04-30] MEDS: levoFLOXacin 750 MG TAB PO SCH ×3 (11:11→11:21)
[2022-05-04] MEDS ORDERED: APIXABAN 5 MG TABLET PO SCH (09:00)
== END 2022-04-30 13:25 | DRG 551 ==
LOC: ED 20:05 → 3N 23:45 → SUATTDRO 23:45 → 3N 04-08 00:21 → 2S 04-18 18:44 → 1E 04-25 04:53 → 2S 04-28 19:24